=== PATIENT | female | born 1940 | race Caucasian/White ===

== ENCOUNTER 2017-08-02 23:33 | Inpatient (IN) | payer MEDICARE, BC ==
[~2017-08-02] VITALS: Ht 154.9 cm; Wt 63.6 kg
[~2017-08-02 23:33] MED LIST: ALPR-624 PO; AMLO5TAB PO; ASPI-1009 PO; BEN12.5L PO; CARI350T PO; CARV25TA2 PO; FURO40TA4 PO; GABA300C PO; ISOS30TA9 PO; LEVO75TA50 PO; LISI-645 PO; NITR0.4T48 SL; NORCO10T PO; PANT-47 PO; PHEN-888 PO; POTA10CA44 PO; PROM25TA14 PO; RANI-366 PO; SIMV40TA PO; TRAZ150T78 PO
[2017-08-02] MEDS ORDERED: ondansetron/PF 4mg/2ml inj IV ONE (23:50)
[2017-08-02] MEDS ORDERED: HYDROmorphone inj. 0.5 MG/0.5 ML DISP.SYRIN IV ONE (23:50)
[2017-08-03] MEDS ORDERED: ondansetron 4mg rapidly disintigrating tab PO ONE (00:10)
[2017-08-03] MEDS ORDERED: normal saline 1000ML IV soln IVB ONE (00:40)
[2017-08-03 00:56] LABS: BASOPHILS % (AUTO) 0.3 % (0-1); EOSINOPHILS % (AUTO) 0.4 % (0-6); HEMATOCRIT 38.8 % (35.0-45.0); HEMOGLOBIN 12.9 g/dl (12.0-16.0); LYMPHOCYTES # (AUTO) 0.9 X10'3 (1.1-4.8); LYMPHOCYTES % (AUTO) 8.4 % (21-51); MEAN CORPUSCULAR HEMOGLOBIN 29.6 PG (27.0-31.0); MEAN CORPUSCULAR HGB CONC 33.2 % (33.0-36.5); MEAN CORPUSCULAR VOLUME 89.2 FL (78-98); MEAN PLATELET VOLUME 8.2 FL (7.4-10.4); MONOCYTES # (AUTO) 0.7 X10'3 (0-0.9); MONOCYTES % (AUTO) 6.5 % (2-12); NEUTROPHILS # (AUTO) 9.1 X10'3 (1.8-7.7); NEUTROPHILS % (AUTO) 84.4 % (42-75); PLATELET COUNT 283 X10'3 (140-440); RED BLOOD COUNT 4.35 X10'6 (4.20-5.60); RED CELL DISTRIBUTION WIDTH 12.6 % (11.5-14.5); WHITE BLOOD COUNT 10.7 X10'3 (4.5-11.0)
[2017-08-03 01:02] LABS: ALANINE AMINOTRANSFERASE 15 U/L (12-78); ALBUMIN 3.6 G/DL (3.4-5.0); ALBUMIN/GLOBULIN RATIO 0.9 (1.1-1.5); ALKALINE PHOSPHATASE 108 IU/L (46-116); ANION GAP 6 (8-16); ASPARTATE AMINO TRANSFERASE 14 U/L (10-37); BILIRUBIN,TOTAL 0.4 MG/DL (0.1-1.0); BLOOD UREA NITROGEN 9 MG/DL (7-18); BUN/CREATININE RATIO 10.6 (6.6-38.0); CALCIUM 8.9 MG/DL (8.5-10.1); CHLORIDE 96 MMOL/L (99-107); CREATININE 0.85 MG/DL (0.40-0.90); GLUCOSE 144 MG/DL (70-104); LIPASE 96 U/L (73-393); POTASSIUM 3.2 MMOL/L (3.5-5.1); SODIUM 133 MMOL/L (135-145); TOTAL CARBON DIOXIDE 31.2 MMOL/L (24-32); TOTAL PROTEIN 7.6 G/DL (6.4-8.2); eGFR 65 ML/MIN
[2017-08-03 01:44] LABS: PROTHROMBIN TIME 10.6 SECONDS (9.0-12.0)
[2017-08-03] MEDS ORDERED: potassium Cl 20 mEq SR tablet PO STA (02:12)
[2017-08-03] MEDS ORDERED: normal saline 1000ml 1,000 ML IV SCH (02:13)
[2017-08-03] MEDS ORDERED: HYDROmorphone 1 mg/ml syringe IV PRN (02:15)
[2017-08-03] MEDS ORDERED: magnesium hydroxide 30ml (MOM) UD suspension PO PRN (02:15)
[2017-08-03] MEDS ORDERED: acetaminophen 325mg tablet PO PRN ×2 (02:15)
[2017-08-03] MEDS ORDERED: mag hydrox/Alum hydrox/simeth 30ml oral suspension PO PRN (02:15)
[2017-08-03] MEDS ORDERED: potassium Cl 40MEQ/NS 500ml 500 ML IV PRN ×2 (02:15)
[2017-08-03] MEDS ORDERED: potassium Cl 20 mEq SR tablet PO PRN ×2 (02:15)
[2017-08-03] MEDS ORDERED: ALPRAZolam 0.5mg tablet PO PRN (02:20)
[2017-08-03] MEDS: HYDROmorphone 1 mg/ml syringe IV PRN ×3 (02:22→13:21)
[2017-08-03] MEDS ORDERED: potassium 10mEq/100ml NS w/LIDOcaine (10mg/bag) IV STA (02:32)
[2017-08-03] MEDS: ondansetron/PF 4mg/2ml inj IV PRN ×3 (04:05→13:43)
[2017-08-03] MEDS ORDERED: HYDROmorphone inj. 0.5 MG/0.5 ML DISP.SYRIN ONE (05:38)
[2017-08-03 06:08] VITALS: BP 174/74
[2017-08-03] MEDS ORDERED: levoTHYROXINE 75mcg tablet PO SCH (07:00)
[2017-08-03 07:21] VITALS: BP 137/60
[2017-08-03] MEDS: gabapentin 300mg capsule PO SCH ×2 (07:34→13:20)
[2017-08-03] MEDS ORDERED: pantoprazole 40mg Tablet.DR PO SCH (08:00)
[2017-08-03] MEDS ORDERED: isosorbide dinitrate 30mg tablet PO SCH (08:00)
[2017-08-03] MEDS ORDERED: amLODIPine 5mg tablet PO SCH (08:00)
[2017-08-03] MEDS ORDERED: lisinopril 20mg tablet PO SCH (08:00)
[2017-08-03] MEDS ORDERED: carVEDilol 12.5mg tablet PO SCH (08:00)
[2017-08-03] MEDS ORDERED: potassium chloride 10mEq CAPSULE.SA PO SCH (08:00)
[2017-08-03] MEDS ORDERED: furosemide 40mg tablet PO SCH (08:00)
[2017-08-03] MEDS ORDERED: atorvastatin 20mg tablet PO SCH (08:00)
[2017-08-03] MEDS: diatr meglu/diatrizoate 30ml oral sol.-(3 dose) bottle PO SCH ×2 (09:00→11:09)
[2017-08-03 11:00] VITALS: BP 132/60
[2017-08-03] MEDS ORDERED: traZODone 50mg tablet PO SCH (21:00)
== END 2017-08-03 15:30 | disposition home or self-care (01) | DRG 389 ==
LOC: ER 23:35 → ED HOLD 08-03 02:13 → SUR 3N 08-03 03:30
PROVIDERS: ADMIT Internal Medicine; ATTEND Surgery
PROC: 0D9670Z Drainage of Stomach with Drainage Device, Via Natural or Artificial Opening (ICD-10-PCS; principal; 2017-08-03)
DX: K56.600 Partial intestinal obstruction, unspecified as to cause (principal); I42.9 Cardiomyopathy, unspecified; I50.22 Chronic systolic (congestive) heart failure; I11.0 Hypertensive heart disease with heart failure; E87.6 Hypokalemia; E03.9 Hypothyroidism, unspecified; E78.5 Hyperlipidemia, unspecified; I25.10 Atherosclerotic heart disease of native coronary artery without angina pectoris; F41.9 Anxiety disorder, unspecified; G89.29 Other chronic pain; K21.9 Gastro-esophageal reflux disease without esophagitis; K52.9 Noninfective gastroenteritis and colitis, unspecified; I25.2 Old myocardial infarction; Z90.710 Acquired absence of both cervix and uterus; Z90.721 Acquired absence of ovaries, unilateral; Z95.5 Presence of coronary angioplasty implant and graft; Z95.0 Presence of cardiac pacemaker; Z79.899 Other long term (current) drug therapy; Z79.01 Long term (current) use of anticoagulants; Z88.0 Allergy status to penicillin; Z88.1 Allergy status to other antibiotic agents; Z88.2 Allergy status to sulfonamides; Z88.8 Allergy status to other drugs, medicaments and biological substances; Z88.6 Allergy status to analgesic agent
CPT/HCPCS: 36415; 74176; 80053; 83605; 83690; 85025; 85610; 87070; 96361; 96374; 96375; 99285; J1170; J2405; J3480; J7030; Q9963

== ENCOUNTER 2018-01-24 09:29 | Inpatient (IN) | payer MEDICARE, BC ==
[~2018-01-24] VITALS: Ht 152.4 cm; Wt 56.8 kg
[~2018-01-24 09:29] MED LIST changes: -PHEN-888 PO
[2018-01-24] MEDS ORDERED: normal saline 1000ML IV soln IVB ONE (09:50)
[2018-01-24] MEDS ORDERED: ondansetron/PF 4mg/2ml inj IV ONE (09:50)
[2018-01-24 10:12] LABS: BASOPHILS % (AUTO) 0.2 % (0-1); EOSINOPHILS # (AUTO) 0.1 X10'3 (0-0.9); EOSINOPHILS % (AUTO) 0.4 % (0-6); HEMATOCRIT 38.9 % (35.0-45.0); LYMPHOCYTES # (AUTO) 0.9 X10'3 (1.1-4.8); LYMPHOCYTES % (AUTO) 6.1 % (21-51); MEAN CORPUSCULAR HEMOGLOBIN 29.6 PG (27.0-31.0); MEAN CORPUSCULAR HGB CONC 33.5 % (33.0-36.5); MEAN CORPUSCULAR VOLUME 88.3 FL (78-98); MEAN PLATELET VOLUME 7.6 FL (7.4-10.4); MONOCYTES # (AUTO) 0.5 X10'3 (0-0.9); MONOCYTES % (AUTO) 3.4 % (2-12); NEUTROPHILS # (AUTO) 14.1 X10'3 (1.8-7.7); NEUTROPHILS % (AUTO) 89.9 % (42-75); PLATELET COUNT 270 X10'3 (140-440); RED BLOOD COUNT 4.41 X10'6 (4.20-5.60); RED CELL DISTRIBUTION WIDTH 15.2 % (11.5-14.5); WHITE BLOOD COUNT 15.6 X10'3 (4.5-11.0)
[2018-01-24 10:24] LABS: ALANINE AMINOTRANSFERASE 14 U/L (12-78); ALBUMIN 3.8 G/DL (3.4-5.0); ALKALINE PHOSPHATASE 108 IU/L (46-116); ANION GAP 7 (8-16); ASPARTATE AMINO TRANSFERASE 18 U/L (10-37); BILIRUBIN,TOTAL 0.7 MG/DL (0.1-1.0); BLOOD UREA NITROGEN 13 MG/DL (7-18); BUN/CREATININE RATIO 17.6 (6.6-38.0); CALCIUM 8.4 MG/DL (8.5-10.1); CHLORIDE 97 MMOL/L (99-107); CREATININE 0.74 MG/DL (0.40-0.90); GLUCOSE 176 MG/DL (70-104); POTASSIUM 3.2 MMOL/L (3.5-5.1); SODIUM 133 MMOL/L (135-145); TOTAL CARBON DIOXIDE 28.6 MMOL/L (24-32); TOTAL PROTEIN 7.7 G/DL (6.4-8.2); eGFR 76 ML/MIN
[2018-01-24] MEDS: morphine 4 MG/ML inj SYRINge IV ONE ×2 (10:31→10:32)
[2018-01-24 10:39] LABS: CLARITY,URINE CLEAR (Clear); COLOR,URINE YELLOW (Yellow); GLUCOSE, URINE NEGATIVE (Neg); KETONES,URINE NEGATIVE (Neg); LEUKOCYTE ESTERASE ,URINE NEGATIVE (Neg); NITRITES, URINE POSITIVE (Neg); OCCULT BLOOD,URINE NEGATIVE (Neg); PH,URINE 7.5 (4.8-8.0); PROTEIN,URINE NEGATIVE (Neg); UROBILINOGEN,URINE 0.2 E.U/dL (0.2-1.0)
[2018-01-24 10:43] LABS: UA COLLECTION TYPE STRAIGHT CATH
[2018-01-24 10:45] LABS: BACTERIA,URINE 4+ /HPF (Neg); MUCUS STRANDS FEW /LPF (Neg); RBC,URINE NONE SEEN /HPF (0-2); SQUAMOUS EPITHELIAL CELL,UR FEW /LPF (FEW); WBC,URINE 0-4 /HPF (0-4)
[2018-01-24] MEDS ORDERED: levoFLOXACIN-Levaquin 500mg/D5 100 ML IV ONE (12:00)
[2018-01-24] MEDS ORDERED: isosorbide dinitrate 30mg tablet PO SCH (14:10)
[2018-01-24] MEDS ORDERED: ondansetron/PF 4mg/2ml inj IV PRN (14:15)
[2018-01-24] MEDS ORDERED: potassium Cl 20 mEq SR tablet PO PRN ×2 (14:15)
[2018-01-24] MEDS ORDERED: magnesium 4gm in 100ml NS 100 ML IV PRN (14:15)
[2018-01-24] MEDS ORDERED: albuterol 2.5 MG/3 ML nebule NEB PRN (14:15)
[2018-01-24] MEDS ORDERED: magnesium/D5W IVPB 50 ML IV PRN (14:15)
[2018-01-24] MEDS ORDERED: magnesium hydroxide 30ml (MOM) UD suspension PO PRN (14:15)
[2018-01-24] MEDS ORDERED: morphine 4 MG/ML inj SYRINge IV PRN (14:15)
[2018-01-24] MEDS ORDERED: acetaminophen 325mg tablet PO PRN (14:15)
[2018-01-24] MEDS ORDERED: mag hydrox/Alum hydrox/simeth 30ml oral suspension PO PRN (14:15)
[2018-01-24] MEDS ORDERED: potassium Cl 40MEQ/NS 500ml 500 ML IV PRN ×2 (14:15)
[2018-01-24] MEDS ORDERED: isosorbide mononitrate 30mg tab.SR.24H PO SCH (14:18)
[2018-01-24] MEDS ORDERED: potassium Cl 20 mEq SR tablet PO STA (14:22)
[2018-01-24] MEDS: HYDROcodone/acetaminophen 10/325mg tab PO PRN ×2 (15:24→21:28)
[2018-01-24] MEDS: levoTHYROXINE 75mcg tablet PO SCH (15:24)
[2018-01-24] MEDS: pantoprazole 40mg Tablet.DR PO SCH (15:24)
[2018-01-24 15:45] VITALS: BP 143/61
[2018-01-24 18:00] VITALS: BP 111/48
[2018-01-24] MEDS: carVEDilol 12.5mg tablet PO SCH (20:43)
[2018-01-24] MEDS: gabapentin 300mg capsule PO SCH (20:43)
[2018-01-24] MEDS ORDERED: traZODone 50mg tablet PO SCH (21:00)
[2018-01-24 22:00] VITALS: BP 143/58
[2018-01-25] MEDS: HYDROcodone/acetaminophen 10/325mg tab PO PRN (03:36)
[2018-01-25 05:00] VITALS: BP 121/59
[2018-01-25] MEDS: furosemide 10 MG/1 ML 10ml inj IV SCH ×2 (05:26→08:00)
[2018-01-25 06:27] LABS: BASOPHILS % (AUTO) 0.1 % (0-1); EOSINOPHILS # (AUTO) 0.2 X10'3 (0-0.9); EOSINOPHILS % (AUTO) 1.6 % (0-6); HEMATOCRIT 32.6 % (35.0-45.0); HEMOGLOBIN 10.8 g/dl (12.0-16.0); LYMPHOCYTES % (AUTO) 8.9 % (21-51); MEAN CORPUSCULAR HEMOGLOBIN 29.6 PG (27.0-31.0); MEAN CORPUSCULAR HGB CONC 33.1 % (33.0-36.5); MEAN CORPUSCULAR VOLUME 89.2 FL (78-98); MEAN PLATELET VOLUME 7.8 FL (7.4-10.4); MONOCYTES # (AUTO) 0.7 X10'3 (0-0.9); MONOCYTES % (AUTO) 6.1 % (2-12); NEUTROPHILS # (AUTO) 9.2 X10'3 (1.8-7.7); NEUTROPHILS % (AUTO) 83.3 % (42-75); PLATELET COUNT 227 X10'3 (140-440); RED BLOOD COUNT 3.66 X10'6 (4.20-5.60); RED CELL DISTRIBUTION WIDTH 15.3 % (11.5-14.5)
[2018-01-25 06:53] LABS: CHOLESTEROL 138 MG/DL (0-200); HDL CHOLESTEROL 69 MG/DL (35-60); LDL CHOLESTEROL 65 MG/DL (50-100); MAGNESIUM 1.7 MG/DL (1.5-2.4); TRIGLYCERIDES 38 MG/DL (20-135)
[2018-01-25] MEDS: levoTHYROXINE 75mcg tablet PO SCH (07:50)
[2018-01-25] MEDS: pantoprazole 40mg Tablet.DR PO SCH (07:50)
[2018-01-25 07:51] VITALS: BP 141/62
[2018-01-25] MEDS: carVEDilol 12.5mg tablet PO SCH (07:51)
[2018-01-25] MEDS: gabapentin 300mg capsule PO SCH (07:51)
[2018-01-25] MEDS ORDERED: atorvastatin 20mg tablet PO SCH (08:00)
[2018-01-25] MEDS ORDERED: enoxaparin 40mg/0.4ml syringe SQ SCH (08:00)
[2018-01-25] MEDS ORDERED: amLODIPine 5mg tablet PO SCH (08:00)
[2018-01-25] MEDS ORDERED: K and/or MAG REPLACEMENT MC SCH (08:00)
[2018-01-25] MEDS ORDERED: lisinopril 10 MG tablet PO SCH (08:00)
[2018-01-25] MEDS ORDERED: APIX5TAB3 PO (08:44)
[2018-01-25 10:00] VITALS: BP 140/60
[2018-01-25] MEDS ORDERED: levoFLOXACIN 750MG TABLET PO SCH (11:00)
[2018-01-25] MEDS ORDERED: LEVO750T46 PO (11:34)
== END 2018-01-25 12:05 | disposition home or self-care (01) | DRG 193 ==
LOC: ER 09:30 → ED HOLD 14:11 → ORTHO 4S 15:18
PROVIDERS: ADMIT Family Medicine; ATTEND Internal Medicine
DX: J18.1 Lobar pneumonia, unspecified organism (principal); J96.01 Acute respiratory failure with hypoxia; I42.9 Cardiomyopathy, unspecified; I50.22 Chronic systolic (congestive) heart failure; K21.9 Gastro-esophageal reflux disease without esophagitis; E78.5 Hyperlipidemia, unspecified; E89.0 Postprocedural hypothyroidism; G89.29 Other chronic pain; F41.9 Anxiety disorder, unspecified; I11.0 Hypertensive heart disease with heart failure; M54.5 Low back pain; R73.9 Hyperglycemia, unspecified; E87.6 Hypokalemia; I25.10 Atherosclerotic heart disease of native coronary artery without angina pectoris; I25.2 Old myocardial infarction; Z90.710 Acquired absence of both cervix and uterus; Z95.5 Presence of coronary angioplasty implant and graft; Z88.1 Allergy status to other antibiotic agents; Z88.5 Allergy status to narcotic agent; Z88.0 Allergy status to penicillin; Z88.2 Allergy status to sulfonamides; Z88.8 Allergy status to other drugs, medicaments and biological substances; Z79.01 Long term (current) use of anticoagulants; Z79.899 Other long term (current) drug therapy; Z80.6 Family history of leukemia
CPT/HCPCS: 36415; 71045; 74176; 80053; 80061; 81001; 83036; 83735; 84443; 85025; 87070; 87077; 87088; 87186; 93005; 93306; 94640; 94760; 96365; 96375; 99285; J1650; J1940; J1956; J2270; J2405; J7030

== ENCOUNTER 2018-03-14 16:02 | Emergency (ER) | payer MEDICARE ==
[~2018-03-14] VITALS: Ht 154.9 cm; Wt 58.6 kg
[~2018-03-14 16:02] MED LIST changes: +APIX5TAB3 PO; -ASPI-1009 PO; +LEVO750T46 PO; -RANI-366 PO
[2018-03-14 16:44] LABS: BASOPHILS % (AUTO) 0.6 % (0-1); EOSINOPHILS # (AUTO) 0.2 X10'3 (0-0.9); EOSINOPHILS % (AUTO) 3.7 % (0-6); HEMATOCRIT 32.8 % (35.0-45.0); LYMPHOCYTES # (AUTO) 1.5 X10'3 (1.1-4.8); LYMPHOCYTES % (AUTO) 30.7 % (21-51); MEAN CORPUSCULAR HGB CONC 33.6 % (33.0-36.5); MEAN CORPUSCULAR VOLUME 89.4 FL (78-98); MEAN PLATELET VOLUME 7.4 FL (7.4-10.4); MONOCYTES # (AUTO) 0.4 X10'3 (0-0.9); MONOCYTES % (AUTO) 8.6 % (2-12); NEUTROPHILS # (AUTO) 2.7 X10'3 (1.8-7.7); NEUTROPHILS % (AUTO) 56.4 % (42-75); PLATELET COUNT 255 X10'3 (140-440); RED BLOOD COUNT 3.68 X10'6 (4.20-5.60); RED CELL DISTRIBUTION WIDTH 15.2 % (11.5-14.5); WHITE BLOOD COUNT 4.8 X10'3 (4.5-11.0)
[2018-03-14 16:59] LABS: ALANINE AMINOTRANSFERASE 15 U/L (12-78); ALBUMIN 3.2 G/DL (3.4-5.0); ALBUMIN/GLOBULIN RATIO 0.9 (1.1-1.5); ALKALINE PHOSPHATASE 82 IU/L (46-116); ANION GAP 4 (8-16); ASPARTATE AMINO TRANSFERASE 9 U/L (10-37); BILIRUBIN,TOTAL 0.2 MG/DL (0.1-1.0); BLOOD UREA NITROGEN 13 MG/DL (7-18); BUN/CREATININE RATIO 14.9 (6.6-38.0); CALCIUM 7.9 MG/DL (8.5-10.1); CHLORIDE 98 MMOL/L (99-107); CREATININE 0.87 MG/DL (0.40-0.90); GLUCOSE 112 MG/DL (70-104); SODIUM 133 MMOL/L (135-145); TOTAL CARBON DIOXIDE 30.6 MMOL/L (24-32); TOTAL PROTEIN 6.6 G/DL (6.4-8.2); eGFR 63 ML/MIN
[2018-03-14 17:07] LABS: MAGNESIUM 1.9 MG/DL (1.5-2.4)
[2018-03-14] MEDS ORDERED: LORA1TAB PO (17:29)
[2018-03-14 17:42] VITALS: BP 139/71
== END 2018-03-14 17:44 | disposition home or self-care (01) ==
LOC: ER 16:02
DX: R07.89 Other chest pain (principal); R07.81 Pleurodynia; I25.10 Atherosclerotic heart disease of native coronary artery without angina pectoris; I25.2 Old myocardial infarction; K21.9 Gastro-esophageal reflux disease without esophagitis; G89.29 Other chronic pain; I11.0 Hypertensive heart disease with heart failure; I50.9 Heart failure, unspecified; E89.0 Postprocedural hypothyroidism; F41.9 Anxiety disorder, unspecified; Z88.5 Allergy status to narcotic agent; Z90.89 Acquired absence of other organs; Z88.1 Allergy status to other antibiotic agents; Z88.0 Allergy status to penicillin; Z88.8 Allergy status to other drugs, medicaments and biological substances; Z88.6 Allergy status to analgesic agent; Z79.899 Other long term (current) drug therapy; Z95.0 Presence of cardiac pacemaker; Z90.710 Acquired absence of both cervix and uterus
CPT/HCPCS: 36415; 71045; 80053; 83735; 83880; 84484; 85025; 93005; 99285

== ENCOUNTER 2018-07-28 12:37 | Emergency (ER) | payer MEDICARE ==
[~2018-07-28] VITALS: Ht 154.9 cm; Wt 61.8 kg
[2018-07-28] MEDS ORDERED: aspirin 81mg tab.chew PO ONE (12:45)
[2018-07-28 13:08] LABS: BASOPHILS % (AUTO) 0.5 % (0-1); EOSINOPHILS % (AUTO) 0.6 % (0-6); HEMATOCRIT 41.6 % (35.0-45.0); HEMOGLOBIN 13.1 g/dl (12.0-16.0); LYMPHOCYTES % (AUTO) 26.8 % (21-51); MEAN CORPUSCULAR HGB CONC 31.6 % (33.0-36.5); MEAN PLATELET VOLUME 7.5 FL (7.4-10.4); MONOCYTES # (AUTO) 0.8 X10'3 (0-0.9); MONOCYTES % (AUTO) 10.4 % (2-12); NEUTROPHILS # (AUTO) 4.6 X10'3 (1.8-7.7); NEUTROPHILS % (AUTO) 61.7 % (42-75); PLATELET COUNT 361 X10'3 (140-440); RED BLOOD COUNT 4.52 X10'6 (4.20-5.60); RED CELL DISTRIBUTION WIDTH 13.2 % (11.5-14.5); WHITE BLOOD COUNT 7.4 X10'3 (4.5-11.0)
[2018-07-28 13:24] LABS: ALANINE AMINOTRANSFERASE 21 U/L (12-78); ALBUMIN 3.8 G/DL (3.4-5.0); ALBUMIN/GLOBULIN RATIO 0.9 (1.1-1.5); ALKALINE PHOSPHATASE 89 IU/L (46-116); ANION GAP 9 (8-16); ASPARTATE AMINO TRANSFERASE 15 U/L (10-37); BILIRUBIN,TOTAL 0.4 MG/DL (0.1-1.0); BLOOD UREA NITROGEN 13 MG/DL (7-18); BUN/CREATININE RATIO 15.1 (6.6-38.0); CHLORIDE 98 MMOL/L (99-107); CREATININE 0.86 MG/DL (0.40-0.90); GLUCOSE 106 MG/DL (70-104); INR 1.1 INR; PARTIAL THROMBOPLASTIN TIME 27 SECONDS (22-32); POTASSIUM 4.1 MMOL/L (3.5-5.1); PROTHROMBIN TIME 10.9 SECONDS (9.0-12.0); SODIUM 138 MMOL/L (135-145); TOTAL CARBON DIOXIDE 30.9 MMOL/L (24-32); TOTAL PROTEIN 7.9 G/DL (6.4-8.2); eGFR 64 ML/MIN
[2018-07-28] MEDS ORDERED: orphenadrine citrate 60mg/2ml inj. IM ONE (14:00)
[2018-07-28] MEDS ORDERED: ketorolac tromethamine 15mg/ml inj. IM ONE (14:00)
[2018-07-28 14:38] VITALS: BP 140/77
== END 2018-07-28 14:47 | disposition home or self-care (01) ==
LOC: ER 12:37
DX: R07.89 Other chest pain (principal); I25.10 Atherosclerotic heart disease of native coronary artery without angina pectoris; I25.2 Old myocardial infarction; K21.9 Gastro-esophageal reflux disease without esophagitis; G89.29 Other chronic pain; I11.0 Hypertensive heart disease with heart failure; I50.9 Heart failure, unspecified; Z88.0 Allergy status to penicillin; Z88.1 Allergy status to other antibiotic agents; Z88.2 Allergy status to sulfonamides; Z88.6 Allergy status to analgesic agent; Z88.8 Allergy status to other drugs, medicaments and biological substances; Z79.899 Other long term (current) drug therapy; Z90.710 Acquired absence of both cervix and uterus; Z95.0 Presence of cardiac pacemaker; Z90.89 Acquired absence of other organs
CPT/HCPCS: 36415; 71045; 80053; 84484; 85025; 85610; 85730; 93005; 96372; 99284; J1885; J2360

== ENCOUNTER 2018-10-25 14:20 | Day surgery (SDC) | payer MEDICARE ==
[2018-10-22 17:22] LABS: BASOPHILS % (AUTO) 0.2 % (0-1); EOSINOPHILS % (AUTO) 0.2 % (0-6); HEMATOCRIT 35.4 % (35.0-45.0); HEMOGLOBIN 11.5 g/dl (12.0-16.0); LYMPHOCYTES # (AUTO) 1.3 X10'3 (1.1-4.8); LYMPHOCYTES % (AUTO) 12.4 % (21-51); MEAN CORPUSCULAR HEMOGLOBIN 28.2 PG (27.0-31.0); MEAN CORPUSCULAR HGB CONC 32.4 g/dL (33.0-36.5); MEAN CORPUSCULAR VOLUME 87.1 FL (78-98); MEAN PLATELET VOLUME 7.9 FL (7.4-10.4); MONOCYTES # (AUTO) 0.5 X10'3 (0-0.9); MONOCYTES % (AUTO) 4.8 % (2-12); NEUTROPHILS # (AUTO) 8.5 X10'3 (1.8-7.7); NEUTROPHILS % (AUTO) 82.4 % (42-75); PLATELET COUNT 278 X10'3 (140-440); RED BLOOD COUNT 4.07 X10'6 (4.20-5.60); RED CELL DISTRIBUTION WIDTH 14.2 % (11.5-14.5); WHITE BLOOD COUNT 10.4 X10'3 (4.5-11.0)
[2018-10-22 17:27] LABS: ANION GAP 4 (8-16); BLOOD UREA NITROGEN 9 MG/DL (7-18); BUN/CREATININE RATIO 12.3 (6.6-38.0); CALCIUM 9.3 MG/DL (8.5-10.1); CHLORIDE 103 MMOL/L (99-107); CREATININE 0.73 MG/DL (0.40-0.90); GLUCOSE 110 MG/DL (70-104); POTASSIUM 4.1 MMOL/L (3.5-5.1); SODIUM 139 MMOL/L (135-145); TOTAL CARBON DIOXIDE 31.8 MMOL/L (24-32); eGFR 78 ML/MIN
[2018-10-22 17:34] LABS: INR 1.1 INR; PARTIAL THROMBOPLASTIN TIME 30 SECONDS (22-32); PROTHROMBIN TIME 11.2 SECONDS (9.0-12.0)
[2018-10-25] VITALS (7 sets, daily range): BP systolic 130–139; BP diastolic 55–93
[~2018-10-25] VITALS: Ht 152.4 cm; Wt 57.3 kg
[2018-10-25] MEDS ORDERED: LORazepam 0.5 MG tablet PO PRN (14:40)
[2018-10-25] MEDS ORDERED: diphenhydrAMINE 25mg capsule PO PRN (14:40)
[2018-10-25] MEDS ORDERED: normal saline 1,000 ML IV SCH (14:40)
[2018-10-25] MEDS ORDERED: APIX5TAB3 PO (14:57)
[2018-10-25] MEDS ORDERED: PHEN-888 PO (15:06)
[2018-10-25] MEDS ORDERED: DIPH-681 PO (15:06)
[2018-10-25] MEDS ORDERED: RANI150T8 PO (15:06)
[2018-10-25] MEDS ORDERED: GABA-532 PO (15:06)
[2018-10-25] MEDS ORDERED: OXYC30TA88 PO (15:06)
[2018-10-25] MEDS ORDERED: LIDOcaine 1% (10mg/ml)w/preservative injection 20ml MDV ONE (16:36)
[2018-10-25] MEDS ORDERED: iohexol 350MG/ML 100ml bottle IV ONE (16:36)
[2018-10-25] MEDS ORDERED: midazolam 2 mg/2 ml injection ONE (16:52)
[2018-10-25] MEDS ORDERED: fentaNYL/PF 50MCG/1 ML 2ML syringe ONE (16:53)
[2018-10-25] MEDS ORDERED: HYDROmorphone 1 mg/ml syringe ONE (17:07)
[2018-10-25] MEDS ORDERED: HYDROcodone/acetaminophen 5mg/325mg tablet PO PRN (17:40)
[2018-10-25] MEDS ORDERED: proCHLORperazine 10 MG/2 ml inj IV PRN (17:40)
[2018-10-25] MEDS ORDERED: ondansetron/PF 4mg/2ml inj IV PRN (17:40)
[2018-10-25] MEDS ORDERED: OXAZEpam 15mg capsule PO PRN (17:40)
[2018-10-25] MEDS ORDERED: HYDROcodone/acetaminophen 10/325mg tab PO PRN (17:40)
== END 2018-10-25 20:00 | disposition home or self-care (01) ==
LOC: SSTAY O 14:20
PROVIDERS: ATTEND Internal Medicine Interventional Cardiology
DX: I25.10 Atherosclerotic heart disease of native coronary artery without angina pectoris (principal); E78.5 Hyperlipidemia, unspecified; I50.9 Heart failure, unspecified; I73.9 Peripheral vascular disease, unspecified; E03.9 Hypothyroidism, unspecified; I42.9 Cardiomyopathy, unspecified; Z88.8 Allergy status to other drugs, medicaments and biological substances; I11.0 Hypertensive heart disease with heart failure; Z88.0 Allergy status to penicillin; Z88.2 Allergy status to sulfonamides; Z88.1 Allergy status to other antibiotic agents
CPT/HCPCS: 36415; 80048; 85025; 85610; 85730; 93005; 93458; 99152; 99153; A6257; J1170; J1644; J2001; J2250; J3010; J7030; Q0163; Q9967; A4620; C1769

== ENCOUNTER 2019-04-13 10:22 | Inpatient (IN) | payer MEDICARE, BC ==
[~2019-04-13] VITALS: Ht 149.9 cm; Wt 56.0 kg
[~2019-04-13 10:22] MED LIST changes: -BEN12.5L PO; -CARI350T PO; +DIPH-681 PO; +GABA-532 PO; -GABA300C PO; -LEVO750T46 PO; -NORCO10T PO; +OXYC30TA88 PO; +PHEN-888 PO; +RANI150T8 PO
[2019-04-13] MEDS ORDERED: methylPREDNISolone sod succ 125mg/2ml vial IV ONE (10:35)
[2019-04-13] MEDS ORDERED: CefTRIAXone/D5W-Rocephin 1gm 50 ML IV ONE (10:35)
[2019-04-13] MEDS ORDERED: azithromycin/NS 500mg/250ml 250 ML IV ONE (10:35)
--- NOTE | 2019-04-13 10:43 | NUR ---
Discussed pt condition with MD Olman who placed patient orders.
[2019-04-13 11:19] LABS: BASOPHILS % (AUTO) 0.2 % (0-1); EOSINOPHILS # (AUTO) 0.1 X10'3 (0-0.9); EOSINOPHILS % (AUTO) 0.5 % (0-6); HEMATOCRIT 35.5 % (35.0-45.0); HEMOGLOBIN 11.6 g/dl (12.0-16.0); LYMPHOCYTES # (AUTO) 0.9 X10'3 (1.1-4.8); LYMPHOCYTES % (AUTO) 6.6 % (21-51); MEAN CORPUSCULAR HEMOGLOBIN 29.5 PG (27.0-31.0); MEAN CORPUSCULAR HGB CONC 32.7 g/dL (33.0-36.5); MEAN CORPUSCULAR VOLUME 90.1 FL (78-98); MEAN PLATELET VOLUME 8.2 FL (7.4-10.4); MONOCYTES # (AUTO) 0.9 X10'3 (0-0.9); MONOCYTES % (AUTO) 6.4 % (2-12); NEUTROPHILS # (AUTO) 12.2 X10'3 (1.8-7.7); NEUTROPHILS % (AUTO) 86.3 % (42-75); PLATELET COUNT 228 X10'3 (140-440); RED BLOOD COUNT 3.94 X10'6 (4.20-5.60); RED CELL DISTRIBUTION WIDTH 13.5 % (11.5-14.5); WHITE BLOOD COUNT 14.2 X10'3 (4.5-11.0)
[2019-04-13 11:26] LABS: CLARITY,URINE CLEAR (Clear); COLOR,URINE STRAW (Yellow); GLUCOSE, URINE NEGATIVE (Neg); KETONES,URINE NEGATIVE (Neg); LEUKOCYTE ESTERASE ,URINE NEGATIVE (Neg); NITRITES, URINE NEGATIVE (Neg); OCCULT BLOOD,URINE NEGATIVE (Neg); PH,URINE 5.5 (4.8-8.0); PROTEIN,URINE NEGATIVE (Neg); UROBILINOGEN,URINE 0.2 E.U/dL (0.2-1.0)
[2019-04-13 11:32] LABS: PARTIAL THROMBOPLASTIN TIME 27 SECONDS (22-32)
[2019-04-13 11:45] LABS: UA COLLECTION TYPE CLN CATCH MIDSTREAM
[2019-04-13 11:47] LABS: ALANINE AMINOTRANSFERASE 22 U/L (12-78); ALBUMIN 3.1 G/DL (3.4-5.0); ALBUMIN/GLOBULIN RATIO 0.7 (1.1-1.5); ALKALINE PHOSPHATASE 141 IU/L (46-116); ANION GAP 9 (8-16); ASPARTATE AMINO TRANSFERASE 23 U/L (10-37); BILIRUBIN,TOTAL 0.7 MG/DL (0.1-1.0); BLOOD UREA NITROGEN 5 MG/DL (7-18); BUN/CREATININE RATIO 7.7 (6.6-38.0); CALCIUM 8.2 MG/DL (8.5-10.1); CHLORIDE 102 MMOL/L (99-107); CREATININE 0.65 MG/DL (0.40-0.90); GLUCOSE 174 MG/DL (70-104); POTASSIUM 3.8 MMOL/L (3.5-5.1); SODIUM 139 MMOL/L (135-145); TOTAL CARBON DIOXIDE 27.8 MMOL/L (24-32); TOTAL PROTEIN 7.4 G/DL (6.4-8.2); eGFR 88 ML/MIN
[2019-04-13] MEDS ORDERED: furosemide 10 MG/1 ML 10ml inj IV ONE (12:05)
[2019-04-13] MEDS ORDERED: mag hydrox/Alum hydrox/simeth 30ml oral suspension PO PRN (12:25)
[2019-04-13] MEDS ORDERED: magnesium hydroxide 30ml (MOM) UD suspension PO PRN (12:25)
[2019-04-13] MEDS ORDERED: morphine 2 MG/ML inj. syringe IV PRN ×2 (12:25)
[2019-04-13] MEDS ORDERED: ondansetron/PF 4mg/2ml inj IV PRN (12:25)
[2019-04-13] MEDS ORDERED: acetaminophen 325mg tablet PO PRN (12:25)
[2019-04-13] MEDS ORDERED: MULT-955 PO (12:55)
[2019-04-13 13:06] LABS: HEMOGLOBIN A1C 5.6 % (4.5-6.2)
[2019-04-13] MEDS ORDERED: OXYC10TA47 PO (13:48)
[2019-04-13] MEDS ORDERED: CLON-370 PO (13:56)
[2019-04-13] MEDS ORDERED: HYDR-3972 PO (13:56)
[2019-04-13 14:30] VITALS: BP 132/51
--- NOTE | 2019-04-13 14:30 | NUR ---
Patient is admitted to room PCU 3012 from ED. I have received report from Torie PERRY and had the opportunity to ask questions and assume patient care. Pt is stable, brought up w/ 1 RN and via rcharlotte, transferred from [facility] to bed, tele monitor 60 placed, pt oriented to unit call light w/in reach, all needs met at this time. will continue to monitor.
[2019-04-13 15:00] VITALS: BP 124/48
[2019-04-13] MEDS ORDERED: TRAZ-219 PO (16:08)
--- NOTE | 2019-04-13 16:12 | NUR ---
PAGER ID: [phone] MESSAGE: [id number]: Krupa Mcintyre: Pt is c/o 01/26 chronic back pain requesting pain med stronger than PRN tylenol. Thanks Adriana [phone]
--- NOTE | 2019-04-13 16:19 | NUR ---
PAGER ID: [phone] MESSAGE: [phone] Krupa Mcintyre: Pt states she takes Oxycontin 10mg routinely and prn Panora for break through pain. Thanks Adriana [phone]
[2019-04-13] MEDS ORDERED: HYDROcodone/acetaminophen 5mg/325mg tablet PO PRN (16:25)
[2019-04-13] MEDS ORDERED: nitroGLYCERIN 0.4mg SUBLingual tab SL SCH (16:30)
[2019-04-13] MEDS ORDERED: phenazopyridine 100mg tablet PO PRN (16:30)
[2019-04-13] MEDS: famotidine 20mg tablet PO SCH (16:56)
[2019-04-13 18:00] VITALS: BP 119/42
--- NOTE | 2019-04-13 18:21 | NUR ---
Problems reprioritized. Patient report given, questions answered & plan of care reviewed with Belkis PERRY.
--- NOTE | 2019-04-13 18:30 | NUR ---
Patient in room PCU 3012. I have received report from Katelyn PERRY and had the opportunity to ask questions and assume patient care.
--- NOTE | 2019-04-13 18:34 | NUR ---
Patient in room PCU 3012. I have received report from ORLANDO Wright and had the opportunity to ask questions and assume patient care.
[2019-04-13] MEDS ORDERED: clonazePAM 1mg tablet PO SCH (20:00)
[2019-04-13] MEDS: oxyCODONE IR 5mg (immed. release) tablet PO SCH (20:20)
[2019-04-13] MEDS: carVEDilol 12.5mg tablet PO SCH (20:21)
[2019-04-13] MEDS: lisinopril 20mg tablet PO SCH (20:21)
[2019-04-13] MEDS: isosorbide dinitrate 5mg tablet PO SCH (20:21)
[2019-04-13] MEDS: furosemide 40mg/4ml inj IV SCH (20:22)
[2019-04-13] MEDS: gabapentin 300mg capsule PO SCH (20:22)
[2019-04-13] MEDS: apixaban 5mg tablet PO SCH (20:22)
[2019-04-13 23:00] VITALS: BP 108/41
[2019-04-14 03:00] VITALS: BP 117/50
[2019-04-14] MEDS: oxyCODONE IR 5mg (immed. release) tablet PO SCH ×2 (05:21→09:15)
[2019-04-14 05:58] LABS: BASOPHILS % (AUTO) 0.2 % (0-1); EOSINOPHILS % (AUTO) 0 % (0-6); HEMATOCRIT 30.5 % (35.0-45.0); HEMOGLOBIN 10.2 g/dl (12.0-16.0); LYMPHOCYTES # (AUTO) 0.9 X10'3 (1.1-4.8); LYMPHOCYTES % (AUTO) 7.9 % (21-51); MEAN CORPUSCULAR HEMOGLOBIN 29.9 PG (27.0-31.0); MEAN CORPUSCULAR HGB CONC 33.6 g/dL (33.0-36.5); MEAN PLATELET VOLUME 8.5 FL (7.4-10.4); MONOCYTES # (AUTO) 0.6 X10'3 (0-0.9); MONOCYTES % (AUTO) 5.2 % (2-12); NEUTROPHILS # (AUTO) 10.3 X10'3 (1.8-7.7); NEUTROPHILS % (AUTO) 86.7 % (42-75); PLATELET COUNT 196 X10'3 (140-440); RED BLOOD COUNT 3.43 X10'6 (4.20-5.60); RED CELL DISTRIBUTION WIDTH 13.4 % (11.5-14.5); WHITE BLOOD COUNT 11.9 X10'3 (4.5-11.0)
[2019-04-14 06:00] VITALS: BP 127/50
--- NOTE | 2019-04-14 06:30 | NUR ---
Problems reprioritized. Patient report given, questions answered & plan of care reviewed with ORLANDO Gentile .
[2019-04-14 06:44] LABS: ALBUMIN 2.5 G/DL (3.4-5.0); ANION GAP 7 (8-16); BLOOD UREA NITROGEN 8 MG/DL (7-18); BUN/CREATININE RATIO 12.5 (6.6-38.0); CHLORIDE 103 MMOL/L (99-107); CHOLESTEROL 112 MG/DL (0-200); CREATININE 0.64 MG/DL (0.40-0.90); GLUCOSE 143 MG/DL (70-104); HDL CHOLESTEROL 57 MG/DL (35-60); LDL CHOLESTEROL 48 MG/DL (50-100); POTASSIUM 3.1 MMOL/L (3.5-5.1); SODIUM 141 MMOL/L (135-145); TOTAL CARBON DIOXIDE 30.9 MMOL/L (24-32); TRIGLYCERIDES 53 MG/DL (20-135); eGFR 90 ML/MIN
--- NOTE | 2019-04-14 06:52 | NUR ---
Patient in room [place] [id number]. I have received report from and had the opportunity to ask questions and assume patient care. Addendum: 04/14/19 at 0653 by Adriana Ford RN Patient in room [place] [id number]. I have received report from Belkis PERRY and had the opportunity to ask questions and assume patient care. Pt is awake in bed, will continue to monitor.
[2019-04-14] MEDS: apixaban 5mg tablet PO SCH (07:24)
[2019-04-14] MEDS: famotidine 20mg tablet PO SCH (07:25)
[2019-04-14] MEDS: furosemide 40mg/4ml inj IV SCH (07:25)
[2019-04-14] MEDS: gabapentin 300mg capsule PO SCH (07:25)
[2019-04-14] MEDS: carVEDilol 12.5mg tablet PO SCH (07:25)
[2019-04-14 07:27] VITALS: BP_SYST 127
[2019-04-14] MEDS: lisinopril 20mg tablet PO SCH (07:27)
[2019-04-14] MEDS: isosorbide dinitrate 5mg tablet PO SCH (07:41)
[2019-04-14] MEDS ORDERED: potassium Cl 20 mEq SR tablet PO PRN ×4 (07:55)
[2019-04-14] MEDS ORDERED: potassium CL 10mEq/100ml bag 100 ML IV PRN ×2 (07:55)
--- NOTE | 2019-04-14 07:55 | NUR ---
Spoke with Dr. Schaffer about potassium level 3.1; received orders for potassium replacement.
[2019-04-14] MEDS ORDERED: FURO40TA4 PO (07:58)
[2019-04-14] MEDS ORDERED: multivitamins, therapeutics tablet PO SCH (08:00)
[2019-04-14] MEDS ORDERED: proMETHazine 25mg tablet PO SCH (08:00)
[2019-04-14] MEDS ORDERED: potassium chloride 10mEq ER tablet PO SCH (08:00)
[2019-04-14] MEDS ORDERED: pantoprazole 40mg Tablet.DR PO SCH (08:00)
[2019-04-14] MEDS ORDERED: levoTHYROXINE 75mcg tablet PO SCH (08:00)
[2019-04-14] MEDS ORDERED: K and/or MAG REPLACEMENT MC SCH (08:00)
[2019-04-14] MEDS ORDERED: atorvastatin 20mg tablet PO SCH (08:00)
[2019-04-14] MEDS: K, MAG and/or Phos replacement - Verify level? MC SCH ×2 (08:14→08:54)
[2019-04-14] MEDS ORDERED: phenazopyridine 100mg tablet PO PRN (09:45)
--- NOTE | 2019-04-14 10:04 | NUR ---
Patient stable for discharge per MD orders. All discharge instructions reviewed with patient and all questions were answered. New Rx called into [facility] on [facility]; patient aware. PIV discontinued, cannula intact, tolerated well, no bleeding noted, clean dry dressing in place. quality assurance monitor chassis #60 removed and returned. All personal belongings gathered and sent with patient. Patient wheeled to lobby with hospital staff at 1015 to be transported home in a private vehicle by .
== END 2019-04-14 10:20 | disposition home health service (06) | DRG 189 ==
LOC: ER 10:23 → PCU 3S 14:59
PROVIDERS: ADMIT Internal Medicine; ATTEND Internal Medicine
DX: J96.01 Acute respiratory failure with hypoxia (principal); I50.23 Acute on chronic systolic (congestive) heart failure; R65.11 Systemic inflammatory response syndrome (SIRS) of non-infectious origin with acute organ dysfunction; I11.0 Hypertensive heart disease with heart failure; E78.5 Hyperlipidemia, unspecified; E89.0 Postprocedural hypothyroidism; F41.9 Anxiety disorder, unspecified; G89.29 Other chronic pain; I49.5 Sick sinus syndrome; I25.10 Atherosclerotic heart disease of native coronary artery without angina pectoris; I48.0 Paroxysmal atrial fibrillation; G47.00 Insomnia, unspecified; K21.9 Gastro-esophageal reflux disease without esophagitis; Z79.01 Long term (current) use of anticoagulants; Z79.891 Long term (current) use of opiate analgesic; I25.2 Old myocardial infarction; Z79.899 Other long term (current) drug therapy; Z80.6 Family history of leukemia; Z90.710 Acquired absence of both cervix and uterus; Z95.0 Presence of cardiac pacemaker; Z88.1 Allergy status to other antibiotic agents; Z88.0 Allergy status to penicillin; Z88.2 Allergy status to sulfonamides; Z88.8 Allergy status to other drugs, medicaments and biological substances
CPT/HCPCS: 36415; 71045; 80048; 80053; 80061; 81003; 83036; 83605; 83880; 84145; 84484; 85025; 85610; 85730; 87040; 87081; 93005; 93306; 96365; 96368; 96375; 99285; G0378; J0456; J0696; J1940; J2930; Q0169

== ENCOUNTER 2020-02-23 11:33 | Emergency (ER) | payer BC ==
[~2020-02-23] VITALS: Ht 152.4 cm; Wt 62.4 kg
[~2020-02-23 11:33] MED LIST changes: -ALPR-624 PO; -AMLO5TAB PO; +AMLO5TAB4 PO; -DIPH-681 PO; +FURO-150 PO; -FURO40TA4 PO; +ISOS30TA6 PO; -ISOS30TA9 PO; +LISI-600 PO; -LISI-645 PO; -NITR0.4T48 SL; +OMEP40CA13 PO; +OXYC10TA47 PO; -OXYC30TA88 PO; -PANT-47 PO; -PHEN-888 PO; -POTA10CA44 PO; -PROM25TA14 PO; -RANI150T8 PO; -TRAZ150T78 PO
[2020-02-23] MEDS ORDERED: diltiazem 5mg/ml 5ml inj. IV ONE (11:50)
[2020-02-23] MEDS ORDERED: aspirin 81mg tab.chew PO ONE (11:50)
[2020-02-23 12:15] LABS: BASOPHILS % (AUTO) 0.5 % (0-1); EOSINOPHILS # (AUTO) 0.1 X10'3 (0-0.9); EOSINOPHILS % (AUTO) 1.4 % (0-6); HEMATOCRIT 37.1 % (35.0-45.0); HEMOGLOBIN 12.1 g/dl (12.0-16.0); LYMPHOCYTES # (AUTO) 0.9 X10'3 (1.1-4.8); LYMPHOCYTES % (AUTO) 11.1 % (21-51); MEAN CORPUSCULAR HEMOGLOBIN 28.4 PG (27.0-31.0); MEAN CORPUSCULAR HGB CONC 32.6 g/dL (33.0-36.5); MEAN CORPUSCULAR VOLUME 86.9 FL (78-98); MEAN PLATELET VOLUME 7.7 FL (7.4-10.4); MONOCYTES # (AUTO) 0.6 X10'3 (0-0.9); MONOCYTES % (AUTO) 7.3 % (2-12); NEUTROPHILS # (AUTO) 6.4 X10'3 (1.8-7.7); NEUTROPHILS % (AUTO) 79.7 % (42-75); PLATELET COUNT 283 X10'3 (140-440); RED BLOOD COUNT 4.26 X10'6 (4.20-5.60); RED CELL DISTRIBUTION WIDTH 14.4 % (11.5-14.5); WHITE BLOOD COUNT 8.1 X10'3 (4.5-11.0)
--- NOTE | 2020-02-23 12:18 | NUR ---
NOTIFIED ORLANDO MESA WHO IS TAKING CARE OF PT THAT ZOIE BRUNO STATED THAT HE DOESN'T WANT TO TEST FOR COVID BUT FOR CARDIAC .
--- NOTE | 2020-02-23 12:28 | NUR ---
Pt initially placed on airborne precautions based on chief complaint of SOB. ZOIE Almanza determined airborne precautions were no longer needed based on history and assessment. Airborne precautions discontinued.
[2020-02-23 12:32] LABS: ALANINE AMINOTRANSFERASE 18 U/L (12-78); ALBUMIN 3.3 G/DL (3.4-5.0); ALBUMIN/GLOBULIN RATIO 0.7 (1.1-1.5); ALKALINE PHOSPHATASE 131 IU/L (46-116); ANION GAP 6 (8-16); ASPARTATE AMINO TRANSFERASE 27 U/L (10-37); BILIRUBIN,TOTAL 0.5 MG/DL (0.1-1.0); BLOOD UREA NITROGEN 8 MG/DL (7-18); BUN/CREATININE RATIO 8.2 (6.6-38.0); CALCIUM 8.7 MG/DL (8.5-10.1); CHLORIDE 98 MMOL/L (99-107); CREATININE 0.97 MG/DL (0.40-0.90); GLUCOSE 131 MG/DL (70-104); SODIUM 136 MMOL/L (135-145); TOTAL CARBON DIOXIDE 32.2 MMOL/L (24-32); TOTAL PROTEIN 7.8 G/DL (6.4-8.2); eGFR 56 ML/MIN
[2020-02-23] MEDS ORDERED: iohexol 350MG/ML 100ml bottle IV ONE (12:38)
[2020-02-23] MEDS ORDERED: furosemide 10 MG/1 ML 10ml inj IV ONE (12:45)
[2020-02-23 14:27] VITALS: BP 128/68
== END 2020-02-23 15:00 | disposition home or self-care (01) ==
LOC: ER 11:33
DX: I48.91 Unspecified atrial fibrillation (principal); I50.9 Heart failure, unspecified; I25.10 Atherosclerotic heart disease of native coronary artery without angina pectoris; I11.0 Hypertensive heart disease with heart failure; I25.2 Old myocardial infarction; K21.9 Gastro-esophageal reflux disease without esophagitis; G89.29 Other chronic pain; F41.9 Anxiety disorder, unspecified; Z98.890 Other specified postprocedural states; Z90.710 Acquired absence of both cervix and uterus; Z95.0 Presence of cardiac pacemaker; Z79.2 Long term (current) use of antibiotics; Z88.0 Allergy status to penicillin; Z88.2 Allergy status to sulfonamides; Z79.01 Long term (current) use of anticoagulants; Z79.899 Other long term (current) drug therapy
CPT/HCPCS: 36415; 71045; 71275; 80053; 83880; 84484; 85025; 93005; 96374; 96375; 99285; J1940; Q9967; J3490

== ENCOUNTER 2020-03-20 09:39 | Emergency (ER) | payer BC ==
[~2020-03-20] VITALS: Ht 152.4 cm; Wt 58.2 kg
[2020-03-20 10:52] LABS: BASOPHILS # (AUTO) 0.1 X10'3 (0-0.2); BASOPHILS % (AUTO) 0.9 % (0-1); EOSINOPHILS # (AUTO) 0.2 X10'3 (0-0.9); EOSINOPHILS % (AUTO) 2.1 % (0-6); HEMATOCRIT 33.6 % (35.0-45.0); HEMOGLOBIN 11.1 g/dl (12.0-16.0); LYMPHOCYTES # (AUTO) 0.9 X10'3 (1.1-4.8); LYMPHOCYTES % (AUTO) 11.9 % (21-51); MEAN CORPUSCULAR HEMOGLOBIN 29.1 PG (27.0-31.0); MEAN CORPUSCULAR HGB CONC 32.9 g/dL (33.0-36.5); MEAN CORPUSCULAR VOLUME 88.5 FL (78-98); MEAN PLATELET VOLUME 8.5 FL (7.4-10.4); MONOCYTES # (AUTO) 0.6 X10'3 (0-0.9); MONOCYTES % (AUTO) 7.4 % (2-12); NEUTROPHILS # (AUTO) 5.9 X10'3 (1.8-7.7); NEUTROPHILS % (AUTO) 77.7 % (42-75); PLATELET COUNT 238 X10'3 (140-440); RED CELL DISTRIBUTION WIDTH 16.8 % (11.5-14.5); WHITE BLOOD COUNT 7.7 X10'3 (4.5-11.0)
[2020-03-20 11:02] LABS: ALANINE AMINOTRANSFERASE 16 U/L (12-78); ALBUMIN/GLOBULIN RATIO 0.8 (1.1-1.5); ALKALINE PHOSPHATASE 99 IU/L (46-116); ANION GAP 7 (8-16); ASPARTATE AMINO TRANSFERASE 19 U/L (10-37); BILIRUBIN,TOTAL 0.8 MG/DL (0.1-1.0); BLOOD UREA NITROGEN 13 MG/DL (7-18); BUN/CREATININE RATIO 15.5 (6.6-38.0); CHLORIDE 99 MMOL/L (99-107); CREATININE 0.84 MG/DL (0.40-0.90); GLUCOSE 126 MG/DL (70-104); POTASSIUM 3.5 MMOL/L (3.5-5.1); SODIUM 134 MMOL/L (135-145); TOTAL CARBON DIOXIDE 27.7 MMOL/L (24-32); TOTAL PROTEIN 6.8 G/DL (6.4-8.2); eGFR 66 ML/MIN
[2020-03-20] MEDS ORDERED: furosemide 40mg/4ml inj IV ONE (12:30)
[2020-03-20 14:08] VITALS: BP 130/77
== END 2020-03-20 14:17 | disposition home or self-care (01) ==
LOC: ER 09:40
DX: R06.02 Shortness of breath (principal); I48.20 Chronic atrial fibrillation, unspecified; I25.10 Atherosclerotic heart disease of native coronary artery without angina pectoris; I11.0 Hypertensive heart disease with heart failure; I50.9 Heart failure, unspecified; I25.2 Old myocardial infarction; K21.9 Gastro-esophageal reflux disease without esophagitis; G89.29 Other chronic pain; F41.9 Anxiety disorder, unspecified; Z90.710 Acquired absence of both cervix and uterus; Z98.890 Other specified postprocedural states; Z95.0 Presence of cardiac pacemaker; Z88.1 Allergy status to other antibiotic agents; Z88.0 Allergy status to penicillin; Z88.2 Allergy status to sulfonamides; Z88.6 Allergy status to analgesic agent; Z88.8 Allergy status to other drugs, medicaments and biological substances; Z79.899 Other long term (current) drug therapy
CPT/HCPCS: 36415; 71045; 80053; 83880; 84484; 85025; 93005; 96374; 99285; J1940

== ENCOUNTER 2020-04-18 05:32 | Emergency (ER) | payer BC ==
[~2020-04-18] VITALS: Ht 152.4 cm; Wt 64.0 kg
[~2020-04-18 05:32] MED LIST changes: -AMLO5TAB4 PO; -CARV25TA2 PO; +DILT180C66 PO; +FERR325T28 PO; +FLO0.4C PO; -FURO-150 PO; +FURO40TA4 PO; -ISOS30TA6 PO; +LENA10CA PO; -LISI-600 PO; +LORA-269 PO; +MEGE800O; +METF500T PO; -OMEP40CA13 PO; +ONDA8TAB6 PO; -OXYC10TA47 PO; +POTA10TA36 PO; +PROC-8 PO
[2020-04-18] MEDS ORDERED: ondansetron/PF 4mg/2ml inj IV ONE (05:45)
[2020-04-18] MEDS ORDERED: normal saline 1000ml 1,000 ML IV ONE (05:45)
[2020-04-18 06:15] LABS: CLARITY,URINE SLIGHTLY CLOUDY (Clear); COLOR,URINE ORANGE (Yellow); UA COLLECTION TYPE STRAIGHT CATH
[2020-04-18 06:16] LABS: BASOPHILS # (AUTO) 0.1 X10'3 (0-0.2); BASOPHILS % (AUTO) 0.7 % (0-1); EOSINOPHILS % (AUTO) 0.2 % (0-6); HEMOGLOBIN 12.1 g/dl (12.0-16.0); LYMPHOCYTES # (AUTO) 0.9 X10'3 (1.1-4.8); LYMPHOCYTES % (AUTO) 8.9 % (21-51); MEAN CORPUSCULAR HEMOGLOBIN 28.6 PG (27.0-31.0); MEAN CORPUSCULAR HGB CONC 32.7 g/dL (33.0-36.5); MEAN CORPUSCULAR VOLUME 87.5 FL (78-98); MEAN PLATELET VOLUME 8.3 FL (7.4-10.4); MONOCYTES # (AUTO) 0.6 X10'3 (0-0.9); MONOCYTES % (AUTO) 5.8 % (2-12); NEUTROPHILS # (AUTO) 8.5 X10'3 (1.8-7.7); NEUTROPHILS % (AUTO) 84.4 % (42-75); PLATELET COUNT 249 X10'3 (140-440); RED BLOOD COUNT 4.22 X10'6 (4.20-5.60)
[2020-04-18 06:25] LABS: MUCUS STRANDS FEW /LPF (Neg); SQUAMOUS EPITHELIAL CELL,UR MODERATE /LPF (FEW); TRANSITIONAL EPI CELLS,URINE MANY /HPF
[2020-04-18 06:26] LABS: ALANINE AMINOTRANSFERASE 29 U/L (12-78); ALBUMIN 3.2 G/DL (3.4-5.0); ALBUMIN/GLOBULIN RATIO 0.7 (1.1-1.5); ALKALINE PHOSPHATASE 126 IU/L (46-116); ANION GAP 6 (8-16); ASPARTATE AMINO TRANSFERASE 39 U/L (10-37); BILIRUBIN,TOTAL 1.2 MG/DL (0.1-1.0); BLOOD UREA NITROGEN 8 MG/DL (7-18); BUN/CREATININE RATIO 9.8 (6.6-38.0); CALCIUM 8.8 MG/DL (8.5-10.1); CHLORIDE 98 MMOL/L (99-107); CREATININE 0.82 MG/DL (0.40-0.90); GLUCOSE 139 MG/DL (70-104); POTASSIUM 3.9 MMOL/L (3.5-5.1); SODIUM 134 MMOL/L (135-145); TOTAL PROTEIN 7.5 G/DL (6.4-8.2); eGFR 67 ML/MIN
[2020-04-18 06:26] LABS: RBC,URINE 0-2 /HPF (0-2); WBC CLUMPS,URINE FEW /HPF (NEGATIVE)
[2020-04-18 06:27] LABS: BACTERIA,URINE FEW /HPF (Neg)
[2020-04-18] MEDS ORDERED: ONDA4TAB6 PO (06:30)
[2020-04-18 06:33] LABS: LIPASE 64 U/L (73-393); MAGNESIUM 1.6 MG/DL (1.5-2.4)
[2020-04-18 07:00] VITALS: BP 136/57
== END 2020-04-18 08:03 | disposition home or self-care (01) ==
LOC: ER 05:32
DX: R11.2 Nausea with vomiting, unspecified (principal); T40.2X5A Adverse effect of other opioids, initial encounter; R10.9 Unspecified abdominal pain; I48.91 Unspecified atrial fibrillation; I25.10 Atherosclerotic heart disease of native coronary artery without angina pectoris; I11.0 Hypertensive heart disease with heart failure; I50.9 Heart failure, unspecified; I25.2 Old myocardial infarction; K21.9 Gastro-esophageal reflux disease without esophagitis; G89.29 Other chronic pain; F41.9 Anxiety disorder, unspecified; Z90.710 Acquired absence of both cervix and uterus; Z98.890 Other specified postprocedural states; Z95.0 Presence of cardiac pacemaker; Z88.1 Allergy status to other antibiotic agents; Z88.0 Allergy status to penicillin; Z88.2 Allergy status to sulfonamides; Z79.01 Long term (current) use of anticoagulants; Z79.84 Long term (current) use of oral hypoglycemic drugs; Z79.899 Other long term (current) drug therapy; Y92.89 Other specified places as the place of occurrence of the external cause
CPT/HCPCS: 36415; 71045; 80053; 81001; 83690; 83735; 83880; 84484; 85025; 85610; 87088; 93005; 96361; 96374; 99285; J2405; J7030

== ENCOUNTER 2020-06-12 22:08 | Inpatient (IN) | payer BC ==
[~2020-06-12] VITALS: Ht 152.4 cm; Wt 66.5 kg
[~2020-06-12 22:08] MED LIST changes: -MEGE800O; +MEGE800O PO; +ONDA4TAB6 PO
[2020-06-12] MEDS ORDERED: ipratropium/albuterol 3ml nebule NEB ONE (22:45)
[2020-06-12] MEDS ORDERED: furosemide 40mg/4ml inj IV ONE (22:45)
[2020-06-12 22:48] LABS: BASOPHILS # (AUTO) 0.1 X10'3 (0-0.2); BASOPHILS % (AUTO) 0.8 % (0-1); EOSINOPHILS # (AUTO) 0.1 X10'3 (0-0.9); EOSINOPHILS % (AUTO) 0.5 % (0-6); HEMATOCRIT 38.4 % (35.0-45.0); HEMOGLOBIN 12.3 g/dl (12.0-16.0); LYMPHOCYTES # (AUTO) 1.7 X10'3 (1.1-4.8); LYMPHOCYTES % (AUTO) 12.6 % (21-51); MEAN CORPUSCULAR HEMOGLOBIN 29.5 PG (27.0-31.0); MEAN CORPUSCULAR VOLUME 92.1 FL (78-98); MEAN PLATELET VOLUME 8.1 FL (7.4-10.4); MONOCYTES # (AUTO) 0.8 X10'3 (0-0.9); NEUTROPHILS # (AUTO) 11.1 X10'3 (1.8-7.7); NEUTROPHILS % (AUTO) 80.1 % (42-75); PLATELET COUNT 337 X10'3 (140-440); RED BLOOD COUNT 4.17 X10'6 (4.20-5.60); RED CELL DISTRIBUTION WIDTH 16.1 % (11.5-14.5); WHITE BLOOD COUNT 13.8 X10'3 (4.5-11.0)
[2020-06-12 22:52] LABS: ALANINE AMINOTRANSFERASE 16 U/L (12-78); ALBUMIN 3.5 G/DL (3.4-5.0); ALBUMIN/GLOBULIN RATIO 0.7 (1.1-1.5); ALKALINE PHOSPHATASE 119 IU/L (46-116); ANION GAP 6 (8-16); ASPARTATE AMINO TRANSFERASE 19 U/L (10-37); BILIRUBIN,TOTAL 0.8 MG/DL (0.1-1.0); BLOOD UREA NITROGEN 9 MG/DL (7-18); BUN/CREATININE RATIO 8.7 (6.6-38.0); CALCIUM 8.8 MG/DL (8.5-10.1); CHLORIDE 101 MMOL/L (99-107); CREATININE 1.04 MG/DL (0.40-0.90); GLUCOSE 266 MG/DL (70-104); POTASSIUM 4.6 MMOL/L (3.5-5.1); SODIUM 136 MMOL/L (135-145); TOTAL CARBON DIOXIDE 28.7 MMOL/L (24-32); TOTAL PROTEIN 8.3 G/DL (6.4-8.2); eGFR 51 ML/MIN
[2020-06-12 23:26] LABS: LACTATE DEHYDROGENASE 227 U/L (81-234)
[2020-06-13] MEDS ORDERED: LORazepam 2 mg/ml vial IV ONE
[2020-06-13 00:01] LABS: ABG BASE EXCESS -1.7 mmol/L (-2.0-2.0); ABG HCO3 24.3 mmol/L (22.0-26.0); ABG OXYGEN SATURATION 90.5 % (94-97); ABG PCO2 (T) 46.3 mmHg (32.0-45.0); ALLEN'S TEST POSITIVE; FMetHb 0.3 % (0.0-1.5); FO2Hb 89.3 % (94-97); RESPIRATORY RATE 12 b/min; TOTAL HEMOGLOBIN 12.6 G/dl (12.0-16.0)
[2020-06-13] MEDS ORDERED: POTA20TA19 PO (00:45)
[2020-06-13] MEDS ORDERED: FLUT16SP26 BOTHNARES (00:45)
[2020-06-13] MEDS ORDERED: OMEP-50 PO (00:45)
[2020-06-13] MEDS ORDERED: ISOS30TA6 PO (00:45)
[2020-06-13] MEDS ORDERED: LISI-600 PO (00:45)
[2020-06-13] MEDS ORDERED: CARV25TA2 PO (00:45)
[2020-06-13] MEDS ORDERED: TRAM50TA2 PO (00:45)
[2020-06-13] MEDS ORDERED: OXYC10TA47 PO (00:45)
[2020-06-13] MEDS ORDERED: NITR0.4T48 SL (00:45)
[2020-06-13] MEDS ORDERED: TRAZ-256 PO (00:45)
[2020-06-13] MEDS ORDERED: LAN0.125T PO (00:45)
[2020-06-13] MEDS ORDERED: CLON1TAB12 PO (00:45)
[2020-06-13 01:06] LABS: D-DIMER 2.09 MG/L FEU (0-0.50)
[2020-06-13] MEDS ORDERED: potassium CL 10mEq/100ml bag 100 ML IV PRN ×3 (01:40→10:05)
[2020-06-13] MEDS ORDERED: mag hydrox/Alum hydrox/simeth 30ml oral suspension PO PRN (01:40)
[2020-06-13] MEDS ORDERED: acetaminophen 325mg tablet PO PRN (01:40)
[2020-06-13] MEDS ORDERED: potassium Cl 20 mEq SR tablet PO PRN ×3 (01:40→10:05)
[2020-06-13] MEDS ORDERED: ondansetron/PF 4mg/2ml inj IV PRN (01:40)
[2020-06-13] MEDS ORDERED: magnesium hydroxide 30ml (MOM) UD suspension PO PRN (01:40)
[2020-06-13] MEDS ORDERED: metFORMIN 500mg tablet PO SCH (07:00)
[2020-06-13] MEDS: diltiazem CD 180mg cap (once-daily) PO SCH (07:25)
[2020-06-13] MEDS: apixaban 5mg tablet PO SCH ×2 (07:25→21:38)
[2020-06-13] MEDS: levoTHYROXINE 25mcg tablet PO SCH (07:25)
[2020-06-13] MEDS: gabapentin 300mg capsule PO SCH ×3 (07:25→21:39)
[2020-06-13] MEDS: K and/or MAG REPLACEMENT MC SCH ×3 (07:59→20:00)
[2020-06-13] MEDS ORDERED: furosemide 10 MG/1 ML 10ml inj IV SCH (08:00)
[2020-06-13] MEDS ORDERED: magnesium 4gm in 100ml NS 100 ML IV PRN (10:05)
[2020-06-13] MEDS ORDERED: magnesium Cl slow-release 64mg tablet PO PRN (10:05)
[2020-06-13] MEDS ORDERED: ipratropium/albuterol 3ml nebule NEB PRN (10:15)
[2020-06-13] MEDS ORDERED: methylPREDNISolone sod succ 125mg/2ml vial IV ONE (10:15)
--- NOTE | 2020-06-13 10:23 | NUR ---
Pt tolerating BIPAP well, pt sleeping on back, regular respirations with equal rise and fall, no acute distress observed. Continue to monitor.
--- NOTE | 2020-06-13 10:30 | NUR ---
Daughter, Ana Cristina, called to check on patient. [phone]
[2020-06-13] MEDS: ipratropium/albuterol 3ml nebule NEB SCH ×4 (11:00→23:00)
[2020-06-13] MEDS: azithromycin 250mg tablet PO SCH (11:14)
[2020-06-13] MEDS: furosemide 40mg/4ml inj IV SCH ×2 (11:19→21:38)
[2020-06-13] MEDS: CefTRIAXone/D5W-Rocephin 1gm 50 ML IV SCH (11:27)
[2020-06-13 12:09] LABS: CLARITY,URINE CLEAR (Clear); COLOR,URINE YELLOW (Yellow); GLUCOSE, URINE NEGATIVE (Neg); KETONES,URINE NEGATIVE (Neg); LEUKOCYTE ESTERASE ,URINE NEGATIVE (Neg); NITRITES, URINE NEGATIVE (Neg); OCCULT BLOOD,URINE NEGATIVE (Neg); PH,URINE 6.5 (4.8-8.0); PROTEIN,URINE NEGATIVE (Neg); UROBILINOGEN,URINE 0.2 E.U/dL (0.2-1.0)
[2020-06-13 12:33] LABS: UA COLLECTION TYPE STRAIGHT CATH
--- NOTE | 2020-06-13 13:06 | NUR ---
Contacted Dr Dacosta for ABG. Per MD take Pt off of bipap if results are appropriate.
[2020-06-13 13:42] LABS: ABG BASE EXCESS 10.3 mmol/L (-2.0-2.0); ABG HCO3 35.2 mmol/L (22.0-26.0); ABG OXYGEN SATURATION 99.5 % (94-97); ABG PCO2 (T) 49.7 mmHg (32.0-45.0); ABG PO2 (T) 378.2 mmHg (75.0-100.0); ALLEN'S TEST POSITIVE; FCOHb 0.6 % (0.0-3.9); FMetHb 0.3 % (0.0-1.5); FO2Hb 98.6 % (94-97); PATIENT TEMPERATURE 37.5; RESPIRATORY RATE 12 b/min; TOTAL HEMOGLOBIN 12.3 G/dl (12.0-16.0)
--- NOTE | 2020-06-13 13:47 | NUR ---
ABG results reviewed by Dr Dacosta. Per , ok to take Pt off of bipap and use NC to maintain oxygen sats between 93-93%.
--- NOTE | 2020-06-13 14:19 | NUR ---
Dr Dacosta in room to see patient.
[2020-06-13] MEDS ORDERED: iohexol 350MG/ML 100ml bottle IV ONE (14:54)
--- NOTE | 2020-06-13 15:04 | NUR ---
Pt to nuc med.
[2020-06-13] MEDS: methylPREDNISolone sod succ 125mg/2ml vial IV SCH ×2 (15:37→21:38)
[2020-06-13] MEDS: proCHLORperazine 10mg tablet PO SCH ×2 (15:37→21:38)
--- NOTE | 2020-06-13 16:00 | NUR ---
serrano emptied,clear yellow urine 1200ml,patient assisted on a bsc,small bm,beddings changed,bm incontinence x1.on nc 3.5L sating 96%,remains on isolation r/o covid,intermittent cough.We will monitor.
[2020-06-13] MEDS ORDERED: HYDROcodone/acetaminophen 5mg/325mg tablet PO ONE (18:00)
[2020-06-13 20:20] VITALS: BP 134/56
[2020-06-13] MEDS: ferrous sulfate 325mg tablet PO SCH (21:38)
[2020-06-13] MEDS: carVEDilol 12.5mg tablet PO SCH (21:38)
[2020-06-13] MEDS: traZODone 150mg tablet PO SCH (21:39)
[2020-06-13] MEDS: traZODone 50mg tablet PO SCH (21:39)
[2020-06-13] MEDS: atorvastatin 20mg tablet PO SCH (21:39)
[2020-06-13 22:00] VITALS: BP 129/55
[2020-06-14] MEDS: methylPREDNISolone sod succ 125mg/2ml vial IV SCH ×4 (01:20→20:30)
[2020-06-14] MEDS: proCHLORperazine 10mg tablet PO SCH ×4 (01:30→20:30)
[2020-06-14] MEDS: LORazepam 1 MG tablet PO PRN ×2 (01:31→23:02)
[2020-06-14 01:36] VITALS: BP 125/52
[2020-06-14] MEDS: ipratropium/albuterol 3ml nebule NEB SCH ×6 (03:00→23:23)
--- NOTE | 2020-06-14 06:24 | NUR ---
Patient in room PCU 3011. I have received report from ORLANDO Gaitan and had the opportunity to ask questions and assume patient care. Called into pt's room, pt resting comfortably, no needs at this time.
--- NOTE | 2020-06-14 06:30 | NUR ---
Problems reprioritized. Patient report given, questions answered & plan of care reviewed with Sandra Candelaria RN.
[2020-06-14 07:00] VITALS: BP 143/56
[2020-06-14] MEDS: K and/or MAG REPLACEMENT MC SCH ×3 (08:00→20:00)
[2020-06-14 09:15] LABS: BASOPHILS # (AUTO) 0.1 X10'3 (0-0.2); BASOPHILS % (AUTO) 0.4 % (0-1); EOSINOPHILS % (AUTO) 0 % (0-6); HEMATOCRIT 33.8 % (35.0-45.0); LYMPHOCYTES # (AUTO) 0.6 X10'3 (1.1-4.8); LYMPHOCYTES % (AUTO) 4.4 % (21-51); MEAN CORPUSCULAR HEMOGLOBIN 29.2 PG (27.0-31.0); MEAN CORPUSCULAR HGB CONC 32.5 g/dL (33.0-36.5); MEAN CORPUSCULAR VOLUME 89.6 FL (78-98); MEAN PLATELET VOLUME 7.9 FL (7.4-10.4); MONOCYTES # (AUTO) 0.3 X10'3 (0-0.9); MONOCYTES % (AUTO) 2.3 % (2-12); NEUTROPHILS # (AUTO) 12.9 X10'3 (1.8-7.7); NEUTROPHILS % (AUTO) 92.9 % (42-75); PLATELET COUNT 275 X10'3 (140-440); RED BLOOD COUNT 3.77 X10'6 (4.20-5.60); WHITE BLOOD COUNT 13.9 X10'3 (4.5-11.0)
[2020-06-14] MEDS: furosemide 40mg/4ml inj IV SCH ×2 (09:29→20:30)
[2020-06-14] MEDS: diltiazem CD 180mg cap (once-daily) PO SCH (09:29)
[2020-06-14] MEDS: ferrous sulfate 325mg tablet PO SCH ×2 (09:29→20:30)
[2020-06-14] MEDS: carVEDilol 12.5mg tablet PO SCH ×2 (09:29→20:30)
[2020-06-14] MEDS: tamsulosin 0.4mg capsule PO SCH (09:29)
[2020-06-14] MEDS: gabapentin 300mg capsule PO SCH ×3 (09:30→20:29)
[2020-06-14] MEDS: apixaban 5mg tablet PO SCH ×2 (09:30→20:30)
[2020-06-14] MEDS: lisinopril 20mg tablet PO SCH (09:30)
[2020-06-14] MEDS: azithromycin 250mg tablet PO SCH (09:30)
[2020-06-14] MEDS: CefTRIAXone/D5W-Rocephin 1gm 50 ML IV SCH (09:30)
[2020-06-14] MEDS: levoTHYROXINE 25mcg tablet PO SCH (09:30)
[2020-06-14] MEDS: digoxin 125mcg (0.125mg) tablet PO SCH (09:31)
[2020-06-14 09:42] LABS: ALANINE AMINOTRANSFERASE 14 U/L (12-78); ALBUMIN 2.8 G/DL (3.4-5.0); ALBUMIN/GLOBULIN RATIO 0.7 (1.1-1.5); ALKALINE PHOSPHATASE 90 IU/L (46-116); ANION GAP 9 (8-16); ASPARTATE AMINO TRANSFERASE 12 U/L (10-37); BILIRUBIN,TOTAL 0.7 MG/DL (0.1-1.0); BLOOD UREA NITROGEN 14 MG/DL (7-18); BUN/CREATININE RATIO 17.5 (6.6-38.0); CALCIUM 8.6 MG/DL (8.5-10.1); CHLORIDE 100 MMOL/L (99-107); GLUCOSE 154 MG/DL (70-104); MAGNESIUM 1.8 MG/DL (1.5-2.4); POTASSIUM 3.2 MMOL/L (3.5-5.1); SODIUM 140 MMOL/L (135-145); TOTAL CARBON DIOXIDE 31.5 MMOL/L (24-32); eGFR 69 ML/MIN
[2020-06-14] MEDS: potassium Cl 20 mEq SR tablet PO PRN ×3 (10:33→20:30)
[2020-06-14] MEDS: megestrol acetate 400mg/10ml UD oral suspension PO SCH (10:34)
[2020-06-14] MEDS: pantoprazole 40mg Tablet.DR PO SCH (10:34)
[2020-06-14] MEDS: fluticasone nasal spray 16GM bottle NS SCH (10:34)
[2020-06-14 11:00] VITALS: BP 121/48
[2020-06-14 15:00] VITALS: BP 130/52
--- NOTE | 2020-06-14 17:11 | NUR ---
Paged Dr Dacosta regarding [facility] COVID test result MESSAGE: Re: Krupa Mcintyre [id number] Pt's Located Within [facility] COVID test resulted (Not Detected). Delia Manzano [phone] :)
--- NOTE | 2020-06-14 18:07 | NUR ---
Problems reprioritized. Patient report given, questions answered & plan of care reviewed with ORLANDO Rodriguez. Pt resting comfortably at change of shift. All pt needs met at this time.
--- NOTE | 2020-06-14 18:23 | NUR ---
Discontinued Soto with no complications per Dr Dacosta's orders. Encouraged pt to void every 30 mins.
[2020-06-14] MEDS: traZODone 150mg tablet PO SCH (20:29)
[2020-06-14] MEDS: traZODone 50mg tablet PO SCH (20:29)
[2020-06-14] MEDS: lactobacillus rhamnosus 10,000 MMU CELLS/CAPSULE PO SCH (20:30)
[2020-06-14] MEDS: atorvastatin 20mg tablet PO SCH (20:31)
--- NOTE | 2020-06-14 21:19 | NUR ---
serrano catheter removed by dayshift nurse Addendum: 06/14/20 at 2121 by Leena Cuenca RN Amended: Links added.
[2020-06-14 22:00] VITALS: BP 134/52
[2020-06-15] MEDS: proCHLORperazine 10mg tablet PO SCH ×3 (01:26→14:50)
[2020-06-15] MEDS: methylPREDNISolone sod succ 125mg/2ml vial IV SCH ×3 (01:26→14:50)
[2020-06-15 02:00] VITALS: BP 129/54
[2020-06-15] MEDS: ipratropium/albuterol 3ml nebule NEB SCH ×3 (03:00→12:07)
[2020-06-15 06:07] LABS: BASOPHILS % (AUTO) 0.3 % (0-1); EOSINOPHILS % (AUTO) 0 % (0-6); HEMOGLOBIN 11.3 g/dl (12.0-16.0); LYMPHOCYTES # (AUTO) 0.6 X10'3 (1.1-4.8); LYMPHOCYTES % (AUTO) 3.8 % (21-51); MEAN CORPUSCULAR HEMOGLOBIN 29.8 PG (27.0-31.0); MEAN CORPUSCULAR HGB CONC 33.3 g/dL (33.0-36.5); MEAN CORPUSCULAR VOLUME 89.3 FL (78-98); MEAN PLATELET VOLUME 7.9 FL (7.4-10.4); MONOCYTES # (AUTO) 0.4 X10'3 (0-0.9); NEUTROPHILS # (AUTO) 13.5 X10'3 (1.8-7.7); NEUTROPHILS % (AUTO) 92.9 % (42-75); PLATELET COUNT 323 X10'3 (140-440); RED CELL DISTRIBUTION WIDTH 15.8 % (11.5-14.5); WHITE BLOOD COUNT 14.6 X10'3 (4.5-11.0)
--- NOTE | 2020-06-15 06:14 | NUR ---
Patient in room PCU 3011. I have received report from ORLANDO Rodriguez and had the opportunity to ask questions and assume patient care. Pt sleeping comfortably at change of shift.
[2020-06-15 06:26] LABS: ALANINE AMINOTRANSFERASE 17 U/L (12-78); ALBUMIN/GLOBULIN RATIO 0.8 (1.1-1.5); ALKALINE PHOSPHATASE 93 IU/L (46-116); ANION GAP 6 (8-16); ASPARTATE AMINO TRANSFERASE 20 U/L (10-37); BILIRUBIN,TOTAL 0.5 MG/DL (0.1-1.0); BLOOD UREA NITROGEN 17 MG/DL (7-18); BUN/CREATININE RATIO 17.5 (6.6-38.0); CALCIUM 8.7 MG/DL (8.5-10.1); CHLORIDE 103 MMOL/L (99-107); CREATININE 0.97 MG/DL (0.40-0.90); GLUCOSE 161 MG/DL (70-104); MAGNESIUM 1.8 MG/DL (1.5-2.4); PHOSPHORUS 2.4 MG/DL (2.3-4.5); POTASSIUM 3.6 MMOL/L (3.5-5.1); SODIUM 142 MMOL/L (135-145); TOTAL CARBON DIOXIDE 33.1 MMOL/L (24-32); eGFR 56 ML/MIN
[2020-06-15 07:00] VITALS: BP 137/53
[2020-06-15] MEDS: carVEDilol 12.5mg tablet PO SCH (07:36)
[2020-06-15] MEDS: azithromycin 250mg tablet PO SCH (07:36)
[2020-06-15] MEDS: lactobacillus rhamnosus 10,000 MMU CELLS/CAPSULE PO SCH (07:36)
[2020-06-15] MEDS: lisinopril 20mg tablet PO SCH (07:37)
[2020-06-15] MEDS: diltiazem CD 180mg cap (once-daily) PO SCH (07:37)
[2020-06-15] MEDS: apixaban 5mg tablet PO SCH (07:37)
[2020-06-15] MEDS: levoTHYROXINE 25mcg tablet PO SCH (07:37)
[2020-06-15] MEDS: pantoprazole 40mg Tablet.DR PO SCH (07:37)
[2020-06-15] MEDS: megestrol acetate 400mg/10ml UD oral suspension PO SCH (07:38)
[2020-06-15] MEDS: ferrous sulfate 325mg tablet PO SCH (07:38)
[2020-06-15] MEDS: CefTRIAXone/D5W-Rocephin 1gm 50 ML IV SCH (07:38)
[2020-06-15] MEDS: furosemide 40mg/4ml inj IV SCH (07:38)
[2020-06-15] MEDS: digoxin 125mcg (0.125mg) tablet PO SCH (07:38)
[2020-06-15] MEDS: gabapentin 300mg capsule PO SCH (07:38)
[2020-06-15] MEDS: fluticasone nasal spray 16GM bottle NS SCH (07:45)
[2020-06-15] MEDS ORDERED: isosorbide mononitrate 30mg tab.SR.24H PO SCH (08:00)
[2020-06-15] MEDS: K and/or MAG REPLACEMENT MC SCH (08:00)
[2020-06-15] MEDS: tamsulosin 0.4mg capsule PO SCH (08:16)
[2020-06-15 11:00] VITALS: BP 102/41
--- NOTE | 2020-06-15 11:03 | NUR ---
Malnutrition consult: Pt unsure of wt loss however reports decreased appetite per malnutrition risk screen with RN. Current documented weight is 2.5-7.0 kg higher than documented wt hx. Pt on a heart healthy diet documented with 75-100% PO intake throughout LOS meeting estimated nutrient needs. Pt with no documented significant decrease in muscle strength or edema. Pt currently lacks a minimum of two criteria for malnutrition. Will continue to follow. Addendum: 06/15/20 at [address] Amended: Links added.
--- NOTE | 2020-06-15 13:23 | NUR ---
Paged Dr Dacosta MESSAGE: Krupa Boateng [id number] When you discharge pt, can you order home physical therapy per PT request? Thanks Sandra Manzano [phone]
[2020-06-15] MEDS ORDERED: PRED10TA23 PO (13:40)
[2020-06-15] MEDS ORDERED: ALBU8.5H8 INH (13:40)
[2020-06-15] MEDS ORDERED: LACT1CAP26 PO (13:40)
[2020-06-15] MEDS ORDERED: CEFD300C3 PO (13:40)
[2020-06-15 15:00] VITALS: BP 110/50
--- NOTE | 2020-06-15 15:25 | NUR ---
Pt stable for discharge per MD orders. All instructions were given, questions answered appropriately. All belongings were collected and sent with patient. PIV discontinued, cannula intact. Tele discontinued, radiotelegraphist notified. New medications were e-script to [facility] on [address]. I called Dr Mcarthur's office to make a follow up appt, but the office is closed today, I left a message for their office to call pt. Informed pt to follow up with PCP within one week. Wheeled pt to lobby and assisted into 's truck.
== END 2020-06-15 15:25 | disposition home health service (06) | DRG 291 ==
LOC: ER 22:09 → ED HOLD 06-13 01:40 → PCU 3S 06-13 20:40
PROVIDERS: ADMIT Internal Medicine; ATTEND Family Medicine
PROC: 5A09357 Assistance with Respiratory Ventilation, Less than 24 Consecutive Hours, Continuous Positive Airway Pressure (ICD-10-PCS; principal; 2020-06-12)
PROC: B32T1ZZ Computerized Tomography (CT Scan) of Left Pulmonary Artery using Low Osmolar Contrast (ICD-10-PCS; 2020-06-13)
PROC: B3201ZZ Computerized Tomography (CT Scan) of Thoracic Aorta using Low Osmolar Contrast (ICD-10-PCS; 2020-06-13)
PROC: B32S1ZZ Computerized Tomography (CT Scan) of Right Pulmonary Artery using Low Osmolar Contrast (ICD-10-PCS; 2020-06-13)
DX: I11.0 Hypertensive heart disease with heart failure (principal); J96.91 Respiratory failure, unspecified with hypoxia; I48.20 Chronic atrial fibrillation, unspecified; I50.43 Acute on chronic combined systolic (congestive) and diastolic (congestive) heart failure; I25.10 Atherosclerotic heart disease of native coronary artery without angina pectoris; F41.9 Anxiety disorder, unspecified; G89.29 Other chronic pain; K21.9 Gastro-esophageal reflux disease without esophagitis; J44.9 Chronic obstructive pulmonary disease, unspecified; E78.5 Hyperlipidemia, unspecified; Z20.828 Contact with and (suspected) exposure to other viral communicable diseases; I25.2 Old myocardial infarction; Z80.6 Family history of leukemia; Z90.710 Acquired absence of both cervix and uterus; Z88.0 Allergy status to penicillin; Z88.2 Allergy status to sulfonamides; Z88.8 Allergy status to other drugs, medicaments and biological substances; Z79.899 Other long term (current) drug therapy
CPT/HCPCS: 36415; 36600; 71045; 71275; 80053; 80162; 81003; 82803; 83615; 83735; 83880; 84100; 84145; 84443; 84484; 85018; 85025; 85379; 86140; 87040; 87081; 87635; 93005; 94640; 94660; 94664; 94760; 96374; 96375; 97110; 97116; 97162; 99285; C9803; G0378; J0696; J1940; J2060; J2930; Q0164; Q9967

== ENCOUNTER 2020-08-09 10:32 | Emergency (ER) | payer BC ==
[~2020-08-09] VITALS: Ht 152.4 cm; Wt 57.0 kg
[~2020-08-09 10:32] MED LIST changes: +ALBU8.5H8 INH; +CARV25TA2 PO; +CLON1TAB12 PO; +FLUT16SP26 BOTHNARES; +ISOS30TA6 PO; +LACT1CAP26 PO; +LAN0.125T PO; +LISI-600 PO; +NITR0.4T48 SL; +OMEP-50 PO; -ONDA4TAB6 PO; -POTA10TA36 PO; +POTA20TA19 PO; +TRAM50TA2 PO; +TRAZ-256 PO
[2020-08-09 11:13] LABS: BASOPHILS % (AUTO) 0.4 % (0-1); EOSINOPHILS # (AUTO) 0.1 X10'3 (0-0.9); EOSINOPHILS % (AUTO) 0.9 % (0-6); HEMATOCRIT 40.7 % (35.0-45.0); HEMOGLOBIN 13.2 g/dl (12.0-16.0); LYMPHOCYTES # (AUTO) 1.1 X10'3 (1.1-4.8); LYMPHOCYTES % (AUTO) 9.8 % (21-51); MEAN CORPUSCULAR HEMOGLOBIN 29.2 PG (27.0-31.0); MEAN CORPUSCULAR HGB CONC 32.4 g/dL (33.0-36.5); MEAN CORPUSCULAR VOLUME 90.2 FL (78-98); MEAN PLATELET VOLUME 7.5 FL (7.4-10.4); MONOCYTES # (AUTO) 0.8 X10'3 (0-0.9); NEUTROPHILS # (AUTO) 9.2 X10'3 (1.8-7.7); NEUTROPHILS % (AUTO) 81.9 % (42-75); PLATELET COUNT 323 X10'3 (140-440); RED BLOOD COUNT 4.52 X10'6 (4.20-5.60); RED CELL DISTRIBUTION WIDTH 15.5 % (11.5-14.5); WHITE BLOOD COUNT 11.2 X10'3 (4.5-11.0)
[2020-08-09 11:24] LABS: ALANINE AMINOTRANSFERASE 26 U/L (12-78); ALBUMIN 3.1 G/DL (3.4-5.0); ALBUMIN/GLOBULIN RATIO 0.8 (1.1-1.5); ALKALINE PHOSPHATASE 106 IU/L (46-116); ANION GAP 5 (8-16); ASPARTATE AMINO TRANSFERASE 18 U/L (10-37); BILIRUBIN,TOTAL 1.1 MG/DL (0.1-1.0); BLOOD UREA NITROGEN 10 MG/DL (7-18); BUN/CREATININE RATIO 13.3 (6.6-38.0); CALCIUM 8.5 MG/DL (8.5-10.1); CHLORIDE 100 MMOL/L (99-107); CREATININE 0.75 MG/DL (0.40-0.90); GLUCOSE 145 MG/DL (70-104); POTASSIUM 3.7 MMOL/L (3.5-5.1); SODIUM 136 MMOL/L (135-145); TOTAL CARBON DIOXIDE 30.6 MMOL/L (24-32); TOTAL PROTEIN 7.1 G/DL (6.4-8.2); eGFR 75 ML/MIN
[2020-08-09 11:31] LABS: LIPASE < 50 U/L (73-393)
[2020-08-09] MEDS ORDERED: normal saline 1000ml 1,000 ML IV ONE ×2 (11:35→13:10)
[2020-08-09] MEDS ORDERED: ondansetron/PF 4mg/2ml inj IV ONE ×2 (11:35→12:35)
[2020-08-09 11:45] LABS: MAGNESIUM 1.9 MG/DL (1.5-2.4)
--- NOTE | 2020-08-09 12:41 | NUR ---
ULTRASOUND AT BEDSIDE.
[2020-08-09 13:27] LABS: CLARITY,URINE SLIGHTLY CLOUDY (Clear); COLOR,URINE YELLOW (Yellow); GLUCOSE, URINE NEGATIVE (Neg); KETONES,URINE NEGATIVE (Neg); LEUKOCYTE ESTERASE ,URINE NEGATIVE (Neg); NITRITES, URINE NEGATIVE (Neg); OCCULT BLOOD,URINE NEGATIVE (Neg); PH,URINE 6.5 (4.8-8.0); PROTEIN,URINE 30 mg/dl (Neg)
[2020-08-09 13:28] LABS: UA COLLECTION TYPE STRAIGHT CATH
[2020-08-09 13:38] LABS: RBC,URINE NONE SEEN /HPF (0-2); WBC,URINE 0-4 /HPF (0-4)
[2020-08-09 13:40] LABS: BACTERIA,URINE NONE SEEN /HPF (Neg); SQUAMOUS EPITHELIAL CELL,UR FEW /LPF (FEW)
[2020-08-09 13:41] LABS: MUCUS STRANDS MODERATE /LPF (Neg); RENAL CELLS, URINE FEW /HPF; TRANSITIONAL EPI CELLS,URINE MODERATE /HPF
[2020-08-09] MEDS ORDERED: ONDA4TAB6 PO (13:56)
[2020-08-09 14:44] VITALS: BP 158/69
== END 2020-08-09 14:46 | disposition home or self-care (01) ==
LOC: ER 10:32
DX: R11.2 Nausea with vomiting, unspecified (principal); K29.00 Acute gastritis without bleeding; R10.84 Generalized abdominal pain; I48.91 Unspecified atrial fibrillation; I25.10 Atherosclerotic heart disease of native coronary artery without angina pectoris; I11.0 Hypertensive heart disease with heart failure; I50.9 Heart failure, unspecified; I25.2 Old myocardial infarction; K21.9 Gastro-esophageal reflux disease without esophagitis; F41.9 Anxiety disorder, unspecified; Z90.710 Acquired absence of both cervix and uterus; Z95.0 Presence of cardiac pacemaker; Z98.890 Other specified postprocedural states; Z88.1 Allergy status to other antibiotic agents; Z88.0 Allergy status to penicillin; Z88.6 Allergy status to analgesic agent; Z88.8 Allergy status to other drugs, medicaments and biological substances; Z79.899 Other long term (current) drug therapy
CPT/HCPCS: 36415; 71045; 76700; 80053; 81001; 83690; 83735; 85025; 93005; 96361; 96374; 96376; 99285; J2405; J7030

== ENCOUNTER 2021-03-06 06:36 | Emergency (ER) | payer BC, MEDICARE ==
[~2021-03-06] VITALS: Ht 152.4 cm; Wt 58.6 kg
[~2021-03-06 06:36] MED LIST changes: +ALBU8.5H17 INH; -ALBU8.5H8 INH; -ISOS30TA6 PO; +ISOS30TA84 PO; -LISI-600 PO; +LISI20TA28 PO; +ONDA4TAB6 PO
[2021-03-06 07:19] LABS: BASOPHILS % (AUTO) 0.4 % (0-1); EOSINOPHILS # (AUTO) 0.1 X10'3 (0-0.9); EOSINOPHILS % (AUTO) 0.6 % (0-6); HEMATOCRIT 36.9 % (35.0-45.0); LYMPHOCYTES # (AUTO) 0.6 X10'3 (1.1-4.8); LYMPHOCYTES % (AUTO) 5.1 % (21-51); MEAN CORPUSCULAR HEMOGLOBIN 29.4 PG (27.0-31.0); MEAN CORPUSCULAR HGB CONC 32.6 g/dL (33.0-36.5); MEAN CORPUSCULAR VOLUME 90.3 FL (78-98); MEAN PLATELET VOLUME 8.4 FL (7.4-10.4); MONOCYTES # (AUTO) 0.7 X10'3 (0-0.9); MONOCYTES % (AUTO) 5.8 % (2-12); NEUTROPHILS # (AUTO) 10.6 X10'3 (1.8-7.7); NEUTROPHILS % (AUTO) 88.1 % (42-75); PLATELET COUNT 270 X10'3 (140-440); RED BLOOD COUNT 4.08 X10'6 (4.20-5.60); RED CELL DISTRIBUTION WIDTH 15.9 % (11.5-14.5)
[2021-03-06 07:25] LABS: ALANINE AMINOTRANSFERASE 18 U/L (12-78); ALBUMIN 3.2 G/DL (3.4-5.0); ALBUMIN/GLOBULIN RATIO 0.7 (1.1-1.5); ALKALINE PHOSPHATASE 153 IU/L (46-116); ANION GAP 9 (8-16); ASPARTATE AMINO TRANSFERASE 21 U/L (10-37); BILIRUBIN,TOTAL 1.1 MG/DL (0.1-1.0); BLOOD UREA NITROGEN 14 MG/DL (7-18); BUN/CREATININE RATIO 13.3 (6.6-38.0); CALCIUM 8.3 MG/DL (8.5-10.1); CHLORIDE 98 MMOL/L (99-107); CREATININE 1.05 MG/DL (0.40-0.90); GLUCOSE 212 MG/DL (70-104); SODIUM 137 MMOL/L (135-145); TOTAL CARBON DIOXIDE 29.6 MMOL/L (24-32); TOTAL PROTEIN 7.6 G/DL (6.4-8.2); eGFR 51 ML/MIN
[2021-03-06] MEDS ORDERED: HYDROcodone/acetaminophen 10/325mg tab PO ONE (07:50)
[2021-03-06 07:55] LABS: CLARITY,URINE CLOUDY (Clear); COLOR,URINE YELLOW (Yellow); GLUCOSE, URINE NEGATIVE (Neg); KETONES,URINE NEGATIVE (Neg); LEUKOCYTE ESTERASE ,URINE MODERATE (Neg); NITRITES, URINE NEGATIVE (Neg); OCCULT BLOOD,URINE LARGE (Neg); PROTEIN,URINE 100 mg/dl (Neg)
[2021-03-06] MEDS ORDERED: dexamethasone sod phosphate 10mg/ml inj IV STA (07:56)
[2021-03-06 07:57] LABS: UA COLLECTION TYPE STRAIGHT CATH
[2021-03-06 08:01] LABS: RBC,URINE TNTC /HPF (0-2); WBC,URINE TNTC /HPF (0-4)
[2021-03-06 08:02] LABS: BACTERIA,URINE 1+ /HPF (Neg); SQUAMOUS EPITHELIAL CELL,UR NONE SEEN /LPF (FEW)
[2021-03-06] MEDS ORDERED: CefTRIAXone 2gm/D5W 50ml BAG 50 ML IV ONE (08:25)
[2021-03-06 08:27] LABS: MAGNESIUM 1.9 MG/DL (1.5-2.4)
[2021-03-06] MEDS ORDERED: ondansetron/PF 4mg/2ml inj IV PRN (08:50)
[2021-03-06] MEDS ORDERED: morphine 2 MG/ML inj. syringe IV PRN ×2 (08:50)
[2021-03-06] MEDS ORDERED: HYDROcodone/acetaminophen 5mg/325mg tablet PO PRN (08:50)
[2021-03-06] MEDS ORDERED: mag hydrox/Alum hydrox/simeth 30ml oral suspension PO PRN (08:50)
[2021-03-06] MEDS ORDERED: acetaminophen 325mg tablet PO PRN ×2 (08:50)
[2021-03-06] MEDS ORDERED: magnesium hydroxide 30ml (MOM) UD suspension PO PRN (08:50)
[2021-03-06] MEDS ORDERED: furosemide 10 MG/1 ML 10ml inj IV ONE (08:55)
[2021-03-06 09:00] VITALS: BP 147/73
--- NOTE | 2021-03-06 09:23 | NUR ---
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
[2021-03-06] MEDS ORDERED: LEVO75TA7 PO (10:55)
[2021-03-06] MEDS ORDERED: OMEP-50 PO (10:55)
[2021-03-06] MEDS ORDERED: BACL10TA2 PO (10:55)
[2021-03-06] MEDS ORDERED: GABA300C PO (10:55)
[2021-03-06] MEDS ORDERED: METO-411 PO (10:55)
[2021-03-06] MEDS ORDERED: PROM25TA14 PO (10:55)
[2021-03-06] MEDS ORDERED: OXYC10TA47 PO (10:55)
[2021-03-06] MEDS ORDERED: LORA-269 PO (10:55)
[2021-03-06] MEDS ORDERED: docusate sod 100mg capsule PO SCH (20:00)
[2021-03-06] MEDS ORDERED: furosemide 20 MG/2 ML vial IV SCH (20:00)
[2021-03-07] MEDS ORDERED: enoxaparin 40mg/0.4ml syringe SUBCUT SCH (08:00)
== END 2021-03-06 13:57 | disposition left against medical advice (07) ==
LOC: ER 06:36 → ED HOLD 08:49 → UNDOADMIN 08:49 → ED HOLD 08:52 → UNDOADMIN 08:52 → UNDODISIN 13:48 → ER 13:57
DX: U07.1 COVID-19 (principal); N39.0 Urinary tract infection, site not specified; R06.02 Shortness of breath; I50.9 Heart failure, unspecified; I11.0 Hypertensive heart disease with heart failure; I48.91 Unspecified atrial fibrillation; I25.10 Atherosclerotic heart disease of native coronary artery without angina pectoris; I25.2 Old myocardial infarction; K21.9 Gastro-esophageal reflux disease without esophagitis; G89.29 Other chronic pain; F41.9 Anxiety disorder, unspecified; Z98.890 Other specified postprocedural states; Z95.0 Presence of cardiac pacemaker; Z90.710 Acquired absence of both cervix and uterus; Z88.1 Allergy status to other antibiotic agents; Z88.2 Allergy status to sulfonamides; Z88.6 Allergy status to analgesic agent; Z88.8 Allergy status to other drugs, medicaments and biological substances; Z88.0 Allergy status to penicillin; Z79.899 Other long term (current) drug therapy
CPT/HCPCS: 36415; 71045; 72100; 80053; 81001; 83735; 83880; 84145; 84443; 84484; 85025; 87077; 87088; 87186; 87635; 93005; 93306; 96365; 96375; 99285; C9803; J0696; J1100; J1940; J2270; G0378

== ENCOUNTER 2021-03-25 03:54 | Inpatient (IN) | payer MEDICARE ==
[~2021-03-25] VITALS: Ht 152.4 cm; Wt 58.6 kg
[~2021-03-25 03:54] MED LIST changes: -ALBU8.5H17 INH; +BACL10TA2 PO; -CARV25TA2 PO; -CLON1TAB12 PO; -DILT180C66 PO; -FERR325T28 PO; -FLO0.4C PO; -FLUT16SP26 BOTHNARES; -GABA-532 PO; +GABA300C PO; -LACT1CAP26 PO; -LENA10CA PO; -LEVO75TA50 PO; +LEVO75TA7 PO; -MEGE800O PO; -METF500T PO; +METO-411 PO; -NITR0.4T48 SL; -ONDA4TAB6 PO; -ONDA8TAB6 PO; +OXYC10TA47 PO; -POTA20TA19 PO; -PROC-8 PO; +PROM25TA14 PO
[2021-03-25] MEDS ORDERED: nitroGLYCERIN 0.4mg/hour patch TD ONE (04:10)
[2021-03-25] MEDS ORDERED: normal saline 1000ml 1,000 ML IV ONE (04:10)
[2021-03-25] MEDS ORDERED: albuterol 2.5 MG/3 ML nebule NEB ONE (04:10)
[2021-03-25] MEDS ORDERED: methylPREDNISolone sod succ 125mg/2ml vial IV ONE (04:15)
[2021-03-25 04:35] LABS: BASOPHILS # (AUTO) 0.1 X10'3 (0-0.2); BASOPHILS % (AUTO) 0.6 % (0-1); EOSINOPHILS # (AUTO) 0.1 X10'3 (0-0.9); EOSINOPHILS % (AUTO) 0.5 % (0-6); HEMATOCRIT 39.4 % (35.0-45.0); HEMOGLOBIN 12.5 g/dl (12.0-16.0); LYMPHOCYTES # (AUTO) 0.8 X10'3 (1.1-4.8); LYMPHOCYTES % (AUTO) 4.4 % (21-51); MEAN CORPUSCULAR HEMOGLOBIN 28.3 PG (27.0-31.0); MEAN CORPUSCULAR HGB CONC 31.8 g/dL (33.0-36.5); MEAN CORPUSCULAR VOLUME 89.1 FL (78-98); MEAN PLATELET VOLUME 7.9 FL (7.4-10.4); MONOCYTES # (AUTO) 0.8 X10'3 (0-0.9); MONOCYTES % (AUTO) 4.7 % (2-12); NEUTROPHILS # (AUTO) 15.9 X10'3 (1.8-7.7); NEUTROPHILS % (AUTO) 89.8 % (42-75); PLATELET COUNT 374 X10'3 (140-440); RED BLOOD COUNT 4.43 X10'6 (4.20-5.60); RED CELL DISTRIBUTION WIDTH 15.7 % (11.5-14.5); WHITE BLOOD COUNT 17.7 X10'3 (4.5-11.0)
[2021-03-25 04:38] LABS: ABG BASE EXCESS 2.1 mmol/L (-2.0-2.0); ABG HCO3 27.4 mmol/L (22.0-26.0); ABG OXYGEN SATURATION 94.2 % (94-97); ABG PCO2 (T) 45.5 mmHg (32.0-45.0); ABG PO2 (T) 75.4 mmHg (75.0-100.0); ALLEN'S TEST Yes; FCOHb 0.5 % (0.0-3.9); FO2Hb 93.7 % (94-97); TOTAL HEMOGLOBIN 13.1 G/dl (12.0-16.0)
[2021-03-25 04:44] LABS: D-DIMER 2.05 MG/L FEU (0-0.50); PARTIAL THROMBOPLASTIN TIME 22 SECONDS (22-32)
[2021-03-25 04:45] LABS: ALANINE AMINOTRANSFERASE 28 U/L (12-78); ALBUMIN 3.5 G/DL (3.4-5.0); ALBUMIN/GLOBULIN RATIO 0.8 (1.1-1.5); ALKALINE PHOSPHATASE 190 IU/L (46-116); ANION GAP 7 (8-16); ASPARTATE AMINO TRANSFERASE 34 U/L (10-37); BILIRUBIN,TOTAL 0.7 MG/DL (0.1-1.0); BLOOD UREA NITROGEN 10 MG/DL (7-18); BUN/CREATININE RATIO 9.2 (6.6-38.0); CALCIUM 8.7 MG/DL (8.5-10.1); CHLORIDE 100 MMOL/L (99-107); CREATININE 1.09 MG/DL (0.40-0.90); GLUCOSE 240 MG/DL (70-104); POTASSIUM 5.3 MMOL/L (3.5-5.1); SODIUM 136 MMOL/L (135-145); TOTAL CARBON DIOXIDE 28.7 MMOL/L (24-32); TOTAL PROTEIN 8.1 G/DL (6.4-8.2); eGFR 48 ML/MIN
[2021-03-25 04:53] LABS: C-REACTIVE PROTEIN 1.27 MG/DL (0.0-0.5); PHOSPHORUS 4.2 MG/DL (2.3-4.5)
[2021-03-25] MEDS ORDERED: ZINC220T3 PO (05:04)
[2021-03-25] MEDS ORDERED: POTA10TA19 PO (05:04)
[2021-03-25] MEDS ORDERED: PROC10TA10 PO (05:14)
[2021-03-25] MEDS ORDERED: CARV25TA3 PO (05:14)
[2021-03-25] MEDS ORDERED: diphenhydrAMINE 50 mg/ml inj IV PRN (05:45)
[2021-03-25] MEDS ORDERED: magnesium hydroxide 30ml (MOM) UD suspension PO PRN (05:45)
[2021-03-25] MEDS ORDERED: ondansetron/PF 4mg/2ml inj IV PRN (05:45)
[2021-03-25] MEDS ORDERED: acetaminophen 325mg tablet PO PRN ×2 (05:45)
[2021-03-25] MEDS ORDERED: HYDROcodone/acetaminophen 5mg/325mg tablet PO PRN (05:45)
[2021-03-25] MEDS ORDERED: morphine 2 MG/ML inj. syringe IV PRN (05:45)
[2021-03-25] MEDS ORDERED: HYDROmorphone inj. 0.5 MG/0.5 ML DISP.SYRIN IV PRN (05:45)
[2021-03-25] MEDS ORDERED: bisacodyl 10mg suppository rectal RC PRN (05:45)
[2021-03-25] MEDS ORDERED: diphenhydrAMINE 25mg capsule PO PRN (05:45)
[2021-03-25] MEDS ORDERED: mag hydrox/Alum hydrox/simeth 30ml oral suspension PO PRN (05:45)
[2021-03-25] MEDS ORDERED: acetaminophen 650mg rectal suppository RC PRN (05:45)
[2021-03-25] MEDS ORDERED: ondansetron 4mg rapidly disintigrating tab PO PRN (05:45)
[2021-03-25] MEDS: normal saline 1000ml 1,000 ML IV SCH ×2 (05:49→19:01)
[2021-03-25] MEDS ORDERED: insulin Lispro (HumaLOG) vial - multi-dose SQ SCH (05:50)
[2021-03-25] MEDS ORDERED: dextrose 50%-water 50ml dispensing syringe IV PRN ×2 (05:50)
[2021-03-25] MEDS ORDERED: REMDESIVIR INJ 200 MG in normal saline 100ml IV soln 60 ML IV ONE (05:50)
[2021-03-25] MEDS ORDERED: dextrose ORAL solution 15 GM/59 ML bottle PO PRN ×2 (05:50)
[2021-03-25] MEDS ORDERED: ALBUTEROL INHALER 1 PUFF/90 MCG INHALER IH PRN (05:50)
[2021-03-25] MEDS ORDERED: MESSAGE TO PHARMACY PO ONE (05:50)
[2021-03-25] MEDS ORDERED: glucagon, human recombinant 1mg kit SUBCUT PRN (05:50)
[2021-03-25 07:16] LABS: HEMOGLOBIN A1C 6.2 % (4.5-6.2)
--- NOTE | 2021-03-25 07:37 | NUR ---
PT SLEEPING QUIETLY. LA DRAWN
[2021-03-25] MEDS ORDERED: levoFLOXACIN-Levaquin 750MG/D5 150 ML IV SCH (08:00)
[2021-03-25] MEDS ORDERED: DEXAMETHASONE 6 MG TABLET PO SCH (08:00)
[2021-03-25] MEDS: docusate sod 100mg capsule PO SCH (08:00)
[2021-03-25] MEDS ORDERED: REMDESIVIR INJ 100 MG in normal saline 100ml IV soln 80 ML IV SCH (08:00)
--- NOTE | 2021-03-25 08:00 | NUR ---
Rudi radha in [facility] - 03/26/21 at 0444 by [email or web address] held on pt's maint fluids due to multiple high acuity pt's, limited staff, pt drinking water, fresh pitcher provided, iv access in her foot unable to ambulate to the commode without assistance.
[2021-03-25] MEDS ORDERED: levoFLOXACIN-Levaquin 500mg/D5 100 ML IV SCH (10:53)
--- NOTE | 2021-03-25 10:55 | NUR ---
PT WEAK. PT SLIGHTLY RESPONSIVE TO VOICE, WILL OPEN EYES BRIEFLY. DOES NOT ANSWER QUESTIONS. NO RESPONSE TO TOUCH.
--- NOTE | 2021-03-25 11:26 | NUR ---
DAUGHTER JAYCEE CONKLIN [phone] GAVE HER AN UPDATE ON PTS CONDITION.
[2021-03-25] MEDS: methylPREDNISolone sod succ 125mg/2ml vial IV SCH ×2 (12:21→21:56)
[2021-03-25] MEDS: apixaban 5mg tablet PO SCH ×2 (12:57→20:00)
[2021-03-25] MEDS: HYDROcodone/acetaminophen 10/325mg tab PO PRN ×2 (12:57→21:18)
[2021-03-25] MEDS: lactobacillus rhamnosus 10,000 MMU CELLS/CAPSULE PO SCH (20:00)
--- NOTE | 2021-03-25 20:00 | NUR ---
held on pt's maint fluids due to multiple high acuity pt's, limited staff, pt drinking water, fresh pitcher provided, iv access in her foot unable to ambulate to the commode without assistance
[2021-03-25] MEDS ORDERED: insulin glargine (Lantus) pen - multi-dose SQ SCH (21:00)
[2021-03-25] MEDS ORDERED: temazepam 15mg capsule PO PRN (21:00)
--- NOTE | 2021-03-25 23:28 | NUR ---
pt moved onto hospital bed
--- NOTE | 2021-03-26 | NUR ---
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
[2021-03-26] MEDS: docusate sod 100mg capsule PO SCH (02:03)
[2021-03-26] MEDS: HYDROcodone/acetaminophen 10/325mg tab PO PRN (02:40)
[2021-03-26] MEDS: morphine 2 MG/ML inj. syringe IV PRN ×2 (03:39→11:16)
[2021-03-26 03:55] LABS: BASOPHILS % (AUTO) 0.1 % (0-1); EOSINOPHILS % (AUTO) 0 % (0-6); HEMATOCRIT 33.4 % (35.0-45.0); HEMOGLOBIN 10.8 g/dl (12.0-16.0); LYMPHOCYTES # (AUTO) 0.6 X10'3 (1.1-4.8); LYMPHOCYTES % (AUTO) 4.1 % (21-51); MEAN CORPUSCULAR HEMOGLOBIN 28.7 PG (27.0-31.0); MEAN CORPUSCULAR HGB CONC 32.4 g/dL (33.0-36.5); MEAN CORPUSCULAR VOLUME 88.6 FL (78-98); MEAN PLATELET VOLUME 7.9 FL (7.4-10.4); MONOCYTES # (AUTO) 0.3 X10'3 (0-0.9); MONOCYTES % (AUTO) 1.7 % (2-12); NEUTROPHILS % (AUTO) 94.1 % (42-75); PLATELET COUNT 261 X10'3 (140-440); RED BLOOD COUNT 3.77 X10'6 (4.20-5.60); RED CELL DISTRIBUTION WIDTH 15.2 % (11.5-14.5); WHITE BLOOD COUNT 14.9 X10'3 (4.5-11.0)
[2021-03-26 04:05] LABS: D-DIMER 1.78 MG/L FEU (0-0.50)
[2021-03-26 04:17] LABS: ALANINE AMINOTRANSFERASE 28 U/L (12-78); ALBUMIN 2.9 G/DL (3.4-5.0); ALBUMIN/GLOBULIN RATIO 0.7 (1.1-1.5); ALKALINE PHOSPHATASE 157 IU/L (46-116); ANION GAP 6 (8-16); ASPARTATE AMINO TRANSFERASE 29 U/L (10-37); BILIRUBIN,TOTAL 0.8 MG/DL (0.1-1.0); BLOOD UREA NITROGEN 12 MG/DL (7-18); BUN/CREATININE RATIO 12.4 (6.6-38.0); CALCIUM 8.3 MG/DL (8.5-10.1); CHLORIDE 104 MMOL/L (99-107); CREATININE 0.97 MG/DL (0.40-0.90); GLUCOSE 159 MG/DL (70-104); POTASSIUM 4.2 MMOL/L (3.5-5.1); SODIUM 140 MMOL/L (135-145); TOTAL CARBON DIOXIDE 29.7 MMOL/L (24-32); TOTAL PROTEIN 6.8 G/DL (6.4-8.2); eGFR 55 ML/MIN
[2021-03-26] MEDS ORDERED: REMDESIVIR INJ 100 MG in normal saline 100ml IV soln 80 ML IV SCH (08:00)
--- NOTE | 2021-03-26 10:05 | NUR ---
Hospitalist Dr. Chavarria called and informed pt is wanting to leave as she is feeling better. Dr. Chavarria reports he will be seeing pt shortly
[2021-03-26] MEDS ORDERED: docusate sod 100mg capsule PO SCH (10:12)
[2021-03-26] MEDS ORDERED: apixaban 5mg tablet PO SCH (10:13)
[2021-03-26] MEDS ORDERED: methylPREDNISolone sod succ 125mg/2ml vial IV SCH (10:13)
[2021-03-26] MEDS ORDERED: levoFLOXACIN-Levaquin 500mg/D5 100 ML IV SCH (10:14)
[2021-03-26 11:32] VITALS: BP 141/65
[2021-03-26] MEDS ORDERED: LORazepam 1 MG tablet PO PRN (12:25)
[2021-03-26] MEDS ORDERED: traMADol 50MG tablet PO PRN (12:25)
[2021-03-26] MEDS ORDERED: baclofen 10mg tablet PO PRN (12:25)
[2021-03-26] MEDS ORDERED: oxyCODONE IR 5mg (immed. release) tablet PO PRN (12:25)
[2021-03-26] MEDS: lactobacillus rhamnosus 10,000 MMU CELLS/CAPSULE PO SCH (12:50)
[2021-03-26] MEDS: normal saline 1000ml 1,000 ML IV SCH (12:52)
[2021-03-26] MEDS ORDERED: gabapentin 300mg capsule PO SCH (13:00)
[2021-03-26] MEDS ORDERED: DEC4T PO (14:51)
[2021-03-26] MEDS ORDERED: LEVO500T89 PO (15:10)
[2021-03-26 18:20] LABS: CLARITY,URINE CLEAR (Clear); COLOR,URINE YELLOW (Yellow); GLUCOSE, URINE NEGATIVE (Neg); KETONES,URINE NEGATIVE (Neg); LEUKOCYTE ESTERASE ,URINE NEGATIVE (Neg); NITRITES, URINE NEGATIVE (Neg); OCCULT BLOOD,URINE NEGATIVE (Neg); PROTEIN,URINE NEGATIVE (Neg); UROBILINOGEN,URINE 0.2 E.U/dL (0.2-1.0)
[2021-03-26 18:38] LABS: UA COLLECTION TYPE CLN CATCH MIDSTREAM
[2021-03-26] MEDS ORDERED: potassium Cl 20 mEq SR tablet PO SCH (20:00)
[2021-03-26] MEDS ORDERED: furosemide 40mg tablet PO SCH (20:00)
[2021-03-26] MEDS ORDERED: lisinopril 20mg tablet PO SCH (20:00)
[2021-03-26] MEDS ORDERED: traZODone 50mg tablet PO SCH (21:00)
[2021-03-26] MEDS ORDERED: atorvastatin 20mg tablet PO SCH (21:00)
[2021-03-27] MEDS ORDERED: metoprolol succinate 25mg (24-HOUR) SR. Tablet PO SCH (08:00)
[2021-03-27] MEDS ORDERED: levoTHYROXINE 75mcg tablet PO SCH (08:00)
[2021-03-27] MEDS ORDERED: digoxin 125mcg (0.125mg) tablet PO SCH (08:00)
[2021-03-27] MEDS ORDERED: zinc sulfate 220mg capsule PO SCH (08:00)
[2021-03-27] MEDS ORDERED: isosorbide mononitrate 30mg tab.SR.24H PO SCH (08:00)
[2021-03-27] MEDS ORDERED: pantoprazole 40mg Tablet.DR PO SCH (08:00)
== END 2021-03-26 15:00 | disposition home health service (06) | DRG 177 ==
LOC: ER 03:55 → UNDOADMIN 05:41 → ED HOLD 05:41 → UNDODISIN 03-26 15:00
PROVIDERS: ADMIT Family Medicine; ATTEND Family Medicine
PROC: XW033E5 Introduction of Remdesivir Anti-infective into Peripheral Vein, Percutaneous Approach, New Technology Group 5 (ICD-10-PCS; principal; 2021-03-25)
PROC: 5A09357 Assistance with Respiratory Ventilation, Less than 24 Consecutive Hours, Continuous Positive Airway Pressure (ICD-10-PCS; 2021-03-25)
DX: U07.1 COVID-19 (principal); J96.21 Acute and chronic respiratory failure with hypoxia; J12.82 Pneumonia due to coronavirus disease 2019; I50.23 Acute on chronic systolic (congestive) heart failure; J44.0 Chronic obstructive pulmonary disease with (acute) lower respiratory infection; J44.1 Chronic obstructive pulmonary disease with (acute) exacerbation; N17.9 Acute kidney failure, unspecified; E87.5 Hyperkalemia; E11.9 Type 2 diabetes mellitus without complications; I48.91 Unspecified atrial fibrillation; F41.9 Anxiety disorder, unspecified; K21.9 Gastro-esophageal reflux disease without esophagitis; G89.4 Chronic pain syndrome; E78.5 Hyperlipidemia, unspecified; I11.0 Hypertensive heart disease with heart failure; E89.0 Postprocedural hypothyroidism; I25.10 Atherosclerotic heart disease of native coronary artery without angina pectoris; I25.2 Old myocardial infarction; Z90.710 Acquired absence of both cervix and uterus; Z79.01 Long term (current) use of anticoagulants; Z95.0 Presence of cardiac pacemaker; Z99.81 Dependence on supplemental oxygen; Z88.0 Allergy status to penicillin; Z88.8 Allergy status to other drugs, medicaments and biological substances; Z80.6 Family history of leukemia; Z79.899 Other long term (current) drug therapy
CPT/HCPCS: 36415; 36600; 71045; 80053; 80162; 81003; 82803; 82948; 83036; 83605; 83735; 83880; 84100; 84145; 84484; 85018; 85025; 85379; 85610; 85651; 85730; 86140; 87040; 87635; 93005; 94660; 94760; 96361; 96374; 99291; C9803; G0378; J1815; J1956; J2270; J2930; J7030

== ENCOUNTER 2021-04-11 14:00 | Emergency (ER) | payer MEDICARE ==
[~2021-04-11] VITALS: Ht 152.4 cm; Wt 55.5 kg
[~2021-04-11 14:00] MED LIST changes: +CARV25TA3 PO; +DEC4T PO; +POTA10TA19 PO; +PROC10TA10 PO; +ZINC220T3 PO
[2021-04-11 14:20] VITALS: BP 142/60
== END 2021-04-11 14:30 | disposition left against medical advice (07) ==
LOC: ER 14:01
DX: R06.02 Shortness of breath (principal); Z53.21 Procedure and treatment not carried out due to patient leaving prior to being seen by health care provider
CPT/HCPCS: 93005; 99283

== ENCOUNTER 2022-11-12 04:03 | Inpatient (IN) | payer BC ==
[~2022-11-12] VITALS: Ht 157.5 cm; Wt 68.2 kg
[~2022-11-12 04:03] MED LIST changes: -DEC4T PO; -FURO40TA4 PO; +FURO80TA3 PO; -GABA300C PO; -LISI20TA28 PO; -METO-411 PO; -OMEP-50 PO; +OMEP20CA16 PO; +POTA-192 PO; -POTA10TA19 PO; -PROC10TA10 PO; -PROM25TA14 PO; +SIMV-343 PO; -SIMV40TA PO; -TRAM50TA2 PO; -ZINC220T3 PO
[2022-11-12] MEDS ORDERED: CefTRIAXone/D5W-Rocephin 1gm 50 ML IV ONE (04:20)
[2022-11-12] MEDS ORDERED: normal saline 1000ML IV soln IVB ONE (04:35)
[2022-11-12 04:41] LABS: BASOPHILS # (AUTO) 0.1 X10'3 (0-0.2); EOSINOPHILS # (AUTO) 0.2 X10'3 (0-0.9); EOSINOPHILS % (AUTO) 1.5 % (0-6); HEMATOCRIT 38.4 % (35.0-45.0); HEMOGLOBIN 12.6 g/dl (12.0-16.0); LYMPHOCYTES # (AUTO) 1.7 X10'3 (1.1-4.8); LYMPHOCYTES % (AUTO) 13.6 % (21-51); MEAN CORPUSCULAR HEMOGLOBIN 28.4 PG (27.0-31.0); MEAN CORPUSCULAR HGB CONC 32.7 g/dL (33.0-36.5); MEAN PLATELET VOLUME 7.2 FL (7.4-10.4); MONOCYTES # (AUTO) 0.9 X10'3 (0-0.9); MONOCYTES % (AUTO) 7.6 % (2-12); NEUTROPHILS # (AUTO) 9.5 X10'3 (1.8-7.7); NEUTROPHILS % (AUTO) 76.3 % (42-75); PLATELET COUNT 341 X10'3 (140-440); RED BLOOD COUNT 4.42 X10'6 (4.20-5.60); RED CELL DISTRIBUTION WIDTH 15.9 % (11.5-14.5); WHITE BLOOD COUNT 12.5 X10'3 (4.5-11.0)
[2022-11-12] MEDS ORDERED: morphine 4 MG/ML inj SYRINge IV ONE (04:45)
[2022-11-12 05:01] LABS: ALANINE AMINOTRANSFERASE 15 U/L (12-78); ALBUMIN 3.4 G/DL (3.4-5.0); ALBUMIN/GLOBULIN RATIO 0.9 (1.1-1.5); ALKALINE PHOSPHATASE 94 IU/L (46-116); ANION GAP 7 (8-16); ASPARTATE AMINO TRANSFERASE 9 U/L (10-37); BILIRUBIN,TOTAL 0.5 MG/DL (0.1-1.0); BLOOD UREA NITROGEN 14 MG/DL (7-18); BUN/CREATININE RATIO 15.4 (10.0-20.0); CALCIUM 9.1 MG/DL (8.5-10.1); CHLORIDE 98 MMOL/L (99-107); CREATININE 0.91 MG/DL (0.40-0.90); GLUCOSE 117 MG/DL (70-104); POTASSIUM 3.6 MMOL/L (3.5-5.1); SODIUM 136 MMOL/L (135-145); TOTAL CARBON DIOXIDE 30.7 MMOL/L (24-32); eGFR 59 ML/MIN
[2022-11-12 05:17] LABS: MAGNESIUM 2.2 MG/DL (1.5-2.4)
[2022-11-12] MEDS ORDERED: acetaminophen 325mg tablet PO PRN (05:40)
[2022-11-12] MEDS ORDERED: diphenhydrAMINE 50 mg/ml inj IV PRN (05:40)
[2022-11-12] MEDS ORDERED: mag hydrox/Alum hydrox/simeth 30ml oral suspension PO PRN (05:40)
[2022-11-12] MEDS ORDERED: albuterol 1.25 MG/3 ML (1/2 strength) nebule NEB PRN (05:40)
[2022-11-12] MEDS ORDERED: diphenhydrAMINE 25mg capsule PO PRN (05:40)
[2022-11-12] MEDS ORDERED: ondansetron/PF 4mg/2ml inj IV PRN (05:40)
[2022-11-12] MEDS ORDERED: magnesium hydroxide 30ml (MOM) UD suspension PO PRN (05:40)
[2022-11-12] MEDS ORDERED: ondansetron 4mg rapidly disintigrating tab PO PRN (05:40)
[2022-11-12] MEDS ORDERED: bisacodyl 10mg suppository rectal RC PRN (05:40)
[2022-11-12 05:58] LABS: ACETAMINOPHEN < 2.0 UG/ML (10-30); ETHANOL < 0.010 GM/DL (0.0-0.010)
[2022-11-12 06:03] LABS: APTT 29 SECONDS (22-32); D-DIMER 0.28 MG/L FEU (0-0.50)
--- NOTE | 2022-11-12 08:16 | NUR ---
BREAKFAST TRAY GIVEN . ASSISTED PT WSonya SEGUNDO.
[2022-11-12] MEDS: normal saline 1000ml 1,000 ML IV SCH ×2 (08:40→23:39)
[2022-11-12] MEDS: morphine 2 MG/ML inj. syringe IV PRN ×3 (08:42→20:19)
[2022-11-12] MEDS: CefTRIAXone/D5W-Rocephin 1gm 50 ML IV SCH (08:49)
[2022-11-12] MEDS: docusate sod 100mg capsule PO SCH ×2 (08:49→18:48)
--- NOTE | 2022-11-12 09:06 | NUR ---
called surgical, spoke to anne to try and pass on report. The nurse was in another room passing meds, anne said she would call me back once she is done.
[2022-11-12] MEDS: azithromycin/NS 500mg/250ml 250 ML IV SCH (09:31)
--- NOTE | 2022-11-12 09:32 | NUR ---
CALLED TO GIVE REPORT FOR PT, IFEANYI SAID THE NURSE WAS BUSY AND WILL CALL BACK.
[2022-11-12 09:38] LABS: ALANINE AMINOTRANSFERASE 16 U/L (12-78); ALBUMIN 3.2 G/DL (3.4-5.0); ALBUMIN/GLOBULIN RATIO 0.9 (1.1-1.5); ALKALINE PHOSPHATASE 86 IU/L (46-116); ANION GAP 8 (8-16); ASPARTATE AMINO TRANSFERASE 16 U/L (10-37); BILIRUBIN,TOTAL 0.4 MG/DL (0.1-1.0); BLOOD UREA NITROGEN 11 MG/DL (7-18); BUN/CREATININE RATIO 12.2 (10.0-20.0); CALCIUM 8.7 MG/DL (8.5-10.1); CHLORIDE 100 MMOL/L (99-107); GLUCOSE 147 MG/DL (70-104); POTASSIUM 3.9 MMOL/L (3.5-5.1); SODIUM 138 MMOL/L (135-145); TOTAL CARBON DIOXIDE 29.6 MMOL/L (24-32); TOTAL PROTEIN 6.8 G/DL (6.4-8.2); eGFR 60 ML/MIN
[2022-11-12 09:55] LABS: PHOSPHORUS 3.6 MG/DL (2.3-4.5)
[2022-11-12 10:00] VITALS: BP 117/37
--- NOTE | 2022-11-12 10:11 | NUR ---
PAGER ID: [phone] MESSAGE: [phone] Shaan Mcintyre: critical digoxin 3.5. thanks! christine [phone]
[2022-11-12] MEDS ORDERED: NORMAL SALINE IV ONE ×2 (10:40→11:07)
[2022-11-12] MEDS ORDERED: DIGOXIN IMMUNE FAB IV ONE ×2 (10:40→11:07)
--- NOTE | 2022-11-12 11:13 | NUR ---
Page sent to RT: [phone] Cheyenne Mcintyrenew RT orders. thanks! :) Addendum: 11/12/22 at 1113 by Fauzia Ford RN Amended: Links added.
--- NOTE | 2022-11-12 13:08 | NUR ---
patient straight cathed and 400mls of urine out.
[2022-11-12 13:14] LABS: ALANINE AMINOTRANSFERASE 10 U/L (12-78); ALBUMIN 2.9 G/DL (3.4-5.0); ALBUMIN/GLOBULIN RATIO 0.8 (1.1-1.5); ALKALINE PHOSPHATASE 79 IU/L (46-116); ANION GAP 8 (8-16); ASPARTATE AMINO TRANSFERASE 13 U/L (10-37); BILIRUBIN,TOTAL 0.4 MG/DL (0.1-1.0); BLOOD UREA NITROGEN 11 MG/DL (7-18); BUN/CREATININE RATIO 14.3 (10.0-20.0); CALCIUM 8.3 MG/DL (8.5-10.1); CHLORIDE 100 MMOL/L (99-107); CREATININE 0.77 MG/DL (0.40-0.90); GLUCOSE 115 MG/DL (70-104); SODIUM 134 MMOL/L (135-145); TOTAL CARBON DIOXIDE 25.8 MMOL/L (24-32); TOTAL PROTEIN 6.5 G/DL (6.4-8.2); eGFR 72 ML/MIN
--- NOTE | 2022-11-12 13:15 | NUR ---
report called to Brian, all questions answered.
[2022-11-12 13:18] LABS: POTASSIUM 4.2 MMOL/L (3.5-5.1)
--- NOTE | 2022-11-12 13:23 | NUR ---
PAGER ID: [phone] MESSAGE: [phone] Shaan Mcintyre: ELIZABETH...digoxin level 3.5 on redraw. thanks, christine [phone]
[2022-11-12] MEDS: HYDROcodone/acetaminophen 5mg/325mg tablet PO PRN ×2 (13:36→18:48)
--- NOTE | 2022-11-12 14:12 | NUR ---
patient transferred to room 4022B, all belongings taken from room.
[2022-11-12 14:30] VITALS: BP 119/49
--- NOTE | 2022-11-12 15:16 | NUR ---
Assessed pt and took vitals. Pt is stable and states she is feeling better. Called poison control to follow up on recommendations for further dig toxicity recommendations. Was told that further dig lab draws would be inaccurate now that digibing has been given. Was told to continue to monitor pt and if no issues arise pt is fine, if arrhythmias or tachy episodes occur we could give 1-2 more doses of digibind if needed. Will continue to monitor.
--- NOTE | 2022-11-12 15:24 | NUR ---
PAGER ID: [phone] MESSAGE: Miguelina Schultz7F, Poison control said to monitor pt and if vitals change we can give more digibind. No Dig labs recommended as values are inaccurate for 20 days after. Brian [phone]
[2022-11-12] MEDS ORDERED: SPIR25TA5 PO (16:59)
[2022-11-12] MEDS ORDERED: POTA-206 PO (16:59)
[2022-11-12] MEDS ORDERED: METO-411 PO (16:59)
[2022-11-12] MEDS ORDERED: LAN0.125T PO (16:59)
[2022-11-12 18:00] VITALS: BP 122/54
[2022-11-12] MEDS ORDERED: temazepam 15mg capsule PO PRN (21:00)
[2022-11-12 22:00] VITALS: BP 111/45
[2022-11-13] MEDS: HYDROcodone/acetaminophen 5mg/325mg tablet PO PRN ×3 (01:44→19:02)
[2022-11-13] MEDS: morphine 2 MG/ML inj. syringe IV PRN (04:24)
[2022-11-13 06:00] VITALS: BP 124/50
--- NOTE | 2022-11-13 06:45 | NUR ---
Patient in room [place]THO 4022. I have received report from Willy PERRY and had the opportunity to ask questions and assume patient care.
[2022-11-13] MEDS: CefTRIAXone/D5W-Rocephin 1gm 50 ML IV SCH (07:53)
[2022-11-13] MEDS: docusate sod 100mg capsule PO SCH ×2 (07:54→20:02)
[2022-11-13 08:04] LABS: BASOPHILS # (AUTO) 0.1 X10'3 (0-0.2); BASOPHILS % (AUTO) 0.7 % (0-1); EOSINOPHILS # (AUTO) 0.2 X10'3 (0-0.9); EOSINOPHILS % (AUTO) 1.9 % (0-6); HEMATOCRIT 37.1 % (35.0-45.0); HEMOGLOBIN 12.1 g/dl (12.0-16.0); LYMPHOCYTES # (AUTO) 1.7 X10'3 (1.1-4.8); LYMPHOCYTES % (AUTO) 18.2 % (21-51); MEAN CORPUSCULAR HEMOGLOBIN 28.7 PG (27.0-31.0); MEAN CORPUSCULAR HGB CONC 32.6 g/dL (33.0-36.5); MEAN CORPUSCULAR VOLUME 88.1 FL (78-98); MEAN PLATELET VOLUME 7.5 FL (7.4-10.4); MONOCYTES # (AUTO) 0.7 X10'3 (0-0.9); MONOCYTES % (AUTO) 7.2 % (2-12); NEUTROPHILS # (AUTO) 6.9 X10'3 (1.8-7.7); PLATELET COUNT 281 X10'3 (140-440); RED BLOOD COUNT 4.21 X10'6 (4.20-5.60); RED CELL DISTRIBUTION WIDTH 16.1 % (11.5-14.5); WHITE BLOOD COUNT 9.5 X10'3 (4.5-11.0)
[2022-11-13 08:26] LABS: ALANINE AMINOTRANSFERASE 12 U/L (12-78); ALBUMIN/GLOBULIN RATIO 0.9 (1.1-1.5); ALKALINE PHOSPHATASE 74 IU/L (46-116); ANION GAP 7 (8-16); ASPARTATE AMINO TRANSFERASE 10 U/L (10-37); BILIRUBIN,TOTAL 0.3 MG/DL (0.1-1.0); BLOOD UREA NITROGEN 8 MG/DL (7-18); BUN/CREATININE RATIO 10.7 (10.0-20.0); CALCIUM 8.4 MG/DL (8.5-10.1); CHLORIDE 103 MMOL/L (99-107); CREATININE 0.75 MG/DL (0.40-0.90); GLUCOSE 131 MG/DL (70-104); POTASSIUM 3.5 MMOL/L (3.5-5.1); SODIUM 138 MMOL/L (135-145); TOTAL CARBON DIOXIDE 28.1 MMOL/L (24-32); TOTAL PROTEIN 6.5 G/DL (6.4-8.2); eGFR 74 ML/MIN
[2022-11-13] MEDS: azithromycin/NS 500mg/250ml 250 ML IV SCH (09:40)
[2022-11-13 10:00] VITALS: BP 143/57
[2022-11-13] MEDS: LORazepam 1 MG tablet PO SCH ×2 (12:00→20:03)
[2022-11-13] MEDS: normal saline 1000ml 1,000 ML IV SCH (12:02)
--- NOTE | 2022-11-13 12:20 | NUR ---
Poison control call to follow up on pt regarding digoxin toxicity. Recommends pt to f/u with a return checker post hospital stay and not take digoxin [id number] d/t pt receiving digifab on 11/12/22.
--- NOTE | 2022-11-13 12:25 | NUR ---
parovider paged PAGER ID: [phone] MESSAGE: please call when you have a moment poison control call regarding [id number] gave recommendations. javier Pretty RN [phone]
[2022-11-13] MEDS: oxyCODONE SR 10mg (sust. release) tab PO SCH ×2 (13:00→20:03)
[2022-11-13 14:00] VITALS: BP 133/65
--- NOTE | 2022-11-13 14:07 | NUR ---
Spoke with medical records from Dr. giles's office per MD request regarding a few medications. Medical records to fax over medication list they have.
--- NOTE | 2022-11-13 14:33 | NUR ---
RN page: Pt wants to talk about diet choices. 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 Pt seen by RD requests salt on food/with meals for additional seasonings; reports has multiple food preferences as far as food/drink choices tonight which were relayed to dietary. Per pt, and confirmed w/ RN, did not eat breakfast or lunch today pt requests cranberry juice and sandwich which were provided to pt and RD notified RN of this. RD paged MD regarding liberalizing to regular since Na-restricted diet not warranted w/ admit DX hyponatremia in EMR; now on regular diet per EMR. RD encouraged pt to make further food preferences known to RN/YOLANDA/gee. Addendum: 11/13/22 at [address] Amended: Links added.
--- NOTE | 2022-11-13 15:17 | NUR ---
pt having 8/10 pain, routine and PRN pain medications given per orders to manage pt's pain.
--- NOTE | 2022-11-13 15:45 | NUR ---
Provider asked nurse to clarify orders from Dr. Giles's office as patient is on two beta blockers. Nurse called Dr. Giles's office for more clarification. Per Dr. giles's office when patients have a diagnosis of CHF they recieve a Rx for two different beta blockers.
--- NOTE | 2022-11-13 15:53 | NUR ---
provider paged PAGER ID: [phone] MESSAGE: [id number]. Shaan Mcintyre Per Dr. Mcarthur's office; Dr. Mcarthur orders 2 beta blockers (metropolol and carvedilol) for patients with CHF.
[2022-11-13 18:00] VITALS: BP 135/54
[2022-11-13] MEDS: potassium chloride 10mEq ER tablet PO SCH (20:03)
[2022-11-13] MEDS: carVEDilol 12.5mg tablet PO SCH (20:04)
[2022-11-13] MEDS ORDERED: albuterol 2.5 MG/3 ML nebule ONE (20:11)
--- NOTE | 2022-11-13 20:25 | NUR ---
paged Dr. Bowles regarding pt now has need for O2@2L resp in room suggest fluid overload. pt in resp distress. she has not had her home aldactone for 48 hours. may benefit from one time dose of IV lasix. pending Md follow up.
[2022-11-13] MEDS ORDERED: furosemide 40mg/4ml inj IV ONE (20:45)
--- NOTE | 2022-11-13 20:45 | NUR ---
received new order for IV lasix.
[2022-11-13] MEDS ORDERED: traZODone 50mg tablet PO SCH (21:00)
[2022-11-13] MEDS ORDERED: atorvastatin 20mg tablet PO SCH (21:00)
[2022-11-13 22:00] VITALS: BP 153/67
[2022-11-14] MEDS: normal saline 1000ml 1,000 ML IV SCH (01:10)
[2022-11-14 02:00] VITALS: BP 134/71
[2022-11-14] MEDS: HYDROcodone/acetaminophen 5mg/325mg tablet PO PRN (03:03)
[2022-11-14 06:00] VITALS: BP 123/44
--- NOTE | 2022-11-14 06:25 | NUR ---
Patient in room ORTHO 4022. I have received report from Shy and had the opportunity to ask questions and assume patient care.
[2022-11-14 07:16] LABS: BASOPHILS # (AUTO) 0.1 X10'3 (0-0.2); BASOPHILS % (AUTO) 0.5 % (0-1); EOSINOPHILS # (AUTO) 0.1 X10'3 (0-0.9); HEMATOCRIT 35.9 % (35.0-45.0); HEMOGLOBIN 11.6 g/dl (12.0-16.0); LYMPHOCYTES # (AUTO) 1.9 X10'3 (1.1-4.8); LYMPHOCYTES % (AUTO) 13.5 % (21-51); MEAN CORPUSCULAR HEMOGLOBIN 28.5 PG (27.0-31.0); MEAN CORPUSCULAR HGB CONC 32.3 g/dL (33.0-36.5); MEAN CORPUSCULAR VOLUME 88.3 FL (78-98); MEAN PLATELET VOLUME 7.5 FL (7.4-10.4); MONOCYTES # (AUTO) 0.8 X10'3 (0-0.9); MONOCYTES % (AUTO) 5.8 % (2-12); NEUTROPHILS # (AUTO) 10.9 X10'3 (1.8-7.7); NEUTROPHILS % (AUTO) 79.2 % (42-75); PLATELET COUNT 275 X10'3 (140-440); RED BLOOD COUNT 4.07 X10'6 (4.20-5.60); RED CELL DISTRIBUTION WIDTH 16.1 % (11.5-14.5); WHITE BLOOD COUNT 13.8 X10'3 (4.5-11.0)
[2022-11-14] MEDS: CefTRIAXone/D5W-Rocephin 1gm 50 ML IV SCH (07:47)
[2022-11-14] MEDS: LORazepam 1 MG tablet PO SCH (07:47)
[2022-11-14] MEDS: carVEDilol 12.5mg tablet PO SCH (07:48)
[2022-11-14] MEDS: potassium chloride 10mEq ER tablet PO SCH (07:48)
[2022-11-14] MEDS: docusate sod 100mg capsule PO SCH (07:48)
[2022-11-14] MEDS: oxyCODONE SR 10mg (sust. release) tab PO SCH (07:48)
[2022-11-14 07:49] VITALS: BP_SYST 130
--- NOTE | 2022-11-14 07:56 | NUR ---
PAGER ID: [phone] MESSAGE: Krupa Mcintyre in [phone] is insisting on getting her lasix this am. She takes 80mg daily at home. 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 -Elida [phone]
[2022-11-14] MEDS ORDERED: levoTHYROXINE 75mcg tablet PO SCH (08:00)
[2022-11-14] MEDS ORDERED: isosorbide mononitrate 30mg tab.SR.24H PO SCH (08:00)
[2022-11-14] MEDS ORDERED: furosemide 10 MG/1 ML 10ml inj IV ONE (08:00)
[2022-11-14] MEDS ORDERED: pantoprazole 40mg Tablet.DR PO SCH (08:00)
[2022-11-14] MEDS ORDERED: metoprolol succinate 25mg (24-HOUR) SR. Tablet PO SCH ×3 (08:00)
[2022-11-14] MEDS ORDERED: spironolactone 25 MG tablet PO SCH (08:00)
[2022-11-14 08:04] LABS: ALANINE AMINOTRANSFERASE 16 U/L (12-78); ALBUMIN 3.1 G/DL (3.4-5.0); ALBUMIN/GLOBULIN RATIO 0.9 (1.1-1.5); ALKALINE PHOSPHATASE 76 IU/L (46-116); ANION GAP 6 (8-16); ASPARTATE AMINO TRANSFERASE 13 U/L (10-37); BILIRUBIN,TOTAL 0.5 MG/DL (0.1-1.0); BLOOD UREA NITROGEN 7 MG/DL (7-18); BUN/CREATININE RATIO 8.1 (10.0-20.0); CALCIUM 8.5 MG/DL (8.5-10.1); CHLORIDE 103 MMOL/L (99-107); CREATININE 0.86 MG/DL (0.40-0.90); GLUCOSE 90 MG/DL (70-104); POTASSIUM 4.1 MMOL/L (3.5-5.1); SODIUM 140 MMOL/L (135-145); TOTAL CARBON DIOXIDE 31.3 MMOL/L (24-32); TOTAL PROTEIN 6.5 G/DL (6.4-8.2); eGFR 63 ML/MIN
[2022-11-14] MEDS ORDERED: ATI1T PO (10:55)
[2022-11-14] MEDS ORDERED: CEFD300C3 PO (10:55)
[2022-11-14] MEDS ORDERED: DIGO-20 PO (10:55)
[2022-11-14] MEDS ORDERED: CARV25TA2 PO (10:55)
[2022-11-14] MEDS ORDERED: OXYC10TA57 PO (10:55)
[2022-11-14] MEDS ORDERED: FURO80TA87 PO (10:58)
[2022-11-14] MEDS ORDERED: LEVO100T9 PO (17:11)
== END 2022-11-14 13:48 | disposition home health service (06) | DRG 917 ==
LOC: ER 04:04 → ED HOLD 05:43 → SUR 3N 09:56 → ORTHO 4S 13:57
PROVIDERS: ADMIT Family Medicine; ATTEND Family Medicine
PROC: 05HY33Z Insertion of Infusion Device into Upper Vein, Percutaneous Approach (ICD-10-PCS; principal; 2022-11-12)
DX: T46.0X1A Poisoning by cardiac-stimulant glycosides and drugs of similar action, accidental (unintentional), initial encounter (principal); N17.0 Acute kidney failure with tubular necrosis; E87.1 Hypo-osmolality and hyponatremia; N39.0 Urinary tract infection, site not specified; I50.32 Chronic diastolic (congestive) heart failure; I48.91 Unspecified atrial fibrillation; I27.20 Pulmonary hypertension, unspecified; Z60.2 Problems related to living alone; E78.5 Hyperlipidemia, unspecified; G89.4 Chronic pain syndrome; M54.9 Dorsalgia, unspecified; I11.0 Hypertensive heart disease with heart failure; J44.9 Chronic obstructive pulmonary disease, unspecified; E89.0 Postprocedural hypothyroidism; F41.1 Generalized anxiety disorder; I25.10 Atherosclerotic heart disease of native coronary artery without angina pectoris; K21.9 Gastro-esophageal reflux disease without esophagitis; Z79.01 Long term (current) use of anticoagulants; I25.2 Old myocardial infarction; Z80.6 Family history of leukemia; Z87.440 Personal history of urinary (tract) infections; Z88.0 Allergy status to penicillin; Z88.2 Allergy status to sulfonamides; Z88.6 Allergy status to analgesic agent; Z90.710 Acquired absence of both cervix and uterus; Z95.0 Presence of cardiac pacemaker; Z88.8 Allergy status to other drugs, medicaments and biological substances; Z79.899 Other long term (current) drug therapy; Y92.89 Other specified places as the place of occurrence of the external cause; R11.2 Nausea with vomiting, unspecified
CPT/HCPCS: 36410; 36415; 71045; 76937; 80053; 80162; 80320; 80329; 83605; 83735; 83880; 84100; 84145; 84443; 84484; 85025; 85379; 85610; 85730; 87040; 87081; 93005; 94640; 94760; 97116; 97161; 97530; 99285; A4615; C1751; G0378; J0456; J0696; J1162; J1940; J2270; J2405; J7030; J7050

== ENCOUNTER 2023-07-09 17:01 | Emergency (ER) | payer BC ==
[~2023-07-09] VITALS: Ht 152.4 cm; Wt 56.8 kg
[~2023-07-09 17:01] MED LIST changes: -APIX5TAB3 PO; +ATI1T PO; -BACL10TA2 PO; +CARV25TA2 PO; -CARV25TA3 PO; +DIGO-20 PO; -FURO80TA3 PO; -LAN0.125T PO; +LEVO100T9 PO; -LEVO75TA7 PO; -LORA-269 PO; +METO-411 PO; -OXYC10TA47 PO; +OXYC10TA57 PO; -POTA-192 PO; +POTA-206 PO; +SPIR25TA5 PO
[2023-07-09 21:43] VITALS: BP 118/58; PULSE 78; RESP 15; TEMP 98.4; O2SAT 96
== END 2023-07-09 21:45 | disposition home or self-care (01) ==
LOC: ER 17:02
DX: B34.9 Viral infection, unspecified (principal); Z20.822 Contact with and (suspected) exposure to COVID-19; I11.0 Hypertensive heart disease with heart failure; K21.9 Gastro-esophageal reflux disease without esophagitis; F41.9 Anxiety disorder, unspecified; G89.29 Other chronic pain; Z90.49 Acquired absence of other specified parts of digestive tract
CPT/HCPCS: 36415; 87811; 99283

== ENCOUNTER 2024-12-01 22:31 | Inpatient (IN) | payer BC, MEDICARE ==
[~2024-12-01] VITALS: Ht 152.4 cm; Wt 56.8 kg
[2024-12-01] MEDS: ipratropium/albuterol 3ml nebule NEB ONE (22:44)
[2024-12-01 22:47] LABS: ABG BASE EXCESS 10.7 mmol/L (-2.0-3.0); ABG PCO2 (T) 65.5 mmHg (32.0-45.0); ABG PH (T) 7.385 (7.350-7.450); ABG PO2 (T) 67.5 mmHg (83.0-108.0); ALLEN'S TEST Modified; FCOHb 0.3 % (0.5-1.5); FLOW 10 L/min; FMetHb 0.1 % (0.0-1.5); FO2Hb 90.6 % (94.0-98.0); MODE MASK - CPAP; PATIENT TEMPERATURE 37.8; TOTAL HEMOGLOBIN 13.1 G/dl (12.0-16.0)
--- NOTE | 2024-12-01 22:49 | Physician Documentation ---
History of Present Illness ~ Stated Complaint: CHF Time Seen by MD: 22:36 Primary Medical Doctor: Fuad MARTINEZ Patient presents to the emergency room with one-week history of shortness of breath. Positive cough cold congestion symptoms as well as sick contacts with similar symptoms diagnosed with pneumonia. Patient does have fever. Patient found to be hypoxic and placed on BiPAP by EMS. Oxygenation improving. Medication Reconciliation Allergies: Coded Allergies: clindamycin (Verified Allergy, Severe, 12/01/24) pentazocine (Verified Allergy, Severe, 12/01/24) clonazepam (Verified Allergy, Intermediate, 12/01/24) Penicillins (Verified Allergy, Unknown, 12/01/24) Pentazocine Lactate (Verified Allergy, Unknown, 12/01/24) Sulfa (Sulfonamide Antibiotics) (Verified Allergy, Unknown, 12/01/24) celecoxib (Verified Allergy, Unknown, 01/19/14) clindamycin phosphate (Verified Allergy, Unknown, 01/19/14) ibuprofen (Verified Allergy, Unknown, 01/19/14) propoxyphene HCl (Verified Allergy, Unknown, 01/19/14) Uncoded Allergies: TUSSAGESIC (Allergy, Severe, 10/25/16) Scheduled Carvedilol (Carvedilol), 2 TABLET PO BID Digoxin (Digoxin), 1 TAB PO DAILY Isosorbide Mononitrate (Isosorbide Mononitrate Er), 0.5 TAB PO DAILY, (Reported) Levothyroxine Sodium (Levothyroxine Sodium), 100 MCG PO DAILY Lorazepam (Ativan), 1 MG PO BID Metoprolol Succinate (Metoprolol Succinate), 1.5 TAB PO DAILY, (Reported) Omeprazole (Omeprazole), 1 CAP PO DAILY, (Reported) Oxycodone HCl (Oxycontin), 10 MG PO TID Potassium Chloride (K-Dur), 1 TAB PO BID, (Reported) Simvastatin (Zocor), 1 TAB PO HS, (Reported) Spironolactone (Spironolactone), 1 TAB PO DAILY, (Reported) Trazodone HCl (Trazodone HCl), 2 TAB PO HS, (Reported) Past Medical History Past Medical History: Atrial Fibrillation, Coronary Artery Disease, Congestive Heart Failure, Hypertension, Myocardial Infarction, GERD, UTI, Chronic Pain, Anxiety Past Surgical History: abdominal surgery, hysterectomy, orthopedic surgeries, pacemaker, other Other Past Surgical History: Thyroidectomy Patient History: FH: bowel obstruction MOTHER, , Age: 88, Cause: Old age FH: leukemia SISTER Alcohol Use: None Drug Use: none Lives with: Spouse Lives In: Home Review of Systems ROS All review of systems negative except as per HPI Progress Results/Orders Results/Orders Orders - ANDERS THURMAN MD Svn Treatment (12/01/24 22:36) Urinalysis, Cult If Indicated (12/01/24 22:55) Culture Blood (12/01/24 22:55) Chest,Single View (12/01/24 22:55) Bipap/Cpap (12/01/24 ) Covid19 Binax Poc Result Entry (12/01/24 23:31) Hs Troponin I W Calculations (12/02/24 01:55) Furosemide Inj (Lasix Inj) (12/02/24 00:35) Completed Orders - ANDERS THURMAN MD Ipratropium/Albuterol Nebule (Ipratrop/A (12/01/24 22:40) Morphine 4mg/Ml Inj. (Morphine Inj.) (12/01/24 22:55) Ondansetron Inj. (Zofran 4mg/2ml Vial) (12/01/24 22:55) Electrocardiogram (12/01/24 22:55) Cbc/Diff (12/01/24 22:55) MG (12/01/24 22:55) Chest,Single View (12/01/24 22:55) Procalcitonin (12/01/24 22:55) BMP (12/01/24 22:55) Lacticsepsis (12/01/24 22:55) Azithromycin/Ns 500mg/250ml (Zithromax/N (12/01/24 23:00) Ceftriaxone/X9a-Jwsfspby 1gm (Rocephin 1 (12/01/24 23:00) Hs Troponin I W Calculations (12/01/24 23:55) Potassium Cl Sr Tablet (K-Dur Tablet) (12/01/24 23:56) PBNP (12/01/24 22:43) Medications Received in ER Medications (Trade) Dose Ordered Sig/Wilmer Route PRN Reason Start Time Stop Time Status Last Admin Dose Admin (ipratrop/ albuterol 0.5-3(2.5) MG/3ml nebule) 3 ml ONCE ONCE NEB 12/01/24 22:40 12/01/24 22:41 DC 12/01/24 22:44 3 ML (morphine inj.) 4 mg ONCE ONCE IV 12/01/24 22:55 12/01/24 22:56 DC 12/01/24 23:51 4 MG (Zofran 4mg/2ml vial) 4 mg ONCE ONCE IV 12/01/24 22:55 12/01/24 22:58 DC 12/01/24 23:48 4 MG Vital Signs 12/01/24 12/01/24 12/01/24 12/01/24 22:51 23:01 23:11 23:11 Temp 100.8 Pulse 88 83 72 79 Resp 27 19 23 24 283 B/P (MAP) 198/87 Pulse Ox 99 98 99 97 O2 Delivery BiPAP+ BiPAP+ FiO2 N/A 60 N/A 12/01/24 12/01/24 12/02/24 23:14 23:51 00:05 Pulse 69 Resp 23 22 20 B/P (MAP) 139/59 (85) Laboratory Tests Test 12/01/24 22:40 12/01/24 22:43 Blood Gas Specimen Type Arterial Blood Gas Puncture Site Rr O2 Saturation 91.0 L Arterial Blood pH (Temp corrected) 7.385 Arterial Blood pCO2 (Temp correct) 65.5 *H Arterial Blood pO2 (Temp corrected) 67.5 L Arterial Blood PO2/FiO2 Ratio 1.07 Arterial Blood HCO3 38.0 H Arterial Blood Base Excess 10.7 H Arterial Blood Oxyhemoglobin 90.6 L Arterial Blood Carboxyhemoglobin 0.3 L Arterial Blood Methemoglobin 0.1 Arterial Blood Deoxyhemoglobin 9.0 H Raman Test Modified Blood Gas Hemoglobin 13.1 Blood Gas Temperature 37.8 Blood Gas Liter Flow 10 Blood Gas Modality Mask - cpap FiO2 60.0 Blood Gas Critical Value Called To Aditi yanez rn SARS-CoV-2 Antigen (Rapid) Negative White Blood Count 15.5 H Red Blood Count 4.12 L Hemoglobin 11.8 L Hematocrit 35.9 Mean Corpuscular Volume 87.1 Mean Corpuscular Hemoglobin 28.6 Mean Corpuscular Hemoglobin Concent 32.9 L Red Cell Distribution Width 16.1 H Platelet Count 396 Mean Platelet Volume 8.5 Neutrophils (%) (Auto) 74.1 Lymphocytes (%) (Auto) 19.2 L Monocytes (%) (Auto) 5.9 Eosinophils (%) (Auto) 0.5 Basophils (%) (Auto) 0.3 Neutrophils # (Auto) 11.5 H Lymphocytes # (Auto) 3.0 Monocytes # (Auto) 0.9 Eosinophils # (Auto) 0.1 Basophils # (Auto) 0.0 CBC Comment Sodium Level 137 Potassium Level 3.1 L Chloride Level 93 L Carbon Dioxide Level 35.1 H Anion Gap 9 Blood Urea Nitrogen 7 Creatinine 1.00 H Estimated GFR/1.73 m2 53 BUN/Creatinine Ratio 7.0 L Glucose Level 243 H Lactic Acid Level 3.3 H Calcium Level 8.8 Magnesium Level 2.0 Troponin I High Sensitivity 46 Pro-B-Type Natriuretic Peptide 8036 H Albumin 3.7 Procalcitonin < 0.05 Chemistry Comments Medical Decision Making Findings Patient presents to the emergency room with chief complaint of shortness of breath as per HPI. Differentials include but are not limited to pneumonia, CHF, viral syndrome, COPD exacerbation therefore emergent labs and imaging indicated. Negative procalcitonin however patient does have elevation of white blood cell count along with fevers and that has concern for possible infection therefore IV antibiotics initiated. Patient's blood pressures are reassuring. 30 milliliters/kilogram of IV fluids was held secondary to suspected fluid overload and this was discussed with the patient she is in agreement. Lasix initiated. Patient is hypoxic and we will require admission. She is on BiPAP. Departure Admitted to Inpatient Unit: yes, to hospitalist Impression: Primary Impression: Respiratory failure Additional Impressions: Pneumonia CHF exacerbation Hypoxia Condition: Guarded Referrals: NO PRIMARY CARE PROVIDER (PCP) Critical Care Note Total Time (mins): 79 Critical Care Note The very real possibility of a deterioration of this patient's condition required the highest level of my preparedness for sudden, emergent intervention. I provided critical care services, which included medication orders, frequent reevaluations of the patient's condition and response to treatment, ordering and reviewing test results, and discussing the case with various consultants. Excludes time spent performing separately billable procedures. The critical care time associated with the care of the patient was 79 minutes not counting procedures Signature Scribe Signature: No scribe Attestation: The note accurately reflects work and decisions made by me.Anders Thurman MD 12/02/24 00:34 ANDERS THURMAN MD December 01, 2024 22:49
[2024-12-01 22:51] VITALS: PULSE 88; RESP 27; O2SAT 99
--- NOTE | 2024-12-01 22:59 | ELECTROCARDIOGRAPH REPORT ---
[facility] Test Date: 2024-12-01 Test Time: 22:34:10 Pat Name: JOJO PASTRANA Department: [facility]- Patient ID: [facility]-[id number] Room: Gender: F Yam Curer: : 1940 Requested By: JEM BOBO Order Number: [id number] Reading MD: Measurements Intervals Williams Rate: 107 P: 0 NJ: 0 QRS: -71 QRSD: 161 T: 95 QT: 377 QTc: 503 Interpretive Statements Pacemaker spikes or artifacts Atrial fibrillation Left bundle branch block Baseline wander in lead(s) V2 Please click the below link to view image of tracing.
[2024-12-01 23:01] VITALS: PULSE 83; RESP 19; O2SAT 98
[2024-12-01 23:11] VITALS: PULSE 79; RESP 24; O2SAT 97
[2024-12-01 23:40] LABS: BASOPHILS % (AUTO) 0.3 % (0-1); EOSINOPHILS # (AUTO) 0.1 X10'3 (0-0.9); EOSINOPHILS % (AUTO) 0.5 % (0-6); HEMATOCRIT 35.9 % (35.0-45.0); HEMOGLOBIN 11.8 g/dl (12.0-16.0); LYMPHOCYTES % (AUTO) 19.2 % (21-51); MEAN CORPUSCULAR HEMOGLOBIN 28.6 PG (27.0-31.0); MEAN CORPUSCULAR HGB CONC 32.9 g/dL (33.0-36.5); MEAN CORPUSCULAR VOLUME 87.1 FL (78-98); MEAN PLATELET VOLUME 8.5 FL (7.4-10.4); MONOCYTES # (AUTO) 0.9 X10'3 (0-0.9); MONOCYTES % (AUTO) 5.9 % (2-12); NEUTROPHILS # (AUTO) 11.5 X10'3 (1.8-7.7); NEUTROPHILS % (AUTO) 74.1 % (42-75); PLATELET COUNT 396 X10'3 (140-440); RED BLOOD COUNT 4.12 X10'6 (4.20-5.60); RED CELL DISTRIBUTION WIDTH 16.1 % (11.5-14.5); WHITE BLOOD COUNT 15.5 X10'3 (4.5-11.0)
[2024-12-01 23:42] LABS: ALBUMIN 3.7 G/DL (3.4-5.0); ANION GAP 9 (8-16); BLOOD UREA NITROGEN 7 MG/DL (7-18); CALCIUM 8.8 MG/DL (8.5-10.1); CHLORIDE 93 MMOL/L (99-107); GLUCOSE 243 MG/DL (70-104); POTASSIUM 3.1 MMOL/L (3.5-5.1); SODIUM 137 MMOL/L (135-145); TOTAL CARBON DIOXIDE 35.1 MMOL/L (24-32); eCRCL 31 ML/MIN; eGFR 53 ML/MIN
--- NOTE | 2024-12-01 23:44 | RADIOLOGY REPORT ---
Clinical History SEPSIS Comparison None Technique: single view chest Without Contrast JOJO PASTRANA, [id number] FINDINGS: Trachea is midline, heart size is probably mildly enlarged with dual lead cardiac pacer inserted on t he left. Cardiomediastinal silhouette is unremarkable on this image. There is hazy increased density left midlung suggesting airspace consolidation, suspect pneumonia. There is some pulmonary vascular congestion associated with prominence of interstitial markings which may represent interstitial edema. There is no pneumothorax or pneumomediastinum. Osseous structures do not suggest acute pathology on this image. IMPRESSION: 1. Possible mild cardiac enlargement, cardiac pacer in place. 2. Mild pulmonary vascular congestion, possible interstitial edema. 3. Hazy airspace consolidation left mid lung, suspect pneumonia. 4. Recommend clinical correlation, consider follow-up PA and lateral views of the chest and/or chest CT as clinically indicated. This report was electronically signed by Chandrakant Marrero MD on 12/01/2024 11:40:57 PM.
[2024-12-01] MEDS: ondansetron/PF 4mg/2ml inj IV ONE (23:48)
[2024-12-01] MEDS: morphine 4 MG/ML inj SYRINge IV ONE (23:51)
[2024-12-02] VITALS (17 sets, daily range): BP systolic 93–147; BP diastolic 45–65; PULSE 23–82; RESP 15–283; TEMP 97.2–98; O2SAT 90–96
[2024-12-02 00:17] LABS: PRO BRAIN NATRIURETIC PEPTIDE 8036 PG/ML (0-450)
[2024-12-02] MEDS ORDERED: magnesium hydroxide 30ml (MOM) UD suspension PO PRN (01:10)
[2024-12-02] MEDS ORDERED: magnesium Cl slow-release 64mg tablet PO PRN (01:10)
[2024-12-02] MEDS ORDERED: mag hydrox/Alum hydrox/simeth 30ml oral suspension PO PRN (01:10)
[2024-12-02] MEDS ORDERED: magnesium sulf-water 2g/50mL 50 ML IV PRN (01:10)
[2024-12-02] MEDS ORDERED: potassium Cl 40MEQ/1/2NS 520ml 520 ML IV PRN (01:10)
[2024-12-02] MEDS ORDERED: magnesium sulf-water 4G/100mL 100 ML IV PRN (01:10)
[2024-12-02] MEDS ORDERED: potassium Cl 20 mEq SR tablet PO PRN ×2 (01:10)
[2024-12-02] MEDS: CefTRIAXone/D5W-Rocephin 1gm 50 ML IV ONE (01:20)
[2024-12-02] MEDS: azithromycin/NS 500mg/250ml 250 ML IV ONE (01:21)
[2024-12-02] MEDS: potassium Cl 20 mEq SR tablet PO STA (01:21)
[2024-12-02] MEDS: furosemide 10 MG/1 ML 10ml inj IV ONE (01:21)
[2024-12-02 01:34] LABS: PHOSPHORUS 3.1 MG/DL (2.3-4.5)
[2024-12-02] MEDS ORDERED: ipratropium/albuterol 3ml nebule NEB PRN (01:35)
--- NOTE | 2024-12-02 02:51 | HISTORY AND PHYSICAL-Residence ---
History & Physical Providers to CC Resident Creating Document: LATOYA DIAL, ROSALES ~ History of Present Illness Primary Medical Doctor: Fuad Reason for Admit\Complaint: Acute on chronic hypoxemic respiratory failure, CHF exacerbation History of Present Illness 81-year-old female with PMH of HTN, chronic HFpEF, AFib, HLD, hypothyroidism presented to ED with complaints of SOB, chest pain and dry cough. When I evaluated the patient she was on BiPAP and extremely tired and fatigued. She could not able to provide subjective history. Patient stated SOB and dry cough started a few days back which is gradually progressive and worsening. Endorsed right-sided chest pain. Denied fevers, chills. Denied orthopnea, PND. Patient was placed on BiPAP in view of respiratory distress and acute hypoxemic respiratory failure. Patient denied abdominal pain, nausea, vomiting. Denied urinary symptoms. Patient is on 3 L of home oxygen and currently requiring BiPAP support. Allergies: Coded Allergies: clindamycin (Verified Allergy, Severe, 12/01/24) pentazocine (Verified Allergy, Severe, 12/01/24) clonazepam (Verified Allergy, Intermediate, 12/01/24) Penicillins (Verified Allergy, Unknown, 12/01/24) Pentazocine Lactate (Verified Allergy, Unknown, 12/01/24) Sulfa (Sulfonamide Antibiotics) (Verified Allergy, Unknown, 12/01/24) celecoxib (Verified Allergy, Unknown, 01/19/14) clindamycin phosphate (Verified Allergy, Unknown, 01/19/14) ibuprofen (Verified Allergy, Unknown, 01/19/14) propoxyphene HCl (Verified Allergy, Unknown, 01/19/14) Uncoded Allergies: TUSSAGESIC (Allergy, Severe, 10/25/16) Home Medications Home Medications Active Levothyroxine Sodium 100 Mcg Tablet 100 Mcg PO DAILY Digoxin 125 Mcg Tablet 1 Tab PO DAILY 30 Days START TAKING DECEMBER 03, 2022 Oxycontin (Oxycodone HCl) 10 Mg Tab.er.12h 10 Mg PO TID Ativan (Lorazepam) 1 Mg Tablet 1 Mg PO BID Carvedilol 25 Mg Tablet 2 Tablet PO BID Reported Spironolactone 25 Mg Tablet 1 Tab PO DAILY K-Dur (Potassium Chloride) 10 Meq Tab.prt.sr 1 Tab PO BID Metoprolol Succinate 100 Mg Tab.sr.24h 1.5 Tab PO DAILY Omeprazole 20 Mg Capsule.dr 1 Cap PO DAILY 30 Days Trazodone HCl 100 Mg Tablet 2 Tab PO HS Isosorbide Mononitrate Er (Isosorbide Mononitrate) 30 Mg Tab.er.24h 0.5 Tab PO DAILY Zocor (Simvastatin) 40 Mg Tablet 1 Tab PO HS Past Medical History Past Medical History HTN, chronic HFpEF, HLD, hypothyroidism, chronic back pain Past Surgical History Surgical History Comment Pacemaker Family History Family History: FH: bowel obstruction MOTHER, , Age: 88, Cause: Old age FH: leukemia SISTER Past Social History Social History Comment Elderly female, independent, ambulates without assistance. Occasional alcohol use 30 pack years of smoking in the past, quit 30 years ago Denied other drug use Smoking: Non-Smoker Alcohol Use: None Drug Use: None Lives with: Spouse Lives In: Home Exam Vitals: Vital Signs Date Time Temp Pulse Resp B/P (MAP) Pulse Ox O2 Delivery O2 Flow Rate FiO2 12/02/24 02:17 82 21 90 12/02/24 01:15 Nasal Cannula* 4 36 12/02/24 01:00 141/64 (89) 12/01/24 23:11 100.8 General: General: Elderly female, appropriate for age, tired and fatigued, in mild respiratory distress on BiPAP. HEENT: Conjunctiva pink, Sclera clear, Mucus Membranes moist. Neck: Patient on BiPAP Resp: Unlabored. Poor air entry overall, crackles heard upper lobes, decreased air entry bibasilar Heart: Regular Rate and rhythm, normal S1 and S2, no rub or gallop. Abdomen: Soft and non tender no organomegaly Extremities: No cyanosis,clubbing or edema. COOK FRUIT: Elderly female, awake, alert, fatigued and tired. Moving all four extremities without any difficulty. Sensations intact. Skin: Warm and Dry. Diagnostic Data Last Recorded Lab Results: 12/01/24224212/01/242242 Advance Care Planning Advanced Care plannin - 30 Minutes (Advanced care planning discussed at the bedside for approximately 15-20 minutes. All resuscitative measures including chest compressions, mechanical ventilation, defibrillation explained in detail. Patient acknowledged understanding all the resuscitative measures and opted for full code status.) Additional Plan 81-year-old female with PMH of HTN, chronic HFpEF, AFib, HLD, hypothyroidism presented to ED with complaints of SOB, chest pain and dry cough. On ED evaluation patient has T-max of 100.8. WBC 15.5, proBNP 8000, pH 7.35, pCO2 65. Chest x-ray demonstrated bilateral pulmonary vascular congestion and left mid zone consolidation. Patient getting admitted for acute on chronic hypoxemic respiratory failure probably multifactorial pneumonia, CHF exacerbation. Assessment and plan: Acute on chronic hypoxemic respiratory failure 2/2 CHF exacerbation: SOB, chest pain, dry cough Elevated proBNP at 8000 Chest x-ray demonstrated bilateral pulmonary vascular congestion with cardiomegaly Patient uses 3 L of oxygen at home but currently on BiPAP Acute tiny chronic hypoxemia probably multifactorial CHF exacerbation, pneumonia and possible COPD Plan: Strict input output chart, monitor weights Fluid restriction Injection Lasix 20 mg IV once daily Follow up 2D echo Possible community-acquired pneumonia/COPD: Chest x-ray left lower zone haziness T-max 100.8, WBC 15 K Started injection ceftriaxone and injection azithromycin Duo nebs scheduled Q eight hourly, q.4 hourly p.r.n. Chronic HFpEF/ Paroxysmal AFib: Home meds digoxin, spironolactone and metoprolol continued Echo 2022: EF 55-60, RVSP 45, hypokinetic apex, moderate LA dilatation, [id number] MR, trace VA, moderate TR Follow up 2D echo Hypothyroidism: Continue levothyroxine 100 mcg once daily GERD: Omeprazole 20 mg once daily continue HLD: Simvastatin 40 mg once daily continue Chronic back pain: OxyContin 10 mg t.i.d. Code status: Full code DVT: Lovenox Date of Service: December 02, 2024 Billing Provider: MARIO ALBERTO STEARNS MD, KOTESHWAREDDY, RES December 02, 2024 02:51
[2024-12-02] MEDS: acetaminophen 325mg tablet PO PRN (03:37)
[2024-12-02] MEDS: K and/or MAG REPLACEMENT MC SCH (08:00)
[2024-12-02] MEDS: ipratropium/albuterol 3ml nebule NEB SCH (08:21)
[2024-12-02] MEDS ORDERED: iohexol 350MG/ML 100ml bottle IV ONE (09:03)
[2024-12-02] MEDS: potassium chloride 10mEq ER tablet PO SCH (09:39)
[2024-12-02] MEDS: levoTHYROXINE 100mcg tablet PO SCH (09:39)
[2024-12-02] MEDS: pantoprazole 40mg Tablet.DR PO SCH (09:40)
[2024-12-02] MEDS: oxyCODONE SR 10mg (sust. release) tab PO SCH (09:40)
[2024-12-02] MEDS: isosorbide mononitrate 30mg tab.SR.24H PO SCH (09:40)
[2024-12-02] MEDS: LORazepam 1 MG tablet PO SCH (09:41)
[2024-12-02] MEDS: digoxin 125mcg (0.125mg) tablet PO SCH (09:41)
[2024-12-02] MEDS: metoprolol succinate 25mg (24-HOUR) SR. Tablet PO SCH (09:42)
[2024-12-02] MEDS: furosemide 20 MG/2 ML vial IV SCH (09:42)
[2024-12-02] MEDS: enoxaparin 40mg/0.4ml syringe SUBCUT SCH (09:46)
--- NOTE | 2024-12-02 11:39 | RADIOLOGY REPORT ---
Indication: hypoxic resp failure, sob, CP Technique: CT axial images of the chest are obtained with intravenous contrast per CT angiogram prot ocol. Coronal and sagittal reformats were obtained. Radiation Dose Information: CTDI volume is 13.2 mGy. Dose-length product is 461 mGy*cm Comparison: CTA CHEST on DOS: 09/11/22 FINDINGS: There is no filling defect within the main left and right pulmonary arteries. The segmental and subs egmental branches are suboptimally opacified/ characterize. Trachea is patent. No pneumothorax. Bilateral pulmonary ground-glass attenuation. Right middle and lo wer lobe airspace consolidation more pronounced within the right lower lobe. Left upper lobe consolid ation and atelectasis. Moderate right and tiny left pleural effusions. Reflux of contrast into the hepatic veins and IVC. Heart enlarged. Coronary artery calcification disease. Right hilar lymph node measuring 1.3 cm. Subca rinal lymph node measuring 1.3 cm. Left hilar lymph node measuring 1.2 cm. Pretracheal lymph node me asuring 1.9 cm. Prevascular lymph node measuring 10 mm. No supraclavicular or axillary lymphadenopathy. Small hiatal hernia. Acute/ subacute L1 compression fracture deformity with 30% loss height, new since the previous examin ation. IMPRESSION: 1. No evidence for large pulmonary embolism. 2. Moderate right and tiny left pleural effusions. 3. Bilateral pulmonary airspace consolidation/atelectasis most pronounced within the right lower lobe and left upper lobe lingular segment. Follow-up to resolution to exclude underlying pulmonary lesio n. 4. Acute/subacute appearing L1 compression fracture deformity which is new since the previous examina tion. MRI lumbar spine can be obtained for further characterization. 5. Bilateral pulmonary ground-glass attenuation, likely sequela of edema/ hypoventilation. 6. Cardiomegaly. Reflux of contrast into the hepatic veins and IVC suggesting underlying right heart dysfunction. 7. Mediastinal and hilar lymphadenopathy. 8. Other findings as described.
[2024-12-02 12:49] LABS: PRO BRAIN NATRIURETIC PEPTIDE 10075 PG/ML (0-450)
[2024-12-02 12:55] LABS: LACTATE DEHYDROGENASE 264 U/L (81-234)
[2024-12-02] MEDS: spironolactone 25 MG tablet PO SCH (14:11)
[2024-12-02] MEDS ORDERED: naloxone 0.4 mg/ml inj IV PRN (14:20)
[2024-12-02] MEDS ORDERED: atorvastatin 20mg tablet PO ONE (14:20)
[2024-12-02] MEDS: isosorbide mononitrate 30mg tab.SR.24H PO ONE (14:25)
--- NOTE | 2024-12-02 14:25 | PROGRESS NOTE ---
Clinical Note Clinical Note Progress Note: No acute events overnight. Patient examined at bedside. No new complaints. Patient denies chest pain, palpitations, abdominal pain, n/v/d. Reports fatigue. # Acute decompensated diastolic heart failure, LVEF 55-60% # Atrial Fibrillation # Hypertensive Emergency- POA # Community-acquired pneumonia- POA # Sepsis 2/2 PNA- POA # Presence of ppm (2012) -12/02: pBNP 61979, trop series mildly uptrended and flat, lactic acid normalized after Lasix, tele afib and intermittent bradycardia as low as 37, TSH/T4 pending, lytes unremarkable, hypoxic, CTA shows PE negative, moderate right pleural effusion, b/l consolidations -GDMT as tolerated, aspirin, statin, empirical abx; home med lists two bbx's which are held -follow UA, blood/urine culture, TSH, T4 -consulted her ultrasonic tester Dr. Shawna Mcarthur, agreed to follow-up, Lexiscan not recommended at this time # Hypothyroidism # HLD -continue home levothyroxine, statin -follow TSH/T4, lipid panel # GERD -PPI # Chronic back pain -prn analgesics DVT/VTE Prophylaxis: Eliquis Code Status: Full Code RAVEN GALDAMEZ DRYWALL FINISHER December 02, 2024 14:25
[2024-12-02 15:07] LABS: BILIRUBIN,URINE NEGATIVE (Neg); CLARITY,URINE CLEAR (Clear); COLOR,URINE YELLOW (Yellow); GLUCOSE, URINE NEGATIVE (Neg); KETONES,URINE NEGATIVE (Neg); LEUKOCYTE ESTERASE ,URINE LARGE (Neg); NITRITES, URINE NEGATIVE (Neg); OCCULT BLOOD,URINE TRACE-INTACT (Neg); PROTEIN,URINE NEGATIVE (Neg); UROBILINOGEN,URINE 0.2 E.U/dL (0.2-1.0)
[2024-12-02 15:08] LABS: UA COLLECTION TYPE NON-SPECIFIED
[2024-12-02 15:12] LABS: BACTERIA,URINE 1+ /HPF (Neg); WBC,URINE 20-30 /HPF (0-4)
[2024-12-02 15:13] LABS: MUCUS STRANDS FEW /LPF (Neg); SQUAMOUS EPITHELIAL CELL,UR FEW /LPF (FEW)
[2024-12-02] MEDS ORDERED: hyDRALAzine 10mg tablet PO SCH (16:00)
[2024-12-02] MEDS: aspirin 81mg, enteric-coated 1 TAB TABLET.DR PO ONE (16:13)
[2024-12-02] MEDS: oxyCODONE/APAP 10/325mg tablet PO PRN (16:17)
[2024-12-02] MEDS: apixaban 2.5mg tablet PO SCH (20:22)
[2024-12-02] MEDS: simvastatin 20mg tablet PO SCH (20:23)
[2024-12-02] MEDS ORDERED: atorvastatin 20mg tablet PO SCH (21:00)
[2024-12-02] MEDS: traZODone 50mg tablet PO SCH (22:25)
[2024-12-02] MEDS: CefTRIAXone/D5W-Rocephin 1gm 50 ML IV SCH (22:30)
[2024-12-02] MEDS: azithromycin/NS 500mg/250ml 250 ML IV SCH (23:36)
[2024-12-03] VITALS (14 sets, daily range): BP systolic 123–137; BP diastolic 46–66; PULSE 51–68; RESP 15–20; TEMP 96.3–97.5; O2SAT 94–99
[2024-12-03 06:46] LABS: BASOPHILS # (AUTO) 0.1 X10'3 (0-0.2); BASOPHILS % (AUTO) 0.9 % (0-1); EOSINOPHILS # (AUTO) 0.3 X10'3 (0-0.9); EOSINOPHILS % (AUTO) 3.2 % (0-6); HEMATOCRIT 30.9 % (35.0-45.0); HEMOGLOBIN 10.5 g/dl (12.0-16.0); LYMPHOCYTES # (AUTO) 1.6 X10'3 (1.1-4.8); LYMPHOCYTES % (AUTO) 19.5 % (21-51); MEAN CORPUSCULAR HEMOGLOBIN 29.5 PG (27.0-31.0); MEAN CORPUSCULAR HGB CONC 33.9 g/dL (33.0-36.5); MEAN CORPUSCULAR VOLUME 87.3 FL (78-98); MEAN PLATELET VOLUME 8.4 FL (7.4-10.4); MONOCYTES # (AUTO) 0.7 X10'3 (0-0.9); MONOCYTES % (AUTO) 8.7 % (2-12); NEUTROPHILS # (AUTO) 5.5 X10'3 (1.8-7.7); NEUTROPHILS % (AUTO) 67.7 % (42-75); PLATELET COUNT 260 X10'3 (140-440); RED BLOOD COUNT 3.54 X10'6 (4.20-5.60); RED CELL DISTRIBUTION WIDTH 16.1 % (11.5-14.5); WHITE BLOOD COUNT 8.1 X10'3 (4.5-11.0)
[2024-12-03 07:03] LABS: ALANINE AMINOTRANSFERASE 13 U/L (12-78); ALBUMIN 2.9 G/DL (3.4-5.0); ALBUMIN/GLOBULIN RATIO 0.8 (1.1-1.5); ALKALINE PHOSPHATASE 142 IU/L (46-116); ANION GAP 2 (8-16); ASPARTATE AMINO TRANSFERASE 14 U/L (10-37); BILIRUBIN,TOTAL 0.5 MG/DL (0.1-1.0); BLOOD UREA NITROGEN 13 MG/DL (7-18); CALCIUM 8.5 MG/DL (8.5-10.1); CHLORIDE 94 MMOL/L (99-107); CHOLESTEROL 154 MG/DL (0-200); FREE T4 (FREE THYROXINE) 0.97 NG/DL (0.73-1.40); GLUCOSE 109 MG/DL (70-104); HDL CHOLESTEROL 51 MG/DL (35-60); LDL CHOLESTEROL 91 MG/DL (50-100); POTASSIUM 3.8 MMOL/L (3.5-5.1); PRO BRAIN NATRIURETIC PEPTIDE 6949 PG/ML (0-450); SODIUM 134 MMOL/L (135-145); THYROID STIMULATING HORMONE 18.29 ulU/ml (0.34-4.50); TOTAL PROTEIN 6.5 G/DL (6.4-8.2); TRIGLYCERIDES 65 MG/DL (20-135); eCRCL 31 ML/MIN; eGFR 53 ML/MIN
--- NOTE | 2024-12-03 07:17 | CARDIOLOGY REPORT ---
APPROVED REPORT EXAM: Comprehensive 2D, Doppler, and color-flow Echocardiogram. Patient Location: [facility] Blood Pressure: 138/60 mmHg Heart Rate: 63 bpm Rhythm: Pacemaker Indications Congestive Heart Failure Troponin: 70 Atrial Fibrillation Coronary Artery Disease Myocardial Infarction Shortness of Breath Hypertension Pacemaker (2013) CENTRIFUGAL CHILLER TECHNICIAN: Alfredo Mcarthur MD Previous ECHO: 09/11/22, [facility], SS, EF: 55-60modTR; m-modMR 2D Dimensions LA Diam4.4 cm IVSd 1.0 (0.7-1.1cm) LVDd 4.4 cm PWd 1.1 (0.7-1.1cm) IVSs 1.2 (0.8-1.2cm) LVDs 2.7 (2.5-4.0cm) PWs 1.6 (0.8-1.2cm) LVOT Diameter 1.82 (1.8-2.4cm) LVEF(%) 67.9 (>50%) Ao Asc Diam.2.66 cm IVC 21.66 mmFS (%) 37.6 % SV 58.0 ml CO 3.6 L/min M-Mode Dimensions Left Atrium(MM) 4.35 (2.5-4.0cm) Aortic Root 2.13 (2.2-3.7cm) Aortic Cusp Exc 0.74 (1.5-2.0cm) MV EPSS 0.4 (<0.5cm) Aortic Valve AoV Peak Gus. 144.5 cm/s AoV VTI 25.1 cm AO Peak GR. 8.4 mmHg AO Mean GR. 5 mmHg LVOT VTI 22.59 cm LVOT Peak Gus. 113.0 cm/s LEE(VTI)/BSA 2.33 cm2/m2 LEE (VTI) 2.33 cm2 Mitral Valve MV E Velocity 68.3 cm/s MV Peak Gr. 6 mmHg MV DECEL TIME 104 ms MV A Velocity 105.5 cm/s MV PHT 64 ms E/A Ratio 0.6 MVA (PHT) 3.44 cm2 MV TVbs999.8 cm/s TDI Lateral E' P. V4.27 cm/s E/Lateral E' 16.0 Tricuspid Valve TR P. Velocity 334 cm/s RAP ESTIMATE 10 mmHg TR Peak Gr. 45 mmHg RVSP 55 mmHg LEFT VENTRICLE Normal LV size and wall thickness. Overall systolic function is normal. There is hypokinesia of the m id to apex inferoseptal wall. LVEF is 55-60%. RIGHT VENTRICLE RV is normal size and function. ATRIA The left atrium size is normal. AORTIC VALVE Trileaflet AV appears mildly sclerotic without stenosis. Trace insufficiency. MITRAL VALVE Mild mitral annular calcification without stenosis. Mild regurgitation TRICUSPID VALVE The tricuspid valve is normal in structure with mild to moderate regurgitation. PULMONIC VALVE The pulmonary valve is normal in structure with physiologic insufficiency. GREAT VESSELS The aortic root is normal in size. The ascending aorta is normal in size. IVC is dilated and collapse s less than 50% with inspiration. PERICARDIUM Normal pericardium. No effusion. Ascites is present. Other Information Study Quality: Adequate Conclusion Normal LV size and wall thickness. Overall systolic function is normal. There is hypokinesia of the m id to apex inferoseptal wall.LVEF is 55-60%. RV is normal size and function. The left atrium size is normal. Trileaflet AV appears mildly sclerotic without stenosis. Trace insufficiency. Mild mitral annular calcification without stenosis. Mild regurgitation The tricuspid valve is normal in structure with mild to moderate regurgitation. Normal pericardium. No effusion.
[2024-12-03] MEDS ORDERED: azithromycin 250mg tablet PO SCH (08:00)
[2024-12-03] MEDS ORDERED: isosorbide mononitrate 30mg tab.SR.24H PO SCH (08:00)
[2024-12-03] MEDS ORDERED: CefTRIAXone/D5W-Rocephin 1gm 50 ML IV SCH (08:00)
[2024-12-03] MEDS: aspirin 81mg, enteric-coated 1 TAB TABLET.DR PO SCH (08:39)
[2024-12-03] MEDS: levoTHYROXINE 125mcg tablet PO SCH (08:40)
[2024-12-03] MEDS: lisinopril 10 MG tablet PO SCH (08:40)
[2024-12-03] MEDS: EMPAGLIFLOZIN 10 MG TABLET PO SCH (08:40)
[2024-12-03] MEDS: furosemide 20 MG/2 ML vial IV SCH (08:41)
[2024-12-03] MEDS: isosorbide mononitrate 30mg tab.SR.24H PO SCH (08:42)
--- NOTE | 2024-12-03 08:49 | RADIOLOGY REPORT ---
EXAM: XR Chest, 1 View CLINICAL INDICATION: pleural effusion, right TECHNIQUE: Frontal view of the chest. COMPARISON: DI CHEST,SINGLE VIEW on DOS: 12/01/24, CHEST,SINGLE VIEW on DOS: 11/12/22, CHEST,SINGLE V IEW on DOS: 09/11/22, CHEST,SINGLE VIEW on DOS: 03/25/21, CHEST,SINGLE VIEW on DOS: 03/06/21 FINDINGS: LUNGS AND PLEURAL SPACES: See below. HEART: Cardiomegaly with pulmonary congestion and edema. Superimposed pneumonia cannot be excluded. Left cardiac. MEDIASTINUM: Unremarkable. Normal mediastinal contour. BONES/JOINTS: Unremarkable. No acute fracture. OTHER FINDINGS: . IMPRESSION: Cardiomegaly with pulmonary congestion and edema. Superimposed pneumonia cannot be excluded.
[2024-12-03] MEDS: diphenhydrAMINE 25mg capsule PO PRN (09:46)
[2024-12-03] MEDS: ondansetron/PF 4mg/2ml inj IV PRN (10:13)
--- NOTE | 2024-12-03 10:55 | PROGRESS NOTE ---
Daily Progress Note Providers to CC ~ Antibiotic Timeout Antibiotic Ordered?: Yes Subjective No acute events overnight. Patient examined at bedside. No new complaints, not in acute distress. Patient denies chest pain, sob, palpitations, abdominal pain, n/v/d. Tele afib in high 50s-80s, home metoprolol and digoxin discontinued. Labs notable for normalized white count, downtrending pBNP on diuretics. TSH elevated, levothyroxine dose adjusted. Objective Vital Signs Date Time Temp Pulse Resp B/P (MAP) Pulse Ox O2 Delivery O2 Flow Rate FiO2 12/03/24 08:40 55 12/03/24 07:42 20 Nasal Cannula 3.0 12/03/24 07:34 97 32 12/03/24 06:00 97.5 137/56 (83) Result Diagram: 12/03/24 0603 12/03/24 06 Physical Exam General: Generalized weakness, A&Ox 3, NAD HEENT: Normocephalic, PERRLA Neck: Supple, trachea midline, no JVD Chest: Clear to auscultation bilaterally Cardiovascular: IRIR, bradycardic GI: Soft and nontender Extremities: No cyanosis/clubbing/or edema EDUCATION INSTRUCTOR: CN II-XII intact, no focal deficits Musculoskeletal: No paraspinal muscle tenderness, no muscle spasm Skin: Warm and intact Problem\Assessment\Plan # Acute decompensated diastolic heart failure, LVEF 55-60% # Atrial Fibrillation # Hypertensive Emergency- POA # Community-acquired pneumonia- POA # Sepsis 2/2 PNA- POA # Presence of ppm (2012) -12/02: pBNP 77739, trop series mildly uptrended and flat, lactic acid normalized after Lasix, tele afib and intermittent bradycardia as low as 37, TSH/T4 pending, lytes unremarkable, hypoxic, CTA shows PE negative, moderate right pleural effusion, b/l consolidations -GDMT as tolerated, aspirin, statin, empirical abx; home med lists two bbx's which are held -follow UA, blood/urine culture, TSH, T4 -consulted her manager action Dr. Shawna Mcarthur, agreed to follow-up, Lexiscan not recommended at this time -12/03: pBNP downtrending on diuretics; repeat cxr shows pneumonia, continued on abx # Hypothyroidism # HLD -continue home levothyroxine, statin -follow TSH/T4, lipid panel -12/03: TSH 18, levothyroxine dose adjusted # GERD -PPI # Chronic back pain -home oxycontin DVT/VTE Prophylaxis: Eliquis Code Status: Full Code Date of Service: December 03, 2024 Billing Provider: RAVEN GALDAMEZ Common Visit Codes: [id number] INP/OBS CARE(HIGH) RAVEN GALDAMEZ December 03, 2024 10:55
[2024-12-03] MEDS: oxyCODONE SR 10mg (sust. release) tab PO SCH ×2 (11:15→16:19)
[2024-12-04] VITALS (8 sets, daily range): BP systolic 123–132; BP diastolic 49–54; PULSE 51–71; RESP 14–20; TEMP 97.2–97.4; O2SAT 94–99
[2024-12-04] MEDS ORDERED: acetaminophen 325mg tablet PO PRN (02:50)
[2024-12-04] MEDS: acetaminophen 325mg tablet PO PRN (03:26)
[2024-12-04 06:54] LABS: BASOPHILS # (AUTO) 0.1 X10'3 (0-0.2); BASOPHILS % (AUTO) 1.1 % (0-1); EOSINOPHILS # (AUTO) 0.3 X10'3 (0-0.9); EOSINOPHILS % (AUTO) 2.8 % (0-6); HEMATOCRIT 30.1 % (35.0-45.0); HEMOGLOBIN 10.1 g/dl (12.0-16.0); LYMPHOCYTES # (AUTO) 1.1 X10'3 (1.1-4.8); LYMPHOCYTES % (AUTO) 12.2 % (21-51); MEAN CORPUSCULAR HEMOGLOBIN 29.4 PG (27.0-31.0); MEAN CORPUSCULAR HGB CONC 33.6 g/dL (33.0-36.5); MEAN CORPUSCULAR VOLUME 87.5 FL (78-98); MEAN PLATELET VOLUME 8.3 FL (7.4-10.4); MONOCYTES # (AUTO) 0.6 X10'3 (0-0.9); MONOCYTES % (AUTO) 6.4 % (2-12); NEUTROPHILS # (AUTO) 7.1 X10'3 (1.8-7.7); NEUTROPHILS % (AUTO) 77.5 % (42-75); PLATELET COUNT 230 X10'3 (140-440); RED BLOOD COUNT 3.44 X10'6 (4.20-5.60); RED CELL DISTRIBUTION WIDTH 16.2 % (11.5-14.5); WHITE BLOOD COUNT 9.2 X10'3 (4.5-11.0)
[2024-12-04 07:26] LABS: ALANINE AMINOTRANSFERASE 14 U/L (12-78); ALBUMIN 2.9 G/DL (3.4-5.0); ALBUMIN/GLOBULIN RATIO 0.9 (1.1-1.5); ALKALINE PHOSPHATASE 135 IU/L (46-116); ANION GAP 4 (8-16); ASPARTATE AMINO TRANSFERASE 10 U/L (10-37); BILIRUBIN,TOTAL 0.5 MG/DL (0.1-1.0); BLOOD UREA NITROGEN 12 MG/DL (7-18); BUN/CREATININE RATIO 12.5 (10.0-20.0); CALCIUM 8.4 MG/DL (8.5-10.1); CHLORIDE 96 MMOL/L (99-107); CREATININE 0.96 MG/DL (0.40-0.90); GLUCOSE 96 MG/DL (70-104); POTASSIUM 3.9 MMOL/L (3.5-5.1); PRO BRAIN NATRIURETIC PEPTIDE 4386 PG/ML (0-450); SODIUM 139 MMOL/L (135-145); TOTAL CARBON DIOXIDE 39.3 MMOL/L (24-32); TOTAL PROTEIN 6.3 G/DL (6.4-8.2); eCRCL 32 ML/MIN; eGFR 56 ML/MIN
[2024-12-04] MEDS ORDERED: AMOX-115 PO (12:13)
[2024-12-04] MEDS ORDERED: FURO-149 PO (12:13)
[2024-12-04] MEDS ORDERED: POTA-207 PO (12:13)
[2024-12-04] MEDS ORDERED: LISI10TA27 PO (12:13)
[2024-12-04] MEDS ORDERED: APIX2.5T PO (12:13)
[2024-12-04] MEDS ORDERED: LEVO125T8 PO (12:13)
--- NOTE | 2024-12-04 19:18 | DISCHARGE SUMMARY ---
Discharge Summary Providers to CC ~ Discharge Summary Admission Diagnosis: Acute hypoxic respiratory failure, acute CHF, CAP, Hypertensive emergency Hospital Course DATE OF ADMISSION: 12/02/24 DATE OF DISCHARGE: 12/04/24 Discharge Diagnosis\\Comment: Acute decompensated diastolic heart failure, LVEF 55-60% Hypertensive Emergency- POA Community-acquired pneumonia- POA Sepsis 2/2 PNA- POA Likely T2 CT Atrial Fibrillation Presence of ppm (2012) Hypothyroidism HLD GERD Chronic back pain Operations\\Procedures: None Consultants: Doorperson Or Luggage Porter Dr. Shawna Mcarthur Complications: None Condition on DC: Stable New Medications: Amox Tr/Potassium Clavulanate (Augmentin 500-125 Tablet) 1 Each Tablet 1 TAB PO Q8H for 7 Days, #21 TAB Furosemide (Lasix) 40 Mg Tablet 40 MG PO DAILY for 30 Days, #30 TAB Potassium Chloride* (K-Dur*) 20 Meq Tab.prt.sr 1 TAB PO DAILY for 30 Days, #30 TAB Apixaban (Eliquis) 2.5 Mg Tablet 2.5 MG PO BID for 30 Days, #60 TAB Levothyroxine Sodium (Levothyroxine Sodium) 125 Mcg Tablet 125 MCG PO DAILY for 90 Days, #90 TAB Lisinopril (Lisinopril) 10 Mg Tablet 10 MG PO DAILY for 30 Days, #30 TAB Continued Medications: Lorazepam (Ativan) 1 Mg Tablet 1 MG PO BID, #60 TAB Omeprazole (Omeprazole) 20 Mg Capsule.dr 1 CAP PO DAILY for 30 Days, #30 CAP 0 Refills Oxycodone HCl (Oxycontin) 10 Mg Tab.er.12h 10 MG PO TID, #90 TAB.SR Simvastatin (Zocor) 40 Mg Tablet 1 TAB PO HS, TAB Spironolactone (Spironolactone) 25 Mg Tablet 1 TAB PO DAILY Trazodone HCl (Trazodone HCl) 100 Mg Tablet 2 TAB PO HS Discontinued Medications: Carvedilol (Carvedilol) 25 Mg Tablet 2 TABLET PO BID, #120 TABLET 3 Refills Digoxin (Digoxin) 125 Mcg Tablet 1 TAB PO DAILY for 30 Days, #30 TAB 0 Refills START TAKING DECEMBER 03, 2022 Isosorbide Mononitrate (Isosorbide Mononitrate Er) 30 Mg Tab.er.24h 0.5 TAB PO DAILY Levothyroxine Sodium (Levothyroxine Sodium) 100 Mcg Tablet 100 MCG PO DAILY, #30 TAB Metoprolol Succinate (Metoprolol Succinate) 100 Mg Tab.sr.24h 1.5 TAB PO DAILY Potassium Chloride (K-Dur) 10 Meq Tab.prt.sr 1 TAB PO BID Discharge Summary: History of Present Illness From H&P: Krupa Mcintyre is a "81-year-old female with PMH of HTN, chronic HFpEF, AFib, HLD, hypothyroidism presented to ED with complaints of shortness of breaths, chest pain and dry cough. When I evaluated the patient she was on BiPAP and extremely tired and fatigued. She could not able to provide subjective history. Patient stated SOB and dry cough started a few days back which is gradually progressive and worsening. Endorsed right-sided chest pain. Denied fevers, chills. Denied orthopnea, PND. Patient was placed on BiPAP in view of respiratory distress and acute hypoxemic respiratory failure. Patient denied abdominal pain, nausea, vomiting. Denied urinary symptoms. Patient is on 3 L of home oxygen and currently requiring BiPAP support." Hospital Course Diagnostic findings were significant for elevated NT-pBNP 10,000, mildly uptrended but flat troponin series, elevated lactic acid, profoundly elevated blood pressure, telemetry indicating intermittent bradycardia as low as 37, hypoxia, chest x-ray indicating pneumonia, CT indicating moderate right pleural effusion and bilateral consolidations. Pertinent negative findings were unremarkable lytes, negative procal, CTA negative for pulmonary embolism, unremarkable liver function test and renal function test. TTE indicated hypokinesia of the mid to apex inferoseptal wall, LVEF of 55-60% without significant valvular heart disease. Patient's pacemaker was interrogated and was found to be nonfunctional. Patient was started on GDMT including diuretics, aspirin, statin, antihypertensives, empirical antibiotics, supplemental oxygen, bronchodilators. It was noted that patient has been taking metoprolol succinate, carvedilol, digoxin at home which were discontinued. Case was discussed with her pulling unit floorhand Shawna Calles who recommended medical management and outpatient follow-up. With start of treatment, patient's reported symptoms of shortness of breath, chest pain, cough, supplemental oxygen demand have improved significantly and came down to her home 3L O2. Labs were notable for downtrending pBNP and normalized lactic acid. Patient did not experience further complications throughout the entire hospital stay and remained clinically and hemodynamically stable. Patient was seen and examined on the day of discharge. On day of discharge, vss and labs unremarkable. Telemetry remains afib in 60s- 70s. All labs, diagnostic workups, discharge plan discussed with patient in details during visit before discharge. All questions and concerns answered to the best of my professional knowledge. I spoke to her pulling unit floorhand Dr. Mcarthur on a day of discharge. Patient is cleared for discharge from cardiology standpoint for outpatient follow-up within 1 week in his office. Patient is to be discharged with HH and to follow-up with PCP and Dr. Mcarthur within 1 week. Physical Exam General: Generalized weakness, A&Ox 3, NAD HEENT: Normocephalic, PERRLA Neck: Supple, trachea midline, no JVD Chest: Clear to auscultation bilaterally Cardiovascular: IRIR GI: Soft and nontender Extremities: No cyanosis/clubbing/or edema CHIEF DIGITAL MEDIA OFFICER: CN II-XII intact, no focal deficits Musculoskeletal: No paraspinal muscle tenderness, no muscle spasm Skin: Warm and intact *Problems/Diagnosis: (1) Acute on chronic diastolic CHF (congestive heart failure) Status: Acute (2) Atrial fibrillation Status: Chronic Total Time Spent on D/C: > 30 Minutes Date of Service: December 04, 2024 Billing Provider: RAVEN GALDAMEZ Common Visit Codes: 39417-JNI/[id number] DISCH DAY >30min RAVEN GALDAMEZ December 04, 2024 19:15
== END 2024-12-04 15:15 | disposition home health service (06) | DRG 871 ==
LOC: ER 22:31 → ED HOLD 12-02 01:18 → PCU 3S 12-02 02:30
PROVIDERS: ADMIT Internal Medicine Critical Care Medicine; ATTEND Nurse Practitioner Family
PROC: 05HB33Z Insertion of Infusion Device into Right Basilic Vein, Percutaneous Approach (ICD-10-PCS; principal; 2024-12-02)
PROC: B54MZZA Ultrasonography of Right Upper Extremity Veins, Guidance (ICD-10-PCS; 2024-12-02)
PROC: 5A09357 Assistance with Respiratory Ventilation, Less than 24 Consecutive Hours, Continuous Positive Airway Pressure (ICD-10-PCS; 2024-12-02)
PROC: B32T1ZZ Computerized Tomography (CT Scan) of Left Pulmonary Artery using Low Osmolar Contrast (ICD-10-PCS; 2024-12-02)
PROC: B3201ZZ Computerized Tomography (CT Scan) of Thoracic Aorta using Low Osmolar Contrast (ICD-10-PCS; 2024-12-02)
PROC: B32S1ZZ Computerized Tomography (CT Scan) of Right Pulmonary Artery using Low Osmolar Contrast (ICD-10-PCS; 2024-12-02)
DX: A41.9 Sepsis, unspecified organism (principal); I21.A1 Myocardial infarction type 2; J18.9 Pneumonia, unspecified organism; I50.33 Acute on chronic diastolic (congestive) heart failure; J96.01 Acute respiratory failure with hypoxia; I16.1 Hypertensive emergency; E87.20 Acidosis, unspecified; I25.10 Atherosclerotic heart disease of native coronary artery without angina pectoris; E78.5 Hyperlipidemia, unspecified; K21.9 Gastro-esophageal reflux disease without esophagitis; G89.29 Other chronic pain; F41.9 Anxiety disorder, unspecified; M54.9 Dorsalgia, unspecified; I48.0 Paroxysmal atrial fibrillation; Z20.822 Contact with and (suspected) exposure to COVID-19; I11.0 Hypertensive heart disease with heart failure; Z79.899 Other long term (current) drug therapy; Z88.1 Allergy status to other antibiotic agents; Z88.8 Allergy status to other drugs, medicaments and biological substances; Z88.2 Allergy status to sulfonamides; Z79.01 Long term (current) use of anticoagulants; Z90.710 Acquired absence of both cervix and uterus; Z83.79 Family history of other diseases of the digestive system; Z80.6 Family history of leukemia; Z95.0 Presence of cardiac pacemaker
CPT/HCPCS: 36410; 36415; 36600; 71045; 71275; 76937; 80048; 80053; 80061; 81001; 82803; 83605; 83615; 83735; 83880; 84100; 84145; 84439; 84443; 84484; 85018; 85025; 87040; 87081; 87088; 87811; 93005; 93306; 94640; 94660; 94760; 96365; 96368; 96375; 97110; 97161; 97530; 99291; 99292; C1751; G0378; J0456; J0696; J1650; J1938; J2270; J2405; J7040; Q0163; Q9967

== ENCOUNTER 2024-12-13 21:54 | Inpatient (IN) | payer MEDICARE ==
[~2024-12-13] VITALS: Ht 162.6 cm; Wt 65.9 kg
[~2024-12-13 21:54] MED LIST changes: +APIX2.5T PO; -CARV25TA2 PO; -DIGO-20 PO; +FURO-149 PO; -ISOS30TA84 PO; -LEVO100T9 PO; +LEVO125T8 PO; +LISI10TA27 PO; -METO-411 PO; -POTA-206 PO; +POTA-207 PO
[2024-12-13 22:05] VITALS: PULSE 144; RESP 45; O2SAT 95
[2024-12-13] MEDS: diltiazem 5mg/ml 5ml inj. IV ONE (22:26)
[2024-12-13 22:37] LABS: BASOPHILS # (AUTO) 0.1 X10'3 (0-0.2); BASOPHILS % (AUTO) 0.9 % (0-1); EOSINOPHILS # (AUTO) 0.3 X10'3 (0-0.9); EOSINOPHILS % (AUTO) 2.4 % (0-6); HEMATOCRIT 37.1 % (35.0-45.0); HEMOGLOBIN 11.7 g/dl (12.0-16.0); LYMPHOCYTES # (AUTO) 2.8 X10'3 (1.1-4.8); LYMPHOCYTES % (AUTO) 23.3 % (21-51); MEAN CORPUSCULAR HEMOGLOBIN 27.8 PG (27.0-31.0); MEAN CORPUSCULAR HGB CONC 31.5 g/dL (33.0-36.5); MEAN CORPUSCULAR VOLUME 88.2 FL (78-98); MONOCYTES # (AUTO) 0.6 X10'3 (0-0.9); NEUTROPHILS # (AUTO) 8.3 X10'3 (1.8-7.7); NEUTROPHILS % (AUTO) 68.4 % (42-75); PLATELET COUNT 362 X10'3 (140-440); RED CELL DISTRIBUTION WIDTH 16.7 % (11.5-14.5); WHITE BLOOD COUNT 12.2 X10'3 (4.5-11.0)
[2024-12-13 22:49] VITALS: PULSE 88; RESP 32; O2SAT 94
[2024-12-13 22:59] LABS: ALANINE AMINOTRANSFERASE 14 U/L (12-78); ALBUMIN 3.6 G/DL (3.4-5.0); ALBUMIN/GLOBULIN RATIO 0.8 (1.1-1.5); ALKALINE PHOSPHATASE 203 IU/L (46-116); ANION GAP 7 (8-16); ASPARTATE AMINO TRANSFERASE 23 U/L (10-37); BILIRUBIN,TOTAL 0.9 MG/DL (0.1-1.0); BLOOD UREA NITROGEN 11 MG/DL (7-18); BUN/CREATININE RATIO 9.3 (10.0-20.0); CALCIUM 8.3 MG/DL (8.5-10.1); CHLORIDE 95 MMOL/L (99-107); CREATININE 1.18 MG/DL (0.40-0.90); GLUCOSE 284 MG/DL (70-104); PRO BRAIN NATRIURETIC PEPTIDE 3995 PG/ML (0-450); SODIUM 136 MMOL/L (135-145); TOTAL PROTEIN 8.1 G/DL (6.4-8.2); eCRCL 31 ML/MIN; eGFR 44 ML/MIN
[2024-12-13 23:00] LABS: POTASSIUM 2.9 MMOL/L (3.5-5.1)
--- NOTE | 2024-12-13 23:09 | RADIOLOGY REPORT ---
CHEST RADIOGRAPH Indication: CP Technique: Single frontal view of the chest was obtained COMPARISON: DI CHEST,SINGLE VIEW on DOS: 12/03/24 FINDINGS / IMPRESSION: Lines and Tubes: Pacemaker again noted overlying left chest wall. Lungs: Extensive infiltrates noted in both lungs most extensive in the right upper lobe, considerably progressed compared to the prior chest x-ray from 12/03/24. Pleura: Small pleural effusions larger on the left side. No pneumothorax. Cardiomediastinal contours: Mild cardiomegaly.
[2024-12-13] MEDS: HYDROcodone/acetaminophen 5mg/325mg tablet PO ONE (23:19)
[2024-12-13] MEDS: ondansetron/PF 4mg/2ml inj IV ONE (23:19)
--- NOTE | 2024-12-13 23:28 | Physician Documentation ---
History of Present Illness ~ Chief Complaint: Shortness of Breath Stated Complaint: CODE 3 Time Seen by MD: 22:01 Primary Medical Doctor: Fuad Mode of Arrival: EMS HPI Patient presents to the emergency room for evaluation of shortness of breath. She was found saturating in the 60s in the field. She was admitted here proximally two weeks ago for similar symptoms. No history of asthma/COPD. She states she has not take any inhalers. She has full code. Significant hypertension. Patient is in AFib RVR. Medication Reconciliation Allergies: Coded Allergies: clindamycin (Verified Allergy, Severe, 12/01/24) pentazocine (Verified Allergy, Severe, 12/01/24) clonazepam (Verified Allergy, Intermediate, 12/01/24) Penicillins (Verified Allergy, Unknown, 12/01/24) Pentazocine Lactate (Verified Allergy, Unknown, 12/01/24) Sulfa (Sulfonamide Antibiotics) (Verified Allergy, Unknown, 12/01/24) celecoxib (Verified Allergy, Unknown, 01/19/14) clindamycin phosphate (Verified Allergy, Unknown, 01/19/14) ibuprofen (Verified Allergy, Unknown, 01/19/14) propoxyphene HCl (Verified Allergy, Unknown, 01/19/14) Uncoded Allergies: TUSSAGESIC (Allergy, Severe, 10/25/16) Scheduled Amoxicillin/Potassium Clav (Amox Tr-K Clv 500-125 mg Tab), 1 TAB PO Q8H, (Reported) Apixaban (Eliquis), 2.5 MG PO BID Furosemide (Lasix), 40 MG PO DAILY Furosemide (Furosemide), 1 TAB PO DAILY, (Reported) Levothyroxine Sodium (Levothyroxine Sodium), 125 MCG PO DAILY Lisinopril (Lisinopril), 10 MG PO DAILY Lisinopril (Lisinopril), 1 TAB PO DAILY, (Reported) Lisinopril (Lisinopril), 1 TAB PO DAILY, (Reported) Lorazepam (Ativan), 1 MG PO BID Omeprazole (Omeprazole), 1 CAP PO DAILY, (Reported) Oxycodone HCl (Oxycontin), 10 MG PO TID Potassium Chloride* (K-Dur*), 1 TAB PO DAILY Simvastatin (Zocor), 1 TAB PO HS, (Reported) Spironolactone (Spironolactone), 1 TAB PO DAILY, (Reported) Trazodone HCl (Trazodone HCl), 2 TAB PO HS, (Reported) Scheduled PRN Prochlorperazine Maleate (Prochlorperazine Maleate), 1 TAB PO Q6H PRN for nausea, (Reported) Discontinued Medications Amox Tr/Potassium Clavulanate (Augmentin 500-125 Tablet), 1 TAB PO Q8H Discontinued Reason: Auto Discontinued Past Medical History Past Medical History: Atrial Fibrillation, Coronary Artery Disease, Congestive Heart Failure, Hypertension, Myocardial Infarction, GERD, UTI, Chronic Pain, Anxiety Past Surgical History: abdominal surgery, hysterectomy, orthopedic surgeries, pacemaker, other Other Past Surgical History: Thyroidectomy Patient History: FH: bowel obstruction MOTHER, , Age: 88, Cause: Old age FH: leukemia SISTER Alcohol Use: None Drug Use: none Lives with: Spouse Lives In: Home Review of Systems ROS All review of systems negative except as per HPI Physical Exam Vital Signs: Temperature: 98.4, Source: Oral, Heart Rate: 88, Respiratory Rate: 16, BP: 135/75, Pulse Oximetry: 93, Weight: 65.910 Physical Exam General: Patient is awake, alert, oriented x4 in severe respiratory distress on BiPAP Head: Normocephalic and atraumatic. Eyes: Conjunctival normal. EOMI. PERRL. ENT: Mucous membranes moist. Neck: Supple, trachea is midline. Chest: Clear to auscultation bilaterally without rales, rhonchi, or wheezes. There is no accessory muscle use or retractions. Cardiac: Tachycardic irregular without murmurs, gallops, or rubs. Abd: Soft, nondistended, nontender, with normoactive bowel sounds. No guarding, rebound, or rigidity. Extremities: Normal strength. Normal range of motion. No deformities or edema. Progress Results/Orders Results/Orders Orders - ANDERS THURMAN MD Chest,Single View (12/13/24 22:30) Monitor (12/13/24 21:55) Saline Lock (12/13/24 21:55) Oxygen (12/13/24 21:55) Page Hospitalist (12/13/24 23:24) Fill Out Med Reconciliation (12/13/24 23:24) Page Hospitalist (12/13/24 23:28) Fill Out Med Reconciliation (12/13/24 23:28) Completed Orders - ANDERS THURMAN MD Chest,Single View (12/13/24 22:30) Cbc/Diff (12/13/24 21:55) PBNP (12/13/24 21:55) Electrocardiogram (12/13/24 21:55) CMP (12/13/24 21:55) Hs Troponin I W Calculations (12/13/24 21:55) Hs Troponin I W Calculations (12/13/24 23:55) Hs Troponin I W Calculations (12/14/24 00:55) Diltiazem Iv (Cardizem Iv 5mg/Ml Inj.) (12/13/24 22:05) Hydrocodone/Apap 5/325mg Tab ([place] (12/13/24 23:15) Ondansetron Inj. (Zofran 4mg/2ml Vial) (12/13/24 23:15) Potassium Cl 40meq/1/2ns 520ml ([place] (12/14/24 00:00) Vital Signs 12/13/24 12/13/24 12/13/24 12/13/24 21:56 22:05 22:26 22:32 Pulse 165 144 133 Resp 23 40 35 45 B/P (MAP) 181/116 Pulse Ox 80 95 FiO2 100 12/13/24 12/13/24 12/13/24 12/13/24 22:46 22:49 22:51 23:19 Temp 98.4 Pulse 90 88 Resp 29 30 16 32 B/P (MAP) 135/75 (95) Pulse Ox 97 94 93 O2 Delivery BiPAP+ FiO2 60 60 60 12/13/24 23:40 Pulse 93 Resp 21 B/P (MAP) 123/69 (87) Pulse Ox 92 FiO2 60 Laboratory Tests Test 12/13/24 22:21 White Blood Count 12.2 H Red Blood Count 4.20 Hemoglobin 11.7 L Hematocrit 37.1 Mean Corpuscular Volume 88.2 Mean Corpuscular Hemoglobin 27.8 Mean Corpuscular Hemoglobin Concent 31.5 L Red Cell Distribution Width 16.7 H Platelet Count 362 Mean Platelet Volume 8.0 Neutrophils (%) (Auto) 68.4 Lymphocytes (%) (Auto) 23.3 Monocytes (%) (Auto) 5.0 Eosinophils (%) (Auto) 2.4 Basophils (%) (Auto) 0.9 Neutrophils # (Auto) 8.3 H Lymphocytes # (Auto) 2.8 Monocytes # (Auto) 0.6 Eosinophils # (Auto) 0.3 Basophils # (Auto) 0.1 CBC Comment Sodium Level 136 Potassium Level 2.9 *L Chloride Level 95 L Carbon Dioxide Level 34.0 H Anion Gap 7 L Blood Urea Nitrogen 11 Creatinine 1.18 H Estimated GFR/1.73 m2 44 BUN/Creatinine Ratio 9.3 L Glucose Level 284 H Calcium Level 8.3 L Total Bilirubin 0.9 Aspartate Amino Transf (AST/SGOT) 23 Alanine Aminotransferase (ALT/SGPT) 14 Alkaline Phosphatase 203 H Troponin I High Sensitivity 25 Pro-B-Type Natriuretic Peptide 3995 H Total Protein 8.1 Albumin 3.6 Globulin 4.5 H Albumin/Globulin Ratio 0.8 L Chemistry Comments EKG/XRAY/CT/US/VASC/MRI EKG : Additional Comment EKG interpreted by myself shows time of 08/08/2056, rate 178, atrial fibrillation with rapid ventricular response, left axis deviation, nonspecific ST-T changes Chest X-Ray : Additional Comments Exam: CHEST,SINGLE VIEW CHEST RADIOGRAPH Indication: CP Technique: Single frontal view of the chest was obtained COMPARISON: DI CHEST,SINGLE VIEW on DOS: 12/03/24 FINDINGS / IMPRESSION: Lines and Tubes: Pacemaker again noted overlying left chest wall. Lungs: Extensive infiltrates noted in both lungs most extensive in the right upper lobe, considerably progressed compared to the prior chest x-ray from 12/03/24. Pleura: Small pleural effusions larger on the left side. No pneumothorax. Cardiomediastinal contours: Mild cardiomegaly. Medical Decision Making Findings Patient presented to the emergency room in severe respiratory distress. Differentials include but are not limited to pneumonia, CHF, COPD exacerbation therefore emergent labs and imaging indicated. Workup consistent with fluid overload and we will admit for further treatment. Patient does have elevated troponins however no ST elevations seen on EKG and do believe he is suffering from demand ischemia from fluid overload. Departure Admitted to Inpatient Unit: yes, to hospitalist Impression: Primary Impression: CHF exacerbation Additional Impression: Hypoxia Referrals: NO PRIMARY CARE PROVIDER (PCP) Critical Care Note Total Time (mins): 30 Critical Care Note The very real possibility of a deterioration of this patient's condition required the highest level of my preparedness for sudden, emergent intervention. I provided critical care services, which included medication orders, frequent reevaluations of the patient's condition and response to treatment, ordering and reviewing test results, and discussing the case with various consultants. Excludes time spent performing separately billable procedures. The critical care time associated with the care of the patient was 30 minutes not counting procedures Signature Scribe Signature: No scribe Attestation: The note accurately reflects work and decisions made by me.Anders Thurman MD 12/14/24 22:40 ANDERS THURMAN MD December 13, 2024 23:28
[2024-12-13] MEDS ORDERED: potassium Cl 20 mEq SR tablet PO PRN (23:35)
[2024-12-13] MEDS ORDERED: mag hydrox/Alum hydrox/simeth 30ml oral suspension PO PRN (23:35)
[2024-12-13] MEDS ORDERED: acetaminophen 325mg tablet PO PRN (23:35)
[2024-12-13] MEDS ORDERED: potassium Cl 40MEQ/1/2NS 520ml 520 ML IV PRN (23:35)
[2024-12-13] MEDS ORDERED: magnesium sulf-water 2g/50mL 50 ML IV PRN (23:35)
[2024-12-13] MEDS ORDERED: azithromycin/NS 500mg/250ml 250 ML IV SCH (23:35)
[2024-12-13] MEDS ORDERED: magnesium hydroxide 30ml (MOM) UD suspension PO PRN (23:35)
[2024-12-13] MEDS ORDERED: morphine 2 MG/ML inj. syringe IV PRN ×2 (23:35)
[2024-12-13] MEDS ORDERED: magnesium sulf-water 4G/100mL 100 ML IV PRN (23:35)
[2024-12-13] MEDS ORDERED: magnesium Cl slow-release 64mg tablet PO PRN (23:35)
[2024-12-14] VITALS (12 sets, daily range): BP systolic 124–156; BP diastolic 54–76; PULSE 67–102; RESP 16–33; TEMP 96.1–97.9; O2SAT 90–98
[2024-12-14 00:35] LABS: HEMOGLOBIN A1C 5.5 % (4.5-6.2)
[2024-12-14 00:50] LABS: MAGNESIUM 1.8 MG/DL (1.5-2.4)
[2024-12-14] MEDS: CefTRIAXone/D5W-Rocephin 1gm 50 ML IV ONE (00:58)
[2024-12-14] MEDS: potassium Cl 40MEQ/1/2NS 520ml 520 ML IV SCH (01:26)
[2024-12-14] MEDS: potassium Cl 40MEQ/1/2NS 520ml 520 ML IV ONE (01:26)
[2024-12-14] MEDS ORDERED: LISI5TAB22 PO (01:33)
[2024-12-14] MEDS ORDERED: FURO40TA4 PO (01:33)
[2024-12-14] MEDS ORDERED: PROC10TA97 PO (01:33)
[2024-12-14] MEDS ORDERED: AMOX1TAB15 PO (01:33)
[2024-12-14] MEDS ORDERED: LISI10TA27 PO (01:33)
--- NOTE | 2024-12-14 02:02 | HISTORY AND PHYSICAL-Residence ---
History & Physical Providers to Resident Creating Document: RADHA MUELLER RES ~ History of Present Illness Primary Medical Doctor: Fuad Allergies: Coded Allergies: clindamycin (Verified Allergy, Severe, 12/01/24) pentazocine (Verified Allergy, Severe, 12/01/24) clonazepam (Verified Allergy, Intermediate, 12/01/24) Penicillins (Verified Allergy, Unknown, 12/01/24) Pentazocine Lactate (Verified Allergy, Unknown, 12/01/24) Sulfa (Sulfonamide Antibiotics) (Verified Allergy, Unknown, 12/01/24) celecoxib (Verified Allergy, Unknown, 01/19/14) clindamycin phosphate (Verified Allergy, Unknown, 01/19/14) ibuprofen (Verified Allergy, Unknown, 01/19/14) propoxyphene HCl (Verified Allergy, Unknown, 01/19/14) Uncoded Allergies: TUSSAGESIC (Allergy, Severe, 10/25/16) Home Medications Home Medications Active Lisinopril 10 Mg Tablet 10 Mg PO DAILY 30 Days Eliquis (Apixaban) 2.5 Mg Tablet 2.5 Mg PO BID 30 Days K-Dur* (Potassium Chloride) 20 Meq Tab.prt.sr 1 Tab PO DAILY 30 Days Lasix (Furosemide) 40 Mg Tablet 40 Mg PO DAILY 30 Days Levothyroxine Sodium 125 Mcg Tablet 125 Mcg PO DAILY 90 Days Oxycontin (Oxycodone HCl) 10 Mg Tab.er.12h 10 Mg PO TID Ativan (Lorazepam) 1 Mg Tablet 1 Mg PO BID Reported Lisinopril 10 Mg Tablet 1 Tab PO DAILY 30 Days Lisinopril 5 Mg Tablet 1 Tab PO DAILY 30 Days Furosemide 40 Mg Tablet 1 Tab PO DAILY 30 Days Amox Tr-K Clv 500-125 mg Tab (Amoxicillin/Potassium Clav) 500 Mg-125 Mg Tablet 1 Tab PO Q8H Prochlorperazine Maleate 10 Mg Tablet 1 Tab PO Q6H PRN Spironolactone 25 Mg Tablet 1 Tab PO DAILY Omeprazole 20 Mg Capsule.dr 1 Cap PO DAILY 30 Days Trazodone HCl 100 Mg Tablet 2 Tab PO HS Zocor (Simvastatin) 40 Mg Tablet 1 Tab PO HS Family History Family History: FH: bowel obstruction MOTHER, , Age: 88, Cause: Old age FH: leukemia SISTER Past Social History Smoking: Non-Smoker Alcohol Use: None Drug Use: None Lives with: Spouse Lives In: Home Exam Vitals: Vital Signs Date Time Temp Pulse Resp B/P (MAP) Pulse Ox O2 Delivery O2 Flow Rate FiO2 12/14/24 00:30 86 26 121/72 (88) 96 60 12/13/24 22:51 BiPAP+ 12/13/24 22:46 98.4 Diagnostic Data Last Recorded Lab Results: 12/13/24222012/13/242220 Date of Service: December 14, 2024 Billing Provider: AMAURI COLINDRES MD, PRAVAHIKA, RES December 14, 2024 02:02
[2024-12-14] MEDS: furosemide 10 MG/1 ML 10ml inj IV ONE (03:38)
--- NOTE | 2024-12-14 03:48 | HISTORY AND PHYSICAL-Residence ---
History & Physical Providers to CC Resident Creating Document: CURT MUELLER, RES ~ History of Present Illness Primary Medical Doctor: Fuad Reason for Admit\Complaint: Shortness of breath History of Present Illness This is 81-year-old female with PMH of HTN, chronic HFpEF, AFib, HLD, hypothyroidism, home oxygen dependent, 3 L presented to ED with complaints of SOB. About one week ago she started feeling short of breath on walking small distances. Last night she went to the bathroom and when she came back she felt short of breath and was gasping for breath. The EMS was called, she was found to be saturating in 60s. She was placed on BiPAP in the ER. Her oxygen requirement improved and she is on 6 L of oxygen currently. The shortness of breath increases on lying down up and she feels better on sitting up. Denied any chest pain, palpitations, lightheadedness, leg swellings. She has fever on and off. Denies any recent cold or cough. Denies any contact with sick people. Denies any recent travel history. Allergies: Coded Allergies: clindamycin (Verified Allergy, Severe, 12/01/24) pentazocine (Verified Allergy, Severe, 12/01/24) clonazepam (Verified Allergy, Intermediate, 12/01/24) Penicillins (Verified Allergy, Unknown, 12/01/24) Pentazocine Lactate (Verified Allergy, Unknown, 12/01/24) Sulfa (Sulfonamide Antibiotics) (Verified Allergy, Unknown, 12/01/24) celecoxib (Verified Allergy, Unknown, 01/19/14) clindamycin phosphate (Verified Allergy, Unknown, 01/19/14) ibuprofen (Verified Allergy, Unknown, 01/19/14) propoxyphene HCl (Verified Allergy, Unknown, 01/19/14) Uncoded Allergies: TUSSAGESIC (Allergy, Severe, 10/25/16) Home Medications Home Medications Active Lisinopril 10 Mg Tablet 10 Mg PO DAILY 30 Days Eliquis (Apixaban) 2.5 Mg Tablet 2.5 Mg PO BID 30 Days K-Dur* (Potassium Chloride) 20 Meq Tab.prt.sr 1 Tab PO DAILY 30 Days Lasix (Furosemide) 40 Mg Tablet 40 Mg PO DAILY 30 Days Levothyroxine Sodium 125 Mcg Tablet 125 Mcg PO DAILY 90 Days Oxycontin (Oxycodone HCl) 10 Mg Tab.er.12h 10 Mg PO TID Ativan (Lorazepam) 1 Mg Tablet 1 Mg PO BID Reported Lisinopril 10 Mg Tablet 1 Tab PO DAILY 30 Days Lisinopril 5 Mg Tablet 1 Tab PO DAILY 30 Days Furosemide 40 Mg Tablet 1 Tab PO DAILY 30 Days Amox Tr-K Clv 500-125 mg Tab (Amoxicillin/Potassium Clav) 500 Mg-125 Mg Tablet 1 Tab PO Q8H Prochlorperazine Maleate 10 Mg Tablet 1 Tab PO Q6H PRN Spironolactone 25 Mg Tablet 1 Tab PO DAILY Omeprazole 20 Mg Capsule. 1 Cap PO DAILY 30 Days Trazodone HCl 100 Mg Tablet 2 Tab PO HS Zocor (Simvastatin) 40 Mg Tablet 1 Tab PO HS Past Medical History Past Medical History HTN, chronic HFpEF, HLD, hypothyroidism, chronic back pain, AFib, on 3 L of oxygen at home Past Surgical History Surgical History Comment Pacemaker, placed 13 years ago, asked to be replaced. Dr. Mcarthur is her echo technologist Family History Family History: FH: bowel obstruction MOTHER, , Age: 88, Cause: Old age FH: leukemia SISTER Past Social History Social History Comment Occasional alcohol use 30 pack years of smoking in the past, quit 30 years ago Denied other drug use Lives with her , son, grandson Smoking: Non-Smoker Alcohol Use: None Drug Use: None Lives with: Spouse Lives In: Home ROS Constitutional: Reports: fever Eyes: Denies: no symptoms reported, see HPI, pain, discharge, blurred vision, double vision, itching, photophobia, redness, tearing, other ENT: Denies: no symptoms reported, see HPI, ear pain, ear bleeding, ear discharge, hearing loss, ear ringing, nose pain, nose bleeding, nose congestion, nose discharge, throat pain, throat swelling, voice change, mouth pain, mouth bleeding, mouth swelling, other Respiratory: Reports: shortness of breath Cardiovascular: Denies: no symptoms reported, see HPI, chest pain, left arm pain, diaphoresis, lightheadedness, syncope, edema, palpitations, irregular heart rate, other Gastrointestinal: Denies: no symptoms reported, see HPI, abdomen distended, abdominal pain, nausea, vomiting, diarrhea, constipated, melena, hematemesis, hematochezia, rectal bleeding, rectal pain, dysphagia, poor appetite, poor fluid intake, other Genitourinary: Denies: no symptoms reported, see HPI, burning, discharge, dysuria, frequency, flank pain, hematuria, incontinence, pain, decreased urine output, urgency, other Neurological: Denies: no symptoms reported, see HPI, speech problem, headache, dizziness, fainting, tingling, left sided numbness, right sided numbness, left sided weakness, right sided weakness, problems walking, unable to move lower ext, unable to move upper ext, petit mal seizures, tonic-clonic seizures, cognitive dysfunction, other Musculoskeletal: Denies: no symptoms reported, see HPI, pain, swelling, back pain, gout, joint pain, joint swelling, muscle pain, muscle swelling, muscle stiffness, neck pain, other Exam Vitals: Vital Signs Date Time Temp Pulse Resp B/P (MAP) Pulse Ox O2 Delivery O2 Flow Rate FiO2 12/14/24 02:30 97.9 84 18 124/54 (77) 92 Nasal Cannula 6.0 12/14/24 00:30 60 General: General: Elderly female, appropriate for age, tired and fatigued, in mild respiratory distress. HEENT: Conjunctiva pink, Sclera clear, Mucus Membranes moist. Neck: Patient on BiPAP Resp: Unlabored. Poor air entry overall, crackles at the bases of lungs, diffuse wheezing. Heart: Regular Rate and rhythm, normal S1 and S2, no rub or gallop. Abdomen: Soft and non tender no organomegaly Extremities: No cyanosis,clubbing or edema. ERECTOR OPERATOR: Elderly female, awake, alert, fatigued and tired. Moving all four extremities without any difficulty. Sensations intact. Skin: Warm and Dry. Diagnostic Data Last Recorded Lab Results: 12/13/24 2221 12/13/24 2221 Counseling Services Smoking & Tobacco Cessation: 3-10 Minutes (I spent 17 minutes in discussing various resuscitative measures, the patient chose to be full code.) Additional Plan 81-year-old female with PMH of HTN, chronic HFpEF, AFib, HLD, hypothyroidism presented to ED with complaints of SOB. Patient is being admitted for acute hypoxemic respiratory failure secondary to CHF exacerbation versus pneumonia Plan Acute on chronic hypoxemic respiratory failure 2/2 CHF exacerbation: Currently the patient is on 6 L of oxygen nasal cannula(baseline 3 L of oxygen) Elevated proBNP at 3995 Chest x-ray demonstrated bilateral infiltrates CTA chest ordred to rule out PE Strict input output chart, monitor weights Fluid restriction One dose of Lasix 40 mg ordered, 20 mg b.i.d. Echo on 12/02/2024 showed hypokinesia in November septal wall, ejection fraction is 55-60%. Continue home medication lisinopril, metoprolol, spironolactone once the med rec is done Troponinemia uptrending troponis Started heparin drip Possible community-acquired pneumonia/COPD: WBC elevated, procalcitonin in the normal range Started injection ceftriaxone and injection azithromycin Duo nebs scheduled Q eight hourly, q.4 hourly p.r.n. AFib with rapid ventricular rate Fede Vasc score five One dose of Cardizem was given in the ER Currently heart rate controlled. Continue Home meds digoxin, metoprolol. Started on apixaban 2.5 mg b.i.d. Hypothyroidism: Continue levothyroxine 100 mcg once daily HLD: Simvastatin 40 mg once daily continue Code status: Full code DVT: Apixaban Diet: Heart healthy diet Lines/Tubes: Peripheral IV line Status: Guarded Curt Mueller M.D PGY1 I discussed the patient with the resident and agree with the assessment and plan above. Margarita Colindres MD Critical Care Date of Service: December 14, 2024 Billing Provider: MARGARITA COLINDRES MD, PRAVAHIKA, RES December 14, 2024 03:48 MARGARITA COLINDRES MD December 14, 2024 17:26
[2024-12-14] MEDS: traZODone 50mg tablet PO ONE (04:04)
[2024-12-14] MEDS: HYDROcodone/acetaminophen 10/325mg tab PO PRN (05:25)
[2024-12-14 06:25] LABS: ALBUMIN 3.1 G/DL (3.4-5.0); ANION GAP 4 (8-16); BLOOD UREA NITROGEN 12 MG/DL (7-18); CALCIUM 8.4 MG/DL (8.5-10.1); CHLORIDE 101 MMOL/L (99-107); GLUCOSE 92 MG/DL (70-104); POTASSIUM 4.4 MMOL/L (3.5-5.1); SODIUM 138 MMOL/L (135-145); TOTAL CARBON DIOXIDE 33.1 MMOL/L (24-32); eCRCL 46 ML/MIN; eGFR 69 ML/MIN
[2024-12-14 06:32] LABS: BASOPHILS # (AUTO) 0.1 X10'3 (0-0.2); BASOPHILS % (AUTO) 0.9 % (0-1); EOSINOPHILS # (AUTO) 0.1 X10'3 (0-0.9); HEMATOCRIT 32.5 % (35.0-45.0); HEMOGLOBIN 10.4 g/dl (12.0-16.0); LYMPHOCYTES # (AUTO) 1.1 X10'3 (1.1-4.8); LYMPHOCYTES % (AUTO) 9.4 % (21-51); MEAN CORPUSCULAR HEMOGLOBIN 28.5 PG (27.0-31.0); MEAN CORPUSCULAR HGB CONC 32.2 g/dL (33.0-36.5); MEAN CORPUSCULAR VOLUME 88.6 FL (78-98); MEAN PLATELET VOLUME 7.8 FL (7.4-10.4); MONOCYTES # (AUTO) 0.6 X10'3 (0-0.9); MONOCYTES % (AUTO) 5.6 % (2-12); NEUTROPHILS # (AUTO) 9.2 X10'3 (1.8-7.7); NEUTROPHILS % (AUTO) 83.1 % (42-75); PLATELET COUNT 254 X10'3 (140-440); RED BLOOD COUNT 3.66 X10'6 (4.20-5.60); RED CELL DISTRIBUTION WIDTH 16.3 % (11.5-14.5); WHITE BLOOD COUNT 11.1 X10'3 (4.5-11.0)
[2024-12-14] MEDS: HEPARIN DRIP-CARDIAC**PHARMACIST-TO-DOSE IV ONE (06:50)
--- NOTE | 2024-12-14 07:36 | ELECTROCARDIOGRAPH REPORT ---
[facility] Test Date: 2024-12-13 Test Time: 21:57:31 Pat Name: JOJO PASTRANA Department: EMERGENCY ROOM Room: [place] [address] [address] Gender: F Communications Specialist: ANSHU : 1940 Requested By: JEM BOBO Order Number: [id number] Reading MD: Dr. Angel Easton Measurements Intervals [place] Rate: 178 P: 0 WI: 0 QRS: -74 QRSD: 159 T: 118 QT: 293 QTc: 505 Interpretive Statements Extreme tachycardia with wide complex, no further rhythm analysis attempted Electronically Signed On 12-17-2024 13:44:[address] Angel Easton Please click the below link to view image of tracing.
[2024-12-14] MEDS ORDERED: apixaban 2.5mg tablet PO SCH (08:00)
[2024-12-14] MEDS: K and/or MAG REPLACEMENT MC SCH (08:00)
[2024-12-14] MEDS ORDERED: heparin, porcine 5000 units/ml vial SQ SCH (08:00)
[2024-12-14] MEDS: CefTRIAXone/D5W-Rocephin 1gm 50 ML IV SCH (08:27)
[2024-12-14] MEDS: docusate sod 100mg capsule PO SCH (08:28)
[2024-12-14] MEDS: pantoprazole 40mg Tablet.DR PO SCH (08:28)
[2024-12-14] MEDS: furosemide 10 MG/1 ML 10ml inj IV SCH ×2 (08:29→22:40)
[2024-12-14] MEDS: HYDROcodone/acetaminophen 5mg/325mg tablet PO PRN (10:12)
[2024-12-14] MEDS: azithromycin/NS 500mg/250ml 250 ML IV SCH (10:16)
[2024-12-14] MEDS: heparin 10,000 units/1 ML INJ IV ONE (10:55)
[2024-12-14] MEDS: heparin 25,000 UNIT/250ml bag 250 ML IV PRN (11:15)
--- NOTE | 2024-12-14 11:33 | RADIOLOGY REPORT ---
Procedure: CT CT CHEST Clinical History: Pneumonia Comparison: CTA CHEST on DOS: 09/11/22 TECHNIQUE: Multidetector CT of the chest was performed from the lung apices to the upper abdomen with out the use of intravenous contract. Coronal and sagittal multiplanar reformats were performed. RADIATION DOSE: CTDI volume is 15.4 mGy. Dose-length product is 521.9 comatose mGy*cm The dose indicators for CT are the volume Computed Tomography (CT) Dose Index (CTDIvol) and the Dose Length Product (DLP), and are measured in units of mGy and mGy-cm, respectively. These indicators are not patient dose, but values generated from the CT scanner acquisition factors. The report includes radiation exposure data for exposures received during this examination. Radiation optimization: All CT scans at this facility use at least one of these dose optimization logan hniques: automated exposure control mA and/or kV adjustment per patient size (includes targeted exam s where dose is matched to clinical indication) or iterative reconstruction. FINDINGS: Lower neck: Normal thyroid. Lungs: Bilateral interlobular septal thickening. Diffuse bilateral ground-glass opacities. There are scattered few nodular opacities for example in the right middle lobe (series 3, image 25). Central airways: Patent. Pleura: No pneumothorax. Small bilateral pleural effusions. Heart/Vascular Structures: There is a pacemaker with right atrial and ventricular leads. The heart is enlarged with postsurgical changes. There are coronary artery calcifications. There is trace perica rdial effusion. The thoracic aorta is normal in caliber. Lymph Nodes: No lymphadenopathy. Musculoskeletal: Stable L1 compression deformity. Soft tissues: Normal. Upper abdomen: Unremarkable. IMPRESSION: 1. Pulmonary edema and small bilateral pleural effusions. Cardiomegaly. Constellation of findings is compatible with congestive heart failure. 2. Pulmonary nodules for example in the right middle lobe. Follow-up according to Fleischner society guidelines is recommended.
[2024-12-14] MEDS ORDERED: nitroGLYCERIN 0.4mg SUBLingual tab SL PRN (13:10)
--- NOTE | 2024-12-14 13:13 | PROGRESS NOTE ---
Daily Progress Note Providers to CC ~ Antibiotic Timeout Antibiotic Ordered?: Yes Subjective No acute events overnight. Patient examined at bedside. No new complaints, not in acute distress. Patient reports sob but denies chest pain, palpitations, abdominal pain, n/v/d. Vss, on 6L O2 via NC, labs notable for downtrended troponin series. CT chest shows pulmonary edema and small bilateral pleural effusion. Patient has been on anticoagulant during last recent admission. Patient was bradycardic last week with HR in 30s. Afib RVR this admission now rate controlled after one dose of Cardizem. Patient is clinically and hemodynamically stable. Consulted her storekeeper engineering Shawna Calles. Objective Vital Signs Date Time Temp Pulse Resp B/P (MAP) Pulse Ox O2 Delivery O2 Flow Rate FiO2 12/14/24 12:31 16 12/14/24 06:00 76 12/14/24 06:00 97.2 133/60 (84) 94 Nasal Cannula 6.0 12/14/24 00:30 60 Result Diagram: 12/14/24 0612 12/14/24 0530 Physical Exam General: Generalized weakness, A&Ox3, NAD HEENT: Normocephalic, PERRLA Neck: Supple, trachea midline, no JVD Chest: Crackles b/l lungs Cardiovascular: IRIR GI: Soft and nontender Extremities: No cyanosis/clubbing/or edema HAIR SPECIALIST: CN II-XII intact, no focal deficits Musculoskeletal: No paraspinal muscle tenderness, no muscle spasm Skin: Warm and intact Coagulation Studies Laboratory Tests Test 12/14/24 07:00 D-Dimer 6.10 MG/L FEU (0-0.50) H D-Dimer Comment Problem\Assessment\Plan 81-year-old female with PMH of HTN, chronic HFpEF, AFib, HLD, hypothyroidism presented to ED with complaints of SOB. # Acute decompensated diastolic heart failure # Acute hypoxic respiratory failure 2/2 CHF # Type II [place] -TTE 12/02/2024 showed hypokinesia of mid to apex inferoseptal wall, LVEF 55- 60%; trop series [phone]; CT chest shows pulmonary edema and small bilateral pleural effusion. -start GDMT as tolerated, aspirin, statin -consulted her storekeeper engineering Shawna Calles who will follow # Acute COPD exacerbation # Possible community-acquired pneumonia -empirical abx, bronchodilator # AFib w/ RVR # Bradycardia, recent admission (ppm non-functioning) -one dose Cardizem given in ED -now CVR, hold blockers given HR 30s last week # Hypothyroidism -continue home levothyroxine # HLD -continue statin Code status: Full code DVT: Apixaban Date of Service: December 14, 2024 Billing Provider: RAVEN GALDAMEZ Common Visit Codes: [id number] INP/OBS CARE(HIGH) RAVEN GALDAMEZ December 14, 2024 13:13
[2024-12-14] MEDS: aspirin 81mg, enteric-coated 1 TAB TABLET.DR PO ONE (13:42)
--- NOTE | 2024-12-14 15:15 | CONSULTATION REPORT ---
History of Present Illness Providers to CC CC: BETSY MCARTHUR MD ~ Reason for Admit\Admit Dx: Cardiology Consultation Refering MD: Hospitalist/Resident Service History of Present Illness This is 84-year-old female, PMH significant for HTN, chronic HFpEF, AFib, HLD, hypothyroidism, home oxygen dependent (3L). She was admitted 2 weeks ago for CHF exacerbation. About one week ago she started feeling short of breath on walking small distances. Last night she went to the bathroom and when she came back she felt short of breath and was gasping for breath. The EMS was called, she was found to be saturating in 60s. She was placed on BiPAP in the ER, she was also found to be in A-Fib with RVR at 165. IV Diltiazem was given to control HR. Of note, on her visit 2 weeks ago she experienced bradycardia to the low 30's, despite having a PPM implanted. Upon further investigation, her PPM has not been interrogated since 04/2021 and is likely at EOL. Her oxygen requirement improved and she is on 6 L of oxygen currently with significant orthopnea. She denies any chest pain, palpitations, lightheadedness, or palpitations at this time. Allergies: Coded Allergies: clindamycin (Verified Allergy, Severe, 12/01/24) pentazocine (Verified Allergy, Severe, 12/01/24) clonazepam (Verified Allergy, Intermediate, 12/01/24) Penicillins (Verified Allergy, Unknown, 12/01/24) Pentazocine Lactate (Verified Allergy, Unknown, 12/01/24) Sulfa (Sulfonamide Antibiotics) (Verified Allergy, Unknown, 12/01/24) celecoxib (Verified Allergy, Unknown, 01/19/14) clindamycin phosphate (Verified Allergy, Unknown, 01/19/14) ibuprofen (Verified Allergy, Unknown, 01/19/14) propoxyphene HCl (Verified Allergy, Unknown, 01/19/14) Uncoded Allergies: TUSSAGESIC (Allergy, Severe, 10/25/16) Active prescriptions Cardiac Meds: ASA 81mg QD Atorvastatin 40mg QD Heparin gtt Lasix 40mg BID Home Medications Home Medications Active Lisinopril 10 Mg Tablet 10 Mg PO DAILY 30 Days Eliquis (Apixaban) 2.5 Mg Tablet 2.5 Mg PO BID 30 Days K-Dur* (Potassium Chloride) 20 Meq Tab.prt.sr 1 Tab PO DAILY 30 Days Lasix (Furosemide) 40 Mg Tablet 40 Mg PO DAILY 30 Days Levothyroxine Sodium 125 Mcg Tablet 125 Mcg PO DAILY 90 Days Oxycontin (Oxycodone HCl) 10 Mg Tab.er.12h 10 Mg PO TID Ativan (Lorazepam) 1 Mg Tablet 1 Mg PO BID Reported Lisinopril 10 Mg Tablet 1 Tab PO DAILY 30 Days Lisinopril 5 Mg Tablet 1 Tab PO DAILY 30 Days Furosemide 40 Mg Tablet 1 Tab PO DAILY 30 Days Amox Tr-K Clv 500-125 mg Tab (Amoxicillin/Potassium Clav) 500 Mg-125 Mg Tablet 1 Tab PO Q8H Prochlorperazine Maleate 10 Mg Tablet 1 Tab PO Q6H PRN Spironolactone 25 Mg Tablet 1 Tab PO DAILY Omeprazole 20 Mg Capsule.dr 1 Cap PO DAILY 30 Days Trazodone HCl 100 Mg Tablet 2 Tab PO HS Zocor (Simvastatin) 40 Mg Tablet 1 Tab PO HS Past Medical History Medical History Comment HTN, chronic HFpEF, HLD, hypothyroidism, chronic back pain, AFib, on 3 L of oxygen at home Past Surgical History Surgical History Comment [employer] DC PPM placed 01/17/2016. Past Family History Family History Comment Non-contributory Family History: FH: bowel obstruction MOTHER, , Age: 88, Cause: Old age FH: leukemia SISTER Past Social History Social History Comment Social History Comment Occasional alcohol use 30 pack years of smoking in the past, quit 30 years ago Denied other drug use Lives with her , son, grandson Smoking: Non-Smoker Alcohol Use: None Drug Use: None Lives with: Spouse Lives In: Home Physical Exam Last Vital Signs Recorded: Temperature: 97.3, Source: Oral, Heart Rate: 67, Respiratory Rate: 16, BP: 142/64, Pulse Oximetry: 95, Weight: 65.910 General Appearance: alert, ill-appearing EENT: PERRL/EOMI Neck: normal inspection Respiratory: decreased breath sounds, crackles Chest: no accessory muscle use Cardiovascular: irregularly irregular Peripheral Pulses: 2+ radial (R), 2+ radial (L) Gastrointestinal: normal palpation Extremities: no edema Neurologic: oriented x4 Psychiatric: normal mood/affect Skin: normal color Review of Systems All Other Systems at this time: Reviewed and Negative ROS 10 point ROS complete, all negative except those specified in HPI Results EKG EKG Atrial fibrillation, 82bpm. RBBB Echocardiogram Echocardiogram TTE last admission (12/02/24): Conclusion Normal LV size and wall thickness. Overall systolic function is normal. There is hypokinesia of the mid to apex inferoseptal wall.LVEF is 55-60%. RV is normal size and function. The left atrium size is normal. Trileaflet AV appears mildly sclerotic without stenosis. Trace insufficiency. Mild mitral annular calcification without stenosis. Mild regurgitation The tricuspid valve is normal in structure with mild to moderate regurgitation. Normal pericardium. No effusion. X-ray X-ray FINDINGS / IMPRESSION: Lines and Tubes: Pacemaker again noted overlying left chest wall. Lungs: Extensive infiltrates noted in both lungs most extensive in the right upper lobe, considerably progressed compared to the prior chest x-ray from 12/03/24. Pleura: Small pleural effusions larger on the left side. No pneumothorax. Cardiomediastinal contours: Mild cardiomegaly. Other Other Chest CT: IMPRESSION: 1. Pulmonary edema and small bilateral pleural effusions. Cardiomegaly. Constellation of findings is compatible with congestive heart failure. 2. Pulmonary nodules for example in the right middle lobe. Follow-up according to Fleischner society guidelines is recommended. Diagram Lab Result Diagram: 12/14/24 0612 12/14/24 0530 Assessment/Plan Additional Plan This is 84-year-old female, PMH significant for HTN, chronic HFpEF, AFib, HLD, hypothyroidism, home oxygen dependent (3L). She was admitted 2 weeks ago for CHF exacerbation. Acute on Chronic Diastolic Heart Failure -Continue GDMT as tolerated. NSTEMI (type 2) -Pt. denies chest pain. Negligible troponin rise. 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 -D/C Heparin drip. Atrial Fibrillation -Rate 165 on presentation to ED. -Control HR with Metoprolol, goal <110bpm. -Resume Eliquis 2.5mg BID upon D/C of heparin drip. Pacemaker in situ -PPM implanted 2015. It has reached EOL. -No plans for generator change this visit, given elevated WBC's. -Follow up with Dr. Mcatrhur's clinic on 12/20/24 as scheduled. I have discussed above plan with supervising physician, Dr. Shawna Mcarthur who is in agreement. Supervising MD Supervising Physician: TRESSA Bello [facility] December 14, 2024 15:14
[2024-12-14] MEDS: ipratropium/albuterol 3ml nebule NEB PRN (16:03)
[2024-12-14] MEDS: MESSAGE TO NURSING IV ONE (18:10)
[2024-12-14] MEDS: heparin 10,000 units/1 ML INJ IV PRN (19:10)
[2024-12-14] MEDS ORDERED: metoprolol tartrate 25mg tablet PO SCH (20:00)
[2024-12-14] MEDS: LORazepam 0.5 MG tablet PO PRN (22:38)
[2024-12-14] MEDS: atorvastatin 20mg tablet PO SCH (22:39)
[2024-12-15 02:00] VITALS: BP 145/67; PULSE 80; RESP 20; TEMP 96.9; O2SAT 96
[2024-12-15] MEDS: ondansetron/PF 4mg/2ml inj IV PRN (03:25)
[2024-12-15 06:00] VITALS: BP 157/75; PULSE 85; RESP 20; TEMP 96.8; O2SAT 98
[2024-12-15 07:58] LABS: BASOPHILS # (AUTO) 0.1 X10'3 (0-0.2); EOSINOPHILS # (AUTO) 0.2 X10'3 (0-0.9); EOSINOPHILS % (AUTO) 3.1 % (0-6); HEMATOCRIT 32.7 % (35.0-45.0); HEMOGLOBIN 10.5 g/dl (12.0-16.0); LYMPHOCYTES # (AUTO) 1.1 X10'3 (1.1-4.8); LYMPHOCYTES % (AUTO) 14.4 % (21-51); MEAN CORPUSCULAR HEMOGLOBIN 27.9 PG (27.0-31.0); MEAN CORPUSCULAR HGB CONC 32.2 g/dL (33.0-36.5); MEAN CORPUSCULAR VOLUME 86.9 FL (78-98); MEAN PLATELET VOLUME 8.3 FL (7.4-10.4); MONOCYTES # (AUTO) 0.6 X10'3 (0-0.9); MONOCYTES % (AUTO) 7.5 % (2-12); NEUTROPHILS # (AUTO) 5.5 X10'3 (1.8-7.7); PLATELET COUNT 248 X10'3 (140-440); RED BLOOD COUNT 3.76 X10'6 (4.20-5.60); RED CELL DISTRIBUTION WIDTH 15.9 % (11.5-14.5); WHITE BLOOD COUNT 7.5 X10'3 (4.5-11.0)
[2024-12-15 08:07] LABS: APTT 46 SECONDS (22-32)
[2024-12-15] MEDS: metoprolol succinate 25mg (24-HOUR) SR. Tablet PO SCH (08:22)
[2024-12-15] MEDS: EMPAGLIFLOZIN 10 MG TABLET PO SCH (08:22)
[2024-12-15] MEDS: apixaban 5mg tablet PO SCH (08:22)
[2024-12-15] MEDS: aspirin 81mg, enteric-coated 1 TAB TABLET.DR PO SCH (08:23)
[2024-12-15 08:24] LABS: ANION GAP 4 (8-16); BLOOD UREA NITROGEN 9 MG/DL (7-18); BUN/CREATININE RATIO 10.6 (10.0-20.0); CALCIUM 8.4 MG/DL (8.5-10.1); CHLORIDE 94 MMOL/L (99-107); CREATININE 0.85 MG/DL (0.40-0.90); GLUCOSE 117 MG/DL (70-104); MAGNESIUM 1.9 MG/DL (1.5-2.4); POTASSIUM 3.2 MMOL/L (3.5-5.1); PRO BRAIN NATRIURETIC PEPTIDE 9461 PG/ML (0-450); SODIUM 134 MMOL/L (135-145); TOTAL CARBON DIOXIDE 36.2 MMOL/L (24-32); eCRCL 43 ML/MIN; eGFR 64 ML/MIN
[2024-12-15] MEDS: potassium Cl 20 mEq SR tablet PO PRN (08:36)
[2024-12-15] MEDS ORDERED: metoprolol tartrate 1mg/ml inj IV ONE (08:55)
[2024-12-15 09:04] VITALS: PULSE 93; RESP 16; O2SAT 95
[2024-12-15] MEDS ORDERED: LORazepam 1 MG tablet PO PRN (10:20)
--- NOTE | 2024-12-15 10:42 | VASCULAR REPORT ---
EXAM: VASC VL VENOUS Clinical History: Shortness of breath. Comparison: None Technique: Duplex Doppler evaluation of the deep venous systems of both lower extremities from the co mmon femoral veins to the popliteal veins including color Doppler and spectral/pulsed waveform analys is was performed. Findings: RIGHT SIDE: The common femoral vein demonstrates appropriate compressibility and waveform variability . There is compressibility/patency of the great saphenous vein at the proximal thigh . The femoral vein demonstrates appropriate compressibility and waveform variability . The deep femoral vein demonstrates appropriate compressibility and waveform variability . The popliteal vein demonstrates appropriate compressibility and waveform variability . There is color flow at the tibioperoneal trunk and in the posterior tibial vein. LEFT SIDE: The common femoral vein demonstrates appropriate compressibility and waveform variability . There is compressibility/patency of the great saphenous vein at the proximal thigh . The femoral vein demonstrates appropriate compressibility and waveform variability . The deep femoral vein demonstrates appropriate compressibility and waveform variability . The popliteal vein demonstrates appropriate compressibility and waveform variability . There is color flow at the tibioperoneal trunk and in the posterior tibial vein. Impression: 1. No right or left femoropopliteal venous thrombosis.
[2024-12-15 11:00] VITALS: BP 164/75; PULSE 96; RESP 18; TEMP 97.1; O2SAT 95
[2024-12-15] MEDS: sacubitril/valsartan 24mg-26mg tablet PO SCH (11:01)
[2024-12-15] MEDS: metoprolol tartrate 25mg tablet PO ONE (11:01)
[2024-12-15] MEDS: oxyCODONE IR 5mg (immed. release) tablet PO PRN (13:35)
[2024-12-15] MEDS ORDERED: SACU1TAB PO (14:40)
[2024-12-15] MEDS ORDERED: POTA-207 PO (14:40)
[2024-12-15] MEDS ORDERED: FURO40TA4 PO (14:40)
[2024-12-15] MEDS ORDERED: EMPA10TA PO (14:40)
[2024-12-15] MEDS ORDERED: ASPI-1071 PO (14:40)
[2024-12-15 15:00] VITALS: BP 149/73; PULSE 88; RESP 23; TEMP 97.4; O2SAT 97
--- NOTE | 2024-12-15 16:07 | DISCHARGE SUMMARY ---
Discharge Summary Providers to CC ~ Discharge Summary Admission Diagnosis: Acute hypoxemic respiratory, acute CHF Hospital Course DATE OF ADMISSION: 12/13/24 DATE OF DISCHARGE: 12/15/24 Discharge Diagnosis\\Comment: Acute decompensated diastolic heart failure Acute hypoxic respiratory failure 2/2 CHF Type II HI 2/2 CHF Acute COPD exacerbation Possible community-acquired pneumonia- ruled out AFib w/ RVR 2/2 hypoxia Bradycardia, recent admission (ppm non-functioning) Hypothyroidism HLD Operations\\Procedures: None Consultants: Acetylene Operator Shawna Calles Complications: None Condition on DC: Stable New Medications: Apixaban (Eliquis) 5 Mg Tablet 5 MG PO BID for 30 Days, #60 TAB Aspirin (Ecotrin*) 81 Mg Tablet.dr 1 TAB PO DAILY for 30 Days, #30 TAB.SR Empagliflozin (Jardiance) 10 Mg Tablet 10 MG PO DAILY for 30 Days, #30 TAB Sacubitril/Valsartan (Entresto 24 mg-26 mg Tablet) 24 Mg-26 Mg Tablet 1 TABLET PO BID for 30 Days, #60 TAB Changed Medications: Furosemide (Furosemide) 40 Mg Tablet 2 TAB PO DAILY for 30 Days, #60 TAB 0 Refills (Changed from: 1 TAB; 30) Potassium Chloride* (K-Dur*) 20 Meq Tab.prt.sr 2 TAB PO DAILY for 30 Days, #60 TAB (Changed from: 1 TAB; 30) Continued Medications: Levothyroxine Sodium (Levothyroxine Sodium) 125 Mcg Tablet 125 MCG PO DAILY for 90 Days, #90 TAB Lorazepam (Ativan) 1 Mg Tablet 1 MG PO BID, #60 TAB Omeprazole (Omeprazole) 20 Mg Capsule.dr 1 CAP PO DAILY for 30 Days, #30 CAP 0 Refills Oxycodone HCl (Oxycontin) 10 Mg Tab.er.12h 10 MG PO TID, #90 TAB.SR Prochlorperazine Maleate (Prochlorperazine Maleate) 10 Mg Tablet 1 TAB PO Q6H PRN for nausea Simvastatin (Zocor) 40 Mg Tablet 1 TAB PO HS, TAB Spironolactone (Spironolactone) 25 Mg Tablet 1 TAB PO DAILY Trazodone HCl (Trazodone HCl) 100 Mg Tablet 2 TAB PO HS Discontinued Medications: Amoxicillin/Potassium Clav (Amox Tr-K Clv 500-125 mg Tab) 500 Mg-125 Mg Tablet 1 TAB PO Q8H Apixaban (Eliquis) 2.5 Mg Tablet 2.5 MG PO BID for 30 Days, #60 TAB Furosemide (Lasix) 40 Mg Tablet 40 MG PO DAILY for 30 Days, #30 TAB Lisinopril (Lisinopril) 10 Mg Tablet 10 MG PO DAILY for 30 Days, #30 TAB Lisinopril (Lisinopril) 5 Mg Tablet 1 TAB PO DAILY for 30 Days, #30 TAB 0 Refills Lisinopril (Lisinopril) 10 Mg Tablet 1 TAB PO DAILY for 30 Days, #30 TAB 0 Refills Discharge Summary: History of Present Illness From H&P: "This is 81-year-old female with PMH of HTN, chronic HFpEF, AFib, HLD, hypothyroidism, home oxygen dependent, 3 L presented to ED with complaints of SOB. About one week ago she started feeling short of breath on walking small distances. Last night she went to the bathroom and when she came back she felt short of breath and was gasping for breath. The EMS was called, she was found to be saturating in 60s. She was placed on BiPAP in the ER. Her oxygen requirement improved and she is on 6 L of oxygen currently. The shortness of breath increases on lying down up and she feels better on sitting up. Denied any chest pain, palpitations, lightheadedness, leg swellings. She has fever on and off. Denies any recent cold or cough. Denies any contact with sick people. Denies any recent travel history. Hospital Course Diagnostic findings were notable for atrial fibrillation with RVR in 160s, abnormal renal function, elevated troponin series, CT chest indicating pulmonary edema and small bilateral pleural effusion. A recent TTE on 12/02/24 revealed hypokinesia of mid to apex inferoseptal wall, LVEF 55-60%. Due to patient recently being admitted a week ago and being on Eliquis for afib combined with a recent negative CTA chest a week ago giving a low probability of PE, CTA chest was not pursued. Though, with the elevated D-dimer level venous ultrasound of bilateral lower extremity was done which came back negative. Patient was treated with Cardizem initially which was then switched to metoprolol. Also, patient was initially treated with heparin drip which was then discontinued with downtrending troponin. Case was consulted with her fast food shift supervisor Dr. Shawna Mcarthur with recommendation to continue with medical management with GDMT. Patient is scheduled at Dr. Mcarthur's office on 12/20/24 for pacemaker placement as current pacemaker reached end-of-life. With start of treatment, patient's oxygen demand decreased to her baseline at 3L. Patient did not experience further complications throughout the entire hospital stay and remained clinically hemodynamically stable. Patient was seen and examined on the day of discharge. On day of discharge, vss and labs unremarkable. All labs, diagnostic workups, discharge plan discussed with patient in details during visit before discharge. All questions and concerns answered to the best of my professional knowledge. Patient is to be discharged with HH and to follow-up with PCP and her fast food shift supervisor Dr. Mcarthur within 2 weeks. Physical Exam General: Generalized weakness, A&Ox 3, NAD HEENT: Normocephalic, PERRLA Neck: Supple, trachea midline, no JVD Chest: Clear to auscultation bilaterally Cardiovascular: IRIR GI: Soft and nontender Extremities: No cyanosis/clubbing/or edema WOOD WINDOW AND DOOR CRAFTSMAN: CN II-XII intact, no focal deficits Musculoskeletal: No paraspinal muscle tenderness, no muscle spasm Skin: Warm and intact *Problems/Diagnosis: (1) Acute on chronic diastolic CHF (congestive heart failure) Status: Acute Total Time Spent on D/C: > 30 Minutes Date of Service: December 15, 2024 Billing Provider: RAVEN GALDAMEZ Common Visit Codes: 87046-BYR/OBS DISCH DAY >30min RAVEN GALDAMEZ December 15, 2024 16:07
[2024-12-15] MEDS ORDERED: APIX5TAB3 PO (16:54)
[2024-12-15] MEDS ORDERED: JUVEN Smoothie Arginine/Glut./Ca2+Bmb (Juven 19.3pkt) 240ml cup PO SCH (17:30)
[2024-12-15] MEDS: potassium Cl 20 mEq SR tablet PO STA (17:34)
[2024-12-15] MEDS ORDERED: metoprolol tartrate 25mg tablet PO SCH (20:00)
== END 2024-12-15 18:00 | disposition home health service (06) | DRG 189 ==
LOC: ER 21:55 → ED HOLD 23:42 → PCU 3S 12-14 01:55
PROVIDERS: ADMIT Internal Medicine Pulmonary Disease; ATTEND Nurse Practitioner Family
PROC: 5A09357 Assistance with Respiratory Ventilation, Less than 24 Consecutive Hours, Continuous Positive Airway Pressure (ICD-10-PCS; principal; 2024-12-13)
DX: J96.21 Acute and chronic respiratory failure with hypoxia (principal); I50.33 Acute on chronic diastolic (congestive) heart failure; I21.A1 Myocardial infarction type 2; J44.1 Chronic obstructive pulmonary disease with (acute) exacerbation; I11.0 Hypertensive heart disease with heart failure; I48.91 Unspecified atrial fibrillation; E78.5 Hyperlipidemia, unspecified; E89.0 Postprocedural hypothyroidism; I25.10 Atherosclerotic heart disease of native coronary artery without angina pectoris; K21.9 Gastro-esophageal reflux disease without esophagitis; F41.9 Anxiety disorder, unspecified; Z88.4 Allergy status to anesthetic agent; Z88.1 Allergy status to other antibiotic agents; Z88.0 Allergy status to penicillin; Z88.8 Allergy status to other drugs, medicaments and biological substances; Z88.2 Allergy status to sulfonamides; Z79.01 Long term (current) use of anticoagulants; Z79.899 Other long term (current) drug therapy; Z90.710 Acquired absence of both cervix and uterus; Z95.0 Presence of cardiac pacemaker; Z99.81 Dependence on supplemental oxygen
CPT/HCPCS: 36415; 71045; 71250; 80048; 80053; 83036; 83605; 83735; 83880; 84145; 84484; 85025; 85379; 85730; 87040; 87081; 93005; 93970; 94640; 94660; 94760; 96374; 96375; 97116; 97161; 97530; 99291; A4615; A6212; G0378; J0456; J0696; J1644; J1938; J2405; J3480; J3490

== ENCOUNTER 2025-04-06 11:15 | Emergency (ER) | payer MEDICARE ==
[~2025-04-06] VITALS: Ht 154.9 cm; Wt 75.0 kg
[~2025-04-06 11:15] MED LIST changes: -APIX2.5T PO; +APIX5TAB3 PO; +ASPI-1397 PO; -ATI1T PO; +CLOP75TA34 PO; +EST1T PO; -FURO-149 PO; +GABA300C PO; -LEVO125T8 PO; +LEVO75TA7 PO; -LISI10TA27 PO; +LORA-268 PO; +METO-395 PO; +OXYC10TA47 PO; -OXYC10TA57 PO; -POTA-207 PO; -SIMV-343 PO; +SIMV-45 PO; -SPIR25TA5 PO; -TRAZ-256 PO
[2025-04-06 11:18] VITALS: TEMP 98.3
--- NOTE | 2025-04-06 11:31 | Physician Documentation ---
History of Present Illness General Chief Complaint: Chest Pain Stated Complaint: CP Time Seen by MD: 11:31 OK to notify your PCP?: No Primary Medical Doctor: Hospitalist/Resident Service Source: patient, RN notes reviewed Mode of Arrival: EMS Exam Limitations: no limitations History of Present Illness Initial Comments 84 year old female, with history of hypertension, high cholesterol, CAD, COPD on home oxygen, Vtach, atrial fibrillation on Eliquis and Plavix, presents via EMS from [place] with concerns of shortness of breath and chest pain that began around 0300 today, waking her from sleep. Symptoms persisted into this morning so EMS was called. EMS gave 324mg of aspirin and 0.4mg nitro prior to arrival. She continues to have shortness of breath and some nonspecific back and " stomach" pain. Patient denies cough, fever, vomiting. Per old records, patient was admitted to this hospital from 03/26/25 through 04/02/25 for sustained ventricular tachycardia, atrial flutter with RVR, and chronic respiratory failure. She is a full code. Medication Reconciliation Allergies: Coded Allergies: clindamycin (Verified Allergy, Severe, 04/06/25) pentazocine (Verified Allergy, Severe, 04/06/25) clonazepam (Verified Allergy, Intermediate, 04/06/25) Penicillins (Verified Allergy, Unknown, 04/06/25) PT TOLERATED ROCEPHIN 11/2024; ANCEF 09/2019 Pentazocine Lactate (Verified Allergy, Unknown, 04/06/25) Sulfa (Sulfonamide Antibiotics) (Verified Allergy, Unknown, 04/06/25) celecoxib (Verified Allergy, Unknown, 04/06/25) clindamycin phosphate (Verified Allergy, Unknown, 04/06/25) ibuprofen (Verified Allergy, Unknown, 04/06/25) propoxyphene HCl (Verified Allergy, Unknown, 04/06/25) Uncoded Allergies: TUSSAGESIC (Allergy, Severe, 10/25/16) Scheduled Apixaban (Eliquis), 1 TAB PO Q12H, (Reported) Aspirin (Aspirin EC), 1 TAB PO DAILY, (Reported) Clopidogrel Bisulfate (Clopidogrel), 1 TAB PO DAILY, (Reported) Estradiol* (Estrace*), 1 TAB PO DAILY, (Reported) Gabapentin (Neurontin), 1 CAP PO TID, (Reported) Levothyroxine Sodium (Levothyroxine Sodium), 1 TAB PO DAILY, (Reported) Metoprolol Succinate (Metoprolol Succinate), 1 TAB PO BID, (Reported) Omeprazole (Omeprazole), 1 CAP PO DAILY, (Reported) Simvastatin (Simvastatin), 1 TAB PO HS, (Reported) Scheduled PRN Lorazepam (Ativan), 1-2 TAB PO Q6H PRN for anxiety, (Reported) Oxycodone Hcl (Oxycodone Hcl), 1 TAB PO Q4H PRN for pain, (Reported) Discontinued Medications Digoxin (Digitek), 2 TAB PO DAILY, (Reported) Flecainide Acetate (Flecainide Acetate), 1 TAB PO Q12H, (Reported) Furosemide (Lasix), 1 TAB PO DAILY, (Reported) Lisinopril (Lisinopril), 1 TAB PO DAILY, (Reported) Past Medical History Past Medical History: Arrhythmia, Atrial Fibrillation, Coronary Artery Disease, Congestive Heart Failure, High Cholesterol, Hypertension, Myocardial Infarction, COPD, GERD, UTI, Chronic Pain, Anxiety Past Surgical History: abdominal surgery, hysterectomy, orthopedic surgeries, pacemaker, other Other Past Surgical History: Thyroidectomy Smoking: Non-Smoker Alcohol Use: None Drug Use: none Lives with: Spouse Lives In: Home Review of Systems All Other Systems at this time: Reviewed and Negative ROS shortness of breath as well as other positive symptoms as stated above in the HPI, otherwise all systems are reviewed and negative. Physical Exam Physical Exam Vital Signs: RN Vital Signs have been reviewed: Yes, Temperature: 98.3, Source: Oral, Heart Rate: 60, Respiratory Rate: 14, Pulse Oximetry: 97, Weight: 75.000 Oxygen Flow Rate: 3.5 Physical Exam VITALS: Reviewed and as above. GENERAL: Alert, mild distress. HEENT: Normocephalic, atraumatic, PERRL, EOMI, dry mucosa RESPIRATORY: Scattered crackles, diminished breath sounds at the bases. No respiratory distress. CHEST: Pacemaker over left chest wall. No accessory muscle use, no retractions CV: Regular rate, regular rhythm, no edema, no murmur, No: JVD GI: Soft, non-tender, bowels sounds present, no rebound, guarding, or rigidity MUSCULOSKELETAL: No deformities, no edema SKIN: Warm and dry, no rash NEURO: Oriented x4, No motor or sensory deficit PSYCH: Normal mood and affect, no agitation Progress Progress Note 1310: Reevaluation: Patient is pain free. No atypical shortness of breath. Results/Orders Reviewed/noted all lab results: Yes Results/Orders Orders - MYRA HESTER MD Chest,Single View (04/06/25 11:35) Monitor (04/06/25 11:26) Saline Lock (04/06/25 11:26) Oxygen (04/06/25 11:26) Completed Orders - MYRA HESTER MD Chest,Single View (04/06/25 11:35) Cbc/Diff (04/06/25 11:26) BMP (04/06/25 11:26) PBNP (04/06/25 11:26) Electrocardiogram (04/06/25 11:26) Hs Troponin I W Calculations (04/06/25 11:26) Procalcitonin (04/06/25 11:51) Vital Signs 04/06/25 04/06/25 04/06/25 04/06/25 11:18 11:28 11:28 13:30 Temp 98.3 Pulse 60 60 Resp 14 20 16 B/P (MAP) 151/62 (91) Pulse Ox 97 99 98 O2 Delivery Nasal Cannula* O2 Flow Rate 3.5 3 0 FiO2 32 04/06/25 04/06/25 14:09 14:43 Pulse 87 89 Resp 18 14 B/P (MAP) 158/69 162/87 (112) Pulse Ox 98 98 O2 Flow Rate 2.0 Laboratory Tests Test 04/06/25 11:38 White Blood Count 11.7 H Red Blood Count 3.71 L Hemoglobin 9.6 L Hematocrit 30.6 L Mean Corpuscular Volume 82.6 Mean Corpuscular Hemoglobin 26.0 L Mean Corpuscular Hemoglobin Concent 31.5 L Red Cell Distribution Width 19.9 H Platelet Count 323 Mean Platelet Volume 8.3 Neutrophils (%) (Auto) 78.5 H Lymphocytes (%) (Auto) 10.7 L Monocytes (%) (Auto) 8.8 Eosinophils (%) (Auto) 1.6 Basophils (%) (Auto) 0.4 Neutrophils # (Auto) 9.2 H Lymphocytes # (Auto) 1.2 Monocytes # (Auto) 1.0 H Eosinophils # (Auto) 0.2 Basophils # (Auto) 0.0 CBC Comment Platelet Estimate Normal Large Platelets Few Red Blood Cell Morphology Perf Polychromasia Few Basophilic Stippling Anisocytosis 2+ Sodium Level 134 L Potassium Level 5.0 Chloride Level 97 L Carbon Dioxide Level 33.4 H Anion Gap 4 L Blood Urea Nitrogen 15 Creatinine 0.92 H Estimated GFR/1.73 m2 58 BUN/Creatinine Ratio 16.3 Glucose Level 113 H Calcium Level 8.3 L Troponin I High Sensitivity 13 Pro-B-Type Natriuretic Peptide 27232 H Albumin 2.5 L Procalcitonin 0.17 Chemistry Comments EKG/XRAY/CT/US/VASC/MRI EKG : Additional Comment 1124: EKG interpreted by myself to show paced rhythm at a rate of 60bpm. Unable to interpret further. Chest X-Ray : Additional Comments CHEST RADIOGRAPH Indication: CP Technique: Single frontal view of the chest was obtained COMPARISON: DI CHEST,SINGLE VIEW on DOS: 03/31/25, DI CHEST,SINGLE VIEW on DOS: 03/26/25, DI CHEST,SINGLE VIEW on DOS: 03/26/25, CT CT CHEST on DOS: 12/14/24, DI CHEST,SINGLE VIEW on DOS: 12/13/24 FINDINGS: Lines and Tubes: Left chest pacemaker Lungs: Congestion Pleura: Trace left pleural effusion. No pneumothorax. Cardiomediastinal contours: Cardiomegaly Bones: Unremarkable IMPRESSION: Mild pulmonary vascular congestion. Reviewed by myself. Heart Score: Heart Score Response (Comments) Value History Slightly Suspicious 0 EKG Repolarization Disturb 1 Age >65 2 Risk Factors >3 or Hx ASHD 2 Troponin Normal limit 0 Total 5 Medical Decision Making Findings Patient is a an 84-year-old female who was recently admitted to our facility co mplains of some chest discomfort. The patient's EKG was interpreted by me as being nonischemic appearing her cardiac troponins are negative. The patient's pain is improved she is currently pain-free. Her prior hospitalizations have been reviewed. Her monitor tech was interpreted as a paced rhythm. And her pulse oximetry was interpreted as adequate and normal. 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 Departure Time of Disposition: 13:11 Disposition: 01 HOME / SELF CARE / HOMELESS Impression: Primary Impression: Chest discomfort Condition: Stable Discharge Instructions: Nonspecific Chest Pain, Adult Additional Instructions: Return to the ER for any other concerns. Education Educated: Patient Educated regarding: diagnosis, treatment, need for follow up Signature Scribe Signature: Scribed for Myra Hester MD by Morgan Ortiz . 04/06/25 11:46 Attestation: The note accurately reflects work and decisions made by me.Myra Hester MD 04/08/25 01:03 MYRA HESTER MD Apr 06, 2025 11:31 MORGAN DUEÑAS Apr 06, 2025 11:53
--- NOTE | 2025-04-06 11:59 | RADIOLOGY REPORT ---
CHEST RADIOGRAPH Indication: CP Technique: Single frontal view of the chest was obtained COMPARISON: DI CHEST,SINGLE VIEW on DOS: 03/31/25, DI CHEST,SINGLE VIEW on DOS: 03/26/25, DI CHEST,SINGLE VIEW on DOS: 03/26/25, CT CT CHEST on DOS: 12/14/24, DI CHEST,SINGLE VIEW on DOS: 12/13/24 FINDINGS: Lines and Tubes: Left chest pacemaker Lungs: Congestion Pleura: Trace left pleural effusion. No pneumothorax. Cardiomediastinal contours: Cardiomegaly Bones: Unremarkable IMPRESSION: Mild pulmonary vascular congestion.
[2025-04-06 12:09] LABS: MEAN PLATELET VOLUME 8.3 FL (7.4-10.4); RED CELL DISTRIBUTION WIDTH 19.9 % (11.5-14.5)
[2025-04-06 12:37] LABS: LARGE PLATELETS FEW; PLATELET ESTIMATE NORMAL
[2025-04-06 12:44] LABS: CREATININE 0.92 MG/DL (0.40-0.90); PRO BRAIN NATRIURETIC PEPTIDE 15073 PG/ML (0-450); TOTAL CARBON DIOXIDE 33.4 MMOL/L (24-32); eCRCL 35 ML/MIN; eGFR 58 ML/MIN
--- NOTE | 2025-04-06 13:25 | ELECTROCARDIOGRAPH REPORT ---
[facility] Test Date: 2025-04-06 Test Time: 11:24:57 Pat Name: JOJO PASTRANA Department: EMERGENCY ROOM Room: Gender: F Hospice Bereavement Coordinator: : 1940 Requested By: MYRA PATTERSON Order Number: [id number] Reading MD: Measurements Intervals [place] Rate: 60 P: 104 DC: 37 QRS: 159 QRSD: 155 T: 105 QT: 449 QTc: 449 Interpretive Statements Atrial-ventricular dual-paced rhythm No further analysis attempted due to paced rhythm Please click the below link to view image of tracing.
[2025-04-06 14:43] VITALS: BP 162/87; PULSE 89; RESP 14; O2SAT 98
== END 2025-04-06 15:32 | disposition home or self-care (01) ==
LOC: ER 11:16
DX: R07.89 Other chest pain (principal); E78.00 Pure hypercholesterolemia, unspecified; I11.0 Hypertensive heart disease with heart failure; I50.9 Heart failure, unspecified; I25.10 Atherosclerotic heart disease of native coronary artery without angina pectoris; I48.91 Unspecified atrial fibrillation; J44.9 Chronic obstructive pulmonary disease, unspecified; K21.9 Gastro-esophageal reflux disease without esophagitis; I25.2 Old myocardial infarction; Z88.0 Allergy status to penicillin; Z88.1 Allergy status to other antibiotic agents; Z88.2 Allergy status to sulfonamides; Z88.6 Allergy status to analgesic agent; Z88.8 Allergy status to other drugs, medicaments and biological substances; Z90.710 Acquired absence of both cervix and uterus; Z95.0 Presence of cardiac pacemaker
CPT/HCPCS: 36415; 71045; 80048; 83880; 84145; 84484; 85008; 85025; 93005; 99285

== ENCOUNTER 2025-05-03 18:32 | Inpatient (IN) | payer MEDICARE ==
[~2025-05-03] VITALS: Ht 152.4 cm; Wt 78.3 kg
[2025-05-03] MEDS: normal saline 1000ml 1,000 ML IV ONE (19:00)
--- NOTE | 2025-05-03 19:23 | ELECTROCARDIOGRAPH REPORT ---
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 Angel Easton Measurements Intervals [place] Rate: 60 P: 0 AL: 160 QRS: 198 QRSD: 192 T: 45 QT: 501 QTc: 501 Interpretive Statements Atrial-ventricular dual-paced rhythm No further analysis attempted due to paced rhythm Electronically Signed On 05-12-2025 8:17:[address] Angel Easton Please click the below link to view image of tracing.
--- NOTE | 2025-05-03 19:44 | RADIOLOGY REPORT ---
CHEST RADIOGRAPH Indication: cp Technique: Single frontal view of the chest was obtained Comparison: DI CHEST,SINGLE VIEW on DOS: 04/06/25, DI CHEST,SINGLE VIEW on DOS: 03/31/25, DI CHEST,SINGLE VIEW on DOS: 03/26/25 FINDINGS: Lines and Tubes: None. Left-sided pacemaker is unchanged. Lungs: No focal consolidation. Diffuse interstitial prominence. Minimal blunting of the left costophrenic angle. No pneumothorax. Cardiomediastinal contours: Mild cardiomegaly with mild Atherosclerotic calcification and uncoiling of the aorta. Bones: No acute osseous abnormality. IMPRESSION: Pulmonary vascular congestion with trace left-sided pleural effusion. Underlying infectious process can not be excluded.
--- NOTE | 2025-05-03 19:46 | Physician Documentation ---
History of Present Illness ~ General Chief Complaint: General Stated Complaint: GEN ILLNESS Time Seen by MD: 18:42 Primary Medical Doctor: Hospitalist/Resident Service History of Present Illness Initial Comments Patient presents to the emergency room with generalized weakness and feeling ill. Positive nausea and vomiting. Reports went to the hospital yesterday for the same symptoms however we have no record of this. Family concerned because she seems to be getting weaker. Medication Reconciliation Allergies: Coded Allergies: clindamycin (Verified Allergy, Severe, 05/03/25) pentazocine (Verified Allergy, Severe, 05/03/25) clonazepam (Verified Allergy, Intermediate, 05/03/25) Penicillins (Verified Allergy, Unknown, 05/03/25) PT TOLERATED ROCEPHIN 11/2024; ANCEF 09/2019 Pentazocine Lactate (Verified Allergy, Unknown, 05/03/25) Sulfa (Sulfonamide Antibiotics) (Verified Allergy, Unknown, 05/03/25) celecoxib (Verified Allergy, Unknown, 04/06/25) clindamycin phosphate (Verified Allergy, Unknown, 04/06/25) ibuprofen (Verified Allergy, Unknown, 04/06/25) propoxyphene HCl (Verified Allergy, Unknown, 04/06/25) Uncoded Allergies: TUSSAGESIC (Allergy, Severe, 10/25/16) Scheduled Apixaban (Eliquis), 1 TAB PO Q12H, (Reported) Aspirin (Aspirin EC), 1 TAB PO DAILY, (Reported) Clopidogrel Bisulfate (Clopidogrel), 1 TAB PO DAILY, (Reported) Estradiol* (Estrace*), 1 TAB PO DAILY, (Reported) Gabapentin (Neurontin), 1 CAP PO TID, (Reported) Levothyroxine Sodium (Levothyroxine Sodium), 1 TAB PO DAILY, (Reported) Metoprolol Succinate (Metoprolol Succinate), 1 TAB PO BID, (Reported) Omeprazole (Omeprazole), 1 CAP PO DAILY, (Reported) Simvastatin (Simvastatin), 1 TAB PO HS, (Reported) Scheduled PRN Lorazepam (Ativan), 1-2 TAB PO Q6H PRN for anxiety, (Reported) Oxycodone Hcl (Oxycodone Hcl), 1 TAB PO Q4H PRN for pain, (Reported) Past Medical History Past Medical History: Arrhythmia, Atrial Fibrillation, Coronary Artery Disease, Congestive Heart Failure, High Cholesterol, Hypertension, Myocardial Infarction, COPD, GERD, UTI, Chronic Pain, Anxiety Past Surgical History: abdominal surgery, hysterectomy, orthopedic surgeries, pacemaker, other Other Past Surgical History: Thyroidectomy Patient History: FH: bowel obstruction MOTHER, , Age: 88, Cause: Old age FH: leukemia SISTER Alcohol Use: None Drug Use: none Lives with: Spouse Lives In: Home Review of Systems ROS All review of systems negative except as per HPI Physical Exam Physical Exam Vital Signs: Temperature: 98.7, Source: Oral, Heart Rate: 82, Respiratory Rate: 18, BP: 113/65, Pulse Oximetry: 92, Weight: 72.000 Oxygen Flow Rate: 2.0 Physical Exam General: Patient is awake, alert, oriented to person and place Head: Normocephalic and atraumatic. Eyes: Conjunctival normal. EOMI. PERRL. ENT: Mucous membranes moist. Neck: Supple, trachea is midline. Chest: Clear to auscultation bilaterally without rales, rhonchi, or wheezes. There is no accessory muscle use or retractions. Cardiac: RRR without murmurs, gallops, or rubs. Abd: Soft, nondistended, nontender, with normoactive bowel sounds. No guarding, rebound, or rigidity. Progress Results/Orders Results/Orders Orders - ANDERS THURMAN MD Urinalysis, Cult If Indicated (05/03/25 18:44) Ct Head (05/03/25 18:50) Ct Abdomen Pelvis (05/03/25 18:50) Covid19 Binax Poc Result Entry (05/03/25 18:56) Chest,Single View (05/03/25 18:56) Magnesium Sulf-Water 2g/50ml (Magnesium (05/03/25 21:25) Page Hospitalist (05/03/25 21:39) Fill Out Med Reconciliation (05/03/25 21:39) Completed Orders - ANDERS THURMAN MD Stat Ekg (05/03/25 ) Cbc/Diff (05/03/25 18:44) Lipase (05/03/25 18:44) Hs Troponin I W Calculations (05/03/25 18:44) CMP (05/03/25 18:44) Procalcitonin (05/03/25 18:44) LA (05/03/25 18:44) Ct Head (05/03/25 18:50) Ct Abdomen Pelvis (05/03/25 18:50) Normal Saline 1000ml (0.9% Sodium Chlori (05/03/25 19:00) Chest,Single View (05/03/25 18:56) MG (05/03/25 19:59) Vital Signs 05/03/25 05/03/25 05/03/25 05/03/25 18:36 19:30 20:00 20:30 Temp 98.7 Pulse 82 61 109 102 Resp 18 16 18 18 B/P (MAP) 113/65 113/52 (72) 115/63 (80) 116/69 (85) Pulse Ox 92 93 93 93 O2 Flow Rate 2.0 3.0 3.0 3.0 05/03/25 21:00 Pulse 108 Resp 16 B/P (MAP) 113/59 (77) Pulse Ox 93 O2 Flow Rate 3.0 Laboratory Tests Test 05/03/25 19:59 White Blood Count 9.2 Red Blood Count 3.88 L Hemoglobin 10.3 L Hematocrit 32.8 L Mean Corpuscular Volume 84.4 Mean Corpuscular Hemoglobin 26.5 L Mean Corpuscular Hemoglobin Concent 31.4 L Red Cell Distribution Width 19.1 H Platelet Count 277 Mean Platelet Volume 7.8 Neutrophils (%) (Auto) 76.4 H Lymphocytes (%) (Auto) 12.5 L Monocytes (%) (Auto) 8.7 Eosinophils (%) (Auto) 0.9 Basophils (%) (Auto) 1.5 H Neutrophils # (Auto) 7.1 Lymphocytes # (Auto) 1.2 Monocytes # (Auto) 0.8 Eosinophils # (Auto) 0.1 Basophils # (Auto) 0.1 CBC Comment Sodium Level 133 L Potassium Level 3.9 Chloride Level 92 L Carbon Dioxide Level 35.3 H Anion Gap 6 L Blood Urea Nitrogen 13 Creatinine 1.16 H Estimated GFR/1.73 m2 45 BUN/Creatinine Ratio 11.2 Glucose Level 108 H Lactic Acid Level 1.1 Calcium Level 8.0 L Magnesium Level 1.9 Total Bilirubin 0.9 Aspartate Amino Transf (AST/SGOT) 17 Alanine Aminotransferase (ALT/SGPT) 15 Alkaline Phosphatase 136 H Troponin I High Sensitivity 17 Total Protein 7.2 Albumin 2.9 L Globulin 4.3 Albumin/Globulin Ratio 0.7 L Lipase 13 L Procalcitonin 0.50 Chemistry Comments EKG/XRAY/CT/US/VASC/MRI EKG : Additional Comment EKG interpreted myself shows time of 2019, rate 109, intraventricular conduction delay, wide complex rhythm. Medical Decision Making Additional information obtaine: old records Findings Patient presented to the emergency room generally feeling ill. We are able to obtain medical records from [facility]. She was seen there two days ago for hip pain after falling and generalized weakness and she is ultimately discharged back to her daughter's house with home health. Apparently her needs can not be met at the house and now she is here. Abnormal EKG noted however troponins are reassuring as are vitals. Given wide complex he had risks versus benefit magnesium administered. She does have a pacemaker. Differential Diagnosis Viral syndrome, ACS, dehydration, acute kidney injury Departure Admitted to Inpatient Unit: yes, to hospitalist Impression: Primary Impression: Abnormal EKG Additional Impressions: Vomiting Generalized weakness Condition: Guarded Referrals: NO PRIMARY CARE PROVIDER (PCP) Signature Scribe Signature: No scribe Attestation: The note accurately reflects work and decisions made by me.Anders Thurman MD 05/03/25 21:38 ANDERS THURMAN MD May 03, 2025 19:46
--- NOTE | 2025-05-03 20:05 | RADIOLOGY REPORT ---
CLINICAL HISTORY: ams TECHNIQUE: Helical imaging carried out from skull base to vertex without intravenous contrast. This exam was performed according to our departmental dose optimization program. Up-to-date CT equipment and radiation dose reduction techniques are utilized as appropriate. CTDIVol: 53.55 mGy DLP: 1037.28 mGy-cm WID: COMPARISON: CT CT HEAD on DOS: 03/26/25 FINDINGS: Mild cerebral volume loss with concordant prominence of the subarachnoid spaces and ventricles. Patchy Low attenuation in the cerebral white matter consistent with nonspecific white matter disease. There is no midline shift or mass effect. The pike white matter interfaces are maintained. The basal cisterns are patent. There is no evidence of acute intracranial hemorrhage or extra-axial fluid collection. The mastoid air cells and visualized paranasal sinuses are well-aerated. Prior ocular lens re placement. IMPRESSION: 1. No acute intracranial abnormality. 2. Mild cerebral volume loss and mild chronic microvascular ischemic change.
[2025-05-03 20:09] LABS: MEAN PLATELET VOLUME 7.8 FL (7.4-10.4); RED CELL DISTRIBUTION WIDTH 19.1 % (11.5-14.5)
--- NOTE | 2025-05-03 20:12 | RADIOLOGY REPORT ---
Exam: CT CT ABDOMEN PELVIS History: ams Comparison Study: CT CT ABDOMEN PELVIS on DOS: 03/30/25 TECHNIQUE: Multidetector CT of the abdomen AND PELVIS without IV contrast. Axial, coronal and sagittal multiplanar reformats were obtained from the axial data set by the technologist. Radiation Dose Information: CT Dose: CTDI volume is 29.58 mGy. Dose-length product is 1640.68 mGy*cm FINDINGS: Small right-sided pleural effusion with associated atelectasis. Left basilar opacities with possible trace effusion. Ground-glass opacities of the lung bases. Moderate cardiomegaly. Mild ascites . No evidence of intraperitoneal free air. Mild hepatomegaly. Otherwise, liver, spleen, pancreas and adrenal glands unremarkable. Wall thickening of the gallbladder with surrounding mild ascites. No CT evidence of cholelithiasis. Kidneys, and ureters are unremarkable. Wall thickening of the urinary bladder with surrounding ascites. Uterus is not definitely visualized. Question hysterectomy. Stomach is unremarkable. Small bowel loops unremarkable. Appendix is unremarkable. The rectum is decompressed. Moderate to large amount of fecal material within the colon. No evidence of aortic aneurysm. Heavy atherosclerotic calcification of the aorta and bilateral iliacs. No significant lymphadenopathy. Moderate body wall edema. Tiny fat containing umbilical hernia. Mild compression fracture of the superior endplate of L1 which appears chronic. Interval moderate to severe degenerative changes of the lumbar spine. No evidence of acute osseous abnormalities. Diffuse demineralization. Heterotopic ossification within the left paraspinal soft tissues at the level of L4-L5 with postsurgical changes of the left transverse process of L4 IMPRESSION: Mild ascites. Wall thickening of the urinary bladder correlate for cystitis. Nonspecific wall thickening of the gallbladder with no CT evidence of cholelithiasis. If there is concern for acute cholecystitis, right upper quadrant ultrasound should be considered for further evaluation. Decompressed rectum. Otherwise, moderate to large amount of fecal material within the colon. Hepatomegaly. Small right-sided pleural effusion with associated atelectasis. Ground-glass opacities of the lung bases which may represent pulmonary edema. Opacities of the left lower lung zone may represent atelectasis. Additional findings as above.
[2025-05-03 21:18] LABS: CREATININE 1.16 MG/DL (0.40-0.90); TOTAL CARBON DIOXIDE 35.3 MMOL/L (24-32); eCRCL 26 ML/MIN; eGFR 45 ML/MIN
[2025-05-03] MEDS: magnesium sulf-water 2g/50mL 50 ML IV ONE (22:55)
[2025-05-03] MEDS ORDERED: HYDROcodone/acetaminophen 10/325mg tab PO PRN (23:15)
[2025-05-03] MEDS ORDERED: ondansetron/PF 4mg/2ml inj IV PRN (23:15)
[2025-05-03] MEDS ORDERED: magnesium sulf-water 2g/50mL 50 ML IV PRN (23:15)
[2025-05-03] MEDS ORDERED: mag hydrox/Alum hydrox/simeth 30ml oral suspension PO PRN (23:15)
[2025-05-03] MEDS ORDERED: magnesium Cl slow-release 64mg tablet PO PRN (23:15)
[2025-05-03] MEDS ORDERED: potassium Cl 20 mEq SR tablet PO PRN ×2 (23:15)
[2025-05-03] MEDS ORDERED: potassium Cl 40MEQ/1/2NS 520ml 520 ML IV PRN (23:15)
[2025-05-03] MEDS ORDERED: magnesium hydroxide 30ml (MOM) UD suspension PO PRN (23:15)
[2025-05-03] MEDS ORDERED: magnesium sulf-water 4G/100mL 100 ML IV PRN (23:15)
--- NOTE | 2025-05-03 23:28 | HISTORY AND PHYSICAL-Residence ---
History & Physical Providers to CC Resident Creating Document: SIERRADIANA ROSALES ~ History of Present Illness Primary Medical Doctor: Hospitalist/Resident Service Reason for Admit\Complaint: Generalized weakness History of Present Illness 84-year-old female with history of AFib, CAD, HFpEF, hypertension, hyperlipidemia, PA, GERD, chronic pain, hypothyroidism, COPD came to the ED with complaints of generalized weakness. She states that she feels weak, which worsened yesterday and she is shaking. She states that she had a fall 4 days ago and has severe right hip pain with a severity of 10/10. She states that she is unable to walk and uses a wheelchair. She reports going to [facility] after the fall. She reports nausea and that she vomited 3 days ago, and that she last ate 2 days ago. She states that she has no bowel movement for the past 4 days. She feels her heart racing and has shortness of breath. She is on oxygen at home for COPD. She denies abdominal pain, fever, chills, confusion, recent infections, swelling and pain in legs, burning micturition, chest pain, loss of consciousness. Patient is on blood thinners. Her records at [facility] state that the cause of the fall was likely mechanical. Imaging was obtained including hip and pelvis x-ray which showed no fractures or dislocation, and the patient was able to stand but is weak and unable to walk due to the pain shows no signs of infection. Patient was previously at a rehab but left AMA. She was discharged from [facility] to her daughter's house with home health. Allergies: Coded Allergies: clindamycin (Verified Allergy, Severe, 05/03/25) pentazocine (Verified Allergy, Severe, 05/03/25) clonazepam (Verified Allergy, Intermediate, 05/03/25) Penicillins (Verified Allergy, Unknown, 05/03/25) PT TOLERATED ROCEPHIN 11/2024; ANCEF 09/2019 Pentazocine Lactate (Verified Allergy, Unknown, 05/03/25) Sulfa (Sulfonamide Antibiotics) (Verified Allergy, Unknown, 05/03/25) celecoxib (Verified Allergy, Unknown, 04/06/25) clindamycin phosphate (Verified Allergy, Unknown, 04/06/25) ibuprofen (Verified Allergy, Unknown, 04/06/25) propoxyphene HCl (Verified Allergy, Unknown, 04/06/25) Uncoded Allergies: TUSSAGESIC (Allergy, Severe, 10/25/16) Home Medications Home Medications Active Reported Oxycodone Hcl 10 Mg Tablet 1 Tab PO Q4H PRN Aspirin EC (Aspirin) 81 Mg Tablet.dr 1 Tab PO DAILY 30 Days Eliquis (Apixaban) 5 Mg Tablet 1 Tab PO Q12H 30 Days Metoprolol Succinate 25 Mg Tab.sr.24h 1 Tab PO BID Clopidogrel (Clopidogrel Bisulfate) 75 Mg Tablet 1 Tab PO DAILY Levothyroxine Sodium 75 Mcg Tablet 1 Tab PO DAILY Estrace* (Estradiol) 1 Mg Tablet 1 Tab PO DAILY Ativan (Lorazepam) 0.5 Mg Tablet 1-2 Tab PO Q6H PRN Neurontin (Gabapentin) 300 Mg Capsule 1 Cap PO TID Simvastatin 40 Mg Tablet 1 Tab PO HS Omeprazole 20 Mg Capsule.dr 1 Cap PO DAILY 30 Days Past Medical History Past Medical History AFib CAD HF Hypertension PA Hypothyroidism Hyperlipidemia UTI Chronic pain GERD Anxiety COPD, on 3 L oxygen at home Past Surgical History Surgical History Comment Abdominal surgery Thyroidectomy Pacemaker placement Hysterectomy Orthopedic surgeries Family History Family History: FH: bowel obstruction MOTHER, , Age: 88, Cause: Old age FH: leukemia SISTER Past Social History Social History Comment She quit smoking 30 years ago, 30 pack years of smoking in the past She drinks alcohol occasionally She denied recreational drug use She is unable to walk due to hip pain after fall 2 days ago, she uses wheelchair Smoking: Non-Smoker Alcohol Use: None Drug Use: None Lives with: Spouse Lives In: Home ROS ROS Constitutional: No fever, chills, dizziness, weight gain or loss Eyes: No pain, erythema, discharge, blurring of vision ENT: No sore throat, epistaxis, tinnitus Cardiovascular: Reports fall 4 days ago, No chest pain, palpitations, lower extremity edema, paroxysmal nocturnal dyspnea Respiratory: Reports Shortness of breath, No cough, hemoptysis. Gastrointestinal: Reports nausea, vomiting, constipation and less p.o. intake for the past few days. No Abdominal pain, diarrhea. No hematemesis or melena. Musculoskeletal: No Swelling, pain in bilateral lower legs. Integumentary: Reports wound in left arm from the fall, No change in skin, hair, nails. Neurologic: No headache, neck pain, numbness or tingling of the extremities, Psychiatric: No delusions, depression, loss of interest in normal activity or change in sleep pattern, hallucinations, suicidal ideations Endocrine: Reports weakness. No polydipsia, polyuria, heat or cold intolerance, sweating, dry skin Hematological: No bleeding, petechiae, bruising Allergies: No asthma or urticaria Exam Vitals: Vital Signs Date Time Temp Pulse Resp B/P (MAP) Pulse Ox O2 Delivery O2 Flow Rate FiO2 05/03/25 21:00 108 16 113/59 (77) 93 3.0 05/03/25 18:36 98.7 General: Awake, alert, and oriented x4, resting comfortably in the bed, in mild distress HEENT: Atraumatic, normocephalic, EOMI, anicteric sclera ; pink conjunctiva Neck: Trachea midline. Supple, full range of motion, no JVD Cardiac: Tachycardic, Regular rhythm, with no murmurs all over the precordium. Respiratory: Equal breath sounds bilaterally, no tachypnea, no wheezing ,rub or rales, Chest wall is symmetric and without deformity. Gastrointestinal: Abdomen symmetric, non-distended, soft, non-tender, normal bowel sounds Musculoskeletal: Tenderness over right hip, no bruising noted, 4x4 cm abrasion noted on the left arm with no discharge, No pedal edema, no cyanosis Neurological: Speech is clear, alert, and oriented x 4. No motor or sensory deficit, deep tendon reflexes normal, cerebellar intact. Cranial nerves II-XII intact. Skin: Warm and dry Diagnostic Data Last Recorded Lab Results: 05/03/25195805/03/[id number] Advance Care Planning Advanced Care plannin - 30 Minutes (Full code) Additional Plan Ventricular tachycardia Generalized weakness History of fall History of Atrial fibrillation HFrEF, hypertension, hyperlipidemia s/p pacemaker placement Tachycardic with normal blood pressure on admission Pulse ox is 93 on 3 L oxygen, patient uses 3 L oxygen at home for COPD WBC is normal Head CT shows no acute intracranial abnormality Troponin is normal EKG shows atrial ventricular dual paced rhythm, rate 60, QTC 501 on admission Repeat EKG at 1:00 a.m. showed V-tach, rate 105 and QTC 595, IV amiodarone drip was started, 20 mEq potassium chloride and magnesium sulfate was given Potassium is 3.9, calcium is 8 and magnesium is 1.9, patient takes digoxin 250 mg at home Chest x-ray shows pulmonary vascular congestion with trace left-sided pleural effusion and underlying infectious process can not be excluded Recent Echo in March 2025 shows LVEF of 35-40% with moderate concentric hypertrophy and akinesis and thinning of mid to apical inferoseptum, RVSP of 67 mmHg with pacemaker wire in right heart, severely dilated left atrium, moderate regurgitation of mitral and tricuspid valve. Procalcitonin and lactic acid are normal Hyponatremia-133, glucose is normal-108 Abdomen/pelvis CT shows mild ascites, wall thickening of urinary bladder, correlate for cystitis, nonspecific wall thickening of the gallbladder with no CT evidence of cholelithiasis, hepatomegaly and small right-sided pleural effusion with associated atelectasis with ground-glass opacities of the lung bases which may represent pulmonary edema, decompressed rectum with [id number] amount of fecal material within the colon. Plan: Patient was started on IV amiodarone drip, and 20 mEq potassium chloride and magnesium sulfate was given Follow up digoxin level Continue telemetry monitoring Follow up orthostatic vitals, BNP Follow up coagulation profile Follow up urinalysis, TSH Fall precautions and aspiration precautions in place Follow up BSS, started NS at 50 mL/hour Patient is on Eliquis 5 mg b.i.d., flecainide 100 mg b.i.d., Lasix 40 mg, lisinopril 20 mg, digoxin 250 mg, empagliflozin 10 mg, metoprolol succinate 25 mg b.i.d., simvastatin 40 mg HS at home We will hold digoxin, and continue other home medications after BSS and med reconciliation after evaluation of patient in the a.m. Cardiology was consulted and awaiting recommendations DINESH, probably prerenal due to dehydration Creatinine is elevated-1.16, baseline creatinine is 0.8 BUN and BUN/Cr are normal Follow up urine lytes Started NS at 75 mL/hour Right hip pain Imaging at [facility] showed no fractures or dislocation Ordered Tylenol, [place] 5 mg/10 mg p.r.n. Hyponatremia Sodium is 133, glucose is 108 Started NS at 50 mL/hour Monitor BMP Hypocalcemia Calcium is mildly low- 8 Monitor BMP Code status: Full code DVT prophylaxis: Eliquis 5 mg b.i.d. Pain management: [place] 5 mg/10 mg p.r.n. Diet/nutrition: NPO now Prognosis: Guarded Disposition: Continue telemetry monitoring, awaiting Cardiology recommendations, PT eval and DC plan Resident attestation: The patient note has been reviewed and supervised by senior residents PGY-2/ PGY-3. Patient was seen, examined and discussed with attending physician. Diana Palmer MD Internal Medicine resident, PGY-1 Patient was seen and evaluated using HIPPA complaint AV device Presented because of weakness found o be in sustained monomorphic VT, started of amiodarone bolus and then drip. Electrolyte optimization, Hx of A fib and heart failure. EKG ordered and reviewed.consult cardiology. Transfer to the ICU. Need close monitoring with sustained VT ongoing Patient is critically ill with risk of further decompensation CCT 60mins Agree with the plan as discussed with the resident Liza Plasencia MD Date of Service: May 03, 2025 Billing Provider: LIZA PLASENCIA MD, PREETHI, RES May 03, 2025 23:28 LIZA PLASENCIA MD May 04, 2025 03:13
[2025-05-04] VITALS (19 sets, daily range): BP systolic 100–157; BP diastolic 56–111; PULSE 60–111; RESP 13–25; TEMP 96.6–97.6; O2SAT 90–99
--- NOTE | 2025-05-04 01:37 | ELECTROCARDIOGRAPH REPORT ---
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 Dhruv Blanc Measurements Intervals [place] Rate: 110 P: 0 AK: 0 QRS: -58 QRSD: 202 T: 58 QT: 439 QTc: 595 Interpretive Statements Wide QRS tachycardia Nonspecific IVCD with LAD Left ventricular hypertrophy Anterolateral infarct, acute Electronically Signed On 05-04-2025 8:23:[address] Dhruv Blanc Please click the below link to view image of tracing.
[2025-05-04] MEDS: amiodarone 150mg/dext, iso-os 100 ML IV ONE (01:40)
[2025-05-04] MEDS: amiodarone/D5 360MG/200ML BAG 200 ML IV SCH ×2 (01:59→21:05)
[2025-05-04] MEDS ORDERED: potassium Cl 20mEq in D5-NS 1,000 ML IV ONE (02:00)
[2025-05-04 02:22] LABS: APTT 30 SECONDS (22-32); INR 1.3 INR
[2025-05-04 02:31] LABS: CREATININE 1.06 MG/DL (0.40-0.90); PRO BRAIN NATRIURETIC PEPTIDE 7398 PG/ML (0-450); TOTAL CARBON DIOXIDE 35.8 MMOL/L (24-32); eCRCL 29 ML/MIN; eGFR 50 ML/MIN
[2025-05-04] MEDS: magnesium sulf-water 2g/50mL 50 ML IV STA (02:36)
[2025-05-04] MEDS: normal saline 1000ml 1,000 ML IV SCH ×2 (02:42→19:40)
[2025-05-04 02:45] LABS: PHOSPHORUS 3.6 MG/DL (2.3-4.5)
[2025-05-04 02:59] LABS: CREATININE 1.20 MG/DL (0.40-0.90); TOTAL CARBON DIOXIDE 37.3 MMOL/L (24-32); eCRCL 26 ML/MIN; eGFR 43 ML/MIN
[2025-05-04 03:13] LABS: CHOL/HDL RATIO 2.6 (0.00-4.99); LDL CHOLESTEROL 64 MG/DL (50-100)
--- NOTE | 2025-05-04 03:18 | ELECTROCARDIOGRAPH REPORT ---
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 Dhruv Blanc Measurements Intervals [place] Rate: 60 P: 218 VA: 183 QRS: 182 QRSD: 203 T: -15 QT: 505 QTc: 505 Interpretive Statements A-V dual-paced rhythm with some inhibition No further analysis attempted due to paced rhythm Electronically Signed On 05-04-2025 8:23:[address] Dhruv Blanc Please click the below link to view image of tracing.
[2025-05-04] MEDS: potassium cl 20mEq in 1/2 NS 1,000 ML IV ONE (03:59)
[2025-05-04] MEDS: K and/or MAG REPLACEMENT MC SCH (08:00)
[2025-05-04 09:13] LABS: MEAN PLATELET VOLUME 8.1 FL (7.4-10.4); RED CELL DISTRIBUTION WIDTH 18.8 % (11.5-14.5)
[2025-05-04] MEDS: docusate sod 100mg capsule PO SCH (09:19)
[2025-05-04] MEDS: HYDROcodone/acetaminophen 5mg/325mg tablet PO PRN (09:20)
[2025-05-04 09:28] LABS: CREATININE 1.04 MG/DL (0.40-0.90); TOTAL CARBON DIOXIDE 32.7 MMOL/L (24-32); eCRCL 29 ML/MIN; eGFR 51 ML/MIN
[2025-05-04 10:15] LABS: PLATELET ESTIMATE NORMAL
[2025-05-04 10:20] LABS: OSMOLALITY 278 MOSM/K (280-300)
[2025-05-04 10:27] LABS: OSMOLALITY UA 394 MOSM/K (50-1400)
[2025-05-04 10:34] LABS: INFLUENZA TYPE A ANTIGEN RAPID NEGATIVE (Negative); INFLUENZA TYPE B ANTIGEN RAPID NEGATIVE (Negative)
[2025-05-04 10:37] LABS: LEUKOCYTE ESTERASE ,URINE MODERATE (Neg); NITRITES, URINE NEGATIVE (Neg); OCCULT BLOOD,URINE MODERATE (Neg)
[2025-05-04 10:44] LABS: UA COLLECTION TYPE NON-SPECIFIED
[2025-05-04 10:46] LABS: CREATININE,URINE RANDOM 100.0 MG/DL; SQUAMOUS EPITHELIAL CELL,UR FEW /LPF (FEW); TOTAL PROTEIN,URINE RANDOM 54.3 MG/DL
[2025-05-04 10:47] LABS: RENAL CELLS, URINE FEW /HPF; YEAST MANY /HPF (NEGATIVE)
[2025-05-04 11:09] LABS: UA EOSINOPHILS NO EOS /HPF
[2025-05-04] MEDS: ondansetron/PF 4mg/2ml inj IV PRN (11:20)
[2025-05-04 11:58] LABS: % IRON SATURATION 7 % (11-46)
[2025-05-04] MEDS: carbidoba-levodopa 25-100mg tablet PO SCH (13:22)
--- NOTE | 2025-05-04 16:14 | CONSULTATION REPORT ---
History of Present Illness Providers to CC CC: BETSY MCARTHUR MD ~ Reason for Admit\Admit Dx: Cardiology consultation Refering MD: Hospitalist/Resident Service History of Present Illness Patient presented secondary to weakness. Patient had a fall four days ago. She states she is feeling shaky and having difficulty eating. Cardiology consultation for questionable ventricular tachycardia. She had a very similar presentation when she was recently admitted from March 26 to April 03. I was able to see her during that hospitalization as well. Suspect underlying atrial fibrillation though can not completely exclude ventricular tachycardia. I do suspect her rhythm is atrial fibrillation with a aberrancy. Her last admit she was started on amiodarone. Her flecainide was stopped. She did have a reduced LVEF at 35-40%. Patient presented with similar rhythm. Interrogation completed of her pacemaker device. There is not definite ventricular tachycardia. Allergies: Coded Allergies: clindamycin (Verified Allergy, Severe, 05/03/25) pentazocine (Verified Allergy, Severe, 05/03/25) clonazepam (Verified Allergy, Intermediate, 05/03/25) Penicillins (Verified Allergy, Unknown, 05/03/25) PT TOLERATED ROCEPHIN 11/2024; ANCEF 09/2019 Pentazocine Lactate (Verified Allergy, Unknown, 05/03/25) Sulfa (Sulfonamide Antibiotics) (Verified Allergy, Unknown, 05/03/25) celecoxib (Verified Allergy, Unknown, 04/06/25) clindamycin phosphate (Verified Allergy, Unknown, 04/06/25) ibuprofen (Verified Allergy, Unknown, 04/06/25) propoxyphene HCl (Verified Allergy, Unknown, 04/06/25) Uncoded Allergies: TUSSAGESIC (Allergy, Severe, 10/25/16) Home Medications Home Medications Active Reported Oxycodone Hcl 10 Mg Tablet 1 Tab PO Q4H PRN Aspirin EC (Aspirin) 81 Mg Tablet.dr 1 Tab PO DAILY 30 Days Eliquis (Apixaban) 5 Mg Tablet 1 Tab PO Q12H 30 Days Metoprolol Succinate 25 Mg Tab.sr.24h 1 Tab PO BID Clopidogrel (Clopidogrel Bisulfate) 75 Mg Tablet 1 Tab PO DAILY Levothyroxine Sodium 75 Mcg Tablet 1 Tab PO DAILY Estrace* (Estradiol) 1 Mg Tablet 1 Tab PO DAILY Ativan (Lorazepam) 0.5 Mg Tablet 1-2 Tab PO Q6H PRN Neurontin (Gabapentin) 300 Mg Capsule 1 Cap PO TID Simvastatin 40 Mg Tablet 1 Tab PO HS Omeprazole 20 Mg Capsule. 1 Cap PO DAILY 30 Days Past Medical History Medical History Comment Coronary artery disease status post stent to the RCA in 2013 Hypertension Hyperlipidemia Heart failure Biventricular pacemaker status post recent generator change Atrial fibrillation History of intracardiac thrombus Generalized anxiety disorder ? COPD Past Surgical History Surgical History Comment Biventricular pacemaker Hysterectomy Thyroidectomy Past Family History Family History: FH: bowel obstruction MOTHER, , Age: 88, Cause: Old age FH: leukemia SISTER Past Social History Social History Comment Patient states she quit smoking greater than 10 years ago. Denies recreational drugs or alcohol use. Physical Exam Last Vital Signs Recorded: RN Vital Signs have been reviewed: Yes, Temperature: 97.4, Source: Oral, Heart Rate: 72, Respiratory Rate: 21, BP: 113/63, Pulse Oximetry: 90, Weight: 72.000 Physical Exam General: Awake, alert, oriented. No apparent distress Neck: Supple. Normal range of motion. No JVD Respiratory: Lungs are clear to auscultation bilaterally. No respiratory distress. Chest: Normal shape and size. No accessory muscle use. Cardiovascular: Regular rate and rhythm. S1-S2. No murmur, gallop, rub. Gastrointestinal: Abdomen is soft. Nontender to palpation. Bowel sounds present. Extremities: Trace edema. Neurologic: Alert and oriented x4. Nonfocal Psychiatric: Normal mood and affect. Skin: Normal color. Warm and dry. Results EKG EKG EMS EKG shows atrial fibrillation with right bundle-branch rate of 100 EKG May 03, 2025 at 7:20 p.m. shows AV paced rhythm EKG May 04, 2025 at 1:36 a.m. sinus rhythm with right bundle branch block versus less likely ventricular tachycardia which is slow at a rate of 110. EKG May 04, 2025 at 3:16 a.m. AV paced rhythm Echocardiogram Echocardiogram Conclusion Normal LV size and moderately reduced function. Moderate concentric hypertrophy, with akinesis and thinning of the mid to apical inferoseptum. LVEF is 35-40%. RV appears normal in size and function. Thickened RV free wall. RVSP is estimated at 67 mmHg. Pacemaker wire in right heart. Left atrium is severely dilated. Trileaflet AV appears mildly sclerotic without stenosis. Trace insufficiency. Mild MV annular calcification and leaflet thickening without stenosis. Moderate regurgitation. TV appears structurally normal with moderate regurgitation. Normal pericardium. No effusion. Dictated by:CATHIE GUILLEN MD Dictation date and time:03/27/25 184 Diagram Lab Result Diagram: 05/04/2582305/04/25823 Assessment/Plan Additional Plan Patient presented secondary to weakness, feeling shaky and poor appetite. Cardiology consultation requested with question of ventricular tachycardia. The following is her problem list: Atrial fibrillation with aberrancy versus slow ventricular tachycardia Suspect atrial fibrillation. Device was interrogated which does reveal multiple mode switches consistent with atrial fibrillation. --amiodarone may be transitioned to p.o. at 400 mg b.i.d. --up titrate metoprolol as needed for rate control. I have increased to 50 mg daily. Consider increasing to 100 mg daily to prevent atrial fibrillation. --continue Eliquis 5 mg b.i.d. Heart failure with reduced ejection fraction LVEF 35-40%. --continue metoprolol succinate as above --unable to tolerate further guideline directed medical therapy given hypotension currently. We will up titrate as we are able to as an outpatient. Case discussed with Dr. Shawna Mcarthur who is in agreement with this plan. Supervising MD Supervising Physician: PRECIOUS Drew NP May 04, 2025 16:14
[2025-05-04 16:21] LABS: ABG BASE EXCESS 2.4 mmol/L (-2.0-3.0); ABG HCO3 28.4 mmol/L (21.0-28.0); ABG OXYGEN SATURATION 92.3 % (94.0-98.0); ABG PCO2 (T) 50.5 mmHg (32.0-45.0); ABG PH (T) 7.368 (7.350-7.450); ABG PO2 (T) 69.5 mmHg (83.0-108.0); ALLEN'S TEST Yes; FCOHb 1.0 % (0.5-1.5); FHHb 7.6 % (0.0-5.0); FIO2 32.0 mmHg/%; FLOW 3 L/min; FMetHb 0.3 % (0.0-1.5); FO2Hb 91.1 % (94.0-98.0); MODE NASAL CANNULA; PATIENT TEMPERATURE 37.0; TOTAL HEMOGLOBIN 10.8 G/dl (12.0-16.0)
[2025-05-04] MEDS: nitrofuran monohydrate/nitrofuran macrocrysal 100 MG (MacroBID) capsule PO SCH (17:29)
--- NOTE | 2025-05-04 18:25 | PROGRESS NOTE- Residence ---
Progress Note - Resident Providers to CC Resident Creating Document: FLORIAN MALHOTRA RES ~ Antibiotic Timeout Antibiotic Ordered?: Yes Subjective Patient was seen and examined at bedside, she reports that she is feeling sick since two days after COVID vaccine and is feeling weak since then. Objective Vital Signs Date Time Temp Pulse Resp B/P (MAP) Pulse Ox O2 Delivery O2 Flow Rate FiO2 05/04/25 15:00 97.4 72 21 113/63 (80) 90 Nasal Cannula 2.0 Result Diagram: 05/04/2582305/04/25823 Awake , alert and oriented to time,place, person,not in distress HEENT: Atraumatic, normocephalic, PERRLA, EOMI, anicteric sclera ; pink conjunctiva, dry mucos membranes Neck: Trachea midline. Supple, normal range of motion, no JVD, no lymphadenopathy Chest and Respiratory: Equal breath sounds bilaterally, no tachypnea, wheezing, ronchi,rubs .Chest wall is symmetric and without deformity, Cardiac: S1, S2 heard,Regular rate and rhythm, no murmurs heard Abdomen: Soft, No tenderness, No guarding or rigidity, Alvarez's sign negative. normal bowel sounds x4 quadrant, no hepatosplenomegaly MSK: Range of motion of all extremities are normal. There is no joint pain or joint swelling or joint erythema. Extremities: warm, well-perfused, No cyanosis, clubbing, 2+ pulses felt Neurological: Speech is clear, alert, and oriented x 4. No sensory or motor deficits. Cranial nerves II-XII intact. Power muscles 3/5 bilateral lower extremities. Tremors noted in both hands Skin: Warm and dry, wound noticed on left hand, bilateral cheeks eryhthematous Psychiatry: Affect and mood are normal Coagulation Studies Laboratory Tests Test 05/03/25 23:31 05/04/25 14:44 Prothrombin Time 13.1 SECONDS (9.0-12.0) H INR International Normalized Ratio 1.3 INR Activated Partial Thromboplast Time 30 SECONDS (22-32) Coagulation Comments D-Dimer 9.36 MG/L FEU (0-0.50) H D-Dimer Comment Advance Care Planning Advanced Care plannin - 30 Minutes Plan Plan 84-year-old female with history of AFib, CAD, HFpEF, hypertension, hyperlipidemia, [place], GERD, chronic pain, hypothyroidism, COPD came to the ED with complaints of generalized weakness.During that she developed episode of VT. Atrial fibrillation with Aberrancy Versus Slow ventricular tachycardia EKG showed atrial ventricular paced rhythm, rate 60, QTC 501 on admission EKG May 03, 2025 at 7:20 p.m. shows AV paced rhythm EKG May 04, 2025 at 1:36 a.m. sinus rhythm with right bundle branch block versus less likely ventricular tachycardia which is slow at a rate of 110. EKG May 04, 2025 at 3:16 a.m. AV paced rhythm Patient was started on IV amiodarone drip a Received IV magnesium sulfate and is on p.r.n Consulted Cardiology who recommeded --amiodarone may be transitioned to p.o. at 400 mg b.i.d, continued Eliquis 5 mg b.i.d. and increased dose of metoprolol to 100 mg daily and an interrogation of pacemaker completed Continue Amiodarone Drip. Heart Failure with Reduced Ejection Fraction LVEF 35-40% Continue metoprolol 100 mg daily As per deckhand engineer GDMT on hold in view of hypotension We will continue aspirin and Plavix as as these are her home medications, will continue until we find out reason for aspirin and plavix, patient dont remember. Elevated D-dimer Possibly Secondary to Anticoagulant use D-dimer elevated to 9.36 In view of this ordered CTA Chest, follow-up with that Generalized Weakness Possibly Age Related, Recent Adminstration of COVID Vaccine or UTI CT Head: 1. No acute intracranial abnormality. 2. Mild cerebral volume loss and mild chronic microvascular ischemic change Continue to monitor patient Fall precaution Urinary Tract Infection Started patient on Nitrofurantoin PO as patient is allergic to pencillins, sulfa antibiotics and clindamycin. UA suggestive of UTI Right hip pain Imaging at [facility] showed no fractures or dislocation Continue Tylenol, [place] 5 mg/10 mg p.r.n. Possible Rosacea Started the patient on triamcinolone cream Bilateral cheeks are erythematous Action Tremors Started patient on Sinemet 25-100 mg PO TID Acute on Chronic Kidney Disease Creatinine 1.04 Baseline creatine around 0.80 FeNA < 1% Continue N/S 75 ml/hr Right hip pain Imaging at [facility] showed no fractures or dislocation Ordered Tylenol, [place] 5 mg/10 mg p.r.n. Hypotonic Hyponatremia Sodium 133 Urine sodium less than 20 so less likely renal etiology Continue NS 75 mL/hour Code status: Full code DVT prophylaxis: Eliquis 5 mg b.i.d. Diet/nutrition: Heart healthy diet Florian Malhotra PGY 1 IM Resident PATIENT IS SEEN AND EXAMINED WITH RESIDENT AT BEDSIDE Date of Service: May 04, 2025 Billing Provider: LATOYA ROLAND MD Common Visit Codes: [id number] INP/OBS CARE(HIGH) FLORIAN MALHOTRA, RES May 04, 2025 18:25 LATOYA ROALND MD May 07, 2025 14:03
[2025-05-04] MEDS ORDERED: metoprolol succinate 25mg (24-HOUR) SR. Tablet PO SCH (20:00)
--- NOTE | 2025-05-04 20:49 | RADIOLOGY REPORT ---
CTA Chest with intravenous contrast INDICATION: D dimer high COMPARISON: CT CT CHEST on DOS: 12/14/24, CT CTA CHEST PE W/ IV CONTRAST on DOS: 12/02/24, CTA CHEST on DOS: 09/11/22 TECHNIQUE: Multidetector spiral CTA of the chest was performed of the chest with intravenous contrast. PULMONARY ANGIOGRAPHY PROTOCOL was utilized using a bolus- tracking technique centered on the main pulmonary artery. Axial, coronal and sagittal multiplanar and MIP reformats were performed. Radiation Dose : 1. Chest: CTDI volume is 14.16 mGy. Dose-length product is 445.5 mGy*cm The dose indicators for CT are the volume Computed Tomography (CT) Dose Index (CTDIvol) and the Dose Length Product (DLP), and are measured in units of mGy and mGy-cm, respectively. These indicators are not patient dose, but values generated from the CT scanner acquisition factors. The report includes radiation exposure data for exposures received during this examination. Findings: Pulmonary artery: No pulmonary embolism. Central pulmonary arteries are dilated. Lower neck: Normal thyroid. Lungs: Diffuse interlobular septal thickening with patchy ground-glass opacity throughout both lungs. Heart/Vascular Structures: Multichamber cardiac enlargement. No pericardial effusion. Lymph Nodes: No adenopathy Pleura: Small bilateral pleural effusions. Musculoskeletal: No acute osseous abnormality. Soft tissues: Normal. Upper abdomen: Limited portions of the upper abdomen are unremarkable. IMPRESSION: No pulmonary embolism. Pulmonary edema with small bilateral pleural effusions.
[2025-05-04] MEDS: metoprolol succinate 25mg (24-HOUR) SR. Tablet PO SCH (21:02)
[2025-05-05] VITALS (19 sets, daily range): BP systolic 104–136; BP diastolic 64–92; PULSE 89–116; RESP 14–28; TEMP 97–98.1; O2SAT 95–99
[2025-05-05] MEDS: levoTHYROXINE 75mcg tablet PO SCH (06:58)
[2025-05-05 07:24] LABS: MEAN PLATELET VOLUME 8.4 FL (7.4-10.4); RED CELL DISTRIBUTION WIDTH 19.2 % (11.5-14.5)
[2025-05-05 07:40] LABS: CREATININE 1.18 MG/DL (0.40-0.90); TOTAL CARBON DIOXIDE 22.3 MMOL/L (24-32); eCRCL 26 ML/MIN; eGFR 44 ML/MIN
[2025-05-05] MEDS: aspirin 81mg, enteric-coated 1 TAB TABLET.DR PO SCH (08:07)
[2025-05-05 09:38] LABS: PLATELET ESTIMATE NORMAL
[2025-05-05 09:39] LABS: ELLIPTOCYTES FEW
--- NOTE | 2025-05-05 11:26 | RADIOLOGY REPORT ---
CHEST RADIOGRAPH Indication: sob Technique: DI CHEST,SINGLE VIEW COMPARISON: 05/03/2025 FINDINGS: Left chest triple lead cardiac pacing device The cardiac silhouette is enlarged. The lungs demonstrate bilateral patchy airspace opacities. The pulmonary vasculature is prominent. Moderate left and small right pleural effusions. There is no pneumothorax. Aortic atherosclerotic disease. IMPRESSION: Cardiomegaly with pulmonary vascular congestion and bilateral patchy airspace opacities. Moderate left and small right pleural effusions
[2025-05-05] MEDS: furosemide 10 MG/1 ML 10ml inj IV ONE (11:36)
[2025-05-05] MEDS: oxyCODONE IR 5mg (immed. release) tablet PO PRN (11:36)
[2025-05-05] MEDS ORDERED: azithromycin/NS 500mg/250ml 250 ML IV SCH (12:10)
[2025-05-05 12:43] LABS: ABG BASE EXCESS -5.4 mmol/L (-2.0-3.0); ABG HCO3 19.3 mmol/L (21.0-28.0); ABG OXYGEN SATURATION 96.0 % (94.0-98.0); ABG PCO2 (T) 34.4 mmHg (32.0-45.0); ABG PH (T) 7.365 (7.350-7.450); ABG PO2 (T) 87.9 mmHg (83.0-108.0); ALLEN'S TEST POSITIVE; FCOHb 1.0 % (0.5-1.5); FHHb 3.9 % (0.0-5.0); FIO2 40.0 mmHg/%; FLOW 5 L/min; FMetHb 0.3 % (0.0-1.5); FO2Hb 94.8 % (94.0-98.0); MODE NASAL CANNULA; PATIENT TEMPERATURE 36.7; TOTAL HEMOGLOBIN 11.7 G/dl (12.0-16.0)
[2025-05-05 14:41] LABS: CREATININE 1.46 MG/DL (0.40-0.90); TOTAL CARBON DIOXIDE 23.3 MMOL/L (24-32); eCRCL 21 ML/MIN; eGFR 34 ML/MIN
[2025-05-05] MEDS: DOBUTamine-DoBUTrex 500mg/D5W 250 ML IV SCH (16:45)
--- NOTE | 2025-05-05 19:04 | PROGRESS NOTE- Residence ---
Progress Note - Resident Providers to CC Resident Creating Document: FLORIAN CHAVARRIA RES ~ Antibiotic Timeout Antibiotic Ordered?: Yes Subjective Patient was seen and examined at bedside,In the morning, she was having difficulty in breathing, maintaing oxygen satt on 5 L of air. Currently reports her breathing has been improved Patient Lactic acid 7.3 Repeat LA 7.2 Started patient on lasix 60 mg IV daily, as patient is volume overloaded, crackles in chest. Dobutamine drip started Objective Vital Signs Date Time Temp Pulse Resp B/P (MAP) Pulse Ox O2 Delivery O2 Flow Rate FiO2 05/05/25 18:15 100 114/64 (81) 05/05/25 18:05 29 05/05/25 15:00 97.0 99 Nasal Cannula 5.0 Result Diagram: 05/05/25 0640 05/05/25 1407 Awake , alert and oriented to time,place, person,not in distress HEENT: Atraumatic, normocephalic, PERRLA, EOMI, anicteric sclera ; pink conjunctiva, dry mucos membranes Neck: Trachea midline. Supple, normal range of motion, no JVD, no lymphadenopathy Chest and Respiratory: Equal breath sounds bilaterally, no tachypnea, wheezing, ronchi,rubs ,Crackles heard bilaterally,.Chest wall is symmetric and without deformity, Cardiac: S1, S2 heard,Regular rate and rhythm, no murmurs heard Abdomen: Soft, No tenderness, No guarding or rigidity, Alvarez's sign negative. normal bowel sounds x4 quadrant, no hepatosplenomegaly MSK: Range of motion of all extremities are normal. There is no joint pain or joint swelling or joint erythema. Extremities: warm, well-perfused, No cyanosis, clubbing, 2+ pulses felt Neurological: Speech is clear, alert, and oriented x 4. No sensory or motor deficits. Cranial nerves II-XII intact. Power muscles 3/5 bilateral lower extremities. Tremors noted in both hands Skin: Warm and dry, wound noticed on left hand, bilateral cheeks eryhthematous Psychiatry: Affect and mood are normal Coagulation Studies Laboratory Tests Test 05/03/25 23:31 05/04/25 14:44 Prothrombin Time 13.1 SECONDS (9.0-12.0) H INR International Normalized Ratio 1.3 INR Activated Partial Thromboplast Time 30 SECONDS (22-32) Coagulation Comments D-Dimer 9.36 MG/L FEU (0-0.50) H D-Dimer Comment Advance Care Planning Advanced Care plannin - 30 Minutes Plan Plan 84-year-old female with history of AFib, CAD, HFpEF, hypertension, hyperlipidemia, [place], GERD, chronic pain, hypothyroidism, COPD came to the ED with complaints of generalized weakness.During that she developed episode of VT. Sepsis SIRS Criteria Met ( HR >100, RR> 20) Wbc count elevated, Lactic 7.3, Repeat LA 7.2 Repeated Chest X Ray which shows pulmonary vascular congestion and pleural effusion, patient might need thoracentesis started patient on dobutamine drip. Recevied Lasix 60 mg once Started patient on 60 mg BID IV Patient , consulted nephrology Foleys in place to monitor strict I &O Creatinine 1.46 Fluids cautiously patient is volume overloaded probnp high,crackles on examination. Atrial fibrillation with Aberrancy Versus Slow ventricular tachycardia EKG showed atrial ventricular paced rhythm, rate 60, QTC 501 on admission EKG May 03, 2025 at 7:20 p.m. shows AV paced rhythm EKG May 04, 2025 at 1:36 a.m. sinus rhythm with right bundle branch block versus less likely ventricular tachycardia which is slow at a rate of 110. EKG May 04, 2025 at 3:16 a.m. AV paced rhythm Patient was started on IV amiodarone drip Received IV magnesium sulfate and is on p.r.n Consulted Cardiology who recommeded --amiodarone may be transitioned to p.o. at 400 mg b.i.d, continued Eliquis 5 mg b.i.d. and increased dose of metoprolol to 100 mg daily and an interrogation of pacemaker completed Continue Amiodarone Drip. 05/05/25 HR in 100z Continue Amiodarone drip Hypervolemic Hypotonic Hyponatremic Na 125 Urine NA <20 , possbile cause is extra renal. CMP Q6H Heart Failure with Reduced Ejection Fraction LVEF 35-40% Continue metoprolol 100 mg daily As per highway inspector GDMT on hold in view of hypotension We will continue aspirin and Plavix as as these are her home medications, will continue until we find out reason for aspirin and plavix, patient dont remember. 05/05/25 Probnp increased from [id number] to [id number] Patient received lasix one dose 60 mg IV, currently on 60 mg IV BID Soto in place to monitor Strict I&O Crackles on examination. On Dobutamine drip Elevated D-dimer Possibly Secondary to Anticoagulant use D-dimer elevated to 9.36 In view of this ordered CTA Chest, follow-up with that Generalized Weakness Possibly Age Related, Recent Adminstration of COVID Vaccine or UTI CT Head: 1. No acute intracranial abnormality. 2. Mild cerebral volume loss and mild chronic microvascular ischemic change Continue to monitor patient Fall precaution Urinary Tract Infection Continue Nitrofurantoin PO as patient is allergic to pencillins, sulfa antibiotics and clindamycin. UA suggestive of UTI Right hip pain Imaging at [facility] showed no fractures or dislocation Continue Tylenol, [place] 5 mg/10 mg p.r.n. Possible Rosacea Started the patient on triamcinolone cream Bilateral cheeks are erythematous Action Tremors Started patient on Sinemet 25-100 mg PO TID Acute on Chronic Kidney Disease Creatinine 1.04 Baseline creatine around 0.80 FeNA < 1% Continue N/S 75 ml/hr 05/05/25 Acute Kidney Inury Possibly Secondary to vasomotor nephropathy Creatinine 1.46 Fluids on hold as patient is volumeoverloaded Consulted Help Desk Assistant. Follow up with [facility] Right hip pain Imaging at [facility] showed no fractures or dislocation Ordered Tylenol, [place] 5 mg/10 mg p.r.n. Code status: Full code DVT prophylaxis: Eliquis 5 mg b.i.d. Diet/nutrition: Heart healthy diet Disposition: Patient Lactic acid is high, consulted director of clinical trials awaiting recommendation and on Doubtamine drip Will continue to monitor patient Will Consult cardiology. Florian Chavarria PGY 1 IM Resident PATIENT IS SEEN AND EXAMINED WITH RESIDENT AT BEDSIDE AGREE WITH THE ABOVE Date of Service: May 05, 2025 Billing Provider: LATOYA ROLAND MD Common Visit Codes: [id number] INP/OBS CARE(HIGH) FLORIAN CHAVARRIA, RES May 05, 2025 19:04 LATOYA ROLAND MD May 07, 2025 14:51
--- NOTE | 2025-05-05 19:43 | CONSULTATION REPORT - RESIDENT ---
Consult Providers to CC Resident Creating Document: CURT MUELLER RES History of Present Illness Reason for Admit\Complaint: Arrhythmia History of Present Illness This is an 84-year-old female with a history of CAD s/p RCA stent in 2012, CHF with reduced ejection fraction, 35%, biventricular pacemaker, atrial fibrillation, history of intracardiac thrombus, chronic COPD on 3 L of oxygen at baseline, hypertension came to the hospital with a complaint of weakness. She had a fall four days ago. Patient is admitted and being managed for AFib with aberrancy vs slow V-tach. Currently on amiodarone drip, being transition to p.o. amiodarone. Her pacemaker has been interrogated. She also has a heart failure with reduced ejection fraction, 35-40%, patient's blood pressure is in the borderline and is fluid overloaded. Currently on dobutamine drip with Lasix 60 mg b.i.d. The nephrology team has been consulted for DINESH, the creatinine on 05/03/2025 was 1.06. On 05/04/2025 patient CTA with IV contrast was done to rule out pulmonary embolism, creatinine on 05/05/2025 increased to 1.46. Also has severe lactic acidosis with lactic acid level of 7.2 likely secondary to decreased perfusion because of heart failure with reduced ejection fraction. DINESH could be secondary to contrast exposure on top of decreased perfusion. BUN is 18, bicarb 23.3, potassium 5.1, sodium 125. The patient apparently did not have any urine output this morning, was given one dose of Lasix 60 mg, currently her urine output is about 800 mL. No history of any kidney disease, not on NSAIDs. Allergies: Coded Allergies: clindamycin (Verified Allergy, Severe, 05/03/25) pentazocine (Verified Allergy, Severe, 05/03/25) clonazepam (Verified Allergy, Intermediate, 05/03/25) Penicillins (Verified Allergy, Unknown, 05/03/25) PT TOLERATED ROCEPHIN 11/2024; ANCEF 09/2019 Pentazocine Lactate (Verified Allergy, Unknown, 05/03/25) Sulfa (Sulfonamide Antibiotics) (Verified Allergy, Unknown, 05/03/25) celecoxib (Verified Allergy, Unknown, 04/06/25) clindamycin phosphate (Verified Allergy, Unknown, 04/06/25) ibuprofen (Verified Allergy, Unknown, 04/06/25) propoxyphene HCl (Verified Allergy, Unknown, 04/06/25) Uncoded Allergies: TUSSAGESIC (Allergy, Severe, 10/25/16) Home Medications Home Medications Active Reported Oxycodone Hcl 10 Mg Tablet 1 Tab PO Q4H PRN Aspirin EC (Aspirin) 81 Mg Tablet.dr 1 Tab PO DAILY 30 Days Eliquis (Apixaban) 5 Mg Tablet 1 Tab PO Q12H 30 Days Metoprolol Succinate 25 Mg Tab.sr.24h 1 Tab PO BID Clopidogrel (Clopidogrel Bisulfate) 75 Mg Tablet 1 Tab PO DAILY Levothyroxine Sodium 75 Mcg Tablet 1 Tab PO DAILY Estrace* (Estradiol) 1 Mg Tablet 1 Tab PO DAILY Ativan (Lorazepam) 0.5 Mg Tablet 1-2 Tab PO Q6H PRN Neurontin (Gabapentin) 300 Mg Capsule 1 Cap PO TID Simvastatin 40 Mg Tablet 1 Tab PO HS Omeprazole 20 Mg Capsule.dr 1 Cap PO DAILY 30 Days Past Medical History Past Medical History oronary artery disease status post stent to the RCA in 2012 Hypertension Hyperlipidemia Heart failure Biventricular pacemaker status post recent generator change Atrial fibrillation History of intracardiac thrombus Generalized anxiety disorder COPD, on 3 L of oxygen at baseline. Past Surgical History Surgical History Comment Abdominal surgery Thyroidectomy Pacemaker placement Hysterectomy Orthopedic surgeries Family History Family History: FH: bowel obstruction MOTHER, , Age: 88, Cause: Old age FH: leukemia SISTER Past Social History Social History Comment She quit smoking 30 years ago, 30 pack years of smoking in the past She drinks alcohol occasionally She denied recreational drug use Exam Vitals: Vital Signs Date Time Temp Pulse Resp B/P (MAP) Pulse Ox O2 Delivery O2 Flow Rate FiO2 05/05/25 18:15 100 114/64 (81) 05/05/25 18:05 29 05/05/25 15:00 97.0 99 Nasal Cannula 5.0 General: Awake, alert, and oriented x4, resting comfortably in the bed, in mild distress HEENT: Atraumatic, normocephalic, EOMI, anicteric sclera ; pink conjunctiva Neck: Trachea midline. Supple, full range of motion, no JVD Cardiac: Tachycardic, Regular rhythm, with no murmurs all over the precordium. Respiratory: Decreased breath sounds at the bases, bilateral basal crackles heard. Gastrointestinal: Abdomen symmetric, non-distended, soft, non-tender, normal bowel sounds Neurological: Speech is clear, alert, and oriented x 4. No motor or sensory deficit, deep tendon reflexes normal, cerebellar intact. Cranial nerves II-XII intact. Skin: Warm and dry Diagnostic Data Last Recorded Lab Results: 05/05/25 0640 05/05/25 1407 Diagnostic Data: Laboratory Tests Test 05/03/25 23:31 05/04/25 14:44 Prothrombin Time 13.1 SECONDS (9.0-12.0) H INR International Normalized Ratio 1.3 INR Activated Partial Thromboplast Time 30 SECONDS (22-32) Coagulation Comments D-Dimer 9.36 MG/L FEU (0-0.50) H D-Dimer Comment Additional Plan Plan DINESH likely secondary to cardiorenal syndrome DINESH is likely secondary to decreased perfusion secondary to cardiorenal syndrome vs contrast exposure the creatinine on 05/03/2025 was 1.06. On 05/04/2025 patient CTA with IV contrast was done to rule out pulmonary embolism, creatinine on 05/05/2025 increased to 1.46. BUN is 18, bicarb 23.3, potassium 5.1, Urine sodium <15, FeNA-0.2% Patient apparently did not have any urine output in the morning, was given one dose of Lasix 60 mg, about 800 mL of urine output has been noted post that. Patient is currently in fluid overload Plan On dobutamine drip with Lasix Avoid nephrotoxin agent Strict I&Os Electrolyte abnormalities Hypervolemic Hyponatremia Lactic acidosis Patient was fluid overloaded, sodium of 125 Lactic acidosis could be secondary to decreased perfusion because of heart failure vs any underlying sepsis UTI Urine analysis positive for infection Urine culture showed Gram-negative Patient is on p.o. nitrofurantoin AFib with aberrancy vs slow V-tach Pacemaker was interrogated, On amiodarone drip, we will be transition to p.o. 400 mg b.i.d. On Eliquis [address] with the IV contrast was done for elevated D-dimer which showed no pulmonary embolism Acute exacerbation of Heart failure with reduced ejection fraction, 35-40% Chest x-ray shows fluid overload, On metoprolol succinate. 50 mg b.i.d. On dobutamine drip Action tremors On Sinemet 25-100 mg PO TID Curt Palacios.D PGY2 Nephrology Resident Nephrology attending: AGree with the resident note. care plan reviewed. Cardiorenal syndrome. responed to lasix with urine output. dobutamine, lasix, afterload reducers. Daniel Ramon MD Date of Service: May 05, 2025 Billing Provider: DANIEL RAMON MD, PRAVAHIKA, RES May 05, 2025 19:43 DANIEL RAMON MD May 05, 2025 21:04
[2025-05-05 20:31] LABS: CREATININE 1.46 MG/DL (0.40-0.90); TOTAL CARBON DIOXIDE 22.9 MMOL/L (24-32); eCRCL 21 ML/MIN; eGFR 34 ML/MIN
[2025-05-05] MEDS: metoclopramide 5 mg/ml inj IV PRN (20:42)
[2025-05-05] MEDS: furosemide 10 MG/1 ML 10ml inj IV SCH (20:46)
[2025-05-06] VITALS (16 sets, daily range): BP systolic 95–137; BP diastolic 57–110; PULSE 100–124; RESP 14–22; TEMP 96.9–98; O2SAT 92–100
[2025-05-06 02:06] LABS: MEAN PLATELET VOLUME 8.3 FL (7.4-10.4); RED CELL DISTRIBUTION WIDTH 18.7 % (11.5-14.5)
[2025-05-06 02:32] LABS: CREATININE 1.30 MG/DL (0.40-0.90); TOTAL CARBON DIOXIDE 27.9 MMOL/L (24-32); eCRCL 24 ML/MIN; eGFR 39 ML/MIN
--- NOTE | 2025-05-06 14:09 | PROGRESS NOTE ---
Progress Note Dictate Providers to CC ~ Central Line/PICC still needed: No Central Line/PICC Necessity: pen[facility] nutrition [place] Indications Met/Not Met: F/C Indications Met Antibiotic Ordered?: N/A Subjective Subjective The patient is tachycardic. Objective Vitals Vital Signs Date Time Temp Pulse Resp B/P (MAP) Pulse Ox O2 Delivery O2 Flow Rate FiO2 05/06/25 11:00 96.9 115 19 102/81 (88) 94 Nasal Cannula 5.0 Lab Results: 05/06/25 0124 05/06/25 0124 Objective Vital Signs: As above General: Normal body habitus, no acute distress. Skin: No rashes, lumps, ulcers, blisters, purpura or petechiae HEENT: Anicteric sclera, LEBRON Neck: Supple and nontender without enlargement of the thyroid, or lymphadenopathy. Chest: poor air entry bilaterally Heart: gallop, tachycardic Abdomen: Soft and non tender no organomegaly,BS+ Extremities: No pedal edema Neuro: Nonfocal. Coagulation Studies Laboratory Tests Test 05/03/25 23:31 05/04/25 14:44 Prothrombin Time 13.1 SECONDS (9.0-12.0) H INR International Normalized Ratio 1.3 INR Activated Partial Thromboplast Time 30 SECONDS (22-32) Coagulation Comments D-Dimer 9.36 MG/L FEU (0-0.50) H D-Dimer Comment Advance Care Planning Advanced Care plannin - 30 Minutes Problem\Assessment\Plan Problems/Diagnosis: (1) DINESH (acute kidney injury) Assessment & Plan: creatinine is stable at 1.3. On dobutamine that is keeping her heart rate at 115, but she is also on amiodarone. She has copd exacerbation and is a risk for Mulfocal atrial tachycardia. on diuretics. monitor I and o. strict restriction of fluids to 1.2 liters per day. (2) COPD with acute exacerbation Assessment & Plan: on O2 and breathing treatment. tachycardic at this time. (3) CHF exacerbation Assessment & Plan: as above (4) Atrial fibrillation Assessment & Plan: on amiodarone. WALLY RAMON MD May 06, 2025 14:09
--- NOTE | 2025-05-06 15:40 | PROGRESS NOTE- Residence ---
Progress Note - Resident Providers to CC Resident Creating Document: FLORIAN CHAVARRIA RES ~ Antibiotic Timeout Antibiotic Ordered?: Yes Subjective Patient was seen and examined on bedside, she feels nauseated and reports shortness of breath. Nurse called his Son, who said his mother is no longer taking plavix, son said she takes aspirin and elliquis only. Son said Elliquis Dr. Mcarthur started because patient was not following up with [facility] son also reports patient is no longer taking plavix and Dr Murphy started aspirin on her. Objective Vital Signs Date Time Temp Pulse Resp B/P (MAP) Pulse Ox O2 Delivery O2 Flow Rate FiO2 05/06/25 11:00 96.9 115 19 102/81 (88) 94 Nasal Cannula 5.0 Result Diagram: 05/06/2512305/06/25 012 Awake , alert and oriented to time,place, person,not in distress HEENT: Atraumatic, normocephalic, PERRLA, EOMI, anicteric sclera ; pink conjunctiva, dry mucos membranes Neck: Trachea midline. Supple, normal range of motion, no JVD, no lymphadenopathy Chest and Respiratory: no tachypnea,, ronchi,rubs ,Crackles and wheezing heard bilaterally,.Chest wall is symmetric and without deformity, Cardiac: S1, S2 heard,Regular rate and rhythm, no murmurs heard Abdomen: Soft, No tenderness, No guarding or rigidity, Alvarez's sign negative. normal bowel sounds x4 quadrant, no hepatosplenomegaly MSK: Range of motion of all extremities are normal. There is no joint pain or joint swelling or joint erythema. Extremities: warm, well-perfused, No cyanosis, clubbing, 2+ pulses felt Neurological: Speech is clear, alert, and oriented x 4. No sensory or motor deficits. Cranial nerves II-XII intact. Power muscles 3/5 bilateral lower extremities. Tremors noted in both hands Skin: Warm and dry, wound noticed on left hand, bilateral cheeks eryhthematous multiple bruises in arms and hands. Psychiatry: Affect and mood are normal Coagulation Studies Laboratory Tests Test 05/03/25 23:31 05/04/25 14:44 Prothrombin Time 13.1 SECONDS (9.0-12.0) H INR International Normalized Ratio 1.3 INR Activated Partial Thromboplast Time 30 SECONDS (22-32) Coagulation Comments D-Dimer 9.36 MG/L FEU (0-0.50) H D-Dimer Comment Advance Care Planning Advanced Care plannin - 30 Minutes Plan Plan 84-year-old female with history of AFib, CAD, HFpEF, hypertension, hyperlipidemia, [place], GERD, chronic pain, hypothyroidism, COPD came to the ED with complaints of generalized weakness.During that she developed episode of VT. Sepsis SIRS Criteria Met ( HR >100, RR> 20) Wbc count elevated, Lactic 7.3, Repeat LA 7.2 Repeated Chest X Ray which shows pulmonary vascular congestion and pleural effusion, patient might need thoracentesis started patient on dobutamine drip. Recevied Lasix 60 mg once Started patient on 60 mg BID IV Patient , consulted nephrology Foleys in place to monitor strict I &O Creatinine 1.46 Fluids cautiously patient is volume overloaded probnp high,crackles on examination. 05/06/25 Wbc count normal Lactic acid normal Follow up with COVID test Started patient on solumedrol 125 mg, Solumedrol 62.5 mg BID Duonebs Q2h prn Consulted Dr Munoz for possible thoracentesis Atrial fibrillation with Aberrancy Versus Slow ventricular tachycardia EKG showed atrial ventricular paced rhythm, rate 60, QTC 501 on admission EKG May 03, 2025 at 7:20 p.m. shows AV paced rhythm EKG May 04, 2025 at 1:36 a.m. sinus rhythm with right bundle branch block versus less likely ventricular tachycardia which is slow at a rate of 110. EKG May 04, 2025 at 3:16 a.m. AV paced rhythm Patient was started on IV amiodarone drip Received IV magnesium sulfate and is on p.r.n Consulted Cardiology who recommeded --amiodarone may be transitioned to p.o. at 400 mg b.i.d, continued Eliquis 5 mg b.i.d. and increased dose of metoprolol to 100 mg daily and an interrogation of pacemaker completed Continue Amiodarone Drip 05/05/ HR in 100z Continue Amiodarone drip 25 HR in 100z Dced Amiodarone drip, patient on 400 MG BID Amiodarone. Hypervolemic Hypotonic Hyponatremic Na 125 Urine NA <20 , possbile cause is extra renal. CMP Q6H 05/06/25 Na 126 Possibly dilutional Follow up with CMP Heart Failure with Reduced Ejection Fraction LVEF 35-40% Continue metoprolol 100 mg daily As per packer sausage and wiener GDMT on hold in view of hypotension We will continue aspirin and Plavix as as these are her home medications, will continue until we find out reason for aspirin and plavix, patient dont remember. 05/05/25 Probnp increased from 7398 to 83141 Patient received lasix one dose 60 mg IV, currently on 60 mg IV BID Soto in place to monitor Strict I&O Crackles on examination. On Dobutamine drip 05/06/25 Dc Dobutamine dirp Lactic acid improved with dobutamine drip Patient responding to diuretics. Urine output total 1000 ml Nurse called his Son, who said his mother is no longer taking plavix, son said she takes aspirin and elliquis only. Dced plavix Elevated D-dimer Possibly Secondary to Anticoagulant use D-dimer elevated to 9.36 In view of this ordered CTA Chest, follow-up with that 05/06/25 CTA: No PE Generalized Weakness Possibly Age Related, Recent Adminstration of COVID Vaccine or UTI CT Head: 1. No acute intracranial abnormality. 2. Mild cerebral volume loss and mild chronic microvascular ischemic change Continue to monitor patient Fall precaution Urinary Tract Infection Continue Nitrofurantoin PO as patient is allergic to pencillins, sulfa antibiotics and clindamycin. UA suggestive of UTI Right hip pain Imaging at [place] showed no fractures or dislocation Continue Tylenol, Vassar 5 mg/10 mg p.r.n. Possible Rosacea Started the patient on triamcinolone cream Bilateral cheeks are erythematous Action Tremors Started patient on Sinemet 25-100 mg PO TID Acute on Chronic Kidney Disease Creatinine 1.04 Baseline creatine around 0.80 FeNA < 1% Continue N/S 75 ml/hr 05/05/25 Acute Kidney Inury Possibly Secondary to vasomotor nephropathy Creatinine 1.46 Fluids on hold as patient is volume overloaded Consulted Dry Transfer Worker. Follow up with CMP 05/06/25 Creatinine is 1.30 Consulted Dry Transfer Worker who recommended monitor Strict I&O and restriction of fluids to 1.2 liters per day. Patient responding to diuretics Urine output total 1000 ml Right hip pain Imaging at [place] showed no fractures or dislocation Ordered Tylenol, Vassar 5 mg/10 mg p.r.n. Code status: Full code DVT prophylaxis: Eliquis 5 mg b.i.d. Diet/nutrition: Heart healthy diet Disposition: Patient lactic acid is back to normal, DC amiodarone drip and director of retention recommended fluid restriction to 1.2 L per day. We will continue to monitor patient USE BIPAP if NEEDED, Consulted Dr Munoz for possbile thoracentesis. Thoracenetesis possibly tomorrow Florian Chavarria PGY 1 IM Resident PATIENT IS SEEN AND EXAMINED WITH RESIDENT AT BEDSIDE AGREE WITH THE ABOVE Date of Service: May 06, 2025 Billing Provider: LATOYA ROLAND MD Common Visit Codes: [id number] INP/OBS CARE(HIGH) FLORIAN CHAVARRIA, RES May 06, 2025 15:40 LATOYA ROLAND MD May 07, 2025 14:52
[2025-05-06] MEDS ORDERED: ipratropium/albuterol 3ml nebule NEB PRN (17:15)
[2025-05-06] MEDS ORDERED: ondansetron/PF 4mg/2ml inj IV ONE (17:55)
[2025-05-06] MEDS: carbidoba-levodopa 25-100mg tablet PO SCH (21:50)
[2025-05-07] VITALS (10 sets, daily range): BP systolic 92–117; BP diastolic 59–74; PULSE 105–126; RESP 16–26; TEMP 96.9–97.9; O2SAT 92–100
--- NOTE | 2025-05-07 00:14 | ELECTROCARDIOGRAPH REPORT ---
[facility] Test Date: 2025-05-07 Test Time: 00:11:54 Pat Name: JOJO PASTRANA Department: [facility] 3S Patient ID: [facility]-[id number] Room: [place] [address] Gender: F Grinder Gear: : 1940 Requested By: DIANA ESQUIVEL Order Number: [id number] Reading MD: Dr. LUIS Oconnor Measurements Intervals [place] Rate: 126 P: 0 AK: 90 QRS: 148 QRSD: 205 T: -5 QT: 438 QTc: 635 Interpretive Statements wide Complex tachycardia, P-waves not well seen RBBB and LPFB Electronically Signed On 05-07-2025 12:58:[address] LUIS Oconnor Please click the below link to view image of tracing.
[2025-05-07] MEDS ORDERED: amiodarone 50MG/ML inj IV STA (00:22)
[2025-05-07] MEDS: amiodarone 150mg/dext, iso-os 100 ML IV STA (00:47)
[2025-05-07] MEDS: amiodarone 150mg/dext, iso-os 100 ML IV ONE (00:53)
[2025-05-07] MEDS: magnesium sulf-water 2g/50mL 50 ML IV STA (00:58)
--- NOTE | 2025-05-07 01:42 | ELECTROCARDIOGRAPH REPORT ---
[facility] Test Date: 2025-05-07 Test Time: 01:40:23 Pat Name: JOJO PASTRANA Department: [facility] 3S Patient ID: [facility]-[id number] Room: [place] [address] Gender: F Hot Saw Helper: : 1940 Requested By: DIANA ESQUIVEL Order Number: [id number] Reading MD: Dr. LUIS Oconnor Measurements Intervals [place] Rate: 126 P: 0 DE: 43 QRS: 147 QRSD: 179 T: -15 QT: 387 QTc: 561 Interpretive Statements wide complex tachycardia, P-waves not well seen Probable left atrial enlargement Right bundle branch block ST depr, consider ischemia, inferior leads Electronically Signed On 05-07-2025 12:58:[address] LUIS Oconnor Please click the below link to view image of tracing.
[2025-05-07 06:39] LABS: MEAN PLATELET VOLUME 8.4 FL (7.4-10.4); RED CELL DISTRIBUTION WIDTH 18.9 % (11.5-14.5)
[2025-05-07 06:52] LABS: CREATININE 1.29 MG/DL (0.40-0.90); TOTAL CARBON DIOXIDE 27.4 MMOL/L (24-32); eCRCL 24 ML/MIN; eGFR 39 ML/MIN
--- NOTE | 2025-05-07 07:53 | PROGRESS NOTE ---
Progress Note Dictate Providers to CC ~ Central Line/PICC still needed: No [place] Indications Met/Not Met: F/C Indications Met Antibiotic Ordered?: N/A Subjective Subjective patient is hyponatremic. on dobutamine. ? amiodarone toxicity. Thyroid profile abnormal. need to check urine osm, urine sodium Objective Vitals Vital Signs Date Time Temp Pulse Resp B/P (MAP) Pulse Ox O2 Delivery O2 Flow Rate FiO2 05/07/25 21:00 115 05/07/25 15:23 20 94 Nasal Cannula 4.0 05/07/25 15:00 96.9 100/74 (83) 05/07/25 11:21 36 Lab Results: 05/07/25 0612 05/07/25 0612 Objective Vital Signs: As above General: Normal body habitus, no acute distress. Skin: No rashes, lumps, ulcers, blisters, purpura or petechiae HEENT: Anicteric sclera, LEBRON Neck: Supple and nontender without enlargement of the thyroid, or lymphadenopathy. Chest: poor air entry bilaterally Heart: gallop, tachycardic Abdomen: Soft and non tender no organomegaly,BS+ Extremities: No pedal edema Neuro: Nonfocal. Coagulation Studies Laboratory Tests Test 05/03/25 23:31 05/04/25 14:44 Prothrombin Time 13.1 SECONDS (9.0-12.0) H INR International Normalized Ratio 1.3 INR Activated Partial Thromboplast Time 30 SECONDS (22-32) Coagulation Comments D-Dimer 9.36 MG/L FEU (0-0.50) H D-Dimer Comment Advance Care Planning Advanced Care plannin - 30 Minutes Problem\Assessment\Plan Problems/Diagnosis: (1) DINESH (acute kidney injury) Assessment & Plan: creatinine is stable at 1.2, even better.. On dobutamine that is keeping her heart rate at 115, but she is also on amiodarone.Thyroid profile abnormal. She has copd exacerbation and is a risk for Mulfocal atrial tachycardia. on diuretics. monitor I and o. strict restriction of fluids to 1.2 liters per day. (2) COPD with acute exacerbation Assessment & Plan: on O2 and breathing treatment. tachycardic at this time. (3) CHF exacerbation Assessment & Plan: as above (4) Atrial fibrillation Assessment & Plan: on amiodarone. team working on changing this. WALLY RAMON MD May 07, 2025 07:53
--- NOTE | 2025-05-07 08:40 | RADIOLOGY REPORT ---
DI CHEST,SINGLE VIEW, HISTORY: shortness of breath COMPARISON: DI CHEST,SINGLE VIEW on DOS: 05/05/25, DI CHEST,SINGLE VIEW on DOS: 05/03/25, DI CHEST,SINGLE VIEW on DOS: 04/06/25 DI CHEST,SINGLE VIEW on DOS: 05/05/25, DI CHEST,SINGLE VIEW on DOS: 05/03/25, DI CHEST,SINGLE VIEW on DOS: 04/06/25 TECHNICAL DATA: 1 view of the chest was obtained. FINDINGS: Lines and tubes: A cardiac pacer is noted. Cardiomediastinal silhouette: prominent Pulmonary vasculature: normal Lung expansion: normal Lung airspace: Left basilar consolidation Lung interstitium: normal Pleura: small left effusion. Pneumothorax: no Bones: Unremarkable Other: no IMPRESSION: Left basilar consolidation, small left effusion.
[2025-05-07] MEDS ORDERED: digoxin 250mcg (0.25mg) tablet PO ONE (09:50)
[2025-05-07] MEDS ORDERED: CefTRIAXone/D5W-Rocephin 1gm 50 ML IV SCH (10:20)
[2025-05-07] MEDS: fluconazole-Diflucan 200mg/NS 100 ML IV SCH (11:41)
[2025-05-07] MEDS: digoxin 250mcg (0.25mg) tablet PO ONE (11:53)
--- NOTE | 2025-05-07 13:40 | PROGRESS NOTE- Residence ---
Progress Note - Resident Providers to CC Resident Creating Document: FLORIAN CHAVARRIA RES ~ Antibiotic Timeout Antibiotic Ordered?: Yes Subjective Patient was seen and examined on bedside, she feels nauseated Overall she feels sick. As per chart she is allergic to many medications ,she denied any lip , throat or tongue swelling with antibiotics. Last night she was tachycardiac in HR 120z, EKG performed shows sinus tachycardia QTC 635, she was given IV amiodarone 150 mg and IV magnesium 2 g Dobutamine drip has been discontinued. Objective Vital Signs Date Time Temp Pulse Resp B/P (MAP) Pulse Ox O2 Delivery O2 Flow Rate FiO2 05/07/25 12:29 97.3 124 20 92/59 (70) 92 Nasal Cannula 4.0 05/07/25 11:21 36 Result Diagram: 05/07/2561105/07/25 06 Awake , alert and oriented to time,place, person,not in distress HEENT: Atraumatic, normocephalic, PERRLA, EOMI, anicteric sclera ; pink conjunctiva, dry mucos membranes Neck: Trachea midline. Supple, normal range of motion, no JVD, no lymphadenopathy Chest and Respiratory: no tachypnea,, ronchi,rubs ,Crackles and wheezing heard bilaterally,.Chest wall is symmetric and without deformity, Cardiac: S1, S2 heard,HR elevated, no murmurs heard Abdomen: Soft, No tenderness, No guarding or rigidity, Alvarez's sign negative. normal bowel sounds x4 quadrant, no hepatosplenomegaly MSK: Range of motion of all extremities are normal. There is no joint pain or joint swelling or joint erythema. Extremities: warm, well-perfused, No cyanosis, clubbing, 2+ pulses felt Neurological: Speech is clear, alert, and oriented x 4. No sensory or motor deficits. Cranial nerves II-XII intact. Power muscles 3/5 bilateral lower extremities. Tremors noted in both hands Skin: Warm and dry, wound noticed on left hand, bilateral cheeks eryhthematous multiple bruises in arms and hands. Psychiatry: Affect and mood are normal Coagulation Studies Laboratory Tests Test 05/03/25 23:31 05/04/25 14:44 Prothrombin Time 13.1 SECONDS (9.0-12.0) H INR International Normalized Ratio 1.3 INR Activated Partial Thromboplast Time 30 SECONDS (22-32) Coagulation Comments D-Dimer 9.36 MG/L FEU (0-0.50) H D-Dimer Comment Advance Care Planning Advanced Care plannin - 30 Minutes Plan Plan 84-year-old female with history of AFib, CAD, HFpEF, hypertension, hyperlipidemia, [place], GERD, chronic pain, hypothyroidism, COPD came to the ED with complaints of generalized weakness.During that she developed episode of VT. Sepsis SIRS Criteria Met ( HR >100, RR> 20) Wbc count elevated, Lactic 7.3, Repeat LA 7.2 Repeated Chest X Ray which shows pulmonary vascular congestion and pleural effusion, patient might need thoracentesis started patient on dobutamine drip. Recevied Lasix 60 mg once Started patient on 60 mg BID IV Patient , consulted nephrology Foleys in place to monitor strict I &O Creatinine 1.46 Fluids cautiously patient is volume overloaded probnp high,crackles on examination. 05/07/25 Wbc count normal Started patient on meropenam Urine positive for E-Coli and yeast(not reta albicans), E.coli resistant to multiple drugs so except meropenam BP in softer side Patient might need other antibiotics, as per chart she is allergic to multiple drugs, but patient reports she never experience lip,tongue or throat swelling with antibiotics 05/06/25 Wbc count normal Lactic acid normal Follow up with COVID test Started patient on solumedrol 125 mg, Solumedrol 62.5 mg BID Duonebs Q2h prn Consulted Dr Munoz for possible thoracentesis Atrial fibrillation with Aberrancy Versus Slow ventricular tachycardia EKG showed atrial ventricular paced rhythm, rate 60, QTC 501 on admission EKG May 03, 2025 at 7:20 p.m. shows AV paced rhythm EKG May 04, 2025 at 1:36 a.m. sinus rhythm with right bundle branch block versus less likely ventricular tachycardia which is slow at a rate of 110. EKG May 04, 2025 at 3:16 a.m. AV paced rhythm Patient was started on IV amiodarone drip Received IV magnesium sulfate and is on p.r.n Consulted Cardiology who recommeded --amiodarone may be transitioned to p.o. at 400 mg b.i.d, continued Eliquis 5 mg b.i.d. and increased dose of metoprolol to 100 mg daily and an interrogation of pacemaker completed Continue Amiodarone Drip 05/07/25 In view of persistently elevated HR, started patient on Digoxin 250 mcg PO daily. Amiodrip dced, Patient is on amiodarone 400 mg BID TSH 10.75 , FT4 1.64 possibly these findings due to amiodarone use. Continue metoprolol 100 mg Increased Levothyroxine dose to 100 mcg. EKG showed Sinus tachycardia, rate 126, QTC 561 05/06/25 HR in 100z Dced Amiodarone drip, patient on 400 MG BID Amiodarone. 05/05/25 HR in 100z Continue Amiodarone drip Hypervolemic Hypotonic Hyponatremic Na 125 Urine NA <20 , possbile cause is extra renal. CMP Q6H 05/07/25 Na is 124 Possibly dilutational CMP Q6H 05/06/25 Na 126 Possibly dilutional Follow up with CMP Heart Failure with Reduced Ejection Fraction LVEF 35-40% Continue metoprolol 100 mg daily As per warp yarn sorter GDMT on hold in view of hypotension We will continue aspirin and Plavix as as these are her home medications, will continue until we find out reason for aspirin and plavix, patient dont remember. 05/07/25 Echo on 03/27/25: Moderate concentric hypertrophy, with akinesis and thinning of the mid to apical inferoseptum. LVEF is 35-40%. RV appears normal in size and function. Thickened RV free wall. RVSP is estimated at 67 mmHg. Pacemaker wire in right heart. Started patient bumex 1 mg IV BID On Digoxin 250 mcg Blood pressure on softer side Continue metoprolol 100 mg daily. Chest X-Ray shows pleural effusion 05/06/25 Dc Dobutamine dirp Lactic acid improved with dobutamine drip Patient responding to diuretics. Urine output total 1000 ml Nurse called his Son, who said his mother is no longer taking plavix, son said she takes aspirin and elliquis only. Dced plavix 05/05/25 Probnp increased from [id number] to [id number] Patient received lasix one dose 60 mg IV, currently on 60 mg IV BID Soto in place to monitor Strict I&O Crackles on examination. On Dobutamine drip Elevated D-dimer Possibly Secondary to Anticoagulant use D-dimer elevated to 9.36 In view of this ordered CTA Chest, follow-up with that 05/06/25 CTA: No PE Generalized Weakness Possibly Age Related, Recent Adminstration of COVID Vaccine or UTI CT Head: 1. No acute intracranial abnormality. 2. Mild cerebral volume loss and mild chronic microvascular ischemic change Continue to monitor patient Fall precaution Urinary Tract Infection Continue Nitrofurantoin PO as patient is allergic to pencillins, sulfa antibiotics and clindamycin. UA suggestive of UTI 05/07/25 Dced Nitrofurantoin Urine Culture positive for Yeast (not reta albicans) and E. coli, e.coli resistant to all antibtiocs except meropenem, in view of this started patient on meropenem Right hip pain Imaging at [facility] showed no fractures or dislocation Continue Tylenol, [place] 5 mg/10 mg p.r.n. Possible Rosacea Started the patient on triamcinolone cream Bilateral cheeks are erythematous Action Tremors Continue on Sinemet 25-100 mg PO TID Acute on Chronic Kidney Disease Creatinine 1.04 Baseline creatine around 0.80 FeNA < 1% Continue N/S 75 ml/hr 05/05/25 Acute Kidney Inury Possibly Secondary to vasomotor nephropathy Creatinine 1.46 Fluids on hold as patient is volume overloaded Consulted Manager Icu. Follow up with CMP 05/06/25 Creatinine is 1.30 Consulted Manager Icu who recommended monitor Strict I&O and restriction of fluids to 1.2 liters per day. Patient responding to diuretics Urine output total 1000 ml Right hip pain Imaging at [facility] showed no fractures or dislocation Ordered Tylenol, [place] 5 mg/10 mg p.r.n. Code status: Full code DVT prophylaxis: Eliquis 5 mg b.i.d. Diet/nutrition: Heart healthy diet Disposition: Patient HR has been persistently elevated, she is on digoxin, metoprolol and amiodarone 400 MG BID, patient need aggresive diuresis, on Bumex 1 mg IV BID. Will monitor HR, NA is low follow up with CMP strictly. As per chart she is allergic to many medications ,she denied any lip , throat or tongue swelling with antibiotics. BP is on softer side. Patient need to go to Postacure care as per PT. Consulted Metal Hardener Tariq who recommended medical management. Florian Chavarria PGY 1 IM Resident Date of Service: May 07, 2025 Billing Provider: LATOYA ROLAND MD Common Visit Codes: [id number] INP/OBS CARE(HIGH) FLORIAN CHAVARRIA, RES May 07, 2025 13:40 LATOYA ROLAND MD May 07, 2025 14:51
[2025-05-07] MEDS: MEROPENEM 1GM/NACL 50ML IVPB 50 ML IV SCH (16:32)
[2025-05-07] MEDS: metoclopramide 5 mg/ml inj IV ONE (20:25)
[2025-05-07] MEDS: digoxin 250mcg (0.25mg) tablet PO SCH (21:00)
[2025-05-08] VITALS (11 sets, daily range): BP systolic 103–138; BP diastolic 49–72; PULSE 60–127; RESP 13–19; TEMP 97–98.4; O2SAT 91–100
--- NOTE | 2025-05-08 02:34 | ELECTROCARDIOGRAPH REPORT ---
[facility] Test Date: 2025-05-08 Test Time: 02:31:10 Pat Name: JOJO PASTRANA Department: [facility] 3S Patient ID: [facility]-[id number] Room: [place] [address] A Gender: F Scientist/Engineer: : 1940 Requested By: HALEY TY Order Number: [id number] Reading MD: Dr. LUIS Oconnor Measurements Intervals [place] Rate: 124 P: 0 CA: 79 QRS: 141 QRSD: 230 T: -17 QT: 417 QTc: 599 Interpretive Statements Atrial-paced complexes Right bundle branch block ST depr, consider ischemia, inferior leads Electronically Signed On 05-08-2025 15:41:[address] LUIS Oconnor Please click the below link to view image of tracing.
[2025-05-08 06:32] LABS: MEAN PLATELET VOLUME 8.5 FL (7.4-10.4); RED CELL DISTRIBUTION WIDTH 18.7 % (11.5-14.5)
[2025-05-08 06:50] LABS: CREATININE 1.48 MG/DL (0.40-0.90); TOTAL CARBON DIOXIDE 29.2 MMOL/L (24-32); eCRCL 21 ML/MIN; eGFR 34 ML/MIN
[2025-05-08 07:10] LABS: ELLIPTOCYTES 1+; LARGE PLATELETS FEW; LYMPHOCYTES % (MANUAL) 6.0 % (21-51); MONOCYTES % (MANUAL) 12.0 % (2-12); NEUTROPHILS % (MANUAL) 82.0 % (42-75); PLATELET ESTIMATE NORMAL
[2025-05-08] MEDS: digoxin 250mcg (0.25mg) tablet PO SCH (07:49)
[2025-05-08] MEDS: levoTHYROXINE 100mcg tablet PO SCH (07:49)
[2025-05-08] MEDS: MEROPENEM 1GM/NACL 50ML IVPB 50 ML IV SCH (07:55)
--- NOTE | 2025-05-08 08:32 | PROGRESS NOTE ---
Progress Note Dictate Providers to CC ~ Central Line/PICC still needed: No Soto Indications Met/Not Met: F/C Indications Not Met Antibiotic Ordered?: N/A Subjective Subjective The patient is alert and oriented. Na is running low at 124. U Na is less than 20. She has been getting Bumex 1mg iv bid. I have cut it back to once a day. Free water restriction being done. with the Rosalinda less than 20, not an ideal candidate for tolvaptan. Objective Vitals Vital Signs Date Time Temp Pulse Resp B/P (MAP) Pulse Ox O2 Delivery O2 Flow Rate FiO2 05/08/25 12:21 97.3 60 14 134/60 (84) 100 Nasal Cannula 4.0 05/08/25 11:25 36 Lab Results: 05/08/25 0558 05/08/25 0558 Objective Vital Signs: As above General: Normal body habitus, no acute distress. Skin: No rashes, lumps, ulcers, blisters, purpura or petechiae HEENT: Anicteric sclera, LEBRON Neck: Supple and nontender without enlargement of the thyroid, or lymphadenopathy. Chest: poor air entry bilaterally Heart: gallop, tachycardic Abdomen: Soft and non tender no organomegaly,BS+ Extremities: No pedal edema Neuro: Nonfocal. Coagulation Studies Laboratory Tests Test 05/03/25 23:31 05/04/25 14:44 Prothrombin Time 13.1 SECONDS (9.0-12.0) H INR International Normalized Ratio 1.3 INR Activated Partial Thromboplast Time 30 SECONDS (22-32) Coagulation Comments D-Dimer 9.36 MG/L FEU (0-0.50) H D-Dimer Comment Advance Care Planning Advanced Care plannin - 30 Minutes Problem\Assessment\Plan Problems/Diagnosis: (1) DINESH (acute kidney injury) Assessment & Plan: creatinine is stable at 1.4. On dobutamine that is keeping her heart rate at 115, but she is also on amiodarone.Thyroid profile abnormal. She has copd exacerbation and is a risk for Mulfocal atrial tachycardia. on diuretics. monitor I and o. strict restriction of fluids to 1.2 liters per day. (2) COPD with acute exacerbation Assessment & Plan: on O2 and breathing treatment. tachycardic at this time. (3) CHF exacerbation Assessment & Plan: as above. cut back bumex (4) Atrial fibrillation Assessment & Plan: on amiodarone. team working on changing this. (5) Acute hyponatremia Assessment & Plan: Chf, nausea related. Does not appear to be SIADH, with the u Na less than 20. WALLY RAMON MD May 08, 2025 08:32
--- NOTE | 2025-05-08 18:16 | PROGRESS NOTE- Residence ---
Progress Note - Resident Providers to CC Resident Creating Document: JUSTYNA SHANNONGUS [place], RES ~ Antibiotic Timeout Antibiotic Ordered?: Yes Subjective The patient has been evaluated at bedside. Awake, alert and oriented. Objective Vital Signs Date Time Temp Pulse Resp B/P (MAP) Pulse Ox O2 Delivery O2 Flow Rate FiO2 05/08/25 16:12 97.4 70 19 138/69 (92) 93 05/08/25 12:21 Nasal Cannula 4.0 05/08/25 11:25 36 Physical exam: General: Awake, alert, oriented. No acute distress. Well-developed, hydrated and well-built nourished. No anemia, Jaundice or clubbing. HEENT: Conjunctive are pink, sclerae clear, no icterus, pupil is equal in both sides, reactive to light, no ear discharge, no pharyngeal erythema or an edema. Neck: Supple, no adenopathy, thyromegaly. Trachea is midline. No JVD. Chest: Respiratory: Vesicular breath sounds. No ronchi, crepitus or wheezing. Resonance is normal upon percussion of all lung salvador. Cardiovascular: S1-S2 regular sinus rhythm and, regular rate, no gallops, no rubs, no murmurs Abdomen: No visible distention, Bowel sounds present on auscultation, on palpation: soft, nontender, no guarding, no rigidity. Extremities: No obvious deformities, no pitting edema bilaterally, capillary refill intact, peripheral pulsations are intact on both sides Neurologic: Mental status: alert and conscious, oriented to place, person and time, preserved memory, normal speech. Cranial nerves I-XII: Normal. Motor system: Preserved power, coordination, no evidenced involuntary movements, strength 5/5 in upper extremities. 3/5 in lower extremities. Sensory system: Preserved temperature, pain and vibration sensation. 2+ deep tendon reflexes in biceps, triceps, quadriceps. Negative Babinski. Cerebellar: No nystagmus, dysdiadochokinesia, normal [id number] testing. Skin: Warm and dry. Presence of multiple bruises in bilateral upper extremities. Result Diagram: 05/08/25 0558 05/08/25 0558 Coagulation Studies Laboratory Tests Test 05/03/25 23:31 05/04/25 14:44 Prothrombin Time 13.1 SECONDS (9.0-12.0) H INR International Normalized Ratio 1.3 INR Activated Partial Thromboplast Time 30 SECONDS (22-32) Coagulation Comments D-Dimer 9.36 MG/L FEU (0-0.50) H D-Dimer Comment Assessment Assessment 84-year-old female patient presented to the hospital with generalized weakness. Admitted with sepsis secondary to urinary tract infection. Plan Plan Sepsis secondary to urinary tract infection/cystitis: SIRS Criteria Met ( HR >100, RR> 20, presence of source of infection) Wbc count initially elevated-currently within reference range. 05/07/25: Urine culture showing E coli multi resistant. Sensitive for meropenem. Plan: Meropenem 1 g IV b.i.d. the patient may require IV antibiotics for two weeks. Case management actively working for post-acute care placement. Atrial fibrillation with Aberrancy-resolved EKG currently showing ventricular paced rhythm. Heart rate of 80. Plan: Consulted Cardiology who recommeded amiodarone may be transitioned to p.o. at 400 mg b.i.d, continued Eliquis 5 mg b.i.d. and increased dose of metoprolol to 100 mg daily and an interrogation of pacemaker completed Eliquis 5 mg b.i.d.. Metoprolol 50 mg b.i.d. Systolic Heart Failure with Reduced Ejection Fraction LVEF 35-40% Echo on 03/27/25: Moderate concentric hypertrophy, with akinesis and thinning of the mid to apical inferoseptum. LVEF is 35-40%. RV appears normal in size and function. Thickened RV free wall. RVSP is estimated at 67 mmHg. Pacemaker wire in right heart. Plan: GDMT as tolerated. Metoprolol 50 mg b.i.d. current blood pressure and heart rate stable. Elevated D-dimer Possibly Secondary to Anticoagulant use Pulmonary embolism-ruled out. D-dimer elevated to 9.36 CTA order on 05/06/2025: Showed no pulmonary embolism. Generalized Weakness Possibly Age Related, Recent Adminstration of COVID Vaccine or UTI CT Head: 1. No acute intracranial abnormality. 2. Mild cerebral volume loss and mild chronic microvascular ischemic change Continue to monitor patient Fall precaution Urinary Tract Infection Currently on meropenem due to sensitivity of urinalysis. E coli multi resistant. Sensitive only to meropenem. Plan: Meropenem IV 1 g b.i.d. the patient may require IV antibiotics for two weeks. Case management actively working for post-acute care placement. Right hip pain Imaging at [facility] showed no fractures or dislocation Continue Tylenol, [place] 5 mg/10 mg p.r.n. Possible Rosacea Started the patient on triamcinolone cream Bilateral cheeks are erythematous Action Tremors Suspected Parkinson disease. Tremors improved with treatment. Plan: Continue on Sinemet 25-100 mg PO TID The patient will require follow-up as an outpatient with neurologist. Acute on Chronic Kidney Disease Creatinine 1.04 Baseline creatine around 0.80 FeNA < 1% The patient currently being diuresed with Bumex. Plan: Bumex reduced to 1 mg IV daily by nephrology recommendation. Free water restriction being done. with the Rosalinda less than 20, not an ideal candidate for tolvaptan. Right hip pain Imaging at [facility] showed no fractures or dislocation Ordered Tylenol, [place] 5 mg/10 mg p.r.n. Code status: Full code DVT prophylaxis: Eliquis Analgesia/sedation: Acetaminophen Line/tube: PIV GI prophylaxis: Protonix Nutrition: Minced moist. PT: Recommends post-acute care Prognosis: Guarded Disposition: Continue medical management. Meropenem 1 g IV b.i.d. the patient may require IV antibiotics for two weeks. Case management actively working for post-acute care placement. Gus Benoit Internal Medicine Resident [facility] Date of Service: May 08, 2025 Billing Provider: LATOYA ROLAND MD Common Visit Codes: [id number] INP/OBS CARE(HIGH) GUS MORRIS, RES May 08, 2025 18:16 LATOYA ROLAND MD May 10, 2025 14:48
--- NOTE | 2025-05-08 20:46 | ELECTROCARDIOGRAPH REPORT ---
[facility] Test Date: 2025-05-08 Test Time: 20:44:14 Pat Name: JOJO PASTRANA Department: [facility] 3S Room: [place] [address] A Gender: F Collections Director: : 1940 Requested By: LATOYA ROLAND Order Number: [id number] Reading MD: Dr. LUIS Oconnor Measurements Intervals [place] Rate: 60 P: 0 VT: 127 QRS: 183 QRSD: 180 T: 85 QT: 465 QTc: 465 Interpretive Statements A-V dual-paced rhythm with some inhibition No further analysis attempted due to paced rhythm Electronically Signed On 05-10-2025 19:47:[address] LUIS Oconnor Please click the below link to view image of tracing.
[2025-05-09] VITALS (10 sets, daily range): BP systolic 120–138; BP diastolic 44–86; PULSE 60; RESP 12–20; TEMP 97–97.9; O2SAT 92–100
[2025-05-09] MEDS: digoxin 250mcg (0.25mg) tablet PO SCH (08:00)
[2025-05-09] MEDS: pantoprazole 40mg Tablet.DR PO SCH (08:41)
--- NOTE | 2025-05-09 09:08 | PROGRESS NOTE ---
Progress Note Dictate Providers to CC ~ Central Line/PICC still needed: No Soto Indications Met/Not Met: F/C Indications Not Met Antibiotic Ordered?: N/A Subjective Subjective Na is up to 129 and creatinine is down to 1.2. need to be observed as wbc count went up today to 15.2. Objective Vitals Vital Signs Date Time Temp Pulse Resp B/P (MAP) Pulse Ox O2 Delivery O2 Flow Rate FiO2 05/09/25 17:06 22 05/09/25 16:20 60 100 Nasal Cannula* 4 36 05/09/25 11:00 97.5 138/55 (82) Lab Results: 05/09/25 0930 05/09/25 0930 Objective Vital Signs: As above General: Normal body habitus, no acute distress. Skin: No rashes, lumps, ulcers, blisters, purpura or petechiae HEENT: Anicteric sclera, LEBRON Neck: Supple and nontender without enlargement of the thyroid, or lymphadenopathy. Chest: poor air entry bilaterally Heart: gallop, tachycardic Abdomen: Soft and non tender no organomegaly,BS+ Extremities: No pedal edema Neuro: Nonfocal. Coagulation Studies Laboratory Tests Test 05/03/25 23:31 05/04/25 14:44 Prothrombin Time 13.1 SECONDS (9.0-12.0) H INR International Normalized Ratio 1.3 INR Activated Partial Thromboplast Time 30 SECONDS (22-32) Coagulation Comments D-Dimer 9.36 MG/L FEU (0-0.50) H D-Dimer Comment Advance Care Planning Advanced Care plannin - 30 Minutes Problem\Assessment\Plan Problems/Diagnosis: (1) DINESH (acute kidney injury) Assessment & Plan: creatinine is stable at 1.2. On dobutamine that is keeping her heart rate at 115, but she is also on amiodarone.Thyroid profile abnormal. She has copd exacerbation and is a risk for Mulfocal atrial tachycardia. on diuretics. monitor I and o. strict restriction of fluids to 1.2 liters per day. (2) COPD with acute exacerbation Assessment & Plan: on O2 and breathing treatment. tachycardic at this time. (3) CHF exacerbation Assessment & Plan: as above. cut back bumex (4) Atrial fibrillation Assessment & Plan: on amiodarone. team working on changing this. (5) Acute hyponatremia Assessment & Plan: Chf, nausea related. Does not appear to be SIADH, with the u Na less than 20. Na is up to 129 today. WALLY RAMON MD May 09, 2025 09:08
[2025-05-09 09:43] LABS: MEAN PLATELET VOLUME 8.4 FL (7.4-10.4); RED CELL DISTRIBUTION WIDTH 18.5 % (11.5-14.5)
[2025-05-09 09:54] LABS: CREATININE 1.26 MG/DL (0.40-0.90); PHOSPHORUS 2.4 MG/DL (2.3-4.5); TOTAL CARBON DIOXIDE 31.6 MMOL/L (24-32); eCRCL 24 ML/MIN; eGFR 41 ML/MIN
[2025-05-09] MEDS: normal saline 1000ml 1,000 ML IV SCH (13:09)
[2025-05-09] MEDS: ondansetron/PF 4mg/2ml inj IM ONE (13:19)
[2025-05-09] MEDS: Nepro carb steady vanilla 8oz. PO SCH (17:30)
--- NOTE | 2025-05-09 19:20 | PROGRESS NOTE- Residence ---
Progress Note - Resident Providers to CC Resident Creating Document: FLORIAN CHAVARRIA RES ~ Antibiotic Timeout Antibiotic Ordered?: Yes Subjective The patient has been evaluated at bedside. Awake, alert and oriented , was complaining of nausea. Objective Vital Signs Date Time Temp Pulse Resp B/P (MAP) Pulse Ox O2 Delivery O2 Flow Rate FiO2 05/09/25 17:06 22 05/09/25 16:20 60 100 Nasal Cannula* 4 36 05/09/25 15:00 97.0 124/44 (70) Result Diagram: 05/09/25 0930 05/09/25 0930 Awake , alert and oriented to time,place, person,not in distress HEENT: Atraumatic, normocephalic, PERRLA, EOMI, anicteric sclera ; pink conjunctiva, dry mucos membranes Neck: Trachea midline. Supple, normal range of motion, no JVD, no lymphadenopathy Chest and Respiratory: no tachypnea,, ronchi,rubs ,Crackles and wheezing heard bilaterally,.Chest wall is symmetric and without deformity, Cardiac: S1, S2 heard,HR elevated, no murmurs heard Abdomen: Soft, No tenderness, No guarding or rigidity, Alvarez's sign negative. normal bowel sounds x4 quadrant, no hepatosplenomegaly MSK: Range of motion of all extremities are normal. There is no joint pain or joint swelling or joint erythema. Extremities: warm, well-perfused, No cyanosis, clubbing, 2+ pulses felt Neurological: Speech is clear, alert, and oriented x 4. No sensory or motor deficits. Cranial nerves II-XII intact. Power muscles 3/5 bilateral lower extremities. Tremors noted in both hands Skin: Warm and dry, wound noticed on left hand, bilateral cheeks eryhthematous multiple bruises in arms and hands. Psychiatry: Affect and mood are normal Coagulation Studies Laboratory Tests Test 05/03/25 23:31 05/04/25 14:44 Prothrombin Time 13.1 SECONDS (9.0-12.0) H INR International Normalized Ratio 1.3 INR Activated Partial Thromboplast Time 30 SECONDS (22-32) Coagulation Comments D-Dimer 9.36 MG/L FEU (0-0.50) H D-Dimer Comment Advance Care Planning Advanced Care plannin - 30 Minutes Plan Plan Sepsis SIRS Criteria Met ( HR >100, RR> 20) Wbc count elevated, Lactic 7.3, Repeat LA 7.2 Repeated Chest X Ray which shows pulmonary vascular congestion and pleural effusion, patient might need thoracentesis started patient on dobutamine drip. Recevied Lasix 60 mg once Started patient on 60 mg BID IV Patient , consulted nephrology Foleys in place to monitor strict I &O Creatinine 1.46 Fluids cautiously patient is volume overloaded probnp high,crackles on examination. 05/09/25 Continue meropenam day 2 and Fluncazole day 2 Wbc count elevated Urine positive for E-Coli and yeast(not reta albicans), E.coli resistant to multiple drugs. Patient on prochlorperazin q6h prn for nausea 05/07/25 Wbc count normal Started patient on meropenam Urine positive for E-Coli and yeast(not reta albicans), E.coli resistant to multiple drugs so except meropenam BP in softer side Patient might need other antibiotics, as per chart she is allergic to multiple drugs, but patient reports she never experience lip,tongue or throat swelling with antibiotics 05/06/25 Wbc count normal Lactic acid normal Follow up with COVID test Started patient on solumedrol 125 mg, Solumedrol 62.5 mg BID Duonebs Q2h prn Consulted Dr Munoz for possible thoracentesis Atrial fibrillation with Aberrancy Versus Slow ventricular tachycardia EKG showed atrial ventricular paced rhythm, rate 60, QTC 501 on admission EKG May 03, 2025 at 7:20 p.m. shows AV paced rhythm EKG May 04, 2025 at 1:36 a.m. sinus rhythm with right bundle branch block versus less likely ventricular tachycardia which is slow at a rate of 110. EKG May 04, 2025 at 3:16 a.m. AV paced rhythm Patient was started on IV amiodarone drip Received IV magnesium sulfate and is on p.r.n Consulted Cardiology who recommeded --amiodarone may be transitioned to p.o. at 400 mg b.i.d, continued Eliquis 5 mg b.i.d. and increased dose of metoprolol to 100 mg daily and an interrogation of pacemaker completed Continue Amiodarone Drip 05/09/25 HR 60 Held metoporlol in view of HR Continue Amiodarone 400 mg BID and Digoxin 250 mcg 05/07/25 In view of persistently elevated HR, started patient on Digoxin 250 mcg PO daily. Amiodrip dced, Patient is on amiodarone 400 mg BID TSH 10.75 , FT4 1.64 possibly these findings due to amiodarone use. Continue metoprolol 100 mg Increased Levothyroxine dose to 100 mcg. EKG showed Sinus tachycardia, rate 126, QTC 561 05/06/25 HR in 100z Dced Amiodarone drip, patient on 400 MG BID Amiodarone. 05/05/25 HR in 100z Continue Amiodarone drip Hypervolemic Hypotonic Hyponatremic Na 125 Urine NA <20 , possbile cause is extra renal. CMP Q6H 05/09/25 Na 129 As per tire manager restriction of fluid 1.2 L per day 05/07/25 Na is 124 Possibly dilutational CMP Q6H 05/06/25 Na 126 Possibly dilutional Follow up with CMP Heart Failure with Reduced Ejection Fraction LVEF 35-40% Continue metoprolol 100 mg daily As per cullet crusher and washer GDMT on hold in view of hypotension We will continue aspirin and Plavix as as these are her home medications, will continue until we find out reason for aspirin and plavix, patient dont remember. 05/09/25 As per tire manager Bumex 1 mg IV once daily Restriction of fluids to 1.2 L per day 05/07/25 Echo on 03/27/25: Moderate concentric hypertrophy, with akinesis and thinning of the mid to apical inferoseptum. LVEF is 35-40%. RV appears normal in size and function. Thickened RV free wall. RVSP is estimated at 67 mmHg. Pacemaker wire in right heart. Started patient bumex 1 mg IV BID On Digoxin 250 mcg Blood pressure on softer side Continue metoprolol 100 mg daily. Chest X-Ray shows pleural effusion 05/06/25 Dc Dobutamine dirp Lactic acid improved with dobutamine drip Patient responding to diuretics. Urine output total 1000 ml Nurse called his Son, who said his mother is no longer taking plavix, son said she takes aspirin and elliquis only. Dced plavix 05/05/25 Probnp increased from [id number] to [id number] Patient received lasix one dose 60 mg IV, currently on 60 mg IV BID Soto in place to monitor Strict I&O Crackles on examination. On Dobutamine drip Elevated D-dimer Possibly Secondary to Anticoagulant use D-dimer elevated to 9.36 In view of this ordered CTA Chest, follow-up with that 05/06/25 CTA: No PE Generalized Weakness Possibly Age Related, Recent Adminstration of COVID Vaccine or UTI CT Head: 1. No acute intracranial abnormality. 2. Mild cerebral volume loss and mild chronic microvascular ischemic change Continue to monitor patient Fall precaution Urinary Tract Infection Continue Nitrofurantoin PO as patient is allergic to pencillins, sulfa antibiotics and clindamycin. UA suggestive of UTI 05/07/25 Dced Nitrofurantoin Urine Culture positive for Yeast (not reta albicans) and E. coli, e.coli resistant to all antibtiocs except meropenem, in view of this started patient on meropenem Right hip pain Imaging at [facility] showed no fractures or dislocation Continue Tylenol, [place] 5 mg/10 mg p.r.n. Possible Rosacea Started the patient on triamcinolone cream Bilateral cheeks are erythematous Action Tremors Continue on Sinemet 25-100 mg PO TID Acute on Chronic Kidney Disease Creatinine 1.04 Baseline creatine around 0.80 FeNA < 1% Continue N/S 75 ml/hr 05/09/25 Creatinine 1.26 BUN/CREATININE > 20 Patient received As per tire manager Bumex 1 mg IV once daily As per tire manager restriction of fluid 1.2 L per day 05/05/25 Acute Kidney Inury Possibly Secondary to vasomotor nephropathy Creatinine 1.46 Fluids on hold as patient is volume overloaded Consulted Creative Project Manager. Follow up with CMP 05/06/25 Creatinine is 1.30 Consulted Creative Project Manager who recommended monitor Strict I&O and restriction of fluids to 1.2 liters per day. Patient responding to diuretics Urine output total 1000 ml Right hip pain Imaging at [facility] showed no fractures or dislocation Ordered Tylenol, [place] 5 mg/10 mg p.r.n. Code status: Full code DVT prophylaxis: Eliquis 5 mg b.i.d. Diet/nutrition: Heart healthy diet Disposition: Patient HR has been persistently elevated, she is on digoxin, metoprolol and amiodarone 400 MG BID, patient need aggresive diuresis, on Bumex 1 mg IV BID. Will monitor HR, NA is low follow up with CMP strictly. As per chart she is allergic to many medications ,she denied any lip , throat or tongue swelling with antibiotics. BP is on softer side. Patient need to go to [facility] as per PT. Consulted Micro Photographer Tariq who recommended medical management. Florian Chavarria PGY 1 IM Resident Patient is seen and examined with resident at bedside stable for discharge Date of Service: May 09, 2025 Billing Provider: LATOYA ROLAND MD Common Visit Codes: [id number] INP/OBS CARE(HIGH) FLORIAN CHAVARRIA, RES May 09, 2025 19:20 LATOYA ROLAND MD May 10, 2025 15:51
[2025-05-10] VITALS (10 sets, daily range): BP systolic 106–141; BP diastolic 38–66; PULSE 59–76; RESP 11–20; TEMP 97–98.1; O2SAT 92–99
[2025-05-10 06:11] LABS: MEAN PLATELET VOLUME 8.6 FL (7.4-10.4); RED CELL DISTRIBUTION WIDTH 18.5 % (11.5-14.5)
[2025-05-10 06:18] LABS: CREATININE 1.00 MG/DL (0.40-0.90); PHOSPHORUS 2.8 MG/DL (2.3-4.5); TOTAL CARBON DIOXIDE 35.3 MMOL/L (24-32); eCRCL 31 ML/MIN; eGFR 53 ML/MIN
[2025-05-10 08:57] LABS: LYMPHOCYTES % (MANUAL) 11.0 % (21-51); MONOCYTES % (MANUAL) 13.0 % (2-12); NEUTROPHILS % (MANUAL) 76.0 % (42-75)
[2025-05-10 08:58] LABS: PLATELET ESTIMATE NORMAL
[2025-05-10 09:00] LABS: ELLIPTOCYTES FEW
--- NOTE | 2025-05-10 19:29 | PROGRESS NOTE- Residence ---
Progress Note - Resident Providers to CC Resident Creating Document: FLORIAN CHAVARRIA RES ~ Antibiotic Timeout Antibiotic Ordered?: Yes Subjective Patient was seen and examined on bedside, reports she is still nauseated, breathing is improved, today she passed little stool Objective Vital Signs Date Time Temp Pulse Resp B/P (MAP) Pulse Ox O2 Delivery O2 Flow Rate FiO2 05/10/25 15:00 97.7 60 11 121/46 (71) 94 Nasal Cannula 3.0 05/10/25 08:05 32 Result Diagram: 05/10/2551905/10/25519 Awake , alert and oriented to time,place, person,not in distress HEENT: Atraumatic, normocephalic, PERRLA, EOMI, anicteric sclera ; pink conjunctiva, dry mucos membranes Neck: Trachea midline. Supple, normal range of motion, no JVD, no lymphadenopathy Chest and Respiratory: no tachypnea,, ronchi,rubs ,Crackles and wheezing heard improving,.Chest wall is symmetric and without deformity, Cardiac: S1, S2 heard,HR elevated, no murmurs heard Abdomen: Soft, No tenderness, No guarding or rigidity, Alvarez's sign negative. normal bowel sounds x4 quadrant, no hepatosplenomegaly Soto in place MSK: Range of motion of all extremities are normal. There is no joint pain or joint swelling or joint erythema. Extremities: warm, well-perfused, No cyanosis, clubbing, 2+ pulses felt Neurological: Speech is clear, alert, and oriented x 4. No sensory or motor deficits. Cranial nerves II-XII intact. Power muscles 3/5 bilateral lower extremities. Tremors noted in both hands Skin: Warm and dry, wound noticed on left hand, bilateral cheeks eryhthematous multiple bruises in arms and hands. Psychiatry: Affect and mood are normal Coagulation Studies Laboratory Tests Test 05/03/25 23:31 05/04/25 14:44 Prothrombin Time 13.1 SECONDS (9.0-12.0) H INR International Normalized Ratio 1.3 INR Activated Partial Thromboplast Time 30 SECONDS (22-32) Coagulation Comments D-Dimer 9.36 MG/L FEU (0-0.50) H D-Dimer Comment Advance Care Planning Advanced Care plannin - 30 Minutes Plan Plan Sepsis SIRS Criteria Met ( HR >100, RR> 20) Wbc count elevated, Lactic 7.3, Repeat LA 7.2 Repeated Chest X Ray which shows pulmonary vascular congestion and pleural effusion, patient might need thoracentesis started patient on dobutamine drip. Recevied Lasix 60 mg once Started patient on 60 mg BID IV Patient , consulted nephrology Foleys in place to monitor strict I &O Creatinine 1.46 Fluids cautiously patient is volume overloaded probnp high,crackles on examination. 05/10/25 Continue meropenema dced flucanazole crackles improving. Continue on prochlorperazin q6h prn for nausea 05/09/25 Continue meropenam day 2 and Fluncazole day 2 Wbc count elevated Urine positive for E-Coli and yeast(not reta albicans), E.coli resistant to multiple drugs. Patient on prochlorperazin q6h prn for nausea 05/07/25 Wbc count normal Started patient on meropenam Urine positive for E-Coli and yeast(not reta albicans), E.coli resistant to multiple drugs so except meropenam BP in softer side Patient might need other antibiotics, as per chart she is allergic to multiple drugs, but patient reports she never experience lip,tongue or throat swelling with antibiotics 05/06/25 Wbc count normal Lactic acid normal Follow up with COVID test Started patient on solumedrol 125 mg, Solumedrol 62.5 mg BID Duonebs Q2h prn Consulted Dr Munoz for possible thoracentesis Atrial fibrillation with Aberrancy Versus Slow ventricular tachycardia EKG showed atrial ventricular paced rhythm, rate 60, QTC 501 on admission EKG May 03, 2025 at 7:20 p.m. shows AV paced rhythm EKG May 04, 2025 at 1:36 a.m. sinus rhythm with right bundle branch block versus less likely ventricular tachycardia which is slow at a rate of 110. EKG May 04, 2025 at 3:16 a.m. AV paced rhythm Patient was started on IV amiodarone drip Received IV magnesium sulfate and is on p.r.n Consulted Cardiology who recommeded --amiodarone may be transitioned to p.o. at 400 mg b.i.d, continued Eliquis 5 mg b.i.d. and increased dose of metoprolol to 100 mg daily and an interrogation of pacemaker completed Continue Amiodarone Drip 05/10/25 Hr in 60z Paced Held metoprolol in view of soft HR Held digoxin as patient blood digoxin level high 05/09/25 HR 60 Held metoporlol in view of HR Continue Amiodarone 400 mg BID and Digoxin 250 mcg 05/07/25 In view of persistently elevated HR, started patient on Digoxin 250 mcg PO daily. Amiodrip dced, Patient is on amiodarone 400 mg BID TSH 10.75 , FT4 1.64 possibly these findings due to amiodarone use. Continue metoprolol 100 mg Increased Levothyroxine dose to 100 mcg. EKG showed Sinus tachycardia, rate 126, QTC 561 05/06/25 HR in 100z Dced Amiodarone drip, patient on 400 MG BID Amiodarone. 05/05/25 HR in 100z Continue Amiodarone drip Hypervolemic Hypotonic Hyponatremic Na 125 Urine NA <20 , possbile cause is extra renal. CMP Q6H 05/10/25 Na 131, improving 05/09/25 Na 129 As per tabulating machine mechanic restriction of fluid 1.2 L per day 05/07/25 Na is 124 Possibly dilutational CMP Q6H 05/06/25 Na 126 Possibly dilutional Follow up with CMP Heart Failure with Reduced Ejection Fraction LVEF 35-40% Continue metoprolol 100 mg daily As per culinary director GDMT on hold in view of hypotension We will continue aspirin and Plavix as as these are her home medications, will continue until we find out reason for aspirin and plavix, patient dont remember. 05/10/25 Breathing improved, continue bumex 1 mg iv daily 05/09/25 As per tabulating machine mechanic Bumex 1 mg IV once daily Restriction of fluids to 1.2 L per day 05/07/25 Echo on 03/27/25: Moderate concentric hypertrophy, with akinesis and thinning of the mid to apical inferoseptum. LVEF is 35-40%. RV appears normal in size and function. Thickened RV free wall. RVSP is estimated at 67 mmHg. Pacemaker wire in right heart. Started patient bumex 1 mg IV BID On Digoxin 250 mcg Blood pressure on softer side Continue metoprolol 100 mg daily. Chest X-Ray shows pleural effusion 05/06/25 Dc Dobutamine dirp Lactic acid improved with dobutamine drip Patient responding to diuretics. Urine output total 1000 ml Nurse called his Son, who said his mother is no longer taking plavix, son said she takes aspirin and elliquis only. Dced plavix 05/05/25 Probnp increased from 7398 to [id number] Patient received lasix one dose 60 mg IV, currently on 60 mg IV BID Soto in place to monitor Strict I&O Crackles on examination. On Dobutamine drip Elevated D-dimer Possibly Secondary to Anticoagulant use D-dimer elevated to 9.36 In view of this ordered CTA Chest, follow-up with that 05/06/25 CTA: No PE Generalized Weakness Possibly Age Related, Recent Adminstration of COVID Vaccine or UTI CT Head: 1. No acute intracranial abnormality. 2. Mild cerebral volume loss and mild chronic microvascular ischemic change Continue to monitor patient Fall precaution Urinary Tract Infection Continue Nitrofurantoin PO as patient is allergic to pencillins, sulfa antibiotics and clindamycin. UA suggestive of UTI 05/07/25 Dced Nitrofurantoin Urine Culture positive for Yeast (not reta albicans) and E. coli, e.coli resistant to all antibtiocs except meropenem, in view of this started patient on meropenem Right hip pain Imaging at [facility] showed no fractures or dislocation Continue Tylenol, [place] 5 mg/10 mg p.r.n. Possible Rosacea Started the patient on triamcinolone cream Bilateral cheeks are erythematous Action Tremors Continue on Sinemet 25-100 mg PO TID Acute on Chronic Kidney Disease Creatinine 1.04 Baseline creatine around 0.80 FeNA < 1% Continue N/S 75 ml/hr 05/10/25 Creatinine 1.00 today improving. Fluids dc 05/09/25 Creatinine 1.26 BUN/CREATININE > 20 Patient received As per tabulating machine mechanic Bumex 1 mg IV once daily As per tabulating machine mechanic restriction of fluid 1.2 L per day 05/05/25 Acute Kidney Inury Possibly Secondary to vasomotor nephropathy Creatinine 1.46 Fluids on hold as patient is volume overloaded Consulted Side Show Entertainer. Follow up with [facility] 05/06/25 Creatinine is 1.30 Consulted Side Show Entertainer who recommended monitor Strict I&O and restriction of fluids to 1.2 liters per day. Patient responding to diuretics Urine output total 1000 ml Right hip pain Imaging at [facility] showed no fractures or dislocation Ordered Tylenol, [place] 5 mg/10 mg p.r.n. Code status: Full code DVT prophylaxis: Eliquis 5 mg b.i.d. Diet/nutrition: Heart healthy diet Disposition:As per chart she is allergic to many medications ,she denied any lip , throat or tongue swelling with antibiotics. Patient need to go to [facility] as per PT, waiting for placement Consulted Dock Pumper Tariq who recommended medical management. Florian Chavarria PGY 1 IM Resident Patient is seen and examined with resident at bedside stable for discharge Date of Service: May 10, 2025 Billing Provider: LATOYA ROLAND MD,FLORIAN, RES May 10, 2025 19:28
[2025-05-11 02:00] VITALS: BP 116/46; PULSE 60; RESP 13; TEMP 97.3; O2SAT 98
[2025-05-11 06:00] VITALS: BP 142/51; PULSE 60; RESP 18; TEMP 97; O2SAT 94
[2025-05-11 06:38] LABS: MEAN PLATELET VOLUME 8.2 FL (7.4-10.4); RED CELL DISTRIBUTION WIDTH 18.5 % (11.5-14.5)
[2025-05-11 06:46] LABS: CREATININE 0.78 MG/DL (0.40-0.90); PHOSPHORUS 2.3 MG/DL (2.3-4.5); TOTAL CARBON DIOXIDE 37.8 MMOL/L (24-32); eCRCL 39 ML/MIN; eGFR 71 ML/MIN
[2025-05-11 08:00] VITALS: BP 132/84; PULSE 59; RESP 18; O2SAT 94
[2025-05-11 09:06] LABS: PRO BRAIN NATRIURETIC PEPTIDE 8516 PG/ML (0-450)
[2025-05-11 11:00] VITALS: BP 130/47; PULSE 60; RESP 20; TEMP 97.5; O2SAT 93
[2025-05-11 15:00] VITALS: BP 124/48; PULSE 60; RESP 21; TEMP 97.5; O2SAT 95
[2025-05-11 15:29] VITALS: PULSE 60; RESP 20; O2SAT 95
--- NOTE | 2025-05-11 20:37 | DISCHARGE SUMMARY-Residence ---
Discharge Summary Providers to CC Resident Creating Document: FLORIAN MALHOTRA RES ~ Discharge Summary Admission Diagnosis: Generalized weakness Hospital Course DATE OF ADMISSION: 05/03/25 DATE OF DISCHARGE: 05/11/25 Discharge Diagnosis\Comment: PlanSepsis secondary to urinary tract infection Atrial fibrillation with Aberrancy-resolved Vtach Systolic Heart Failure with Reduced Ejection Fraction LVEF 35-40% Elevated D-dimer Possibly Secondary to Anticoagulant use Pulmonary embolism-ruled out. Generalized Weakness Possibly Age Related, Recent Adminstration of COVID Vaccine or UTI Urinary Tract Infection Possible Rosacea Action Tremors Acute on Chronic Kidney Disease Operations\Procedures: none Consultants: Banana Loader and Demolition Expert Complications: none Condition on DC: Stable Discharge Summary: Hospital Course Hospital Course This is 84-year-old female with a history of atrial fibrillation, coronary artery disease, and heart failure with reduced ejection fraction presented to the emergency department with generalized weakness and was found to have ventricular tachycardia. She was started on an amiodarone drip, received intravenous magnesium sulfate, ,Even after amiodarone drip HR was poorly controlled, however, after the metoprolol 100 mg as per cardiology recommendation, there was no signicant change in HR. In view of this, digoxin was initiated, which resulted in significant improvement, maintaining her heart rate in the 60s previously in the 100s. Atrial fibrillation with aberrancy was also noted. During hospitalization, the patient developed possible sepsis likely secondary to heart failure exacerbation and urinary tract infection and pneumonia , for which she was started on meropenem as she is allergic to many antibiotics, Her lactate levels were markedly elevated, and a dobutamine drip was initiated, leading to rapid improvement and subsequent discontinuation of the infusion. Given her history of heart failure with reduced ejection fraction HFrEF and volume overload, she was treated with intravenous furosemide Lasix 60 mg; however, due to minimal response to lasix and underlying chronic kidney disease with acute kidney injury, nephrology was consulted who recommended fluid restriction, and started intravenous Bumex 2 mg was initiated, later adjusted to 1 mg IV.The patient was also noted to have hyponatremia Na 120s, likely dilutional, which improved to 131 mmol/L by discharge. Elevated D-dimer prompted a CTA chest, which ruled out pulmonary embolism. On the day of discharge, the patient was hemodynamically stable, maintaining a controlled heart rate, improved volume status, and resolution of lactic acidosis. Soto was placed for strict I&O, which was dced on discharged Initally there was low urine output , which improved. Apart from that she was also treated for rosacea with triamcinolone and tremors were managed with sinemet. home med aspirin and eliiquis was continued also. Discharge Medications Take amiodarone 200 mg BID Metoprolol 50 mg BID Bumex 1 mg PO Protonix 40 mg PO once daily. Levothyroxine 100 mcg, continue sinmet 25-100 mg Digoxin 125 mcg PO, Elliquis 5 mg BID and aspirin 81 mg. Continue gabapentin 300 mg daily. Continue meropenam IV 1gm , Q12h 4 more days Repeat Digoxin level tomorrow Repeat TSH in 3 months. Physical Examination Awake , alert and oriented to time,place, person,not in distress HEENT: Atraumatic, normocephalic, PERRLA, EOMI, anicteric sclera ; pink conjunctiva, dry mucos membranes Neck: Trachea midline. Supple, normal range of motion, no JVD, no lymphadenopathy Chest and Respiratory: no tachypnea,, ronchi,rubs ,no Crackles and wheezing.Chest wall is symmetric and without deformity, Cardiac: S1, S2 heard,HR elevated, no murmurs heard Abdomen: Soft, No tenderness, No guarding or rigidity, Alvarez's sign negati ve. normal bowel sounds x4 quadrant, no hepatosplenomegaly Soto in place MSK: Range of motion of all extremities are normal. There is no joint pain or joint swelling or joint erythema. Extremities: warm, well-perfused, No cyanosis, clubbing, 2+ pulses felt Neurological: Speech is clear, alert, and oriented x 4. No sensory or motor deficits. Cranial nerves II-XII intact. Power muscles 3/5 bilateral lower extremities. Tremors noted in both hands Skin: Warm and dry, wound noticed on left hand, bilateral cheeks eryhthematous multiple bruises in arms and hands. Psychiatry: Affect and mood are normal Laboratory Tests Test 05/10/25 05:20 05/11/25 05:49 White Blood Count 8.5 X10'3 8.0 X10'3 Red Blood Count 3.45 X10'6 3.40 X10'6 Hemoglobin 9.3 g/dl 8.8 g/dl Hematocrit 28.4 % 28.0 % Mean Corpuscular Volume 82.3 FL 82.2 FL Mean Corpuscular Hemoglobin 26.9 PG 25.8 PG Mean Corpuscular Hemoglobin Concent 32.7 g/dL 31.4 g/dL Red Cell Distribution Width 18.5 % 18.5 % Platelet Count 268 X10'3 281 X10'3 Mean Platelet Volume 8.6 FL 8.2 FL Neutrophils (%) (Auto) 73.9 % 74.1 % Lymphocytes (%) (Auto) 10.3 % 11.0 % Monocytes (%) (Auto) 13.0 % 11.5 % Eosinophils (%) (Auto) 2.2 % 3.2 % Basophils (%) (Auto) 0.6 % 0.2 % Neutrophils # (Auto) 6.2 X10'3 5.9 X10'3 Lymphocytes # (Auto) 0.9 X10'3 0.9 X10'3 Monocytes # (Auto) 1.1 X10'3 0.9 X10'3 Eosinophils # (Auto) 0.2 X10'3 0.3 X10'3 Basophils # (Auto) 0.1 X10'3 0.0 X10'3 CBC Comment Differential Total Cells Counted 100 Neutrophils % (Manual) 76.0 % Lymphocytes % (Manual) 11.0 % Monocytes % (Manual) 13.0 % Platelet Estimate Normal Red Blood Cell Morphology Perf Hypochromasia 1+ Basophilic Stippling Anisocytosis 2+ Michelle Cells Few Elliptocytes Few Sodium Level 131 MMOL/L 133 MMOL/L Potassium Level 4.5 MMOL/L 4.4 MMOL/L Chloride Level 93 MMOL/L 94 MMOL/L Carbon Dioxide Level 35.3 MMOL/L 37.8 MMOL/L Anion Gap 3 1 Blood Urea Nitrogen 30 MG/DL 26 MG/DL Creatinine 1.00 MG/DL 0.78 MG/DL Estimated GFR/1.73 m2 53 ML/MIN 71 ML/MIN BUN/Creatinine Ratio 30.0 33.3 Glucose Level 83 MG/DL 86 MG/DL Calcium Level 7.3 MG/DL 7.3 MG/DL Phosphorus Level 2.8 MG/DL 2.3 MG/DL Magnesium Level 2.2 MG/DL 2.0 MG/DL Albumin 2.4 G/DL 2.3 G/DL Chemistry Comments Digoxin Level 3.4 NG/ML 2.6 NG/ML Pro-B-Type Natriuretic Peptide 8516 PG/ML Laboratory Tests Test 05/10/25 05:20 05/11/25 05:49 White Blood Count 8.5 X10'3 8.0 X10'3 Red Blood Count 3.45 X10'6 3.40 X10'6 Hemoglobin 9.3 g/dl 8.8 g/dl Hematocrit 28.4 % 28.0 % Mean Corpuscular Volume 82.3 FL 82.2 FL Mean Corpuscular Hemoglobin 26.9 PG 25.8 PG Mean Corpuscular Hemoglobin Concent 32.7 g/dL 31.4 g/dL Red Cell Distribution Width 18.5 % 18.5 % Platelet Count 268 X10'3 281 X10'3 Mean Platelet Volume 8.6 FL 8.2 FL Neutrophils (%) (Auto) 73.9 % 74.1 % Lymphocytes (%) (Auto) 10.3 % 11.0 % Monocytes (%) (Auto) 13.0 % 11.5 % Eosinophils (%) (Auto) 2.2 % 3.2 % Basophils (%) (Auto) 0.6 % 0.2 % Neutrophils # (Auto) 6.2 X10'3 5.9 X10'3 Lymphocytes # (Auto) 0.9 X10'3 0.9 X10'3 Monocytes # (Auto) 1.1 X10'3 0.9 X10'3 Eosinophils # (Auto) 0.2 X10'3 0.3 X10'3 Basophils # (Auto) 0.1 X10'3 0.0 X10'3 CBC Comment Differential Total Cells Counted 100 Neutrophils % (Manual) 76.0 % Lymphocytes % (Manual) 11.0 % Monocytes % (Manual) 13.0 % Platelet Estimate Normal Red Blood Cell Morphology Perf Hypochromasia 1+ Basophilic Stippling Anisocytosis 2+ [place] Cells Few Elliptocytes Few Sodium Level 131 MMOL/L 133 MMOL/L Potassium Level 4.5 MMOL/L 4.4 MMOL/L Chloride Level 93 MMOL/L 94 MMOL/L Carbon Dioxide Level 35.3 MMOL/L 37.8 MMOL/L Anion Gap 3 1 Blood Urea Nitrogen 30 MG/DL 26 MG/DL Creatinine 1.00 MG/DL 0.78 MG/DL Estimated GFR/1.73 m2 53 ML/MIN 71 ML/MIN BUN/Creatinine Ratio 30.0 33.3 Glucose Level 83 MG/DL 86 MG/DL Calcium Level 7.3 MG/DL 7.3 MG/DL Phosphorus Level 2.8 MG/DL 2.3 MG/DL Magnesium Level 2.2 MG/DL 2.0 MG/DL Albumin 2.4 G/DL 2.3 G/DL Chemistry Comments Digoxin Level 3.4 NG/ML 2.6 NG/ML Pro-B-Type Natriuretic Peptide 8516 PG/ML Imaging Abdomen/Pelvis CT FINDINGS: Small right-sided pleural effusion with associated atelectasis. Left basilar opacities with possible trace effusion. Ground-glass opacities of the lung bases. Moderate cardiomegaly. Mild ascites . No evidence of intraperitoneal free air. Mild hepatomegaly. Otherwise, liver, spleen, pancreas and adrenal glands unremarkable. Wall thickening of the gallbladder with surrounding mild ascites. No CT evidence of cholelithiasis. Kidneys, and ureters are unremarkable. Wall thickening of the urinary bladder with surrounding ascites. Uterus is not definitely visualized. Question hysterectomy. Stomach is unremarkable. Small bowel loops unremarkable. Appendix is unremarkable. The rectum is decompressed. Moderate to large amount of fecal material within the colon. No evidence of aortic aneurysm. Heavy atherosclerotic calcification of the aorta and bilateral iliacs. No significant lymphadenopathy. Moderate body wall edema. Tiny fat containing umbilical hernia. Mild compression fracture of the superior endplate of L1 which appears chronic. Interval moderate to severe degenerative changes of the lumbar spine. No evidence of acute osseous abnormalities. Diffuse demineralization. Heterotopic ossification within the left paraspinal soft tissues at the level of L4-L5 with postsurgical changes of the left transverse process of L4 IMPRESSION: Mild ascites. Wall thickening of the urinary bladder correlate for cystitis. Nonspecific wall thickening of the gallbladder with no CT evidence of carolee lithiasis. If there is concern for acute cholecystitis, right upper quadrant ultrasound should be considered for further evaluation. Decompressed rectum. Otherwise, moderate to large amount of fecal material within the colon. Hepatomegaly. Small right-sided pleural effusion with associated atelectasis. Ground-glass opacities of the lung bases which may represent pulmonary edema. Opacities of the left lower lung zone may represent atelectasis. Head CT FINDINGS: Mild cerebral volume loss with concordant prominence of the subarachnoid spaces and ventricles. Patchy Low attenuation in the cerebral white matter consistent with nonspecific white matter disease. There is no midline shift or mass effect. The pike white matter interfaces are maintained. The basal cisterns are patent. There is no evidence of acute intracranial hemorrhage or extra-axial fluid collection. The mastoid air cells and visualized paranasal sinuses are well-aerated. Prior ocular lens replacement. IMPRESSION: 1. No acute intracranial abnormality. 2. Mild cerebral volume loss and mild chronic microvascular ischemic change. Chest/Thorax CTA Findings: Pulmonary artery: No pulmonary embolism. Central pulmonary arteries are dilated. Lower neck: Normal thyroid. Lungs: Diffuse interlobular septal thickening with patchy ground-glass opacity throughout both lungs. Heart/Vascular Structures: Multichamber cardiac enlargement. No pericardial effusion. Lymph Nodes: No adenopathy Pleura: Small bilateral pleural effusions. Musculoskeletal: No acute osseous abnormality. Soft tissues: Normal. Upper abdomen: Limited portions of the upper abdomen are unremarkable. IMPRESSION: No pulmonary embolism. Pulmonary edema with small bilateral pleural effusions. Chest X-Ray FINDINGS: Lines and tubes: A cardiac pacer is noted. Cardiomediastinal silhouette: prominent Pulmonary vasculature: normal Lung expansion: normal Lung airspace: Left basilar consolidation Lung interstitium: normal Pleura: small left effusion. Pneumothorax: no Bones: Unremarkable Other: no IMPRESSION: Left basilar consolidation, small left effusion. *Problems/Diagnosis: (1) DINESH (acute kidney injury) (2) COPD with acute exacerbation Status: Acute (3) CHF exacerbation Status: Acute (4) Atrial fibrillation Status: Chronic (5) Acute hyponatremia Total Time Spent on D/C: > 30 Minutes Date of Service: May 11, 2025 Billing Provider: HOMERO NICE MD Common Visit Codes: 33658-EWP/OBS DISCH DAY >30min FLORIAN MALHOTRA, ROSALES May 11, 2025 20:37 HOMERO NICE MD May 13, 2025 08:15
== END 2025-05-11 18:15 | DRG 871 ==
LOC: ER 18:33 → UNDOADMIN 22:08 → ED HOLD 22:08 → EDBEDREQ 23:33 → EDBEDREQSVC 23:33 → ED HOLD 05-04 00:25 → PCU 3S 05-04 00:25
PROVIDERS: ADMIT Internal Medicine; ATTEND Internal Medicine
PROC: 4B02XSZ Measurement of Cardiac Pacemaker, External Approach (ICD-10-PCS; principal; 2025-05-04)
PROC: B32T1ZZ Computerized Tomography (CT Scan) of Left Pulmonary Artery using Low Osmolar Contrast (ICD-10-PCS; 2025-05-04)
PROC: B3201ZZ Computerized Tomography (CT Scan) of Thoracic Aorta using Low Osmolar Contrast (ICD-10-PCS; 2025-05-04)
PROC: B32S1ZZ Computerized Tomography (CT Scan) of Right Pulmonary Artery using Low Osmolar Contrast (ICD-10-PCS; 2025-05-04)
DX: A41.9 Sepsis, unspecified organism (principal); I50.23 Acute on chronic systolic (congestive) heart failure; N17.0 Acute kidney failure with tubular necrosis; J18.9 Pneumonia, unspecified organism; N39.0 Urinary tract infection, site not specified; I47.29 Other ventricular tachycardia; E87.1 Hypo-osmolality and hyponatremia; I13.0 Hypertensive heart and chronic kidney disease with heart failure and stage 1 through stage 4 chronic kidney disease, or unspecified chronic kidney disease; I47.20 Ventricular tachycardia, unspecified; E87.20 Acidosis, unspecified; J44.0 Chronic obstructive pulmonary disease with (acute) lower respiratory infection; Z20.822 Contact with and (suspected) exposure to COVID-19; E86.0 Dehydration; E83.51 Hypocalcemia; I48.91 Unspecified atrial fibrillation; N18.9 Chronic kidney disease, unspecified; E78.00 Pure hypercholesterolemia, unspecified; M25.551 Pain in right hip; F41.1 Generalized anxiety disorder; L71.8 Other rosacea; I95.9 Hypotension, unspecified; I25.10 Atherosclerotic heart disease of native coronary artery without angina pectoris; E89.0 Postprocedural hypothyroidism; K21.9 Gastro-esophageal reflux disease without esophagitis; Z88.1 Allergy status to other antibiotic agents; Z88.8 Allergy status to other drugs, medicaments and biological substances; Z79.82 Long term (current) use of aspirin; Z79.01 Long term (current) use of anticoagulants; Z79.899 Other long term (current) drug therapy; Z90.710 Acquired absence of both cervix and uterus; Z95.0 Presence of cardiac pacemaker; Z87.891 Personal history of nicotine dependence; I25.2 Old myocardial infarction
CPT/HCPCS: 36415; 36600; 70450; 71045; 71275; 74176; 80048; 80053; 80061; 80076; 80162; 81001; 82570; 82728; 82803; 82948; 83036; 83540; 83550; 83605; 83690; 83735; 83880; 83930; 83935; 84100; 84145; 84156; 84300; 84439; 84443; 84466; 84484; 85007; 85008; 85018; 85025; 85379; 85610; 85730; 87040; 87077; 87081; 87088; 87186; 87207; 87804; 87811; 92508; 92616; 93005; 94760; 96361; 96374; 97110; 97116; 97161; 97530; 99285; A4314; A6213; A6223; A6250; A6258; A6449; G0378; J0282; J0780; J1250; J1450; J1938; J2185; J2405; J2470; J2765; J2919; J3480; J3490; J7030; J7040; Q9967